=== PATIENT | male | born 1960 | race Caucasian/White ===

== ENCOUNTER 2017-09-30 21:06 | Emergency (ER) | payer MEDICARE ==
[~2017-09-30] VITALS: Ht 185.4 cm; Wt 133.4 kg
[~2017-09-30 21:06] MED LIST: AMITIZA24 MCG PO; AMITRIPTYLINE H25 MG PO; BENEFIBER1 EAC1 PO; BUMETANIDE1 MG PO; BYDUREON2 MG SC; CARVEDILOL3.125 MG PO; GABAPENTIN300 MG PO; GLIMEPIRIDE2 MG PO; GLYBURIDE-METF1 EACH PO; HYDROCHLOROTHIA25 MG PO; LISINOPRIL2.5 MG PO; LISINOPRIL40 MG PO; LORATADINE10 MG PO; MIRALAX17 GM PO; NEXIUM40 MG PO; PRAVASTATIN SOD20 MG PO; PRAVASTATIN SOD40 MG PO; WARFARIN SODIU7.5 MG PO; WARFARIN SODIUM10 MG PO
--- NOTE | 2017-09-30 22:39 | Diagnostic Imaging Report ---
EXAM: FOOT RIGHT COMPLETE, AP, lateral and oblique DATE: 09/30/2017 9:59 PM Time stamp on exam: 2209 hours INDICATION: Smashed foot, lateral side right foot pain COMPARISON: None FINDINGS: BONES: Acute minimally displaced fracture through the proximal fifth digit phalanx with likely distal intra-articular extension. Fracture of the base of the fifth digit distal phalanx. JOINTS: No malalignment. SOFT TISSUES: Normal IMPRESSION: Acute minimally displaced fracture of the fifth digit proximal and distal phalanx. Signed by: Dr. Debra Packer M.D. on 09/30/2017 10:36 PM
[2017-09-30 23:16] VITALS: BP 139/86
== END 2017-09-30 23:29 | disposition home or self-care (01) ==
LOC: ER 21:06
DX: S92.511A Displaced fracture of proximal phalanx of right lesser toe(s), initial encounter for closed fracture (principal); S92.531A Displaced fracture of distal phalanx of right lesser toe(s), initial encounter for closed fracture; S90.121A Contusion of right lesser toe(s) without damage to nail, initial encounter; Y92.008 Other place in unspecified non-institutional (private) residence as the place of occurrence of the external cause
CPT/HCPCS: 99284

== ENCOUNTER 2018-02-13 10:46 | Emergency (ER) | payer MEDICARE ==
[~2018-02-13] VITALS: Ht 185.4 cm; Wt 140.2 kg
--- OUTSIDE RECORDS SUMMARY | 2018-02-13 10:49 | XMS REPORT ---
Author Author [facility] Address Unknown Phone Unavailable Care Team Providers Care Colorist Photography Name Role Phone ZACKARY SCHOFIELD Unavailable Unavailable NICK SALCEDO Unavailable Unavailable Problems This patient has no known problems. Allergies, Adverse Reactions, Alerts This patient has no known allergies or adverse reactions. Medications This patient has no known medications. Results Test Description Test Time Test Comments Text Results Atomic Results Result Comments FOOT RIGHT COMPLETE [place] [address] Patient Name: BEN KRISHNAN MR #: [id number] : 1960 Age/Sex: 57/M Req #: [id number] Adm Physician: Ordered by: ZACKARY SCHOFIELD MD Report #: [id number] Location: ER Room/Bed: Procedure: [id number] [id number] DX/FOOT RIGHT COMPLETE Exam Date: 09/30/17 Exam Time: 2210 REPORT STATUS: Signed EXAM: FOOT RIGHT COMPLETE, AP, lateral and oblique DATE: 09/30/2017 9:59 PM Time stamp on exam: 2209 hours INDICATION: Smashed foot, lateral side right foot pain COMPARISON: None FINDINGS: BONES: Acute minimally displaced fracture through the proximal fifth digit phalanx with likely distal intra-articular extension. Fracture of the base of the fifth digit distal phalanx. JOINTS: No malalignment. SOFT TISSUES: Normal IMPRESSION: Acute minimally displaced fracture of the fifth digit proximal and distal phalanx. Signed by: Dr. Jaki Packer M.D. on 09/30/2017 10:36 PM Dictated By: JAKI PACKER MD 35 Transcribed By: MARILUZ on 09/30/172235 COPY TO: ZACKARY SCHOFIELD MD CT ABDOMEN/PELVIS WO [place] [address] Patient Name: BEN KRISHNAN MR #: [id number] : 1960 Age/Sex: 57/M Req #: [id number] Adm Physician: Ordered by: PITA RENTERIA Report #: [id number] Location: ER Room/Bed: Procedure: [id number] 0032 CT/CT ABDOMEN/PELVIS WO Exam Date: 07/04/17 Exam Time: 1935 REPORT STATUS: Signed EXAM: CT Abdomen and Pelvis WITHOUT contrast INDICATION: COMPARISON: CT dated 2015 TECHNIQUE: Abdomen and pelvis were scanned utilizing a multidetector helical scanner from the lung base to the pubic symphysis without administration of IV contrast. Absence of intravenous contrast decreases sensitivity for detection of focal lesions and vascular pathology. Coronal and sagittal reformations were obtained. Routine protocol was performed. IV CONTRAST: None ORAL CONTRAST: Water COMPLICATIONS : None RADIATION DOSE: Total DLP: 954.3 mGy*cm Estimated effective dose: (DLP x 0.015 x size factor) mSv CTDIvol has been reviewed. It is below the limits set by the Radiation Protocol Committee (RPC) . FINDINGS: LINES and TUBES: Partially imaged distal cardiac pacemaker lead. LOWER THORAX: Unremarkable HEPATOBILIARY: Stable hypodensity in the right lobe of the liver with peripheral calcifications. Otherwise, unenhanced liver is unremarkable. No biliary ductal dilation. GALLBLADDER: Surgically absent. SPLEEN: No splenomegaly. PANCREAS: No focal masses or ductal dilatation. ADRENALS: No adrenal nodules KIDNEYS/URETERS: Absent left kidney. Unenhanced right kidney is unremarkable. Mild nonspecific right perinephric fat stranding. No hydronephrosis. No calculus. GI TRACT: No abnormal distention, wall thickening, or evidence of bowel obstruction. Stool throughout the colon with possible rectal fecal impaction. Appendix is not visualized. No right lower quadrant inflammation. PELVIC ORGANS/BLADDER : Unremarkable. LYMPH NODES: No lymphadenopathy. VESSELS: Mild aortoiliac atherosclerotic disease. PERITONEUM / RETROPERITONEUM: No free air or fluid. BONES: Unremarkable. SOFT TISSUES: Unremarkable. IMPRESSION: 1. Constipation with possible rectal fecal impaction. 2. No acute inflammatory process in the abdomen/pelvis. No bowel obstruction. Signed by: Dr. Jay Ogden MD on 07/04/2017 8:36 PM Dictated By: JAY OGDEN MD 35 COPY TO: PITA RENTERIA CHEST 2 VIEWS [place] [address] Patient Name: BEN KRISHNAN MR #: [id number] : 1960 Age/Sex: 57/M Req #: [id number] Adm Physician: Ordered by: PITA RENTERIA Report #: [id number] Location: ER Room/Bed: Procedure: [id number] 0070 DX/CHEST 2 VIEWS Exam Date: 07/04/17 Exam Time : 1830 REPORT STATUS: Signed PROCEDURE: Frontal and lateral views of the chest. COMPARISON: Portable chest 12/05/2016. INDICATIONS: SEVERE CONSTIPATION FINDINGS: Lines/tubes: Left chest cardiac device with lead projecting over the expected region of the right ventricle. Lungs: No focal consolidation or parenchymal mass. Pleura: There is no pleural effusion or pneumothorax. Heart and mediastinum: The heart and the mediastinum are normal. Bones: No acute bony abnormality. Degenerative changes of the thoracic spine. IMPRESSION: No acute radiographic abnormality. Dictated by: Ben Godinez M.D. on 2016 at 18:54 Electronically approved by: Ben Godinez M.D. on 2016 at 18:54 Dictated By: BEN GODINEZ MD 53 Transcribed By: RADHA on 07/04/171853 COPY TO: PTIA RENTERIA
[2018-02-13] MEDS ORDERED: ASPIRIN 81 MG CHEW TAB PO ONE (11:00)
[2018-02-13] MEDS ORDERED: ALBUTEROL SULF 0.083% NEB SOLN 3 ML NEB NEB STA (11:09)
[2018-02-13] MEDS ORDERED: IPRATROPIUM BROMIDE 0.02% 2.5 ML NEB NEB STA (11:09)
[2018-02-13 11:23] LABS: BASOPHILS % 0.6 % (0.0-1.0); EOSINOPHILS # (AUTO) 0.1 (0.0-0.4); EOSINOPHILS % 0.7 % (0.0-6.0); HEMATOCRIT 41.3 % (38.2-49.6); HEMOGLOBIN 14.9 g/dL (14.0-18.0); LYMPHOCYTES # (AUTO) 1.5 (1.0-3.2); LYMPHOCYTES % 22.1 % (18.0-39.1); MEAN CORPUSCULAR HEMOGLOBIN 31.6 pg (28-32); MEAN CORPUSCULAR HGB CONC 36.1 g/dL (31-35); MEAN CORPUSCULAR VOLUME 87.7 fL (81-99); MONOCYTES # (AUTO) 0.8 (0.2-0.8); NEUTROPHILS # (AUTO) 4.5 (2.1-6.9); NEUTROPHILS % 65.2 % (38.7-80.0); PLATELET COUNT 195 x10e3/uL (140-360); RED BLOOD COUNT 4.71 x10e6/uL (4.3-5.7); RED CELL DISTRIBUTION WIDTH 13.2 % (11.7-14.4)
[2018-02-13 11:31] LABS: INR 2.45
[2018-02-13 11:32] LABS: PARTIAL THROMBOPLASTIN TIME 37.5 seconds (23.8-35.5)
[2018-02-13 11:42] LABS: ALANINE AMINOTRANSFERASE 21 IU/L (0-55); ALBUMIN 3.8 g/dL (3.5-5.0); ALBUMIN/GLOBULIN RATIO 1.4 (0.8-2.0); ALKALINE PHOSPHATASE 78 IU/L (40-150); ANION GAP 14.8 mmol/L (8-16); BLOOD UREA NITROGEN 17 mg/dL (7-26); BUN/CREATININE RATIO 14 (6-25); CALCIUM 9.4 mg/dL (8.4-10.2); CARBON DIOXIDE 28 mmol/L (22-29); CHLORIDE 103 mmol/L (98-107); CREATINE KINASE 99 IU/L (30-200); CREATININE, SERUM 1.22 mg/dL (0.72-1.25); EST GLOMERULAR FILTRATION RATE > 60 ML/MIN (60-); GLUCOSE 128 mg/dL (74-118); LIPASE 48 U/L (8-78); POTASSIUM 3.8 mmol/L (3.5-5.1); SODIUM 142 mmol/L (136-145)
--- NOTE | 2018-02-13 11:58 | Diagnostic Imaging Report ---
EXAMINATION: CHEST SINGLE (PORTABLE) INDICATION: \S\ERMD ORDER \S\[id number] \S\1120 \S\Y COMPARISON: Chest radiograph 07/04/2017 FINDINGS: AP view TUBES and LINES: Left chest wall ICD with lead tip overlying the right ventricle. LUNGS: Lungs are moderately inflated. Lungs are clear. There is no evidence of pneumonia or pulmonary edema. PLEURA: No pleural effusion or pneumothorax. HEART AND MEDIASTINUM: The cardiomediastinal silhouette is unremarkable. BONES AND SOFT TISSUES: No acute osseous lesion. Soft tissues are unremarkable. UPPER ABDOMEN: No free air under the diaphragm. IMPRESSION: No acute thoracic abnormality. Signed by: DR. Donavan Hwang MD on 02/13/2018 11:54 AM
[2018-02-13 12:18] LABS: BILIRUBIN,URINE NEGATIVE (NEGATIVE); CLARITY,URINE CLEAR (CLEAR); COLOR,URINE YELLOW (YELLOW); KETONES,URINE NEGATIVE (NEGATIVE); LEUKOCYTE ESTERASE ,URINE NEGATIVE (NEGATIVE); NITRITE,URINE NEGATIVE (NEGATIVE); PROTEIN,URINE DIPSTICK NEGATIVE (NEGATIVE); URINE UROBILINOGEN 1 mg/dL (0.2 - 1)
[2018-02-13 12:24] LABS: EPITHELIAL CELLS,URINE FEW /LPF; RBC,URINE 0-5 /HPF (0-5); WBC,URINE (MAN) 0-5 /HPF (0-5)
--- NOTE | 2018-02-13 13:08 | Diagnostic Imaging Report ---
EXAM: CT Chest WITH contrast 02/13/2018 11:18 AM INDICATION: \S\r/o pe \S\[id number] \S\1205 \S\Y COMPARISON: Chest CT 05/06/2000 and and 16 TECHNIQUE: Chest was scanned utilizing a multidetector helical scanner from the lung apex through the level of the adrenal glands without administration of IV contrast. Coronal and sagittal reformations were obtained. PE protocol was performed. IV CONTRAST: 100 mL of Omnipaque 300 COMPLICATIONS: None RADIATION DOSE: Total DLP: 624.6 mGy*cm Estimated effective dose: (DLP x 0.014 x size factor) mSv CTDIvol has been reviewed. It is below the limits set by the Radiation Protocol Committee (RPC). FINDINGS: LINES/ TUBES: Cardiac device with lead within the right ventricle. LUNGS AND AIRWAYS: No pulmonary embolus identified to the segmental level. Streak artifacts from dense contrast in the IVC partially limits evaluation. A linear area of low attenuation within a right lower lobe segmental pulmonary artery (series 2 image 49) likely secondary to streak artifact. No focal pulmonary consolidations. Stable right lower lobe scarring. Central airways are patent. Scattered few pulmonary nodules which include (on series 3): - Right upper lobe 3 mm pulmonary nodule (image 34). - Left apical 5 mm pulmonary nodule (image 8). - Left lower lobe 4 mm pulmonary nodule (image 60). Resolution of a left lower lobe 6 mm groundglass nodule (previously on image 37). PLEURA: The pleural spaces are clear. HEART AND MEDIASTINUM: The thyroid gland is normal. No mediastinal, hilar or axillary lymphadenopathy. Left ventricle appears severely dilated, stable. There is no pericardial effusion. Three-vessel coronary artery atherosclerotic calcifications, most prominent along the left anterior descending coronary artery. Main pulmonary artery measures 2.6 cm. UPPER ABDOMEN: No significant interval change in size of the previously noted 2.2 x 2.5 x 2.4 cm peripherally calcified centrally fluid attenuating lesion in hepatic segment 4A. Cholecystectomy. A stable 1.5 cm fat attenuating structure within the jejunum likely represents a lipoma. Reflux of contrast into the IVC and hepatic veins. BONES: The visualized bony thorax is within normal limits. SOFT TISSUES: Unremarkable. IMPRESSION: 1. No pulmonary embolus to the segmental level. 2. Stable severe dilation of the left ventricle with reflux of contrast into the IVC and hepatic veins which may suggest right heart dysfunction. 3. Stable pulmonary nodules measuring up to 5 mm. Signed by: DR. Donavan Hwang MD on 02/13/2018 1:05 PM
[2018-02-13] MEDS ORDERED: IOPAMIDOL 370 MG/ML 200 ML INFUS..BTL INJ ONE (13:27)
[2018-02-13] MEDS ORDERED: SODIUM CHLORIDE 0.9% 50ML 50 ML ONE (13:27)
[2018-02-13] MEDS ORDERED: FUROSEMIDE INJ 10 MG/ML 2 ML VIAL IV ONE (13:45)
== END 2018-02-13 14:51 | disposition home or self-care (01) ==
LOC: ER 10:46
DX: R06.09 Other forms of dyspnea (principal); I44.7 Left bundle-branch block, unspecified; E11.9 Type 2 diabetes mellitus without complications; I89.0 Lymphedema, not elsewhere classified; I50.9 Heart failure, unspecified; Z86.718 Personal history of other venous thrombosis and embolism; Z79.01 Long term (current) use of anticoagulants; Z95.810 Presence of automatic (implantable) cardiac defibrillator; Z79.84 Long term (current) use of oral hypoglycemic drugs
CPT/HCPCS: 93005; 99284; J1940; Q9967

== ENCOUNTER 2018-03-13 18:46 | Emergency (ER) | payer MEDICARE ==
[~2018-03-13] VITALS: Ht 185.4 cm; Wt 140.2 kg
[2018-03-13] MEDS ORDERED: ASPIRIN 81 MG CHEW TAB PO ONE (19:30)
[2018-03-13 19:49] LABS: BASOPHILS % 0.3 % (0.0-1.0); EOSINOPHILS # (AUTO) 0.1 (0.0-0.4); EOSINOPHILS % 0.8 % (0.0-6.0); HEMATOCRIT 43.1 % (38.2-49.6); HEMOGLOBIN 15.8 g/dL (14.0-18.0); LYMPHOCYTES % 27.7 % (18.0-39.1); MEAN CORPUSCULAR HEMOGLOBIN 31.9 pg (28-32); MEAN CORPUSCULAR HGB CONC 36.7 g/dL (31-35); MEAN CORPUSCULAR VOLUME 86.9 fL (81-99); MONOCYTES # (AUTO) 0.9 (0.2-0.8); MONOCYTES % 12.4 % (4.4-11.3); NEUTROPHILS # (AUTO) 4.2 (2.1-6.9); NEUTROPHILS % 58.5 % (38.7-80.0); PLATELET COUNT 194 x10e3/uL (140-360); RED BLOOD COUNT 4.96 x10e6/uL (4.3-5.7); RED CELL DISTRIBUTION WIDTH 13.1 % (11.7-14.4)
[2018-03-13 20:05] LABS: ALANINE AMINOTRANSFERASE 18 IU/L (0-55); ALBUMIN 3.8 g/dL (3.5-5.0); ALBUMIN/GLOBULIN RATIO 1.3 (0.8-2.0); ALKALINE PHOSPHATASE 84 IU/L (40-150); BLOOD UREA NITROGEN 18 mg/dL (7-26); BUN/CREATININE RATIO 12 (6-25); CALCIUM 9.4 mg/dL (8.4-10.2); CARBON DIOXIDE 29 mmol/L (22-29); CHLORIDE 101 mmol/L (98-107); CREATINE KINASE 52 IU/L (30-200); CREATININE, SERUM 1.48 mg/dL (0.72-1.25); EST GLOMERULAR FILTRATION RATE 49 ML/MIN (60-); GLUCOSE 106 mg/dL (74-118); SODIUM 142 mmol/L (136-145)
--- NOTE | 2018-03-13 20:54 | Diagnostic Imaging Report ---
EXAMINATION: CHEST 2 VIEWS INDICATION: \S\SOB \S\[id number] \S\8 \S\Y COMPARISON: Chest CT and x-ray dated 02/13/2018 FINDINGS: PA and lateral views TUBES and LINES: Stable single lead left chest wall cardiac device in place. LUNGS: Limited by body habitus and low lung volumes. No definite focal consolidation. PLEURA: No pleural effusion or pneumothorax. HEART AND MEDIASTINUM: The cardiomediastinal silhouette is unremarkable. BONES AND SOFT TISSUES: No acute osseous lesion. Soft tissues are unremarkable. UPPER ABDOMEN: No free air under the diaphragm. IMPRESSION: Limited as above. No definite acute thoracic abnormality. Signed by: Dr. Jay Huston MD on 03/13/2018 8:50 PM
--- OUTSIDE RECORDS SUMMARY | 2018-06-21 14:36 | XMS REPORT | Continuity of Care Document ---
Author Author [facility] Organization [facility] Address [address] [place] [address] Phone Unavailable Care Team Providers Care Plasterer Tender Name Role Phone KIMMIE GALVAN M.D. PCP Insurance Providers Guarantor Ben Maciel Address [address] [place] [address] Email PT DECLINED Payer [employer] Medicare Advantage Policy Number [id number] Subscriber's Name Ben Maciel Relationship 18 Self / Same As Patient Group Name RETIRED Effective Date 16 Advance Directives Directive Response Recorded Date/Time Does the patient have an advance directive? Yes 07/05/17 1:33am If yes, is advance directive on file with [facility]? No 07/05/17 1:33am If not on file with [facility] will patient provide a copy? Yes 09/30/17 11:35pm Do you have a Directive to Physician? No 02/13/18 2:38pm Do you have a Medical Power of Supervisor [place]? No 02/13/18 2:38pm Do you have an out of hospital Do Not Resuscitate Order? No 02/13/18 2:38pm Do you have any special needs we should be aware of? No 02/13/18 2:38pm Do you have a support person here with you today? Yes 02/13/18 2:38pm Did patient receive Notice of Privacy Practices? Yes 02/13/18 2:38pm Did patient receive patient rights and responsibilities? Yes 02/13/18 2:38pm Problems Medical Problem Onset Date Status Chest pain Unknown Fecal impaction Unknown Medications Current Home Medications Medication Dose Units Route Directions Days Qty Instructions Start Date Bumetanide 1 Mg Tablet 1 Mg Oral Daily 30 Tab Carvedilol 3.125 Mg Tablet 6.25 Mg Oral Twice A Day 60 Tab Esomeprazole Magnesium (Nexium) 40 Mg Capsule.dr 40 Mg Oral Before Breakfast 30 Days 06/25/16 Exenatide Microspheres (Bydureon) 2 Mg Vial 2 Mg Subcutaneously Glimepiride 2 Mg Tablet 4 Mg Oral Twice A Day Lisinopril 2.5 Mg Tablet 5 Mg Oral Daily 30 Tab Loratadine 10 Mg Tablet 10 Mg Oral Daily 30 Tab Polyethylene Glycol 3350 (Miralax) 17 Gm Powd.pack 34 Gm Oral Daily Pravastatin Sodium 40 Mg Tablet 40 Mg Oral Daily Warfarin Sodium 7.5 Mg Tablet 7.5 Mg Oral Wheat Dextrin (Benefiber) 1 Each Powd.pack 1 Udpkt Oral As Needed as needed for Constipation Past Home Medications Medication Directions Ordered Status Amitriptyline Hcl 25 Mg Tablet, 100 Mg Oral Daily At 1700 Discontinued Gabapentin 300 Mg Capsule, 2 Tab Oral Rt Daily Discontinued Glyburide/Metformin Hcl (Glyburide-Metformin 2.5-500 Mg) 1 Each Tablet, 2 Tab Oral Twice A Day Discontinued Hydrochlorothiazide 25 Mg Tablet, 1 Tab Oral Rt Daily Discontinued Lisinopril 40 Mg Tablet, 1 Tab Oral Rt Daily Discontinued Lubiprostone (Amitiza) 24 Mcg Capsule, 24 Mcg Oral Twice Daily Before Meals Discontinued Pravastatin Sodium 20 Mg Tablet, 1 Tab Oral Rt Daily Discontinued Warfarin Sodium 10 Mg Tablet, 1 Tab Oral Discontinued Family History Relationship Condition Age at Onset Recorded Date/Time 09 Brother FH: cancer 15's - 20 06/23/2016 11:14am 32 Mother FH: cancer 60 years & older 06/23/2016 11:14am 32 Mother Family history of diabetes mellitus Unknown 12/05/2016 11:25pm Social History Social History Problem Response Recorded Date/Time Onset Date Status Hx Psychiatric Problems No 07/05/2017 1:33am Not Applicable Not Applicable Hx Eating Disorder No 07/05/2017 1:33am Not Applicable Not Applicable Hx Substance Use Disorder No 07/05/2017 1:33am Not Applicable Not Applicable Hx Depression No 07/05/2017 1:33am Not Applicable Not Applicable Hx Alcohol Use No 07/05/2017 1:33am Not Applicable Not Applicable Hx Substance Use Treatment No 07/05/2017 1:33am Not Applicable Not Applicable Hx Physical Abuse No 07/05/2017 1:33am Not Applicable Not Applicable Smoking Status Start Date Stop Date Never Smoker Hospital Discharge Instructions No hospital discharge instruction information available. Plan of Care Discharge Date 02/13/18 2:51pm Disposition HOME, SELF-CARE Condition at Discharge Stable Instructions/Education Provided Dyspnea Forms Provided Work/School Excuse Prescriptions See Medication Section Referrals KIMMIE GALVAN M.D. Address: [address] [place] [phone] Additional Instructions/Education 1. follow up with your doctor [place] without fail 2. return to ed as needed 3. take medications as prescribed Functional Status No functional status information available. Allergies, Adverse Reactions, Alerts Allergen Type Severity Reaction Status Last Updated Penicillin Adverse Reaction Severe LOWER EXTREMITY SWELLING Active Codeine Adverse Reaction Intermediate FEET SWELL Active 06/23/16 Pregabalin Allergy Unknown Active 12/05/16 Immunizations No immunization information available. Vital Signs Acute Vital Signs Vital Response Date/Time Temperature (Fahrenheit) 98.0 degrees F (97.6 - 99.5) 09/30/2017 11:16pm Pulse Pulse Rate (adult) 89 bpm (60 - 90) 02/13/2018 11:29am Pulse Pulse Rate (adult) 89 bpm (60 - 90) 02/13/2018 11:29am Respiratory Rate 23 bpm (12 - 24) 02/13/2018 11:29am Blood Pressure 139/86 mm Hg 09/30/2017 11:16pm Height 6 ft 1 in 02/13/2018 10:49am Weight 309 lb 02/13/2018 10:49am Body Mass Index 40.8 kg/m^2 02/13/2018 10:49am Results Laboratory Results Test Name Result Units Flags Reference Collection Date/Time Result Date/ Time Comments White Blood Count 6.89 x10e3/uL 4.8-10.8 02/13/2018 11:1502/13/2018 11:24am Red Blood Count 4.71 x10e6/uL 4.3-5.7 02/13/2018 11:1502/13/2018 11: 24am Hemoglobin 14.9 g/dL 14.0-18.0 02/13/2018 11:1502/13/2018 11:24am Hematocrit 41.3 % 38.2-49.6 02/13/2018 11:02/13/2018 11:24am Mean Corpuscular Volume 87.7 fL 81-99 02/13/2018 11:02/13/2018 11: 24am Mean Corpuscular Hemoglobin 31.6 pg 28-32 02/13/2018 11:2017 11:24am Mean Corpuscular Hemoglobin Concent 36.1 g/dL H 31-35 02/13/2018 11:02/13/2018 11:24am Red Cell Distribution Width 13.2 % 11.7-14.4 02/13/2018 11:2017 11:24am Platelet Count 195 x10e3/uL 140-360 02/13/2018 11:02/13/2018 11: 24am Neutrophils (%) (Auto) 65.2 % 38.7-80.0 02/13/2018 11:02/13/2018 11:24am Lymphocytes (%) (Auto) 22.1 % 18.0-39.1 02/13/2018 11:02/13/2018 11:24am Monocytes (%) (Auto) 11.0 % 4.4-11.3 02/13/2018 11:02/13/2018 11: 24am Eosinophils (%) (Auto) 0.7 % 0.0-6.0 02/13/2018 11:02/13/2018 11: 24am Basophils (%) (Auto) 0.6 % 0.0-1.0 02/13/2018 11:02/13/2018 11: 24am IM GRANULOCYTES % 0.4 % 0.0-1.0 02/13/2018 11:02/13/2018 11:24am Neutrophils # (Auto) 4.5 2.1-6.9 02/13/2018 11:15am 02/13/2018 11: 24am Lymphocytes # (Auto) 1.5 1.0-3.2 02/13/2018 11:1502/13/2018 11: 24am Monocytes # (Auto) 0.8 0.2-0.8 02/13/2018 11:1502/13/2018 11:24am Eosinophils # (Auto) 0.1 0.0-0.4 02/13/2018 11:1502/13/2018 11: 24am Basophils # (Auto) 0.0 0.0-0.1 02/13/2018 11:1502/13/2018 11:24am Absolute Immature Granulocyte (auto 0.03 x10e3/uL 0-0.1 02/13/2018 11: 1502/13/2018 11:24am Prothrombin Time 25.0 seconds H 11.9-14.5 02/13/2018 11:1502/13/2018 11:35am Prothromb Time International Ratio 2.45 02/13/2018 11:152017 11:35am Oral Anticoagulant Therapy INR Values: 1. Low Intensity Therapy 1.5 - 2.0 2. Moderate Intensity Therapy 2.0 - 3.0 3. High Intensity Therapy(1) 2.5 - 3.5 4. High Intensity Therapy(2) 3.0 - 4.0 5. Panic Value INR > 5.0 Activated Partial Thromboplast Time 37.5 seconds H 23.8-35.5 02/13/2018 11:1502/13/2018 11:35am Urine Color YELLOW YELLOW 02/13/2018 10:5602/13/2018 12:18pm Urine Clarity CLEAR CLEAR 02/13/2018 10:56am 02/13/2018 12:18pm Urine Specific [place] 1.015 1.010-1.025 02/13/2018 10:562017 12:18pm Urine pH 7 5 - 7 02/13/2018 10:56am 02/13/2018 12:18pm Urine Leukocyte Esterase NEGATIVE NEGATIVE 02/13/2018 10:56am 2017 12:18pm Urine Nitrite NEGATIVE NEGATIVE 02/13/2018 10:5602/13/2018 12: 18pm Urine Protein NEGATIVE NEGATIVE 02/13/2018 10:5602/13/2018 12: 18pm Urine Glucose (UA) NEGATIVE NEGATIVE 02/13/2018 10:5602/13/2018 12 :18pm Urine Ketones NEGATIVE NEGATIVE 02/13/2018 10:5602/13/2018 12: 18pm Urine Urobilinogen 1 mg/dL 0.2 - 1 02/13/2018 10:56am 02/13/2018 12: 18pm Urine Bilirubin NEGATIVE NEGATIVE 02/13/2018 10:5602/13/2018 12: 18pm Urine Blood NEGATIVE NEGATIVE 02/13/2018 10:5602/13/2018 12:18pm Urine WBC 0-5 /HPF 0-5 02/13/2018 10:5602/13/2018 12:24pm Urine RBC 0-5 /HPF 0-5 02/13/2018 10:56am 02/13/2018 12:24pm Urine Bacteria NONE /HPF NONE 02/13/2018 10:5602/13/2018 12:24pm Urine Epithelial Cells FEW /LPF NONE 02/13/2018 10:56am 02/13/2018 12: 24pm Sodium Level 142 mmol/L 136-145 02/13/2018 11:1502/13/2018 11:43am Potassium Level 3.8 mmol/L 3.5-5.1 02/13/2018 11:1502/13/2018 11: 43am Chloride Level 103 mmol/L 98-107 02/13/2018 11:1502/13/2018 11:43am Carbon Dioxide Level 28 mmol/L -02/13/2018 11:1502/13/2018 11: 43am Anion Gap 14.8 mmol/L 8-16 02/13/2018 11:1502/13/2018 11:43am Blood Urea Nitrogen 17 mg/dL 7-02/13/2018 11:1502/13/2018 11: 43am Creatinine 1.22 mg/dL 0.72-1.25 02/13/2018 11:1502/13/2018 11:43am BUN/Creatinine Ratio 14 6-02/13/2018 11:1502/13/2018 11:43am Estimat Glomerular Filtration Rate > 60 ML/MIN 60- 02/13/2018 11:02/13/2018 11:43am Ranges were taken from the National Kidney Disease Education Program and the National Kidney Foundation literature. Reference ranges: 60 or greater: Normal 16-59 (for 3 consecutive months): Chronic kidney disease 15 or less: Kidney failure Glucose Level 128 mg/dL H 74-118 02/13/2018 11:02/13/2018 11:43am Calcium Level 9.4 mg/dL 8.4-10.2 02/13/2018 11:02/13/2018 11:43am Bedside Glucose 111 mg/dL 70-120 02/13/2018 1:54pm 02/13/2018 2:04pm Meter ID: [id number] Total Bilirubin 2.3 mg/dL H 0.2-1.2 02/13/2018 11:02/13/2018 11: 43am Aspartate Amino Transf (AST/SGOT) 20 IU/L 5-34 02/13/2018 11:02/13 11:43am Alanine Aminotransferase (ALT/SGPT) 21 IU/L 0-55 02/13/2018 11: 11:43am Total Protein 6.6 g/dL 6.5-8.1 02/13/2018 11:02/13/2018 11:43am Albumin 3.8 g/dL 3.5-5.0 02/13/2018 11:02/13/2018 11:43am Globulin 2.8 g/dL 2.3-3.5 02/13/2018 11:02/13/2018 11:43am Albumin/Globulin Ratio 1.4 0.8-2.0 02/13/2018 11:02/13/2018 11: 43am Alkaline Phosphatase 78 IU/L 40-150 02/13/2018 11:02/13/2018 11: 43am B-Type Natriuretic Peptide 156.2 pg/mL H 0-100 02/13/2018 11:2017 11:49am Creatine Kinase 99 IU/L 30-200 02/13/2018 11:02/13/2018 11:43am Creatine Kinase MB 1.70 ng/mL 0-5.0 02/13/2018 11:02/13/2018 11: 49am Troponin I 0.004 ng/mL 0-0.300 02/13/2018 11:15am 02/13/2018 11:49am Lipase 48 U/L 8-78 02/13/2018 11:15am 02/13/2018 11:43am Procedures Procedure Status Date Provider(s) X-ray of chest, two views Active 07/04/[address] of abdomen and pelvis without contrast Active 07/04/17 PITA RENTERIA Computed tomography of chest with contrast Active 02/13/18 JIM ALEJO MD Encounters Encounter Location Arrival/Admit Date Discharge/Depart Date Attending Provider Departed Emergency Room [facility] 02/13/18 10:46am 02/13 2:51pm JIM ALEJO MD Departed Emergency Room [facility] Patients [facility] 09/30/17 9:06pm 11:29pm ZACKARY SCHOFIELD MD [facility] 07/04/17 10:50pm 5:46pm PETROS RIVAS MD
== END 2018-03-13 22:47 | disposition home or self-care (01) ==
LOC: ER 18:46
DX: R06.00 Dyspnea, unspecified (principal); R51 Headache; I50.9 Heart failure, unspecified
CPT/HCPCS: 36415; 71046; 80053; 82550; 82553; 83880; 84484; 85025; 93005; 99284

== ENCOUNTER 2018-05-30 09:13 | Emergency (ER) | payer MEDICARE ==
[~2018-05-30] VITALS: Ht 185.4 cm; Wt 138.3 kg
[2018-05-30 10:04] VITALS: BP 113/77
== END 2018-05-30 10:05 | disposition home or self-care (01) ==
LOC: ER 09:13
DX: S81.802A Unspecified open wound, left lower leg, initial encounter (principal); I87.2 Venous insufficiency (chronic) (peripheral)
CPT/HCPCS: 99283

== ENCOUNTER 2018-08-05 17:51 | Emergency (ER) | payer MEDICARE ==
[~2018-08-05] VITALS: Ht 185.4 cm; Wt 138.3 kg
[2018-08-05 19:58] LABS: BASOPHILS % 0.4 % (0.0-1.0); EOSINOPHILS # (AUTO) 0.1 (0.0-0.4); EOSINOPHILS % 0.8 % (0.0-6.0); HEMATOCRIT 46.6 % (38.2-49.6); HEMOGLOBIN 16.3 g/dL (14.0-18.0); LYMPHOCYTES % 26.6 % (18.0-39.1); MEAN CORPUSCULAR HEMOGLOBIN 30.6 pg (28-32); MEAN CORPUSCULAR VOLUME 87.4 fL (81-99); MONOCYTES # (AUTO) 0.9 (0.2-0.8); MONOCYTES % 11.5 % (4.4-11.3); NEUTROPHILS # (AUTO) 4.6 (2.1-6.9); NEUTROPHILS % 60.4 % (38.7-80.0); PLATELET COUNT 181 x10e3/uL (140-360); RED BLOOD COUNT 5.33 x10e6/uL (4.3-5.7); RED CELL DISTRIBUTION WIDTH 13.2 % (11.7-14.4)
[2018-08-05 20:11] LABS: INR 2.49; PROTHROMBIN TIME 28.8 seconds (11.9-14.5)
[2018-08-05 20:12] LABS: PARTIAL THROMBOPLASTIN TIME 36.8 seconds (23.8-35.5)
[2018-08-05 20:20] LABS: ALANINE AMINOTRANSFERASE 13 IU/L (0-55); ALBUMIN 3.5 g/dL (3.5-5.0); ALBUMIN/GLOBULIN RATIO 1.5 (0.8-2.0); ALKALINE PHOSPHATASE 81 IU/L (40-150); ANION GAP 15.7 mmol/L (8-16); BLOOD UREA NITROGEN 16 mg/dL (7-26); BUN/CREATININE RATIO 14 (6-25); CALCIUM 8.5 mg/dL (8.4-10.2); CARBON DIOXIDE 26 mmol/L (22-29); CHLORIDE 102 mmol/L (98-107); CREATININE, SERUM 1.13 mg/dL (0.72-1.25); EST GLOMERULAR FILTRATION RATE > 60 ML/MIN (60-); GLUCOSE 206 mg/dL (74-118); POTASSIUM 3.7 mmol/L (3.5-5.1); SODIUM 140 mmol/L (136-145)
== END 2018-08-05 21:16 | disposition home or self-care (01) ==
LOC: ER 17:51
DX: M79.651 Pain in right thigh (principal); R60.9 Edema, unspecified; I80.8 Phlebitis and thrombophlebitis of other sites; I10 Essential (primary) hypertension; E11.65 Type 2 diabetes mellitus with hyperglycemia; I50.9 Heart failure, unspecified; I25.2 Old myocardial infarction; Z86.718 Personal history of other venous thrombosis and embolism
CPT/HCPCS: 36415; 80053; 85025; 85610; 85730; 93971; 99283

== ENCOUNTER 2019-01-29 08:55 | Inpatient (IN) | payer MEDICARE ==
[~2019-01-29] VITALS: Ht 185.4 cm; Wt 141.3 kg
[2019-01-29] MEDS ORDERED: PANTOPRAZOLE 40 MG 10ML VIAL IV NR (09:09)
[2019-01-29] MEDS ORDERED: SODIUM CHLORIDE 0.9% 1000ML 1,000 ML IV STA (09:09)
[2019-01-29 09:44] LABS: BASOPHILS % 0.3 % (0.0-1.0); EOSINOPHILS % 0.5 % (0.0-6.0); HEMOGLOBIN 15.2 g/dL (14.0-18.0); LYMPHOCYTES # (AUTO) 1.4 (1.0-3.2); LYMPHOCYTES % 17.4 % (18.0-39.1); MEAN CORPUSCULAR HEMOGLOBIN 32.3 pg (28-32); MEAN CORPUSCULAR HGB CONC 37.1 g/dL (31-35); MEAN CORPUSCULAR VOLUME 87.2 fL (81-99); MONOCYTES # (AUTO) 0.7 (0.2-0.8); MONOCYTES % 8.5 % (4.4-11.3); NEUTROPHILS # (AUTO) 5.8 (2.1-6.9); NEUTROPHILS % 72.9 % (38.7-80.0); PLATELET COUNT 192 x10e3/uL (140-360); RED CELL DISTRIBUTION WIDTH 13.2 % (11.7-14.4)
[2019-01-29 09:56] LABS: INR 2.01; PROTHROMBIN TIME 23.4 seconds (11.9-14.5)
[2019-01-29 09:57] LABS: PARTIAL THROMBOPLASTIN TIME 34.9 seconds (23.8-35.5)
[2019-01-29 10:03] LABS: ALBUMIN 3.8 g/dL (3.5-5.0); ALBUMIN/GLOBULIN RATIO 1.3 (0.8-2.0); ANION GAP 13.9 mmol/L (8-16); CALCIUM 9.7 mg/dL (8.4-10.2); CREATININE, SERUM 1.35 mg/dL (0.72-1.25); POTASSIUM 3.9 mmol/L (3.5-5.1)
[2019-01-29 10:15] LABS: CREATINE KINASE MB 0.6 ng/mL (0-5.0)
[2019-01-29] MEDS ORDERED: DEXTROSE 50% SYRINGE 50 ML IV PRN (10:15)
--- NOTE | 2019-01-29 10:32 | Diagnostic Imaging Report ---
EXAM: CHEST SINGLE (PORTABLE) DATE: 01/29/2019 9:11 AM INDICATION: ^Chest pain, look for CHF, enlarge Mediastinum ^[id number] ^0968 COMPARISON: Chest x-ray, 03/13/2018 FINDINGS: Lines and tubes: Stable appearance of implanted cardiac device on the left and transvenous lead position. Distal portion of the lead is obscured by underpenetration. Heart size normal. No focal pulmonary opacity, pleural effusion or pneumothorax. Upper abdomen unremarkable. No acute bony abnormality. IMPRESSION: No evidence for acute disease. Signed by: Dr. Damian Matthew M.D. on 01/29/2019 10:28 AM
[2019-01-29] MEDS ORDERED: INSULIN REGULAR, HUMAN 100 UNIT/1 ML 3ML VIAL SQ SCH (11:30)
[2019-01-29] MEDS: SODIUM CHLORIDE 0.9% 1000ML 1,000 ML IV SCH (12:14)
[2019-01-29] MEDS: ONDANSETRON HCL INJ 2MG/ML 2ML 2 MG/ML VIAL IV PRN ×3 (12:14→20:15)
[2019-01-29] MEDS ORDERED: ACETAMINOPHEN 325 MG TAB PO PRN (12:30)
[2019-01-29] MEDS ORDERED: SPIRONOLACTONE25 MG PO (13:11)
[2019-01-29] MEDS ORDERED: WARFARIN SODIUM3 MG PO (13:11)
--- NOTE | 2019-01-29 13:15 | NUR ---
PATIENT ARRIVED TO THE UNIT PER STRETCHER FROM THE ER. PATIENT IS AWAKE, ALERT, AND IN STABLE CONDITION WITH NO S/S OF RESPIRATORY DISTRESS. NO PAIN VOICED. PATIENT C/O OF NAUSEA. PRESENT IN ROOM. IV FLUIDS INFUSING. TELEMETRY APPLIED. CALL LIGHT IS WITHIN REACH, PATIENT INFORMED TO CALL FOR ASSISTANCE NEEDED. PATIENT REFUSED BED ALARM.
--- NOTE | 2019-01-29 13:16 | NUR ---
PATIENT DENIES HAVING ANY LOOSE BOWEL MOVEMENTS IN THE LAST 24-48 HOURS.
[2019-01-29 13:20] VITALS: BP 103/70
[2019-01-29 13:28] VITALS: BP 103/70
[2019-01-29 13:36] VITALS: BP 103/70
[2019-01-29] MEDS ORDERED: MIDAZOLAM HCL 2 MG/2 ML VIAL ONE (14:20)
[2019-01-29] MEDS ORDERED: FENTANYL CITRATE/PF 100MCG/2 ML INJ ONE (14:20)
--- NOTE | 2019-01-29 14:25 | NUR ---
SPOKE WITH DR. HUNTER REGARDING PATIENT'S HOME MEDICATIONS. DR. HUNTER STATED NO HOME MEDICATION CONTINUATION AT THIS TIME- WE WILL CONTINUE TO ASSESS THE PATIENT. ORDER FOR TROPONIN FOR TOMORROW MORNING.
[2019-01-29 16:17] VITALS: BP 136/72
[2019-01-29 16:26] VITALS: BP 118/67
[2019-01-29] MEDS: INSULIN LISPRO 100 UNIT/1 ML 3ML VIAL SQ SCH ×2 (16:29→20:56)
[2019-01-29] MEDS: PANTOPRAZOLE 40 MG 10ML VIAL IV SCH (16:29)
--- NOTE | 2019-01-29 19:00 | NUR ---
Report and rounds completed. Patient in bed watching TV. No issues or concerns at this time. Call light within reach. Will continue to monitor.
--- NOTE | 2019-01-29 19:14 | NUR ---
PATIENT IS IN STABLE CONDITION WITH NO S/S OF RESPIRATORY DISTRESS. PATIENT DENIES PAIN AT THIS TIME. TELEMETRY APPLIED. IV FLUIDS INFUSING. PATIENT'S CALL LIGHT IS WITHIN REACH , PATIENT INSTRUCTED TO CALL FOR ASSISTANCE NEEDED. BEDSIDE REPORT GIVEN TO ONCOMING NURSE.
[2019-01-29 20:00] VITALS: BP 106/65
[2019-01-29] MEDS: SUCRALFATE 1 GM/10 ML SUSP NG SCH (23:10)
[2019-01-30] VITALS (7 sets, daily range): BP systolic 110–131; BP diastolic 66–75
--- NOTE | 2019-01-30 | NUR ---
Education provided to have nothing to eat or drink for procedure tomorrow. Patient verbalized understanding.
[2019-01-30] MEDS: ACETAMINOPHEN 1000 MG/100 ML IV PRN ×2 (02:06→09:30)
[2019-01-30] MEDS: SODIUM CHLORIDE 0.9% 1000ML 1,000 ML IV SCH (02:06)
[2019-01-30] MEDS: ONDANSETRON HCL INJ 2MG/ML 2ML 2 MG/ML VIAL IV PRN (05:15)
[2019-01-30 05:54] LABS: BASOPHILS % 0.4 % (0.0-1.0); EOSINOPHILS # (AUTO) 0.1 (0.0-0.4); EOSINOPHILS % 1.5 % (0.0-6.0); HEMATOCRIT 37.2 % (38.2-49.6); HEMOGLOBIN 13.3 g/dL (14.0-18.0); LYMPHOCYTES % 28.2 % (18.0-39.1); MEAN CORPUSCULAR HEMOGLOBIN 31.9 pg (28-32); MEAN CORPUSCULAR HGB CONC 35.8 g/dL (31-35); MEAN CORPUSCULAR VOLUME 89.2 fL (81-99); MONOCYTES # (AUTO) 0.9 (0.2-0.8); MONOCYTES % 12.2 % (4.4-11.3); NEUTROPHILS # (AUTO) 4.1 (2.1-6.9); NEUTROPHILS % 57.4 % (38.7-80.0); PLATELET COUNT 171 x10e3/uL (140-360); RED BLOOD COUNT 4.17 x10e6/uL (4.3-5.7); RED CELL DISTRIBUTION WIDTH 13.3 % (11.7-14.4)
[2019-01-30 06:00] LABS: INR 1.92; PROTHROMBIN TIME 22.6 seconds (11.9-14.5)
--- NOTE | 2019-01-30 06:00 | NUR ---
Patient in bed on tablet. No issues or concerns.Call light within reach. Will continue to monitor.
[2019-01-30 06:01] LABS: PARTIAL THROMBOPLASTIN TIME 37.2 seconds (23.8-35.5)
[2019-01-30 06:44] LABS: ALBUMIN 3.2 g/dL (3.5-5.0)
[2019-01-30 07:15] LABS: ANION GAP 11.9 mmol/L (8-16); CALCIUM 9.2 mg/dL (8.4-10.2); CREATININE, SERUM 1.24 mg/dL (0.72-1.25); POTASSIUM 3.9 mmol/L (3.5-5.1)
[2019-01-30] MEDS: SUCRALFATE 1 GM/10 ML SUSP NG SCH ×4 (07:30→20:45)
[2019-01-30] MEDS: INSULIN LISPRO 100 UNIT/1 ML 3ML VIAL SQ SCH ×4 (07:30→20:45)
--- NOTE | 2019-01-30 07:30 | NUR ---
Patient is awake and alert x3, NPO for EGD. POC discussed. Patient instructed to call for assistance as needed and verbalized understanding.
[2019-01-30] MEDS: PANTOPRAZOLE 40 MG 10ML VIAL IV SCH ×2 (08:16→17:55)
[2019-01-30] MEDS ORDERED: PROTAMINE SULFATE 10 MG/ML 5 ML VIAL IV ONE (09:00)
[2019-01-30] MEDS ORDERED: PHYTONADIONE 10 MG/ML AMP IV ONE (10:15)
[2019-01-30] MEDS ORDERED: PHYTONADIONE 10MG/ML 10 MG in SODIUM CHLORIDE 0.9% 50ML 50 ML IV ONE (11:00)
--- NOTE | 2019-01-30 13:00 | NUR ---
Patient off unit to ENDO
--- NOTE | 2019-01-30 13:55 | NUR ---
Visit made by the Spiritual Care Department Pastoral Visitor, Yoli Angulo. Pt out of room and no family at bedside. A card was left at the bedside to indicate a missed visit from a member of the Spiritual Care team and to inform the pt and family of the availability of a Electric Razor Assembler 24 hours a day/7 days a week. A code machine operator will follow up as able. HENRI LOPES Electric Razor Assembler Spiritual Care Department O: [phone] Pager: [phone] ([phone] number calling from)
[2019-01-30] MEDS ORDERED: PEG (High)/E-LYTE SOLN 4,000 ML BTL PO ONE (14:15)
--- NOTE | 2019-01-30 14:50 | NUR ---
Patient returned from ENDO, fully awake and alert. Vital signs stable. call armstrogn within reach.
--- NOTE | 2019-01-30 17:53 | Operative Report ---
DATE OF PROCEDURE: 01/30/2019 SURGEON: Jason Duncan MD PROCEDURE: Esophagogastroduodenoscopy with biopsies. INDICATIONS FOR EGD: Upper abdominal pain, bloating, melena. MEDICATIONS: The patient was done under MAC, please see anesthesiologist's note. PROCEDURE IN DETAIL: With the patient in left lateral decubitus position, a flexible fiberoptic Olympus gastroscope was introduced into the esophagus under direct visualization without any difficulty. There was some patchy erythema noted in distal esophagus. The scope was then advanced with ease into the stomach and mucosa overlying the antrum and the body revealed some patchy intense erythema and moderate edema and biopsies were obtained and sent to stain for H pylori. A minute whitish nodule was noted in the midbody of the stomach along the greater curvature and that was partially excised with the cold biopsy forceps. The pylorus was intubated with ease and the scope was advanced all the way to the second portion of the duodenum. Mucosa overlying the proximal second portion and the duodenal bulb appeared to be within normal limits. The scope was then withdrawn back into the stomach and retroflexed and mucosa overlying the fundus and the cardia appeared to be within normal limits. The scope was then straightened out, it was subsequently withdrawn. The patient tolerated procedure well. IMPRESSION: 1. Distal esophagitis. 2. Gastritis, biopsied, biopsies sent to stain for H pylori. 3. Minute nodule, midbody greater curvature, biopsied. PLAN: Follow up histology. Initiate Protonix 40 mg one p.o. a.c. b.i.d. Findings do not necessarily explain the patient's melena or anemia. The patient will need a colonoscopy. Jason Duncan MD [facility] [place] /[id number] cc: MD Naomi Rincon MD
[2019-01-30] MEDS ORDERED: PROPOFOL IV EMULSION 10 MG/ML 20 ML VIAL ONE (18:07)
[2019-01-30] MEDS ORDERED: LIDOCAINE HCL 2% LOCAL INJ 5 ML SDV VIAL INJ ONE (18:07)
--- NOTE | 2019-01-30 18:45 | NUR ---
Patient resting in bed, encouraged to drink Golyletly. Call armstrong within reach.
--- NOTE | 2019-01-30 19:00 | NUR ---
Report and rounds completed. at bedside. Encourage patient to drink golytely prep. Call light within reach. Will continue to monitor.
--- NOTE | 2019-01-30 20:00 | NUR ---
Encourage patient to drink golytely prep. Call light within reach. Will continue to monitor.
--- NOTE | 2019-01-30 21:10 | NUR ---
Encourage patient to drink golytely prep. Call light within reach. Will continue to monitor.
--- NOTE | 2019-01-30 22:00 | NUR ---
Encourage patient to drink golytely prep. Patiet up to bedside chair, working on prep. Call light within reach. Will continue to monitor.
--- NOTE | 2019-01-30 23:00 | NUR ---
Encourage patient to drink golytely prep. Patient stating " I cant drink any more right now, I feel so full." Education provided on importance of bowel prep for colonoscopy. Verbalized understanding, will try in a little bit. Call light within reach. Will continue to monitor.
--- NOTE | 2019-01-30 23:25 | NUR ---
Encourage patient to drink golytely prep. Patient reports that does not think that can finish prep. Informed patient that would call to speak to MD about prep snf what time needing to be NPO. Call light within reach. Will continue to monitor.
--- NOTE | 2019-01-30 23:28 | NUR ---
Notified Dr Dipesh Duncan patient reporting that does not think can finish golytely. About 1L left, been encouraging every hour to drink prep. Patient reporting that feeling full and stomach hurting. Patient last BM yellow with brown stool. New orders: Stop golytely prep, dulcolax 20 mg po x1 now then dulcolax 20 mg every 30 minutes x2 more doses for total of 3 times po. Have patient drink lots of water and NPO at 0600.
[2019-01-30] MEDS ORDERED: BISACODYL 5 MG TAB EC PO ONE (23:30)
[2019-01-31] VITALS: BP 147/83
[2019-01-31] MEDS ORDERED: BISACODYL 5 MG TAB EC PO ONE ×2 (00:30)
[2019-01-31 04:00] VITALS: BP 120/66
[2019-01-31] MEDS: SODIUM CHLORIDE 0.9% 1000ML 1,000 ML IV SCH (05:00)
--- NOTE | 2019-01-31 05:55 | NUR ---
Called to room by patient. BM noted in toilet: clear with yellow particle. Educated patient that now nothing to eat or drink until cleared by MD after colonoscopy. Verbalized understanding. Patient in bedside chair. Call light within reach. Will continue to monitor.
--- NOTE | 2019-01-31 05:59 | NUR ---
Patient in bed resting, eyes closed, resp even and unlabored. Call light within reach. Will continue to monitor.
[2019-01-31] MEDS: INSULIN LISPRO 100 UNIT/1 ML 3ML VIAL SQ SCH ×2 (07:30→11:30)
[2019-01-31] MEDS: SUCRALFATE 1 GM/10 ML SUSP NG SCH ×2 (07:30→14:46)
[2019-01-31 07:41] VITALS: BP 113/63
[2019-01-31] MEDS: PANTOPRAZOLE 40 MG 10ML VIAL IV SCH (08:28)
[2019-01-31 08:36] VITALS: BP 113/63
[2019-01-31 15:32] VITALS: BP 104/81
--- NOTE | 2019-01-31 15:38 | Operative Report ---
DATE OF PROCEDURE: 01/31/2019 SURGEON: Jason Duncan MD PROCEDURE: Colonoscopy and polypectomy with biopsies. INDICATIONS FOR COLONOSCOPY: History of melena, anemia, colon polyps. EGD findings did not necessarily explain the patient's anemia. MEDICATIONS: The patient was done under MAC, please see anesthesiologist's note. PROCEDURE IN DETAIL: With the patient in left lateral decubitus position, a flexible fiberoptic Olympus colonoscope was inserted into the rectum with ease and advanced all the way to the cecum. One minute polyp was hot biopsied and polypectomy site was hemoclipped in the cecum. The ascending colon appeared to be within normal limits. Four polyps were snared from the transverse colon. Mild patchy inflammatory changes were noted in the left colon and random biopsies were obtained. Similar inflammatory findings were noted in the rectum and biopsies were obtained. The scope was then retroflexed into the distal rectum and small internal hemorrhoids were noted, none of which was actively bleeding. The scope was then straightened out, it was subsequently withdrawn. The patient tolerated procedure well. IMPRESSION: 1. Cecal polyp hot biopsied, site hemoclipped. 2. Transverse colon polyps x4, snared. 3. Mild patchy left-sided colitis. 4. Internal hemorrhoids, none actively bleeding. PLAN: Follow up histology. The patient might benefit from a followup colonoscopy in 3 years. Might need a small bowel series to complete workup. Jason Duncan MD [facility] [place] /[id number] cc: Naomi Murillo MD
[2019-01-31] MEDS ORDERED: KETAMINE HCL INJ 50 MG/ML 10 ML VIAL ONE (17:54)
[2019-01-31] MEDS ORDERED: MIDAZOLAM HCL 2 MG/2 ML VIAL ONE (17:54)
[2019-01-31] MEDS ORDERED: LIDOCAINE HCL 2% LOCAL INJ 5 ML SDV VIAL INJ ONE (18:25)
[2019-01-31] MEDS ORDERED: PROPOFOL IV EMULSION 10 MG/ML 50 ML VIAL ONE (18:25)
== END 2019-01-31 16:10 | disposition home or self-care (01) | DRG 378 ==
LOC: ER 08:55 → ERHOLD 10:59 → IMCU 13:05
PROVIDERS: ADMIT Internal Medicine; ATTEND Internal Medicine
PROC: 0DB78ZX Excision of Stomach, Pylorus, Via Natural or Artificial Opening Endoscopic, Diagnostic (ICD-10-PCS; principal; 2019-01-30 13:41)
PROC: 0DBG8ZX Excision of Left Large Intestine, Via Natural or Artificial Opening Endoscopic, Diagnostic (ICD-10-PCS; 2019-01-31)
PROC: 0DBE8ZX Excision of Large Intestine, Via Natural or Artificial Opening Endoscopic, Diagnostic (ICD-10-PCS; 2019-01-31)
PROC: 0DBP8ZX Excision of Rectum, Via Natural or Artificial Opening Endoscopic, Diagnostic (ICD-10-PCS; 2019-01-31)
PROC: 0DBH8ZX Excision of Cecum, Via Natural or Artificial Opening Endoscopic, Diagnostic (ICD-10-PCS; 2019-01-31 12:26)
PROC: 0DBL8ZX Excision of Transverse Colon, Via Natural or Artificial Opening Endoscopic, Diagnostic (ICD-10-PCS; 2019-01-31 12:26)
DX: K92.2 Gastrointestinal hemorrhage, unspecified (principal); Z68.41 Body mass index [BMI] 40.0-44.9, adult; K63.5 Polyp of colon; E66.01 Morbid (severe) obesity due to excess calories; Z95.810 Presence of automatic (implantable) cardiac defibrillator; E11.9 Type 2 diabetes mellitus without complications; D12.3 Benign neoplasm of transverse colon; K64.8 Other hemorrhoids
CPT/HCPCS: 36415; 43239; 45380; 45384; 45385; 71045; 80048; 80053; 80076; 82150; 82270; 82550; 82553; 82948; 83690; 83735; 84484; 85025; 85610; 85730; 86850; 86900; 88305; 88312; 93005; 99284; J2001; J2250; J2405; J2720; J3430; J7030

== ENCOUNTER 2019-06-02 17:41 | Emergency (ER) | payer MEDICARE ==
[~2019-06-02] VITALS: Ht 185.4 cm; Wt 141.1 kg
[~2019-06-02 17:41] MED LIST changes: +SPIRONOLACTONE25 MG PO; +WARFARIN SODIUM3 MG PO
--- NOTE | 2019-06-02 18:21 | NUR ---
NOTIFIED DIVIDER OPERATOR TO PAGE ULTRASOUND FOR VENOUS DOPPLER.
--- NOTE | 2019-06-02 18:35 | NUR ---
PATIENT TO ROOM 6
--- NOTE | 2019-06-02 19:00 | NUR ---
BEDSIDE REPORT TO YOSVANY Jung
[2019-06-02 21:24] VITALS: BP 110/65
== END 2019-06-02 21:25 | disposition home or self-care (01) ==
LOC: ER 17:41
DX: M79.662 Pain in left lower leg (principal); I87.2 Venous insufficiency (chronic) (peripheral); Z88.5 Allergy status to narcotic agent; Z88.0 Allergy status to penicillin
CPT/HCPCS: 93971; 99283

== ENCOUNTER 2020-01-26 16:05 | Observation (INO) | payer MEDICARE ==
[~2020-01-26] VITALS: Ht 185.4 cm; Wt 141.1 kg
[2020-01-26] MEDS ORDERED: PANTOPRAZOLE 40 MG 10ML VIAL IV STA (16:24)
[2020-01-26] MEDS ORDERED: ONDANSETRON HCL INJ 2MG/ML 2ML 2 MG/ML VIAL IV STA (16:24)
[2020-01-26] MEDS ORDERED: SODIUM CHLORIDE 0.9% 500ML 500 ML IV ONE (16:30)
--- NOTE | 2020-01-26 16:30 | NUR ---
PATIENT TO ROOM 5
[2020-01-26 16:45] LABS: BASOPHILS % 0.5 % (0.0-1.0); EOSINOPHILS % 0.5 % (0.0-6.0); HEMATOCRIT 43.6 % (38.2-49.6); HEMOGLOBIN 14.7 g/dL (14.0-18.0); LYMPHOCYTES # (AUTO) 1.9 (1.0-3.2); LYMPHOCYTES % 25.7 % (18.0-39.1); MEAN CORPUSCULAR HEMOGLOBIN 31.3 pg (28-32); MEAN CORPUSCULAR HGB CONC 33.7 g/dL (31-35); MEAN CORPUSCULAR VOLUME 92.8 fL (81-99); MONOCYTES # (AUTO) 0.8 (0.2-0.8); NEUTROPHILS # (AUTO) 4.7 (2.1-6.9); PLATELET COUNT 205 x10e3/uL (140-360); RED CELL DISTRIBUTION WIDTH 13.3 % (11.7-14.4)
[2020-01-26 16:53] LABS: BILIRUBIN,URINE NEGATIVE (NEGATIVE); CLARITY,URINE HAZY (CLEAR); COLOR,URINE YELLOW (YELLOW); KETONES,URINE NEGATIVE (NEGATIVE); LEUKOCYTE ESTERASE ,URINE NEGATIVE (NEGATIVE); NITRITE,URINE NEGATIVE (NEGATIVE); PROTEIN,URINE DIPSTICK NEGATIVE (NEGATIVE); URINE UROBILINOGEN 1 mg/dL (0.2 - 1)
[2020-01-26 16:54] LABS: BACTERIA,URINE FEW /HPF; EPITHELIAL CELLS,URINE FEW /LPF; RBC,URINE 0-5 /HPF (0-5); WBC,URINE (MAN) 0-5 /HPF (0-5)
[2020-01-26 16:57] LABS: INR 2.27; PROTHROMBIN TIME 26.7 seconds (11.9-14.5)
[2020-01-26 16:58] LABS: PARTIAL THROMBOPLASTIN TIME 37.3 seconds (23.8-35.5)
[2020-01-26 17:05] LABS: CHOL/HDL RATIO 3.4 (3.9-4.7)
[2020-01-26 17:09] LABS: ALBUMIN 3.9 g/dL (3.5-5.0); ALBUMIN/GLOBULIN RATIO 1.3 (0.8-2.0); ANION GAP 17.3 mmol/L (8-16); CALCIUM 9.8 mg/dL (8.4-10.2); CREATININE, SERUM 1.76 mg/dL (0.72-1.25); MAGNESIUM 1.7 MG/DL (1.3-2.1); POTASSIUM 4.3 mmol/L (3.5-5.1)
[2020-01-26 17:16] LABS: CREATINE KINASE MB 1.7 ng/mL (0-5.0)
[2020-01-26] MEDS ORDERED: GABAPENTIN600 MG PO (17:30)
[2020-01-26] MEDS ORDERED: CLOPIDOGREL75 MG PO (17:33)
[2020-01-26] MEDS ORDERED: NOVOLIN N100 UNIT/1 SQ (17:33)
[2020-01-26] MEDS ORDERED: FOLBEE TABLET1 EACH PO (17:33)
[2020-01-26] MEDS ORDERED: ACETAMINOPHEN 325 MG TAB PO ONE (17:45)
--- NOTE | 2020-01-26 17:57 | Diagnostic Imaging Report ---
EXAMINATION: CHEST SINGLE (PORTABLE) INDICATION: ^n/v, cp ^[id number] ^[id number] COMPARISON: 01/29/2019 FINDINGS: AP view TUBES and LINES: Stable single lead left chest wall cardiac device. LUNGS: Low lung volumes and body habitus. No definite focal consolidation. Mild central vascular congestion, accentuated by low lung volumes. PLEURA: No significant pleural effusion or pneumothorax. HEART AND MEDIASTINUM: The cardiomediastinal silhouette is mildly prominent, accentuated by low lung volumes.. BONES AND SOFT TISSUES: No acute osseous lesion. Soft tissues are unremarkable. UPPER ABDOMEN: No free air under the diaphragm. IMPRESSION: Limited as above. No definite focal consolidation. Mild central vascular congestion, accentuated by low lung volumes. Signed by: Dr. Jay Huston MD on 01/26/2020 5:53 PM
[2020-01-26] MEDS ORDERED: LIDOCAINE VISC 2% SOLN 15 ML UDC PO ONE (18:15)
[2020-01-26] MEDS ORDERED: DEXTROSE 50% SYRINGE 50 ML IV PRN (18:15)
[2020-01-26] MEDS ORDERED: BELLADONNA ALK/PHENOBARBITAL 5 ML UDC PO ONE (18:15)
[2020-01-26] MEDS ORDERED: MAGNESIUM/ALUMINUM/SIMETHICONE 30 ML UDC PO ONE (18:15)
[2020-01-26] MEDS ORDERED: NITROGLYCERIN 0.4 MG SUBL SL PRN (18:15)
[2020-01-26 20:00] VITALS: BP 117/61
[2020-01-26] MEDS: INSULIN LISPRO 100 UNIT/1 ML 3ML VIAL SQ SCH (20:48)
[2020-01-26] MEDS: FAMOTIDINE 20 MG/2 ML VIAL IV SCH (21:13)
[2020-01-26 22:03] VITALS: BP 117/61
[2020-01-26] MEDS ORDERED: WARFARIN SODIU7.5 MG PO (22:57)
[2020-01-27] VITALS (8 sets, daily range): BP systolic 102–147; BP diastolic 57–86
[2020-01-27] MEDS: ONDANSETRON HCL INJ 2MG/ML 2ML 2 MG/ML VIAL IV PRN ×2 (00:39→07:48)
[2020-01-27 00:57] LABS: CREATINE KINASE MB 1.3 ng/mL (0-5.0)
[2020-01-27 06:39] LABS: BASOPHILS % 0.4 % (0.0-1.0); EOSINOPHILS # (AUTO) 0.1 (0.0-0.4); EOSINOPHILS % 0.8 % (0.0-6.0); HEMATOCRIT 40.1 % (38.2-49.6); HEMOGLOBIN 13.6 g/dL (14.0-18.0); LYMPHOCYTES % 28.6 % (18.0-39.1); MEAN CORPUSCULAR HEMOGLOBIN 31.8 pg (28-32); MEAN CORPUSCULAR HGB CONC 33.9 g/dL (31-35); MEAN CORPUSCULAR VOLUME 93.7 fL (81-99); MONOCYTES # (AUTO) 0.8 (0.2-0.8); MONOCYTES % 11.2 % (4.4-11.3); NEUTROPHILS # (AUTO) 4.2 (2.1-6.9); NEUTROPHILS % 58.9 % (38.7-80.0); PLATELET COUNT 176 x10e3/uL (140-360); RED BLOOD COUNT 4.28 x10e6/uL (4.3-5.7); RED CELL DISTRIBUTION WIDTH 13.4 % (11.7-14.4)
[2020-01-27 06:57] LABS: ALBUMIN 3.5 g/dL (3.5-5.0); ALBUMIN/GLOBULIN RATIO 1.3 (0.8-2.0); ANION GAP 12.3 mmol/L (8-16); CREATININE, SERUM 1.64 mg/dL (0.72-1.25); POTASSIUM 4.3 mmol/L (3.5-5.1)
[2020-01-27] MEDS: INSULIN LISPRO 100 UNIT/1 ML 3ML VIAL SQ SCH ×4 (07:30→21:00)
[2020-01-27 07:32] LABS: CREATINE KINASE MB 1.4 ng/mL (0-5.0)
[2020-01-27] MEDS: FAMOTIDINE 20 MG/2 ML VIAL IV SCH (07:47)
--- NOTE | 2020-01-27 10:35 | Diagnostic Imaging Report ---
Exam: Abdominal film Clinical History: Nausea Comparison: None. DISCUSSION: Nonobstructive bowel gas pattern. Right upper quadrant clips. No abnormal calcifications. IMPRESSION: Nonobstructive bowel gas pattern. Signed by: Dr. Morgan Myers M.D. on 01/27/2020 10:31 AM
[2020-01-27] MEDS ORDERED: PROMETHAZINE 12.5MG/ NACL 0.9% 12.5 MG/50 ML BAG IV PRN (11:30)
[2020-01-27] MEDS ORDERED: SODIUM CHLORIDE 0.9% 100 ML ONE (12:16)
[2020-01-27] MEDS: PANTOPRAZOLE SOD 40 MG TABEC PO SCH ×2 (12:25→16:37)
[2020-01-27 12:50] LABS: CREATINE KINASE MB 1.4 ng/mL (0-5.0)
--- NOTE | 2020-01-27 13:08 | Diagnostic Imaging Report ---
EXAMINATION: CT of the abdomen and pelvis without contrast. TECHNIQUE: Helical CT images of the abdomen and pelvis were performed from the lung bases to the lesser trochanters. No intravenous contrast was given per renal stone protocol. Coronal and sagittal reformatted images were obtained. Dose modulation, iterative reconstruction, and/or weight based adjustment of the mA/kV was utilized to reduce the radiation dose to as low as reasonably achievable. COMPARISON: None. CLINICAL HISTORY:Nausea DISCUSSION: ABSENCE OF INTRAVENOUS CONTRAST DECREASES SENSITIVITY FOR DETECTION OF FOCAL LESIONS AND VASCULAR PATHOLOGY. ABDOMEN/PELVIS: LOWER THORAX: Unremarkable. HEPATOBILIARY:Peripherally calcified cyst in the dome of the liver. Cholecystectomy. SPLEEN: No splenomegaly. PANCREAS: No focal masses or ductal dilatation. ADRENALS: No adrenal nodules. KIDNEYS/URETERS: Right kidney is unremarkable. No obstruction or stone. Left kidney is absent. PELVIC ORGANS/BLADDER: The bladder is normal. PERITONEUM/RETROPERITONEUM: No free air or fluid. LYMPH NODES: No intra-abdominal,retroperitoneal, pelvic or inguinal lymphadenopathy. VESSELS: Unremarkable. GI TRACT: No distention or wall thickening. BONES AND SOFT TISSUES: No bony destructive lesions. No soft tissue abnormalities. IMPRESSION: No acute CT finding. Signed by: Dr. Morgan Myers M.D. on 01/27/2020 1:04 PM
[2020-01-27] MEDS: MORPHINE SULFATE 2 MG/ML SYR 1ML IV PRN ×3 (13:59→23:54)
[2020-01-27] MEDS ORDERED: GABAPENTIN 300 MG CAP PO SCH (21:00)
[2020-01-27] MEDS ORDERED: PRAVASTATIN 20 MG TAB PO SCH (21:00)
[2020-01-27] MEDS ORDERED: WARFARIN SOD 2.5 MG TAB PO SCH (21:00)
[2020-01-27] MEDS ORDERED: LISINOPRIL 2.5 MG TAB PO SCH (21:00)
[2020-01-27] MEDS: METOCLOPRAMIDE HCL 10 MG TAB PO SCH (22:01)
[2020-01-28] VITALS: BP 99/67
[2020-01-28 04:00] VITALS: BP 108/64
[2020-01-28] MEDS: MORPHINE SULFATE 2 MG/ML SYR 1ML IV PRN (04:19)
[2020-01-28 07:25] VITALS: BP 125/65
[2020-01-28] MEDS: INSULIN LISPRO 100 UNIT/1 ML 3ML VIAL SQ SCH ×2 (07:30→11:30)
--- NOTE | 2020-01-28 07:30 | NUR ---
RECD PT UP IN CHAIR ,VIRIDIANA BETTS ,
[2020-01-28 07:56] VITALS: BP 125/65
[2020-01-28] MEDS: PANTOPRAZOLE SOD 40 MG TABEC PO SCH (08:44)
[2020-01-28] MEDS: METOCLOPRAMIDE HCL 10 MG TAB PO SCH ×2 (08:44→11:45)
[2020-01-28] MEDS ORDERED: CLOPIDOGREL BISULFATE 75 MG TAB PO SCH (09:00)
[2020-01-28] MEDS ORDERED: BUMETANIDE 1 MG TAB PO SCH (09:00)
[2020-01-28] MEDS ORDERED: SPIRONOLACTONE 25 MG TAB PO SCH (09:00)
[2020-01-28] MEDS ORDERED: GLIMEPIRIDE 2 MG TAB PO SCH (09:00)
--- NOTE | 2020-01-28 09:00 | NUR ---
PT IN BED C/O LT FOOT PAIN MEDICATED,LEFT THIRD TOE SMALL BLACK SPOT BETWEEN LAST TOE
[2020-01-28 12:00] VITALS: BP 97/49
--- NOTE | 2020-01-28 12:27 | NUR ---
WOUND CARE CONSULT FOR 59 YO MALE HX OFCP,CKD, N/V DIONICIO 23 ON CONSERVATIVE PUP STATUS AND INTERVENTIONS AND VISCO MATTRESS LABS: WBC-7.14 HGB_13.6 SKIN ASSESSMENT COMPLETE PATIENT PRESENTS WITH BILATERAL DARK WINE STAINED PUPURA ISCHEMIC LISTERS RIGHT LOWER LEG 2CM X4CM X SCAB LEFT LOWER LEG 1CM X3CM X 0.1CM RECOMMENDATIONS: NURSING TO CONTINUE TO MAINTAIN CONSERVATIVE PUP STATUS AND INTERVENTIONS AND VISCO MATTRESS NURSING TO CONTINUE TO ASSIST PATIENT OUT OF BED FOR MEALS AND MUCH TOLERATED NURSING TO CONTINUE TO ASSIST PATIENT NEEDED WITH MEALS AND NUTRITIONAL SUPPLEMENTS TO ENSURE PROPER REQUIREMENTS FOR HEALING NURSING TO CONTINUE TO OFFLOAD FEET AND HEELS NEEDED WITH PILLOW SUSPENSION WHEN IN BED NURSING TO CLEAN BILATERAL LOWER LEG BLISTERS WITH NORMAL SALINE DAILY AND APPLY VENELEX OINTMENT AND LEAVE OPEN TO AIR
[2020-01-28] MEDS ORDERED: REGLAN5 MG PO (14:26)
[2020-01-28] MEDS ORDERED: WARFARIN SOD 2.5 MG TAB PO SCH (21:00)
--- NOTE | 2020-01-29 00:06 | Discharge Summary ---
PRIMARY CARE DOCTOR: Dr. Merle Robles. FINAL DIAGNOSIS: Likely gastroparesis. SECONDARY DIAGNOSES: 1. Nonischemic systolic congestive heart failure, EF 15% to 20%, stable. 2. Previous AICD. 3. Hypertension. 4. Diabetes. 5. History of venous thrombotic embolism x2, on Coumadin. 6. Morbid obesity. CONSULTANTS: None. PROCEDURES/STUDIES PERFORMED: CT of the abdomen is negative. HISTORY: Per [facility] HOSPITAL COURSE: His KUB was negative. His abdominal CT was negative. His INR is therapeutic. His EKG showed old left bundle-branch block. Subsequently, I tried 5 mg p.o. Reglan before meals and at bedtime and he did well. I will go ahead and send him home today on this regimen. I have updated his primary care doctor about this hospitalization. The patient will follow up with her in 1 week. The patient was seen and examined today. CONDITION ON DISCHARGE: Improved. DISCHARGE MEDICATIONS: Please see medication reconciliation form. MD TREVOR [place] /[id number]
[2020-01-29] MEDS ORDERED: BALSAM PERU/CASTOR OIL 60 GM OINT...G. TP SCH (09:00)
== END 2020-01-28 15:30 | disposition home or self-care (01) ==
LOC: ER 16:05 → ERHOLD 18:12 → MED/SURG3 18:54
PROVIDERS: ADMIT Internal Medicine; ATTEND Internal Medicine
DX: E11.43 Type 2 diabetes mellitus with diabetic autonomic (poly)neuropathy (principal); K31.84 Gastroparesis; E86.0 Dehydration; R07.89 Other chest pain; N18.9 Chronic kidney disease, unspecified; I13.0 Hypertensive heart and chronic kidney disease with heart failure and stage 1 through stage 4 chronic kidney disease, or unspecified chronic kidney disease; E11.22 Type 2 diabetes mellitus with diabetic chronic kidney disease; E78.5 Hyperlipidemia, unspecified; K21.9 Gastro-esophageal reflux disease without esophagitis; F32.9 Major depressive disorder, single episode, unspecified; G47.30 Sleep apnea, unspecified; Z95.810 Presence of automatic (implantable) cardiac defibrillator; Z82.49 Family history of ischemic heart disease and other diseases of the circulatory system; Z88.5 Allergy status to narcotic agent; Z88.0 Allergy status to penicillin; Z88.8 Allergy status to other drugs, medicaments and biological substances; Z09 Encounter for follow-up examination after completed treatment for conditions other than malignant neoplasm; Z86.718 Personal history of other venous thrombosis and embolism; E66.01 Morbid (severe) obesity due to excess calories; I50.20 Unspecified systolic (congestive) heart failure; Z68.41 Body mass index [BMI] 40.0-44.9, adult; Z90.49 Acquired absence of other specified parts of digestive tract; Z79.4 Long term (current) use of insulin
CPT/HCPCS: 36415 ×3; 71045; 74018; 74176; 80053 ×2; 80061; 81001; 82550 ×2; 82553 ×2; 82948 ×3; 83690; 83735; 83880; 84443; 84484 ×2; 85025 ×2; 85610; 85730; 87086; 87635; 93005; 99251; 99284; C9113; G0378 ×3; J2270 ×2; J2405 ×2; J2550; J7040; J7050; J8597 ×2; S0164

== ENCOUNTER 2020-07-04 10:55 | Observation (INO) | payer MEDICARE ==
[~2020-07-04] VITALS: Ht 185.4 cm; Wt 141.1 kg
[~2020-07-04 10:55] MED LIST changes: +CLOPIDOGREL75 MG PO; +FOLBEE TABLET1 EACH PO; +GABAPENTIN600 MG PO; +NOVOLIN N100 UNIT/1 SQ; +REGLAN5 MG PO
[2020-07-04] MEDS ORDERED: ASPIRIN 81 MG CHEW TAB PO ONE (11:15)
--- NOTE | 2020-07-04 11:51 | Diagnostic Imaging Report ---
EXAM: CHEST SINGLE (PORTABLE) DATE: 07/04/2020 11:25 AM INDICATION: Chest pain COMPARISON: 01/26/2020 FINDINGS: Left-sided single-lead ICD identified in stable position. The trachea is midline. The lungs are symmetrically expanded without evidence for large focal consolidation, pneumothorax, or significant pleural effusion. The cardiomediastinal is stable in appearance. The pulmonary vasculature is within normal limits. No acute osseous abnormality is identified. The surrounding soft tissues are unremarkable. IMPRESSION: No acute cardiopulmonary process identified. Signed by: Dr. Gaurang Stallings MD on 07/04/2020 11:48 AM
--- NOTE | 2020-07-04 11:53 | Emergency Department Note ---
History of Present Illnes History of Present Illness Chief Complaint: Chest Pain History of Present Illness This is a 60 year old male Chief Complaint Comment pt presented to the er with c/p that started prior to arrival. Has had a mini heart attack before. On thinners. Historian: Patient Arrival Mode: Car Additional Treatment NUMERICAL ANALYSIS GROUP MANAGER: n/a Site Leasing Agent Required: No Onset (how long ago): minute(s) (15) Location: Chest Quality: sharp Radiation: Reports non-radiation Severity: moderate Onset quality: sudden Duration (how long): hour(s) (1) Timing of current episode: constant Progression: unchanged Chronicity: new Context: Denies recent illness, Denies recent surgery Relieving factors: none Exacerbating factors: none Associated symptoms: Reports denies other symptoms Treatments prior to arrival: none Past Medical/Family History Physician Review I have reviewed the patient's past medical and family history. Any updates have been documented here. Past Medical History Recent Fever: No Clinical Suspicion of Infectio: No New/Unexplained Change in Ment: No Past Medical History: Hypertension, Diabetes, CHF, NM, Depression, GERD, Hyperlipedemia, DVT/PE, Chronic Kidney Disease Other Medical History: SLEEP APNEA ONE FUNCTIONING KIDNEY ARTHRITIS Past Surgical History: Cholecysctectomy, Appendectomy, Pacer/AICD Other Surgery: INTERNAL DEFIBRILLATOR TONSILECTOMY Social History Physically hurt or threatened: No Other Last Tetanus: UTD Review of Systems Review of Systems Constitutional: Reports no symptoms EENTM: Reports no symptoms Cardiovascular: Reports chest pain Respiratory: Reports no symptoms Gastrointestinal: Reports no symptoms Genitourinary: Reports no symptoms Musculoskeletal: Reports no symptoms Integumentary: Reports no symptoms Neurological: Reports no symptoms Psychological: Reports no symptoms Endocrine: Reports no symptoms Hematological/Lymphatic: Reports no symptoms Physical Exam Related Data Allergies: Coded Allergies: pregabalin (Verified Allergy, Unknown, 01/26/20) Penicillins (Verified Adverse Reaction, Severe, LOWER EXTREMITY SWELLING, 01/26/20) codeine (Verified Adverse Reaction, Intermediate, FEET SWELL, 01/26/20) Triage Vital Signs Vital Signs Date Time Temp Pulse Resp B/P (MAP) Pulse Ox O2 Delivery O2 Flow Rate FiO2 07/04/20 11:05 98.6 71 18 126/86 100 Room Air 07/04/20 11:46 2.0 Vital signs reviewed: Yes Physical Exam CONSTITUTIONAL Constitutional: Present well-nourished, Present obese HENT HENT: Present normocephalic, Present atraumatic, Present oropharynx clear/moist, Present nose normal HENT L/R: Present left ext ear normal, Present right ext ear normal EYES Eyes: Reports PERRL, Reports conjunctivae normal NECK Neck: Present ROM normal PULMONARY Pulmonary: Present effort normal, Present breath sounds normal CARDIOVASCULAR Cardiovascular: Present regular rhythm, Present heart sounds normal, Present c apillary refill normal, Present normal rate GASTROINTESTINAL Abdominal: Present soft, Present nontender, Present bowel sounds normal GENITOURINARY Genitourinary: Present exam deferred SKIN Skin: Present warm, Present dry MUSCULOSKELETAL Musculoskeletal: Present ROM normal NEUROLOGICAL Neurological: Present alert, Present oriented x 3, Present no gross motor or sensory deficits PSYCHOLOGICAL Psychological: Present mood/affect normal, Present judgement normal Results Laboratory Lab results reviewed: Yes Imaging Imaging results reviewed: Yes Diagnostics Tests Diagnostic test(s) reviewed: Yes Procedures 12 Lead ECG Interpretation ECG Interpretation : Site Leasing Agent: Interpreted by ED physician Date: Jul 04, 2020 Rhythm: sinus rhythm Rate: normal QRS axis: normal Conduction: left bundle branch block ST segments normal: Yes T waves normal: Yes Clinical Impression: abnormal ECG (Poor EKG quality. baseline undetermined) Assessment & Plan Medical Decision Making MDM 60 y.o m presents for CP x 15 minutes. Hx of heart attack in past w/ LBBB, pacer/AICD, on thinners. ASA given. cardiopulm w/u performed. Diff includes ACS vs PNA vs CHF vs msk guero among others. Exam benign, VSS, WNL. Will admit to Dr. Murillo for CP r/o Reassessment Reassessment time: 11:52 Reassessment Well appearing, NAD Assessment & Plan Final Impression: (1) Chest pain Depart Disposition: ADMITTED Last Vital Signs Date Time Temp Pulse Resp B/P (MAP) Pulse Ox O2 Delivery O2 Flow Rate FiO2 07/04/20 11:46 64 14 117/65 99 Nasal Cannula 2.0 07/04/20 11:05 98.6 Home Meds Reported Medications Metoclopramide Hcl (REGLAN) 5 Mg Tablet, 5 MG PO ACHS, TAB 01/28/20 Warfarin Sodium (WARFARIN SODIUM) 7.5 Mg Tablet, 3.75 MG PO HS MON, WED, THURS,FRI AND SAT ONLY HALF OF 7.5MG 01/26/20 Cyanocobalamin/Fa/Pyridoxine (FOLBEE TABLET) 1 Each Tablet, 1 TAB PO DAILY 01/26/20 Clopidogrel Bisulfate (CLOPIDOGREL) 75 Mg Tablet, 75 MG PO DAILY, #30 TAB 01/26/20 Nph, Human Insulin Isophane (NOVOLIN N) 100 Unit/1 Ml Vial, 35 SQ HS 01/26/20 Gabapentin (GABAPENTIN) 600 Mg Tablet, 600 TAB PO HS 01/26/20 Spironolactone (SPIRONOLACTONE) 25 Mg Tablet, 25 MG PO DAILY, #60 TAB 01/29/19 Polyethylene Glycol 3350 (MIRALAX) 17 Gm Powd.pack, 34 GM PO PRN 06/23/16 Wheat Dextrin (BENEFIBER) 1 Each Powd.pack, 1 UDPKT PO PRN PRN for CONSTIPATION 06/23/16 Lisinopril (LISINOPRIL) 2.5 Mg Tablet, 5 MG PO HS, #30 TAB 06/23/16 Pravastatin Sodium (PRAVASTATIN SODIUM) 40 Mg Tablet, 40 MG PO HS 06/23/16 Bumetanide (BUMETANIDE) 1 Mg Tablet, 2 MG PO DAILY, #30 TAB 11/11/14 Glimepiride (GLIMEPIRIDE) 2 Mg Tablet, 2 MG PO DAILY, TAB 11/11/14 Warfarin Sodium (WARFARIN SODIUM) 7.5 Mg Tablet, 7.5 MG PO HS TUESDAY AND TUESDAY ONLY 12/16/12 Medications in the ED Aspirin 324 mg ONCE ONCE PO ; Start 07/04/20 at 11:15; Stop 07/04/20 at 11:16; Status DC EMILY PETE MD Jul 04, 2020 11:53
[2020-07-04 11:57] LABS: BASOPHILS % 0.5 % (0.0-1.0); EOSINOPHILS % 0.3 % (0.0-6.0); HEMATOCRIT 41.5 % (38.2-49.6); HEMOGLOBIN 14.5 g/dL (14.0-18.0); LYMPHOCYTES # (AUTO) 1.3 (1.0-3.2); MEAN CORPUSCULAR HEMOGLOBIN 31.7 pg (28-32); MEAN CORPUSCULAR HGB CONC 34.9 g/dL (31-35); MEAN CORPUSCULAR VOLUME 90.8 fL (81-99); MONOCYTES # (AUTO) 0.6 (0.2-0.8); MONOCYTES % 9.6 % (4.4-11.3); NEUTROPHILS # (AUTO) 4.1 (2.1-6.9); NEUTROPHILS % 68.3 % (38.7-80.0); PLATELET COUNT 174 x10e3/uL (140-360); RED BLOOD COUNT 4.57 x10e6/uL (4.3-5.7); RED CELL DISTRIBUTION WIDTH 13.2 % (11.7-14.4)
--- OUTSIDE RECORDS SUMMARY | 2020-07-04 12:14 | XMS REPORT | Continuity of Care Document ---
Author Author [facility] t Organization [facility] Address [address] [place] [address] Phone Unavailable Care Team Providers Care Political Cartoonist Name Role Phone NONSTAFF PCP Unavailable Antonia Vallejo Attphys Unavailable Antwon HUNTER Attphys Unavailable Saniya HANDY Attphys Unavailable Michelle TURNER Attphys Unavailable Saniya ALEJO Attphys Unavailable Connie SCHOFIELD Attphys Unavailable SALCEDO, Rodriguez ROMERO Attphys Unavailable Antwon HUNTER Admphys Unavailable Payers Payer Name Policy Type Policy Number Effective Date Expiration Date Zamzam correa Kelsey Care Medicare Advantage [id number] 2016 00:0 0:00 [facility] Problems Condition Name Condition Details Condition Category Status Onset Date Resolution Date Last Treatment Date Treating Clinician Comments Source Chest pain Chest pain Problem Active [facility] Fecal impaction Fecal impaction Problem Active [facility] Gastrointestinal hemorrhage GI bleeding Problem Active [facility] Allergies, Adverse Reactions, Alerts Allergy Name Allergy Type Status Severity Reaction(s) Onset Date Inacti ve Date Treating Clinician Comments Source Penicillin Propensity to adverse reactions Active Severe LOWER EXTREMITY SWELLING 2019-01-29 00:00:00 [facility] Codeine Propensity to adverse reactions Active Moderate FEET SWELL 2019-01-29 00:00:00 [facility] Pregabalin Allergy to Substance Active 2019-01-29 00:00:00 [facility] Medications Ordered Medication Name Filled Medication Name Start Date Stop Da te Current Medication? Ordering Clinician Indication Dosage Frequency Signature (SIG) Comments Components Source Esomeprazole Magnesium (Nexium) 40 Mg Capsule.dr 40 M g Oral Esomeprazole Magnesium (Nexium) 40 Mg Capsule., 40 Mg Oral 2016-06-25 00:00:00 01-29 00:00:00 No Baron Finley Md 40 Before Breakfast [facility] Bumetanide 1 Mg Tablet Bumetanide 1 Mg Tablet Yes 1 Twice A Day [facility] Carvedilol 3.125 Mg Tablet Carvedilol 3.125 Mg Tablet Yes 6.25 Twice A Day [facility] Glimepiride 2 Mg Tablet Glimepiride 2 Mg Tablet Yes 4 Twice A Day [facility] Lisinopril 2.5 Mg Tablet Lisinopril 2.5 Mg Tablet Yes 5 Daily [facility] Polyethylene Glycol 3350 (Miralax) 17 Gm Powd.pack Louis yethylene Glycol 3350 (Miralax) 17 Gm Powd.pack Yes 34 As Needed [facility] Pravastatin Sodium 40 Mg Tablet Pravastatin Sodium 40 Mg Tablet Yes 40 Daily [facility] Spironolactone 25 Mg Tablet Spironolactone 25 Mg Tablet Yes 25 Daily [facility] Warfarin Sodium 3 Mg Tablet Warfarin Sodium 3 Mg Tablet Yes 7.5 Bedtime [facility] Warfarin Sodium 7.5 Mg Tablet Warfarin Sodium 7.5 Mg Tablet Yes 7.5 Bedtime [facility] Wheat Dextrin (Benefiber) 1 Each Powd.pack Wheat Dextr in (Benefiber) 1 Each Powd.pack Yes 1 As Needed as needed for Cons tipation [facility] Exenatide Microspheres (Bydureon) 2 Mg Vial, 2 Mg Subc utaneously Exenatide Microspheres (Bydureon) 2 Mg Vial, 2 Mg Subcutaneously 2019-01-17 3 00:00:00 No 2 [facility] Loratadine 10 Mg Tablet, 10 Mg Oral Loratadine 10 Mg Tablet, 10 Mg Oral 2019-01-29 00:00:00 No 10 Daily [facility] Amitriptyline Hcl 25 Mg Tablet, 100 Mg Oral Amitriptyl ine Hcl 25 Mg Tablet, 100 Mg Oral 2016-12-05 00:00:00 No 100 Daily At 1700 [facility] Lubiprostone (Amitiza) 24 Mcg Capsule, 24 Mcg Oral Lub iprostone (Amitiza) 24 Mcg Capsule, 24 Mcg Oral 2016-12-05 00:00:00 No 24 Twice Daily Before Meals [facility] Hydrochlorothiazide 25 Mg Tablet, 1 Tab Oral Hydrochlo rothiazide 25 Mg Tablet, 1 Tab Oral 2016-06-23 00:00:00 No 1 Rt Daily [facility] Lisinopril 40 Mg Tablet, 1 Tab Oral Lisinopril 40 Mg Tablet, 1 T ab Oral 2016-06-23 00:00:00 No 1 Rt Daily [facility] Pravastatin Sodium 20 Mg Tablet, 1 Tab Oral Pravastati n Sodium 20 Mg Tablet, 1 Tab Oral 2016-06-23 00:00:00 No 1 Rt Daily [facility] Gabapentin 300 Mg Capsule, 2 Tab Oral Gabapentin 300 Mg Capsule, 2 Tab Oral 2014-11-11 00:00:00 No 2 Rt Daily [facility] Glyburide/Metformin Hcl (Glyburide-Metfo rmin 2.5-500 Mg) 1 Each Tablet, 2 Tab Oral Glyburide/Metformin Hcl (Glyburide-Metfo rmin 2.5-500 Mg) 1 Each Tablet, 2 Tab Oral 2014-11-11 00:00:00 No 2 Twice A Day [facility] Warfarin Sodium 10 Mg Tablet, 1 Tab Oral Warfarin Sodi um 10 Mg Tablet, 1 Tab Oral 2014-11-11 00:00:00 No 1 [facility] Procedures Procedure Date / Time Performed Performing Clinician [facility] e EXCISION OF CECUM, ENDO, DIAGN 2019-01-31 00:00:00 AMY LOWERY [facility] EXCISION OF TRANSVERSE COLON, ENDO, DIAGN 2019-01-31 00:00:00 NICOLASA FARMER [facility] EXCISION OF LEFT LARGE INTESTINE, ENDO, DIAGN 2019-01-31 00: 00:00 NICOLASA LOWERY [facility] EXCISION OF LARGE INTESTINE, ENDO, DIAGN 2019-01-31 00:00:00 NICOLASA VARGAS [facility] EXCISION OF RECTUM, ENDO, DIAGN 2019-01-31 00:00:00 DAYNE LOWERY [facility] EXCISION OF STOMACH, PYLORUS, ENDO, DIAGN 2019-01-30 00:00:00 WICK NICOLASA EATON [facility] Encounters Start Date/Time End Date/Time Encounter Type Admission Type [facility] Care Department Encounter ID Source 2019-06-02 17:41:00 2019-06-02 21:25:00 Departed Emergency Room [facility] [id number] [facility] 2019-01-29 10:59:00 2019-01-31 16:10:00 Discharged Inpatient 1 MATIAS HANDY [facility] [id number] [facility] 2018-08-05 17:51:00 2018-08-05 21:16:00 Departed Emergency Room [facility] [id number] [facility] 2018-05-30 09:13:00 2018-05-30 10:05:00 Departed Emergency Room [facility] [id number] [facility] 2018-03-13 18:46:00 2018-03-13 22:47:00 Departed Emergency Room 1 CELENA TURNER [facility] [id number] [facility] 2018-02-13 10:46:00 2018-02-13 14:51:00 Departed Emergency Room 1 DAMIAN ALEJO [facility] [id number] [facility] 2017-09-30 21:06:00 2017-09-30 23:29:00 Departed Emergency Room ER ZACKARY SCHOFIELD [facility] [id number] [facility] 2017-07-04 22:50:00 2017-07-05 17:46:00 Discharged Inpatient (obs) ER NICK SALCEDO [facility] [id number] [facility] Results Test Description Test Time Test Comments Results Result Comments Source CHEST SINGLE (PORTABLE) 2020-07-04 11:47:00 [facility] 1960 Sex: M [facility] [address] [place] [address] Patient Name: BEN KRISHNAN MR #: [id number] : 1960 Age/Sex: 60/M Req #: [id number] Adm Physician: Ordered by: Emily Vallejo MD Report #: [id number] Location: ER Room/Bed: Procedure: [id number] DX/CHEST SINGLE (PORTABLE) Exam Date: 07/04/20 Exam Time: 1125 REPORT STATUS: Signed EXAM: CHEST SINGLE (PORTABLE) DATE: 07/04/2020 11:25 AM INDICATION: Chest pain COMPARISON: 01/26/2020 FINDINGS: Left-sided single-lead ICD identified in stable position. The trachea is midline. The lungs are symmetrically expanded without evidence for large focal consolidation, pneumothorax, or significant pleural effusion. The cardiomediastinal is stable in appearance. The pulmonary vasculature is within normal limits. No acute osseous abnormality is identified. The surrounding soft tissues are unremarkable. IMPRESSION: No acute cardiopulmonary process identified. Signed by: Dr. Gaurang feliz MD on 07/04/2020 11:48 AM Dictated By: GAURANG INFANTE MD 47 Transcribed By: MARILUZ on 07/04/201147 COPY TO: EMILY VALLEJO MD CT ABDOMEN/PELVIS WO 2020-01-27 13:00:00 [facility] [address] [place] [address] Patient Name: BEN KRISHNAN MR #: [id number] : 1960 Age/Sex: 59/M Req #: [id number] Adm Physician: SVNE HUNTER MD Ordered by: SVEN HUNTER MD Report #: [id number] Location: MED/SURG3 Room/Bed: [facility] Procedure: [id number] CT/CT ABDOMEN/PELVIS WO Exam Date: 01/27/20 Exam Time: 1220 REPORT STATUS: Signed EXAMINATION: CT of the abdomen and pelvis without contrast. TECHNIQUE: Helical CT images of the abdomen and pelvis were performed from the lung bases to the lesser trochanters. No intravenous contrast was given per renal stone protocol. Coronal and sagittal reformatted images were obtained. Dose modulation, iterative reconstruction, and/or weight based adjustment of the mA/kV was utilized to reduce the radiation dose to as low as reasonably achievable. COMPARISON: None. CLINICAL HISTORY:Nausea DISCUSSION: ABSENCE OF INTRAVENOUS CONTRAST DECREASES SENSITIVITY FOR DETECTION OF FOCAL LESIONS AND VASCULAR PATHOLOGY. ABDOMEN/PELVIS: LOWER THORAX: Unremarkable. HEPATOBILIARY:Peripherally calcified cyst in the dome of the liver. Cholecystectomy. SPLEEN: No splenomegaly. PANCREAS: No focal masses or ductal dilatation. ADRENALS: No adrenal nodules. KIDNEYS/URETERS: Right kidney is unremarkable. No obstruction or stone. Left kidney is absent. PELVIC ORGANS/BLADDER: The bladder is normal. PERITONEUM/RETROPERITONEUM: No free air or fluid. LYMPH NODES: No intra- abdominal,retroperitoneal, pelvic or inguinal lymphadenopathy. VESSELS: Unremarkable. GI TRACT: No distention or wall thickening. BONES AND SOFT TISSUES: No bony destructive lesions. No soft tissue abnormalities. IMPRESSION: No acute CT finding. Signed by: Dipesh Mcgowan on 01/27/2020 1:04 PM Dictated By: FAITH WOODS MD 130 Transcribed By: MARILUZ on 01/27/20 1304 COPY TO: SVEN HUNTER MD ABDOMEN-1VIEW (KUB) 2020-01-27 10:30:00 [place] [address] Patient Name: BEN KRISHNAN MR #: [id number] : 1960 Age/Sex: 59/M Req #: [id number] Adm Physician: SVEN HUNTER MD Ordered by: SVEN HUNTER MD Report #: [id number] Location: MED/SURG3 Room/Bed: [facility] Procedure: [id number] DX/ABDOMEN-1VIEW (KUB) Exam Date: 01/27/20 Exam Time: 0950 REPORT STATUS: Signed Exam: Abdominal film Clinical History: Nausea Comparison: None. DISCUSSION: Nonobstructive bowel gas pattern. Right upper quadrant clips. No abnormal calcifications. IMPRESSION: Nonobstructive bowel gas pattern. Signed by: Dr. Faith Woods M.D. on 01/27/2020 10:31 AM Dictated By: FAITH WOODS MD 1031 Transcribed By: MARILUZ on 01/27/20 1031 COPY TO: SVEN HUNTER MD CHEST SINGLE (PORTABLE) 2020-01-26 17:52:00 [place] [address] Patient Name: BEN KRISHNAN MR #: [id number] : 1960 Age/Sex: 59/M Req #: [id number] Adm Physician: Ordered by: GEORGINA MACK MD Report #: [id number] Location: ER Room/Bed: Procedure: [id number] DX/CHEST SINGLE (PORTABLE) Exam Date: 01/26/20 Exam Time: 1700 REPORT STATUS: Signed EXAMINATION: CHEST SINGLE (PORTABLE) INDICATION: n/v, cp [id number] COMPARISON: 01/29/2019 FINDINGS: AP view TUBES and LINES: Stable single lead left chest wall cardiac device. LUNGS: Low lung volumes and body habitus. No definite focal consolidation. Mild central vascular congestion, accentuated by low lung volumes. PLEURA: No significant pleural effusion or pneumothorax. HEART AND MEDIASTINUM: The cardiomediastinal silhouette is mildly prominent, accentuated by low lung volumes.. BONES AND SOFT TISSUES: No acute osseous lesion. Soft tissues are unremarkable. UPPER ABDOMEN: No free air under the diaphragm. IMPRESSION: Limited as above. No definite focal consolidation. Mild central vascular congestion, accentuated by low lung volumes. Signed by: Dr. Jay Ogden MD on 01/26/2020 5:53 PM Dictated By: JAY OGDEN MD 3249 Transcribed By: MARILUZ on 01/26/20 1751 COPY TO: GEORGINA MACK MD Bedside Glucose 2019-02-02 08:31:00 Test Item Bedside Glucose (test code = 21415-8) 158 70-120 H Meter ID: [id number] [facility]inteBedside Glucose 2019-01-31 15:09:00* Test Item Value Reference Range Interpretation Comments Bedside Glucose (test code = 84396-7) 206 70-120 H Meter ID: [id number] Regional Hospitaltool Occult Blood 2019-01-30 10:56:00* Test Item Value Reference Range Interpretation Comments Stool Occult Blood (test code = 2335-8) NEGATIVE NEGATIVE [facility] Bmbch9698-03-21 10:56:00* Test Item Value Reference Range Interpretation Comments Stool Occult Blood (test code = 2335-8) NEGATIVE NEGATIVE [facility] Hospitalodium Uzggy7149-22-44 07:17:00* Test Item Value Reference Range Interpretation Comments Sodium Level (test code = 2951-2) 136 136-145 [facility]intePotassium Dftyo2410-14-03 07:17:00* Test Item Value Reference Range Interpretation Comments Potassium Level (test code = 2823-3) 3.9 3.5-5.1 [facility]inteChloride Jfllc2237-19-42 07:17:00* Test Item Value Reference Range Interpretation Comments Chloride Level (test code = 2075-0) 102 98-107 [facility]inteCarbon Dioxide Pzuis0001-18-91 07:17:00* Test Item Value Reference Range Interpretation Comments Carbon Dioxide Level (test code = 2028-9) 26 22-29 [facility] PointeAnion Plg8924-64-03 07:17:00* Test Item Value Reference Range Interpretation Comments Anion Gap (test code = 76911-9) 11.9 8-16 [facility]inteBlood Urea Dpsaloly9619-05-31 07:17:00* Test Item Value Reference Range Interpretation Comments Blood Urea Nitrogen (test code = 3094-0) 15 7-26 [facility]inteCreatinine2019-05-14 07:17:00* Test Item Value Reference Range Interpretation Comments Creatinine (test code = 2160-0) 1.24 0.72-1.25 [facility]inteBUN/Creatinine Toloe4002-25-14 07:17:00* Test Item Value Reference Range Interpretation Comments BUN/Creatinine Ratio (test code = 3097-3) 12 6-25 [facility] Lake PointeEstimat Glomerular Filtration Rate 2019-01-30 07:17:00* Test Item Value Reference Range Interpretation Comments Estimat Glomerular Filtration Rate (test code = 735608565) 60 >60 Ranges were taken from the National Kidney Disease Education Program and the [facility] literature.Reference ranges:60 or greater: Ijswcr79-38 ( for 3 consecutive months): Chronic kidney disease 15 or less: Kidney failureBaylor Scott & White Medical Center – Lake PointeGlucose Fwtix8192-85-46 07:17:00* Test Item Value Reference Range Interpretation Comments Glucose Level (test code = PBH4163) 105 74-118 [facility]inteCalcium Woejr2054-77-70 07:17:00* Test Item Value Reference Range Interpretation Comments Calcium Level (test code = 99817-0) 9.2 8.4-10.2 [facility]odium Whxbm0070-67-50 07:17:00* Test Item Value Reference Range Interpretation Comments Sodium Level (test code = 2951-2) 136 136-145 [facility]intePotassium Hygeo6787-73-80 07:17:00* Test Item Value Reference Range Interpretation Comments Potassium Level (test code = 2823-3) 3.9 3.5-5.1 [facility] PointeChloride Wrccf6959-33-68 07:17:00* Test Item Value Reference Range Interpretation Comments Chloride Level (test code = 2075-0) 102 98-107 [facility] PointeCarbon Dioxide Xvyry3670-75-36 07:17:00* Test Item Value Reference Range Interpretation Comments Carbon Dioxide Level (test code = 2028-9) 26 22-29 [facility] PointeAnion Buw5431-90-20 07:17:00* Test Item Value Reference Range Interpretation Comments Anion Gap (test code = 54006-8) 11.9 8-16 [facility] PointeBlood Urea Bacaerwp6095-95-25 07:17:00* Test Item Value Reference Range Interpretation Comments Blood Urea Nitrogen (test code = 3094-0) 15 7-26 [facility] PointeCreatinine2019-05-14 07:17:00* Test Item Value Reference Range Interpretation Comments Creatinine (test code = 2160-0) 1.24 0.72-1.25 [facility]inteBUN/Creatinine Uepns2594-27-88 07:17:00* Test Item Value Reference Range Interpretation Comments BUN/Creatinine Ratio (test code = 3097-3) 12 6- [facility] PointeEstimat Glomerular Filtration Rate 2019-01-30 07:17:00* Test Item Value Reference Range Interpretation Comments Estimat Glomerular Filtration Rate (test code = 284645082) 60 >60 Ranges were taken from the National Kidney Disease Education Program and the [facility] literature.Reference ranges:60 or greater: Tknzff24-56 ( for 3 consecutive months): Chronic kidney disease 15 or less: Kidney failureBaylor Scott & White Medical Center – Lake PointeGlucose Izygs3950-77-53 07:17:00* Test Item Value Reference Range Interpretation Comments Glucose Level (test code = APV0992) 105 74-118 [facility]inteCalcium Ixkyj1732-88-54 07:17:00* Test Item Value Reference Range Interpretation Comments Calcium Level (test code = 64284-5) 9.2 8.4-10.2 [facility] PointeTotal Acjeeyzbf7952-33-00 06:57:00* Test Item Value Reference Range Interpretation Comments Total Bilirubin (test code = 1975-2) 2.1 0.2-1.2 H [facility] PointeDirect Cdfeexfnd1714-86-85 06:57:00* Test Item Value Reference Range Interpretation Comments Direct Bilirubin (test code = 90914-0) 1.0 0.0-0.5 H [facility] PointeAspartate Amino Transf (AST/SGOT) 2019-01-30 06:57:00* Test Item Value Reference Range Interpretation Comments Aspartate Amino Transf (AST/SGOT) (test code = Aspartate Amino Transf (AST/SGOT)) 14 534 [facility] PointeAlanine Aminotransferase (ALT/SGPT) 2019-01-30 06:57:00* Test Item Value Reference Range Interpretation Comments Alanine Aminotransferase (ALT/SGPT) (test code = 1742-6) 14 0-55 [facility] PointeTotal Ajdmkbi9392-71-39 06:57:00* Test Item Value Reference Range Interpretation Comments Total Protein (test code = 2885-2) 5.5 6.5-8.1 L [facility] PointeAlbumin2019-05-14 06:57:00* Test Item Value Reference Range Interpretation Comments Albumin (test code = 1751-7) 3.2 3.5-5.0 L [facility] PointeAlkaline Kmnmawrjgjz1467-24-54 06:57:00* Test Item Value Reference Range Interpretation Comments Alkaline Phosphatase (test code = 6768-6) 60 40-150 [facility] PointeTotal Slqjimdok1625-82-88 06:57:00* Test Item Value Reference Range Interpretation Comments Total Bilirubin (test code = 1975-2) 2.1 0.2-1.2 H [facility] PointeDirect Aaikzdwzz2566-51-25 06:57:00* Test Item Value Reference Range Interpretation Comments Direct Bilirubin (test code = 73974-7) 1.0 0.0-0.5 H [facility] PointeAspartate Amino Transf (AST/SGOT) 2019-01-30 06:57:00* Test Item Value Reference Range Interpretation Comments Aspartate Amino Transf (AST/SGOT) (test code = Aspartate Amino Transf (AST/SGOT)) 14 534 [facility] PointeAlanine Aminotransferase (ALT/SGPT) 2019-01-30 06:57:00* Test Item Value Reference Range Interpretation Comments Alanine Aminotransferase (ALT/SGPT) (test code = 1742-6) 14 0-55 [facility]inteTodavis [facility] Xlodfrb1561-12-38 06:57:00* Test Item Value Reference Range Interpretation Comments Total Protein (test code = 2885-2) 5.5 6.5-8.1 L [facility] PointeAlbumin2019-05-14 06:57:00* Test Item Value Reference Range Interpretation Comments Albumin (test code = 1751-7) 3.2 3.5-5.0 L [facility] PointeAlkaline Ubheminaipq8630-74-03 06:57:00* Test Item Value Reference Range Interpretation Comments Alkaline Phosphatase (test code = 6768-6) 60 40-150 [place] 72520019-05-14 06:28:00* Test Item Value Reference Range Interpretation Comments Troponin I (test code = LMD7864) < 0.001 0-0.300 [place] 72520019-05-14 06:28:00* Test Item Value Reference Range Interpretation Comments Troponin I (test code = BBN5730) < 0.001 0-0.300 [facility]gn[facility] Ootzj2789-80-68 06:06:00* Test Item Value Reference Range Interpretation Comments Magnesium Level (test code = 02718-8) 1.8 1.3-2.1 [facility] Qmono7354-43-57 06:06:00* Test Item Value Reference Range Interpretation Comments Magnesium Level (test code = 54674-5) 1.8 1.3-2.1 [facility]inteWhite Blood Zxdlj0963-13-49 06:01:00* Test Item Value Reference Range Interpretation Comments White Blood Count (test code = 6690-2) 7.13 4.8-10.8 [facility] PointeRed Blood Sctsb2346-23-11 06:01:00* Test Item Value Reference Range Interpretation Comments Red Blood Count (test code = 789-8) 4.17 4.3-5.7 L [facility] PointeHemoglobin2019-05-14 06:01:00* Test Item Value Reference Range Interpretation Comments Hemoglobin (test code = 67439-3) 13.3 14.0-18.0 L [facility] PointeHematocrit2019-05-14 06:01:00* Test Item Value Reference Range Interpretation Comments Hematocrit (test code = 4544-3) 37.2 38.2-49.6 L [facility] PointeMean Corpuscular Ynhjnv5015-75-07 06:01:00* Test Item Value Reference Range Interpretation Comments Mean Corpuscular Volume (test code = 787-2) 89.2 81-99 [facility] PointeMean Corpuscular Gbthofoksz2913-23-72 06:01:00* Test Item Value Reference Range Interpretation Comments Mean Corpuscular Hemoglobin (test code = 785-6) 31.9 28-32 [facility] PointeMean Corpuscular Hemoglobin Concent 2019-01-30 06:01:00* Test Item Value Reference Range Interpretation Comments Mean Corpuscular Hemoglobin Concent (test code = 786-4) 35.8 31-35 H [facility] PointeRed Cell Distribution Xfcju7470-22-47 06:01:00* Test Item Value Reference Range Interpretation Comments Red Cell Distribution Width (test code = 57195-2) 13.3 11.7 -14.4 [facility] PointePlatelet Pwxks6648-67-86 06:01:00* Test Item Value Reference Range Interpretation Comments Platelet Count (test code = 777-3) 171 140-360 [facility] PointeNeutrophils (%) (Auto)2019-01-30 06:01:00 * Test Item Value Reference Range Interpretation Comments Neutrophils (%) (Auto) (test code = 03096-1) 57.4 38.7-80.0 [facility] PointeLymphocytes (%) (Auto)2019-01-30 06:01:00 * Test Item Value Reference Range Interpretation Comments Lymphocytes (%) (Auto) (test code = 736-9) 28.2 18.0-39.1 [facility] PointeMonocytes (%) (Auto)2019-01-30 06:01:00* Test Item Value Reference Range Interpretation Comments Monocytes (%) (Auto) (test code = 5905-5) 12.2 4.4-11.3 H [facility] PointeEosinophils (%) (Auto)2019-01-30 06:01:00 * Test Item Value Reference Range Interpretation Comments Eosinophils (%) (Auto) (test code = 713-8) 1.5 0.0-6.0 [facility]ophils (%) (Auto)2019-01-30 06:01:00* Test Item Value Reference Range Interpretation Comments Basophils (%) (Auto) (test code = 706-2) 0.4 0.0-1.0 [facility]inteIM GRANULOCYTES %2019-01-30 06:01:00* Test Item Value Reference Range Interpretation Comments IM GRANULOCYTES % (test code = IM GRANULOCYTES %) 0.3 0.0- 1.0 [facility]inteNeutrophils # (Auto)2019-01-30 06:01:00* Test Item Value Reference Range Interpretation Comments Neutrophils # (Auto) (test code = 751-8) 4.1 2.1-6.9 [facility]inteLymphocytes # (Auto)2019-01-30 06:01:00* Test Item Value Reference Range Interpretation Comments Lymphocytes # (Auto) (test code = 03022-7) 2.0 1.0-3.2 [facility]inteMonocytes # (Auto)2019-01-30 06:01:00* Test Item Value Reference Range Interpretation Comments Monocytes # (Auto) (test code = 742-7) 0.9 0.2-0.8 H [facility]inteEosinophils # (Auto)2019-01-30 06:01:00* Test Item Value Reference Range Interpretation Comments Eosinophils # (Auto) (test code = 711-2) 0.1 0.0-0.4 [facility]Basophils # (Auto)2019-01-30 06:01:00* Test Item Value Reference Range Interpretation Comments Basophils # (Auto) (test code = 704-7) 0.0 0.0-0.1 [facility]inteAbsolute Immature Granulocyte (auto 2019-01-30 06:01:00* Test Item Value Reference Range Interpretation Comments Absolute Immature Granulocyte (auto (melita t code = Absolute Immature Granulocyte (auto) 0.02 0-0.1 [facility] PointeProthrombin Wrrx9992-07-21 06:01:00* Test Item Value Reference Range Interpretation Comments Prothrombin Time (test code = 5902-2) 22.6 11.9-14.5 H [facility] PointeProthromb Time International Ratio 2019-01-30 06:01:00* Test Item Value Reference Range Interpretation Comments Prothromb Time International Ratio (test code = 6301-6) 1.92 Oral Anticoagulant Therapy INR Values:1. Low Intensity Therapy 1.5 - 2.02 . Moderate Intensity Therapy 2.0 - 3.03. High Intensity Therapy(1) 2.5 - 3. 54. High Intensity Therapy(2) 3.0 - 4.05. Panic Value INR > 5.0 [facility] PointeActivated Partial Thromboplast Time 2019-01-30 06:01:00* Test Item Value Reference Range Interpretation Comments Activated Partial Thromboplast Time (test code = 01796-6) 37.2 23.8-35.5 H [facility]inteWhite Blood Ehelz5054-67-42 06:01:00* Test Item Value Reference Range Interpretation Comments White Blood Count (test code = 6690-2) 7.13 4.8-10.8 [facility] PointeRed Blood Wvrxx8308-04-55 06:01:00* Test Item Value Reference Range Interpretation Comments Red Blood Count (test code = 789-8) 4.17 4.3-5.7 L [facility]inteHemoglobin2019-05-14 06:01:00* Test Item Value Reference Range Interpretation Comments Hemoglobin (test code = 55884-5) 13.3 14.0-18.0 L [facility] PointeHematocrit2019-05-14 06:01:00* Test Item Value Reference Range Interpretation Comments Hematocrit (test code = 4544-3) 37.2 38.2-49.6 L [facility] PointeMean Corpuscular Yiqcwt3971-47-73 06:01:00* Test Item Value Reference Range Interpretation Comments Mean Corpuscular Volume (test code = 787-2) 89.2 81-99 [facility]inteMean Corpuscular Rctykmuqmx3050-37-79 06:01:00* Test Item Value Reference Range Interpretation Comments Mean Corpuscular Hemoglobin (test code = 785-6) 31.9 28-32 [facility] PointeMean Corpuscular Hemoglobin Concent 2019-01-30 06:01:00* Test Item Value Reference Range Interpretation Comments Mean Corpuscular Hemoglobin Concent (test code = 786-4) 35.8 31-35 H [facility]inteRed Cell Distribution Evdap9441-06-20 06:01:00* Test Item Value Reference Range Interpretation Comments Red Cell Distribution Width (test code = 57616-9) 13.3 11.7 -14.4 [facility] PointePlatelet Bsqfi0186-94-35 06:01:00* Test Item Value Reference Range Interpretation Comments Platelet Count (test code = 777-3) 171 140-360 [facility] PointeNeutrophils (%) (Auto)2019-01-30 06:01:00 * Test Item Value Reference Range Interpretation Comments Neutrophils (%) (Auto) (test code = 88259-7) 57.4 38.7-80.0 [facility] PointeLymphocytes (%) (Auto)2019-01-30 06:01:00 * Test Item Value Reference Range Interpretation Comments Lymphocytes (%) (Auto) (test code = 736-9) 28.2 18.0-39.1 [facility]inteMonocytes (%) (Auto)2019-01-30 06:01:00* Test Item Value Reference Range Interpretation Comments Monocytes (%) (Auto) (test code = 5905-5) 12.2 4.4-11.3 H [facility]inteEosinophils (%) (Auto)2019-01-30 06:01:00 * Test Item Value Reference Range Interpretation Comments Eosinophils (%) (Auto) (test code = 713-8) 1.5 0.0-6.0 [facility]inteBasophils (%) (Auto)2019-01-30 06:01:00* Test Item Value Reference Range Interpretation Comments Basophils (%) (Auto) (test code = 706-2) 0.4 0.0-1.0 [facility]inteIM GRANULOCYTES %2019-01-30 06:01:00* Test Item Value Reference Range Interpretation Comments IM GRANULOCYTES % (test code = IM GRANULOCYTES %) 0.3 0.0- 1.0 [facility]inteNeutrophils # (Auto)2019-01-30 06:01:00* Test Item Value Reference Range Interpretation Comments Neutrophils # (Auto) (test code = 751-8) 4.1 2.1-6.9 [facility] PointeLymphocytes # (Auto)2019-01-30 06:01:00* Test Item Value Reference Range Interpretation Comments Lymphocytes # (Auto) (test code = 79676-5) 2.0 1.0-3.2 [facility]inteMonocytes # (Auto)2019-01-30 06:01:00* Test Item Value Reference Range Interpretation Comments Monocytes # (Auto) (test code = 742-7) 0.9 0.2-0.8 H [facility]inteEosinophils # (Auto)2019-01-30 06:01:00* Test Item Value Reference Range Interpretation Comments Eosinophils # (Auto) (test code = 711-2) 0.1 0.0-0.4 [facility]inteBasophils # (Auto)2019-01-30 06:01:00* Test Item Value Reference Range Interpretation Comments Basophils # (Auto) (test code = 704-7) 0.0 0.0-0.1 [facility]inteAbsolute Immature Granulocyte (auto 2019-01-30 06:01:00* Test Item Value Reference Range Interpretation Comments Absolute Immature Granulocyte (auto (melita t code = Absolute Immature Granulocyte (auto) 0.02 0-0.1 [facility] PointeProthrombin Yjms3768-31-22 06:01:00* Test Item Value Reference Range Interpretation Comments Prothrombin Time (test code = 5902-2) 22.6 11.9-14.5 H [facility] PointeProthromb Time International Ratio 2019-01-30 06:01:00* Test Item Value Reference Range Interpretation Comments Prothromb Time International Ratio (test code = 6301-6) 1.92 Oral Anticoagulant Therapy INR Values:1. Low Intensity Therapy 1.5 - 2.02 . Moderate Intensity Therapy 2.0 - 3.03. High Intensity Therapy(1) 2.5 - 3. 54. High Intensity Therapy(2) 3.0 - 4.05. Panic Value INR > 5.0 [facility] PointeActivated Partial Thromboplast Time 2019-01-30 06:01:00* Test Item Value Reference Range Interpretation Comments Activated Partial Thromboplast Time (test code = 85653-9) 37.2 23.8-35.5 H [facility] PointeCreatine Kinase [id number] 10:18:00* Test Item Value Reference Range Interpretation Comments Creatine Kinase MB (test code = 53341-1) 0.60 0-5.0 [facility] PointeCreatine Kinase [id number] 10:18:00* Test Item Value Reference Range Interpretation Comments Creatine Kinase MB (test code = 91085-7) 0.60 0-5.0 [facility] PointeCHEST SINGLE (PORTABLE)2019-01-29 10:10:00 [facility] [address] [place] [address] Patient Name: BEN KRISHNAN MR #: [id number] : 1960 Age/Sex: 58/M Req #: [id number] Adm Physician: Ordered by: MATIAS HANDY MD Report #: [id number] Location: Room/Bed: Procedure: [id number] DX/CH EST SINGLE (PORTABLE) Exam Date: 01/29/19 Exam Time: 929 REPORT STATUS: Signed EXAM: CHEST SINGLE (PORTABLE) DATE: 01/29/2019 9:11 AM INDICATION: Chest pain, look for CHF, enlarge Mediastinum [id number] CO MPARISON: Chest x-ray, 03/13/2018 FINDINGS: Lines and tubes: Stable christopher earance of implanted cardiac device on the left and transvenous lead position. Distal portion of the lead is obscured by underpenetration. Heart size n ormal. No focal pulmonary opacity, pleural effusion or pneumothorax. U pper abdomen unremarkable. No acute bony abnormality. IMPRESSION: No evid ence for acute disease. Signed by: Dr. Damian Matthew M.D. on 01/29/2019 10: 28 AM Dictated By: DAMIAN MATTHEW MD 1028 Transcribed By: MARILUZ on 01/29/19 1028 COPY TO: MATIAS HANDY MD Creatine Xfmkzh0724-83-43 10:05:00* Test Item Value Reference Range Interpretation Comments Creatine Kinase (test code = 2157-6) 64 30-200 [facility]inteCreatine Vxrlnn0074-58-34 10:05:00* Test Item Value Reference Range Interpretation Comments Creatine Kinase (test code = 2157-6) 64 30-200 [facility] PointeGlobulin2019-05-13 10:04:00* Test Item Value Reference Range Interpretation Comments Globulin (test code = 49051-5) 3.0 2.3-3.5 [facility] PointeAlbumin/Globulin Crhpp4740-69-20 10:04:00 * Test Item Value Reference Range Interpretation Comments Albumin/Globulin Ratio (test code = 1759-0) 1.3 0.8-2.0 [facility] PointeAmylase Okapr4198-93-07 10:04:00* Test Item Value Reference Range Interpretation Comments Amylase Level (test code = 1798-8) 48 25-125 [facility] PointeLipase2019-05-13 10:04:00* Test Item Value Reference Range Interpretation Comments Lipase (test code = 3040-3) 41 8-78 [facility] PointeGlobulin2019-05-13 10:04:00* Test Item Value Reference Range Interpretation Comments Globulin (test code = 21256-0) 3.0 2.3-3.5 [facility] PointeAlbumin/Globulin Qblaz9519-47-19 10:04:00 * Test Item Value Reference Range Interpretation Comments Albumin/Globulin Ratio (test code = 1759-0) 1.3 0.8-2.0 [facility] PointeAmylase Tihbt7468-71-98 10:04:00* Test Item Value Reference Range Interpretation Comments Amylase Level (test code = 1798-8) 48 25-125 [facility] PointeLipase2019-05-13 10:04:00* Test Item Value Reference Range Interpretation Comments Lipase (test code = 3040-3) 41 8-78 [facility] Titra1074-97-52 20:22:00* Test Item Value Reference Range Interpretation Comments Sodium Level (test code = 2951-2) 140 136-145 [facility] PointePotassium Hjdwg5960-13-02 20:22:00* Test Item Value Reference Range Interpretation Comments Potassium Level (test code = 2823-3) 3.7 3.5-5.1 [facility] PointeChloride Fypdm6170-83-29 20:22:00* Test Item Value Reference Range Interpretation Comments Chloride Level (test code = 2075-0) 102 98-107 [facility] PointeCarbon Dioxide Xgcmk8436-47-61 20:22:00* Test Item Value Reference Range Interpretation Comments Carbon Dioxide Level (test code = 2028-9) 26 22-29 [facility] PointeAnion [id number] 20:22:00* Test Item Value Reference Range Interpretation Comments Anion Gap (test code = 22822-6) 15.7 8-16 [facility] PointeBlood Urea Fkklyqbx7203-59-26 20:22:00* Test Item Value Reference Range Interpretation Comments Blood Urea Nitrogen (test code = 3094-0) 16 7-26 [facility] PointeCreatinine2018-11-17 20:22:00* Test Item Value Reference Range Interpretation Comments Creatinine (test code = 2160-0) 1.13 0.72-1.25 [facility] PointeBUN/Creatinine Vzffm4324-11-89 20:22:00* Test Item Value Reference Range Interpretation Comments BUN/Creatinine Ratio (test code = 3097-3) 14 6-25 [facility] PointeEstimat Glomerular Filtration Rate 2018-08-05 20:22:00* Test Item Value Reference Range Interpretation Comments Estimat Glomerular Filtration Rate (test code = 172407093) > 60 >60 Ranges were taken from the National Kidney Disease Education Program and the [facility] Kidney Foundation literature.Reference ranges:60 or greater: Kadile01-19 ( for 3 consecutive months): Chronic kidney disease 15 or less: Kidney failureBaylor Scott & [facility] Center – Lake PointeGlucose Qwssj6124-64-34 20:22:00* Test Item Value Reference Range Interpretation Comments Glucose Level (test code = ATK8039) 206 74-118 H [facility] PointeCalcium Josdw1963-53-64 20:22:00* Test Item Value Reference Range Interpretation Comments Calcium Level (test code = 92400-6) 8.5 8.4-10.2 [facility] PointeTotal Ckwdzunut8078-14-86 20:22:00* Test Item Value Reference Range Interpretation Comments Total Bilirubin (test code = 1975-2) 2.1 0.2-1.2 H [facility] PointeAspartate Amino Transf (AST/SGOT) 2018-08-05 20:22:00* Test Item Value Reference Range Interpretation Comments Aspartate Amino Transf (AST/SGOT) (test code = Aspartate Amino Transf (AST/SGOT)) 11 5-34 [facility] PointeAlanine Aminotransferase (ALT/SGPT) 2018-08-05 20:22:00* Test Item Value Reference Range Interpretation Comments Alanine Aminotransferase (ALT/SGPT) (test code = 1742-6) 13 0-55 [facility] PointeTotal Rditqda5148-04-88 20:22:00* Test Item Value Reference Range Interpretation Comments Total Protein (test code = 2885-2) 5.8 6.5-8.1 L [facility] PointeAlbumin2018-11-17 20:22:00* Test Item Value Reference Range Interpretation Comments Albumin (test code = 1751-7) 3.5 3.5-5.0 [facility] PointeGlobulin2018-11-17 20:22:00* Test Item Value Reference Range Interpretation Comments Globulin (test code = 62659-4) 2.3 2.3-3.5 [facility] PointeAlbumin/Globulin Vuuuc5184-56-46 20:22:00 * Test Item Value Reference Range Interpretation Comments Albumin/Globulin Ratio (test code = 1759-0) 1.5 0.8-2.0 [facility] PointeAlkaline Osmyavhzfsr9970-87-09 20:22:00* Test Item Value Reference Range Interpretation Comments Alkaline Phosphatase (test code = 6768-6) 81 40-150 [facility] PointeProthrombin Xmii7940-64-34 20:14:00* Test Item Value Reference Range Interpretation Comments Prothrombin Time (test code = 5902-2) 28.8 11.9-14.5 H [facility] PointeProthromb Time International Ratio 2018-08-05 20:14:00* Test Item Value Reference Range Interpretation Comments Prothromb Time International Ratio (test code = 6301-6) 2.49 Oral Anticoagulant Therapy INR Values:1. Low Intensity Therapy 1.5 - 2.02 . Moderate Intensity Therapy 2.0 - 3.03. High Intensity Therapy(1) 2.5 - 3. 54. High Intensity Therapy(2) 3.0 - 4.05. Panic Value INR > 5.0 [facility] PointeActivated Partial Thromboplast Time 2018-08-05 20:14:00* Test Item Value Reference Range Interpretation Comments Activated Partial Thromboplast Time (test code = 92999-3) 36.8 23.8-35.5 H [facility] PointeWhite Blood Aitwz0722-58-94 20:00:00* Test Item Value Reference Range Interpretation Comments White Blood Count (test code = 6690-2) 7.55 4.8-10.8 [facility] PointeRed Blood Erpax3939-03-62 20:00:00* Test Item Value Reference Range Interpretation Comments Red Blood Count (test code = 789-8) 5.33 4.3-5.7 [facility] PointeHemoglobin2018-11-17 20:00:00* Test Item Value Reference Range Interpretation Comments Hemoglobin (test code = 59251-9) 16.3 14.0-18.0 [facility] PointeHematocrit2018-11-17 20:00:00* Test Item Value Reference Range Interpretation Comments Hematocrit (test code = 4544-3) 46.6 38.2-49.6 [facility] PointeMean Corpuscular Fcngyb8012-64-82 20:00:00* Test Item Value Reference Range Interpretation Comments Mean Corpuscular Volume (test code = 787-2) 87.4 81-99 [facility] PointeMean Corpuscular Nvblkxhccz4018-23-69 20:00:00* Test Item Value Reference Range Interpretation Comments Mean Corpuscular Hemoglobin (test code = 785-6) 30.6 28-32 [facility]an Corpuscular Hemoglobin Concent 2018-08-05 20:00:00* Test Item Value Reference Range Interpretation Comments Mean Corpuscular Hemoglobin Concent (test code = 786-4) 35.0 31-35 [facility] PointeRed Cell Distribution Fwkru3161-20-42 20:00:00* Test Item Value Reference Range Interpretation Comments Red Cell Distribution Width (test code = 11772-7) 13.2 11.7 -14.4 [facility] PointePlatelet Kecfk7148-18-38 20:00:00* Test Item Value Reference Range Interpretation Comments Platelet Count (test code = 777-3) 181 140-360 [facility] PointeNeutrophils (%) (Auto)2018-08-05 20:00:00 * Test Item Value Reference Range Interpretation Comments Neutrophils (%) (Auto) (test code = 28387-1) 60.4 38.7-80.0 [facility] PointeLymphocytes (%) (Auto)2018-08-05 20:00:00 * Test Item Value Reference Range Interpretation Comments Lymphocytes (%) (Auto) (test code = 736-9) 26.6 18.0-39.1 [facility] PointeMonocytes (%) (Auto)2018-08-05 20:00:00* Test Item Value Reference Range Interpretation Comments Monocytes (%) (Auto) (test code = 5905-5) 11.5 4.4-11.3 H [facility]inteEosinophils (%) (Auto)2018-08-05 20:00:00 * Test Item Value Reference Range Interpretation Comments Eosinophils (%) (Auto) (test code = 713-8) 0.8 0.0-6.0 [facility]inteBasophils (%) (Auto)2018-08-05 20:00:00* Test Item Value Reference Range Interpretation Comments Basophils (%) (Auto) (test code = 706-2) 0.4 0.0-1.0 [facility] PointeIM GRANULOCYTES %2018-08-05 20:00:00* Test Item Value Reference Range Interpretation Comments IM GRANULOCYTES % (test code = IM GRANULOCYTES %) 0.3 0.0- 1.0 [facility]inteNeutrophils # (Auto)2018-08-05 20:00:00* Test Item Value Reference Range Interpretation Comments Neutrophils # (Auto) (test code = 751-8) 4.6 2.1-6.9 [facility] PointeLymphocytes # (Auto)2018-08-05 20:00:00* Test Item Value Reference Range Interpretation Comments Lymphocytes # (Auto) (test code = 46547-6) 2.0 1.0-3.2 [facility] PointeMonocytes # (Auto)2018-08-05 20:00:00* Test Item Value Reference Range Interpretation Comments Monocytes # (Auto) (test code = 742-7) 0.9 0.2-0.8 H [facility]inteEosinophils # (Auto)2018-08-05 20:00:00* Test Item Value Reference Range Interpretation Comments Eosinophils # (Auto) (test code = 711-2) 0.1 0.0-0.4 [facility]inteBasophils # (Auto)2018-08-05 20:00:00* Test Item Value Reference Range Interpretation Comments Basophils # (Auto) (test code = 704-7) 0.0 0.0-0.1 [facility] PointeAbsolute Immature Granulocyte (auto 2018-08-05 20:00:00* Test Item Value Reference Range Interpretation Comments Absolute Immature Granulocyte (auto (melita t code = Absolute Immature Granulocyte (auto) 0.02 0-0.1 [facility] PointeCHEST 2 [id number] 20:49:00 [facility] [address] [place] [address] Patient Name: BEN KRISHNAN MR #: [id number] : 0 1960 Age/Sex: 57/M Req #: [id number] Adm Physician: Ordered by: MIMI CHI MD Report #: [id number] Location: [facility] om/Bed: Procedure: [id number] DX/CHEST 2 VIEWS Exam D ate: 03/13/18 Exam Time: 1957 REPORT STATUS: Si gned EXAMINATION: CHEST 2 VIEWS INDICATION: COMPARISON: Chest CT and x-ray dated 02/13/2018 FINDINGS: PA and late ral views TUBES and LINES: Stable single lead left chest wall cardiac barb ce in place. LUNGS: Limited by body habitus and low lung volumes. No defini te focal consolidation. PLEURA: No pleural effusion or pneumo thorax. HEART AND MEDIASTINUM: The cardiomediastinal silhouette is unremar kable. BONES AND SOFT TISSUES: No acute osseous lesion. Soft tissues are unremarkable. UPPER ABDOMEN: No free air under the diaphragm. IMPRESSION: Limited as above. No definite acute thoracic abnormality. Signed by: Dr. Jay Ogden MD on 03/13/2018 8:50 PM Dictated By: Aydin OGDEN MD 49 Tr anscribed By: MARILUZ on 03/13/182049 COPY TO: MIMI CHI MD B-Type Natriuretic Nlqerfd5156-91-26 20:14:00* Test Item Value Reference Range Interpretation Comments B-Type Natriuretic Peptide (test code = 67490-6) 207.1 0-100 H [facility] PointeB-Type Natriuretic Teehwuy2756-21-77 20:14:00* Test Item Value Reference Range Interpretation Comments B-Type Natriuretic Peptide (test code = 87628-3) 207.1 0-100 H [facility] PointeB-Type Natriuretic Upoxmdp4197-85-51 20:14:00* Test Item Value Reference Range Interpretation Comments B-Type Natriuretic Peptide (test code = 16827-1) 207.1 0-100 H [facility] PointeCreatine Kinase [id number] 20:13:00* Test Item Value Reference Range Interpretation Comments Creatine Kinase MB (test code = 57827-0) 0.70 0-5.0 [place] [id number] 20:13:00* Test Item Value Reference Range Interpretation Comments Troponin I (test code = HEZ2531) -0.001 0-0.300 [facility] PointeCreatine Kinase [id number] 20:13:00* Test Item Value Reference Range Interpretation Comments Creatine Kinase MB (test code = 82566-2) 0.70 0-5.0 [place] [id number] 20:13:00* Test Item Value Reference Range Interpretation Comments Troponin I (test code = PKQ0540) -0.001 0-0.300 [facility] PointeCreatine Kinase [id number] 20:13:00* Test Item Value Reference Range Interpretation Comments Creatine Kinase MB (test code = 79676-5) 0.70 0-5.0 [facility] PointeTroponin [id number] 20:13:00* Test Item Value Reference Range Interpretation Comments Troponin I (test code = ADE0795) < 0.001 0-0.300 [facility]odium Kydtx8178-46-71 20:07:00* Test Item Value Reference Range Interpretation Comments Sodium Level (test code = 2951-2) 142 136-145 [facility] PointePotassium Umbkm5928-69-90 20:07:00* Test Item Value Reference Range Interpretation Comments Potassium Level (test code = 2823-3) 4.0 3.5-5.1 [facility] PointeChloride Oqrqe3390-97-30 20:07:00* Test Item Value Reference Range Interpretation Comments Chloride Level (test code = 2075-0) 101 98-107 [facility] PointeCarbon Dioxide Gibly4915-65-86 20:07:00* Test Item Value Reference Range Interpretation Comments Carbon Dioxide Level (test code = 2028-9) 29 22-29 [facility] PointeAnion Jkf5671-08-39 20:07:00* Test Item Value Reference Range Interpretation Comments Anion Gap (test code = 13440-5) 16.0 8-16 [facility] [facility] Urea Macumotv3926-92-25 20:07:00* Test Item Value Reference Range Interpretation Comments Blood Urea Nitrogen (test code = 3094-0) 18 7-26 [facility]inteCreatinine2018-06-25 20:07:00* Test Item Value Reference Range Interpretation Comments Creatinine (test code = 2160-0) 1.48 0.72-1.25 H [facility]inteBUN/Creatinine Acluo5645-26-11 20:07:00* Test Item Value Reference Range Interpretation Comments BUN/Creatinine Ratio (test code = 3097-3) 12 - [facility] PointeEstimat Glomerular Filtration Rate 2018-03-13 20:07:00* Test Item Value Reference Range Interpretation Comments Estimat Glomerular Filtration Rate (test code = 88821-7) 49 >60 L Ranges were taken from the National Kidney Disease Education Program and the [facility] Foundation literature.Reference ranges:60 or greater: Tufvzd06-70 ( for 3 consecutive months): Chronic kidney disease 15 or less: Kidney failureB[facility] & [facility] PointeGlucose Hsykr0779-01-17 20:07:00* Test Item Value Reference Range Interpretation Comments Glucose Level (test code = PKB1888) 106 74-118 [facility]inteCalcium Lrswc2088-12-01 20:07:00* Test Item Value Reference Range Interpretation Comments Calcium Level (test code = 50959-9) 9.4 8.4-10.2 [facility] PointeTotal Nfjyxensx7792-25-27 20:07:00* Test Item Value Reference Range Interpretation Comments Total Bilirubin (test code = 1975-2) 2.3 0.2-1.2 H [facility] PointeAspartate Amino Transf (AST/SGOT) 2018-03-13 20:07:00* Test Item Value Reference Range Interpretation Comments Aspartate Amino Transf (AST/SGOT) (test code = Aspartate Amino Transf (AST/SGOT)) 15 5-34 [facility] PointeAlanine Aminotransferase (ALT/SGPT) 2018-03-13 20:07:00* Test Item Value Reference Range Interpretation Comments Alanine Aminotransferase (ALT/SGPT) (test code = 1742-6) 18 0-55 [facility] PointeTotal Mtcrmlk7204-13-81 20:07:00* Test Item Value Reference Range Interpretation Comments Total Protein (test code = 2885-2) 6.8 6.5-8.1 [facility] PointeAlbumin2018-06-25 20:07:00* Test Item Value Reference Range Interpretation Comments Albumin (test code = 1751-7) 3.8 3.5-5.0 [facility]inteGlobulin2018-06-25 20:07:00* Test Item Value Reference Range Interpretation Comments Globulin (test code = 18040-7) 3.0 2.3-3.5 [facility] PointeAlbumin/Globulin Ywuhc9274-48-73 20:07:00 * Test Item Value Reference Range Interpretation Comments Albumin/Globulin Ratio (test code = 1759-0) 1.3 0.8-2.0 [facility] PointeAlkaline Yehuwiralur6993-19-93 20:07:00* Test Item Value Reference Range Interpretation Comments Alkaline Phosphatase (test code = 6768-6) 84 40-150 [facility]inteCreatine Jsohen5899-64-10 20:07:00* Test Item Value Reference Range Interpretation Comments Creatine Kinase (test code = 2157-6) 52 30-200 [facility] Rbqde7152-63-69 20:07:00* Test Item Value Reference Range Interpretation Comments Sodium Level (test code = 2951-2) 142 136-145 [facility]intePotassium Wpdim3018-85-69 20:07:00* Test Item Value Reference Range Interpretation Comments Potassium Level (test code = 2823-3) 4.0 3.5-5.1 [facility]inteChloride Zqudv6685-27-84 20:07:00* Test Item Value Reference Range Interpretation Comments Chloride Level (test code = 2075-0) 101 98-107 [facility] PointeCarbon Dioxide Cmoze0763-43-18 20:07:00* Test Item Value Reference Range Interpretation Comments Carbon Dioxide Level (test code = 2028-9) 29 22-29 [facility] PointeAnion Qph7980-79-20 20:07:00* Test Item Value Reference Range Interpretation Comments Anion Gap (test code = 10221-4) 16.0 8-16 [facility]inteBlood Urea Chhnglre4742-09-99 20:07:00* Test Item Value Reference Range Interpretation Comments Blood Urea Nitrogen (test code = 3094-0) 18 7-26 [facility]inteCreatinine2018-06-25 20:07:00* Test Item Value Reference Range Interpretation Comments Creatinine (test code = 2160-0) 1.48 0.72-1.25 H [facility]inteBUN/Creatinine Niwcg2252-94-66 20:07:00* Test Item Value Reference Range Interpretation Comments BUN/Creatinine Ratio (test code = 3097-3) 12 6-25 [facility]inteEstimat Glomerular Filtration Rate 2018-03-13 20:07:00* Test Item Value Reference Range Interpretation Comments Estimat Glomerular Filtration Rate (test code = 83451-3) 49 >60 L Ranges were taken from the National Kidney Disease Education Program and the [facility] Kidney Foundation literature.Reference ranges:60 or greater: Ouyeii43-84 ( for 3 consecutive months): Chronic kidney disease 15 or less: Kidney failureBaylor Scott & [facility] PointeGlucose Zguuh7295-91-37 20:07:00* Test Item Value Reference Range Interpretation Comments Glucose Level (test code = SKU2772) 106 74-118 [facility]inteCalcium Eudio3370-98-01 20:07:00* Test Item Value Reference Range Interpretation Comments Calcium Level (test code = 33645-2) 9.4 8.4-10.2 [facility]inteTotal Onrixpxzj8185-35-06 20:07:00* Test Item Value Reference Range Interpretation Comments Total Bilirubin (test code = 1975-2) 2.3 0.2-1.2 H [facility] PointeAspartate Amino Transf (AST/SGOT) 2018-03-13 20:07:00* Test Item Value Reference Range Interpretation Comments Aspartate Amino Transf (AST/SGOT) (test code = Aspartate Amino Transf (AST/SGOT)) 15 5-34 [facility] PointeAlanine Aminotransferase (ALT/SGPT) 2018-03-13 20:07:00* Test Item Value Reference Range Interpretation Comments Alanine Aminotransferase (ALT/SGPT) (test code = 1742-6) 18 0-55 [facility]inteTotal Eaeiaxi1245-35-61 20:07:00* Test Item Value Reference Range Interpretation Comments Total Protein (test code = 2885-2) 6.8 6.5-8.1 [facility] PointeAlbumin2018-06-25 20:07:00* Test Item Value Reference Range Interpretation Comments Albumin (test code = 1751-7) 3.8 3.5-5.0 [facility]inteGlobulin2018-06-25 20:07:00* Test Item Value Reference Range Interpretation Comments Globulin (test code = 65918-0) 3.0 2.3-3.5 [facility]inteAlbumin/Globulin Hqlsr6768-72-70 20:07:00 * Test Item Value Reference Range Interpretation Comments Albumin/Globulin Ratio (test code = 1759-0) 1.3 0.8-2.0 [facility]inteAlkaline Hgibflcmrdw0257-49-17 20:07:00* Test Item Value Reference Range Interpretation Comments Alkaline Phosphatase (test code = 6768-6) 84 40-150 [facility]inteCreatine Suzyok2471-70-49 20:07:00* Test Item Value Reference Range Interpretation Comments Creatine Kinase (test code = 2157-6) 52 30-200 [facility]inteCreatine Xnmmaf2600-54-99 20:07:00* Test Item Value Reference Range Interpretation Comments Creatine Kinase (test code = 2157-6) 52 30-200 [facility]inteWhite Blood Jvawm0859-44-17 19:49:00* Test Item Value Reference Range Interpretation Comments White Blood Count (test code = 6690-2) 7.16 4.8-10.8 [facility]inteRed Blood Mcgor2516-21-34 19:49:00* Test Item Value Reference Range Interpretation Comments Red Blood Count (test code = 789-8) 4.96 4.3-5.7 [facility]inteHemoglobin2018-06-25 19:49:00* Test Item Value Reference Range Interpretation Comments Hemoglobin (test code = 55617-2) 15.8 14.0-18.0 [facility] PointeHematocrit2018-06-25 19:49:00* Test Item Value Reference Range Interpretation Comments Hematocrit (test code = 4544-3) 43.1 38.2-49.6 [facility] PointeMean Corpuscular Wktezi4928-31-43 19:49:00* Test Item Value Reference Range Interpretation Comments Mean Corpuscular Volume (test code = 787-2) 86.9 81-99 [facility]inteMean Corpuscular Qhywcdsazc9739-88-78 19:49:00* Test Item Value Reference Range Interpretation Comments Mean Corpuscular Hemoglobin (test code = 785-6) 31.9 28-32 [facility]inteMean Corpuscular Hemoglobin Concent 2018-03-13 19:49:00* Test Item Value Reference Range Interpretation Comments Mean Corpuscular Hemoglobin Concent (test code = 786-4) 36.7 31-35 H [facility]inteRed Cell Distribution Ykdsj6304-95-19 19:49:00* Test Item Value Reference Range Interpretation Comments Red Cell Distribution Width (test code = 01678-5) 13.1 11.7 -14.4 [facility] PointePlatelet Idahs1861-43-79 19:49:00* Test Item Value Reference Range Interpretation Comments Platelet Count (test code = 777-3) 194 140-360 [facility] PointeNeutrophils (%) (Auto)2018-03-13 19:49:00 * Test Item Value Reference Range Interpretation Comments Neutrophils (%) (Auto) (test code = 65429-7) 58.5 38.7-80.0 [facility] PointeLymphocytes (%) (Auto)2018-03-13 19:49:00 * Test Item Value Reference Range Interpretation Comments Lymphocytes (%) (Auto) (test code = 736-9) 27.7 18.0-39.1 [facility]inteMonocytes (%) (Auto)2018-03-13 19:49:00* Test Item Value Reference Range Interpretation Comments Monocytes (%) (Auto) (test code = 5905-5) 12.4 4.4-11.3 H [facility]inteEosinophils (%) (Auto)2018-03-13 19:49:00 * Test Item Value Reference Range Interpretation Comments Eosinophils (%) (Auto) (test code = 713-8) 0.8 0.0-6.0 [facility]inteBasophils (%) (Auto)2018-03-13 19:49:00* Test Item Value Reference Range Interpretation Comments Basophils (%) (Auto) (test code = 706-2) 0.3 0.0-1.0 [facility]inteIM GRANULOCYTES %2018-03-13 19:49:00* Test Item Value Reference Range Interpretation Comments IM GRANULOCYTES % (test code = IM GRANULOCYTES %) 0.3 0.0- 1.0 [facility]inteNeutrophils # (Auto)2018-03-13 19:49:00* Test Item Value Reference Range Interpretation Comments Neutrophils # (Auto) (test code = 751-8) 4.2 2.1-6.9 [facility] PointeLymphocytes # (Auto)2018-03-13 19:49:00* Test Item Value Reference Range Interpretation Comments Lymphocytes # (Auto) (test code = 99592-1) 2.0 1.0-3.2 [facility]inteMonocytes # (Auto)2018-03-13 19:49:00* Test Item Value Reference Range Interpretation Comments Monocytes # (Auto) (test code = 742-7) 0.9 0.2-0.8 H [facility]inteEosinophils # (Auto)2018-03-13 19:49:00* Test Item Value Reference Range Interpretation Comments Eosinophils # (Auto) (test code = 711-2) 0.1 0.0-0.4 [facility]inteBasophils # (Auto)2018-03-13 19:49:00* Test Item Value Reference Range Interpretation Comments Basophils # (Auto) (test code = 704-7) 0.0 0.0-0.1 [facility]inteAbsolute Immature Granulocyte (auto 2018-03-13 19:49:00* Test Item Value Reference Range Interpretation Comments Absolute Immature Granulocyte (auto (melita t code = Absolute Immature Granulocyte (auto) 0.02 0-0.1 [facility]inteWhite Blood Halqn5289-70-23 19:49:00* Test Item Value Reference Range Interpretation Comments White Blood Count (test code = 6690-2) 7.16 4.8-10.8 [facility]inteRed Blood Bcjth1662-63-84 19:49:00* Test Item Value Reference Range Interpretation Comments Red Blood Count (test code = 789-8) 4.96 4.3-5.7 [facility]inteHemoglobin2018-06-25 19:49:00* Test Item Value Reference Range Interpretation Comments Hemoglobin (test code = 98217-2) 15.8 14.0-18.0 [facility] PointeHematocrit2018-06-25 19:49:00* Test Item Value Reference Range Interpretation Comments Hematocrit (test code = 4544-3) 43.1 38.2-49.6 [facility]inteMean Corpuscular Ihpphx3186-07-36 19:49:00* Test Item Value Reference Range Interpretation Comments Mean Corpuscular Volume (test code = 787-2) 86.9 81-99 [facility]inteMean Corpuscular Oxokfhsvgy9297-32-05 19:49:00* Test Item Value Reference Range Interpretation Comments Mean Corpuscular Hemoglobin (test code = 785-6) 31.9 28-32 [facility]inteMean Corpuscular Hemoglobin Concent 2018-03-13 19:49:00* Test Item Value Reference Range Interpretation Comments Mean Corpuscular Hemoglobin Concent (test code = 786-4) 36.7 31-35 H [facility]inteRed Cell Distribution Mszrh7602-75-48 19:49:00* Test Item Value Reference Range Interpretation Comments Red Cell Distribution Width (test code = 37055-6) 13.1 11.7 -14.4 [facility] PointePlatelet Cfnzx2454-45-80 19:49:00* Test Item Value Reference Range Interpretation Comments Platelet Count (test code = 777-3) 194 140-360 [facility] PointeNeutrophils (%) (Auto)2018-03-13 19:49:00 * Test Item Value Reference Range Interpretation Comments Neutrophils (%) (Auto) (test code = 93057-4) 58.5 38.7-80.0 [facility]inteLymphocytes (%) (Auto)2018-03-13 19:49:00 * Test Item Value Reference Range Interpretation Comments Lymphocytes (%) (Auto) (test code = 736-9) 27.7 18.0-39.1 [facility]inteMonocytes (%) (Auto)2018-03-13 19:49:00* Test Item Value Reference Range Interpretation Comments Monocytes (%) (Auto) (test code = 5905-5) 12.4 4.4-11.3 H [facility]inteEosinophils (%) (Auto)2018-03-13 19:49:00 * Test Item Value Reference Range Interpretation Comments Eosinophils (%) (Auto) (test code = 713-8) 0.8 0.0-6.0 [facility]inteBasophils (%) (Auto)2018-03-13 19:49:00* Test Item Value Reference Range Interpretation Comments Basophils (%) (Auto) (test code = 706-2) 0.3 0.0-1.0 [facility]inteIM GRANULOCYTES %2018-03-13 19:49:00* Test Item Value Reference Range Interpretation Comments IM GRANULOCYTES % (test code = IM GRANULOCYTES %) 0.3 0.0- 1.0 [facility]inteNeutrophils # (Auto)2018-03-13 19:49:00* Test Item Value Reference Range Interpretation Comments Neutrophils # (Auto) (test code = 751-8) 4.2 2.1-6.9 [facility]inteLymphocytes # (Auto)2018-03-13 19:49:00* Test Item Value Reference Range Interpretation Comments Lymphocytes # (Auto) (test code = 86003-1) 2.0 1.0-3.2 [facility]inteMonocytes # (Auto)2018-03-13 19:49:00* Test Item Value Reference Range Interpretation Comments Monocytes # (Auto) (test code = 742-7) 0.9 0.2-0.8 H [facility]inteEosinophils # (Auto)2018-03-13 19:49:00* Test Item Value Reference Range Interpretation Comments Eosinophils # (Auto) (test code = 711-2) 0.1 0.0-0.4 [facility]inteBasophils # (Auto)2018-03-13 19:49:00* Test Item Value Reference Range Interpretation Comments Basophils # (Auto) (test code = 704-7) 0.0 0.0-0.1 [facility]inteAbsolute Immature Granulocyte (auto 2018-03-13 19:49:00* Test Item Value Reference Range Interpretation Comments Absolute Immature Granulocyte (auto (melita t code = Absolute Immature Granulocyte (auto) 0.02 0-0.1 [facility] Rllzqsd6448-78-07 14:04:00* Test Item Value Reference Range Interpretation Comments Bedside Glucose (test code = 58231-1) 111 70-120 Meter ID: [id number] Glucose 2018-02-13 14:04:00* Test Item Value Reference Range Interpretation Comments Bedside Glucose (test code = 07420-2) 111 70-120 Meter ID: [id number] [facility] Glucose 2018-02-13 14:04:00* Test Item Value Reference Range Interpretation Comments Bedside Glucose (test code = 29780-9) 111 70-120 Meter ID: [id number] [facility] Glucose 2018-02-13 14:04:00* Test Item Value Reference Range Interpretation Comments Bedside Glucose (test code = 72918-7) 111 70-120 Meter ID: [id number] [facility] & [facility] PointeUrine UXH8300-14-75 12:24:00* Test Item Value Reference Range Interpretation Comments Urine WBC (test code = 5821-4) 0-5 0-5 [facility]inteUrine JWW4327-17-71 12:24:00* Test Item Value Reference Range Interpretation Comments Urine RBC (test code = 89542-8) 0-5 0-5 [facility]inteUrine Twgfldpx1572-71-70 12:24:00* Test Item Value Reference Range Interpretation Comments Urine Bacteria (test code = 34871-6) NONE NONE [facility] PointeUrine Epithelial Zjroa6065-11-28 12:24:00 * Test Item Value Reference Range Interpretation Comments Urine Epithelial Cells (test code = 09222-6) FEW NONE [facility] PointeUrine JFB5189-71-40 12:24:00* Test Item Value Reference Range Interpretation Comments Urine WBC (test code = 5821-4) 0-5 0-5 [facility]inteUrine TIB9648-44-83 12:24:00* Test Item Value Reference Range Interpretation Comments Urine RBC (test code = 79586-5) 0-5 0-5 [facility]inteUrine Itpxwvhs9237-03-76 12:24:00* Test Item Value Reference Range Interpretation Comments Urine Bacteria (test code = 82785-9) NONE NONE [facility]inteUrine Epithelial Hkpbc5181-85-68 12:24:00 * Test Item Value Reference Range Interpretation Comments Urine Epithelial Cells (test code = 00558-6) FEW NONE [facility] PointeUrine XCV6867-18-69 12:24:00* Test Item Value Reference Range Interpretation Comments Urine WBC (test code = 5821-4) 0-5 0-5 [facility]inteUrine ZNK0185-56-57 12:24:00* Test Item Value Reference Range Interpretation Comments Urine RBC (test code = 21231-4) 0-5 0-5 [facility]inteUrine Kzycmehj4742-64-94 12:24:00* Test Item Value Reference Range Interpretation Comments Urine Bacteria (test code = 64452-9) NONE NONE [facility] PointeUrine Epithelial Jdqxt9491-12-32 12:24:00 * Test Item Value Reference Range Interpretation Comments Urine Epithelial Cells (test code = 18105-7) FEW NONE [facility]inteUrine YCN0168-64-08 12:24:00* Test Item Value Reference Range Interpretation Comments Urine WBC (test code = 5821-4) 0-5 0-5 [facility]inteUrine [id number] 12:24:00* Test Item Value Reference Range Interpretation Comments Urine RBC (test code = 33631-8) 0-5 0-5 [facility]inteUrine Rvbenmxu1347-57-72 12:24:00* Test Item Value Reference Range Interpretation Comments Urine Bacteria (test code = 44042-4) NONE NONE [facility]inteUrine Epithelial Effjm8940-56-56 12:24:00 * Test Item Value Reference Range Interpretation Comments Urine Epithelial Cells (test code = 93706-6) FEW NONE [facility]inteUrine Ssqxr2954-13-13 12:18:00* Test Item Value Reference Range Interpretation Comments Urine Color (test code = 5778-6) YELLOW YELLOW [facility]inteUrine Qycycof6994-37-38 12:18:00* Test Item Value Reference Range Interpretation Comments Urine Clarity (test code = 31616-0) CLEAR CLEAR [facility] Specific Xhhtbgr9241-52-78 12:18:00 * Test Item Value Reference Range Interpretation Comments Urine Specific Mccormick (test code = 5811-5) 1.015 1.010-1.02 5 [facility]inteUrine cY3500-64-89 12:18:00* Test Item Value Reference Range Interpretation Comments Urine pH (test code = 67228-1) 7 5-7 [facility]inteUrine Leukocyte Ngtpsecr3702-04-23 12:18:00* Test Item Value Reference Range Interpretation Comments Urine Leukocyte Esterase (test code = 5799-2) NEGATIVE NEGATIVE [facility]inteUrine Cbjorpp8037-15-17 12:18:00* Test Item Value Reference Range Interpretation Comments Urine Nitrite (test code = 46883-0) NEGATIVE NEGATIVE [facility]inteUrine Smbhkkp8939-98-80 12:18:00* Test Item Value Reference Range Interpretation Comments Urine Protein (test code = 5804-0) NEGATIVE NEGATIVE [facility]inteUrine Glucose (UA)2018-02-13 12:18:00* Test Item Value Reference Range Interpretation Comments Urine Glucose (UA) (test code = 2349-9) NEGATIVE NEGATIVE [facility]inteUrine Wppvyhp4773-30-53 12:18:00* Test Item Value Reference Range Interpretation Comments Urine Ketones (test code = 70515-4) NEGATIVE NEGATIVE [facility]inteU[facility] Ynefmczlnynm5223-22-96 12:18:00* Test Item Value Reference Range Interpretation Comments Urine Urobilinogen (test code = 20354-8) 1 0.2-1 [facility]inteUrine Basltiilm8537-50-04 12:18:00* Test Item Value Reference Range Interpretation Comments Urine Bilirubin (test code = 1978-6) NEGATIVE NEGATIVE [facility] Mxwls4404-17-66 12:18:00* Test Item Value Reference Range Interpretation Comments Urine Blood (test code = 30809-7) NEGATIVE NEGATIVE [facility] Ettuj0245-29-84 12:18:00* Test Item Value Reference Range Interpretation Comments Urine Color (test code = 5778-6) YELLOW YELLOW [facility]inteUrine Qtsmhkj4652-15-42 12:18:00* Test Item Value Reference Range Interpretation Comments Urine Clarity (test code = 63922-4) CLEAR CLEAR [facility]inteU[facility] Specific Vulyxxj2837-67-47 12:18:00 * Test Item Value Reference Range Interpretation Comments Urine Specific Mccormick (test code = 5811-5) 1.015 1.010-1.02 5 [facility]inteU[facility] [id number] 12:18:00* Test Item Value Reference Range Interpretation Comments Urine pH (test code = 27166-3) 7 5-7 [facility] Leukocyte Mynwwqlo3368-38-11 12:18:00* Test Item Value Reference Range Interpretation Comments Urine Leukocyte Esterase (test code = 5799-2) NEGATIVE NEGATIVE [facility] Bgsyrwx5664-97-27 12:18:00* Test Item Value Reference Range Interpretation Comments Urine Nitrite (test code = 64768-3) NEGATIVE NEGATIVE [facility]inteU[facility] Xlsmktz0056-97-79 12:18:00* Test Item Value Reference Range Interpretation Comments Urine Protein (test code = 5804-0) NEGATIVE NEGATIVE [facility]inteUrine Glucose (UA)2018-02-13 12:18:00* Test Item Value Reference Range Interpretation Comments Urine Glucose (UA) (test code = 2349-9) NEGATIVE NEGATIVE [facility] Jczdgzc1752-04-49 12:18:00* Test Item Value Reference Range Interpretation Comments Urine Ketones (test code = 49058-9) NEGATIVE NEGATIVE [facility]inteUrine Xagrbrsuqrnl6153-23-07 12:18:00* Test Item Value Reference Range Interpretation Comments Urine Urobilinogen (test code = 98653-6) 1 0.2-1 [facility] Ebiydykiq8204-75-96 12:18:00* Test Item Value Reference Range Interpretation Comments Urine Bilirubin (test code = 1978-6) NEGATIVE NEGATIVE [facility] Qfnqj2724-97-87 12:18:00* Test Item Value Reference Range Interpretation Comments Urine Blood (test code = 15885-5) NEGATIVE NEGATIVE [facility] Fwzqw8085-93-47 12:18:00* Test Item Value Reference Range Interpretation Comments Urine Color (test code = 5778-6) YELLOW YELLOW [facility] Eesuayo0371-47-83 12:18:00* Test Item Value Reference Range Interpretation Comments Urine Clarity (test code = 45217-5) CLEAR CLEAR [facility]inte[facility] Specific Bmkbjhg0156-40-23 12:18:00 * Test Item Value Reference Range Interpretation Comments Urine Specific Mccormick (test code = 5811-5) 1.015 1.010-1.02 5 [facility] yO5211-54-92 12:18:00* Test Item Value Reference Range Interpretation Comments Urine pH (test code = 51427-8) 7 5-7 [facility] Leukocyte Lvwuwgrt3070-18-27 12:18:00* Test Item Value Reference Range Interpretation Comments Urine Leukocyte Esterase (test code = 5799-2) NEGATIVE NEGATIVE [facility] Aqfzwjn4375-13-20 12:18:00* Test Item Value Reference Range Interpretation Comments Urine Nitrite (test code = 57843-2) NEGATIVE NEGATIVE [facility] Ufwahmx9275-87-17 12:18:00* Test Item Value Reference Range Interpretation Comments Urine Protein (test code = 5804-0) NEGATIVE NEGATIVE [facility] Glucose (UA)2018-02-13 12:18:00* Test Item Value Reference Range Interpretation Comments Urine Glucose (UA) (test code = 2349-9) NEGATIVE NEGATIVE [facility] Ahhxfab5103-55-34 12:18:00* Test Item Value Reference Range Interpretation Comments Urine Ketones (test code = 30645-7) NEGATIVE NEGATIVE [facility] Sftxropkrktb0278-52-50 12:18:00* Test Item Value Reference Range Interpretation Comments Urine Urobilinogen (test code = 26230-8) 1 0.2-1 [facility] Fhmkgbbpx9077-00-06 12:18:00* Test Item Value Reference Range Interpretation Comments Urine Bilirubin (test code = 1978-6) NEGATIVE NEGATIVE [facility] Usiaf9033-07-28 12:18:00* Test Item Value Reference Range Interpretation Comments Urine Blood (test code = 83221-4) NEGATIVE NEGATIVE [facility] Fnoji2455-57-00 12:18:00* Test Item Value Reference Range Interpretation Comments Urine Color (test code = 5778-6) YELLOW YELLOW [facility] Dczzqqu3559-00-63 12:18:00* Test Item Value Reference Range Interpretation Comments Urine Clarity (test code = 45692-6) CLEAR CLEAR [facility] Specific Pylqkjf2711-47-30 12:18:00 * Test Item Value Reference Range Interpretation Comments Urine Specific Mccormick (test code = 5811-5) 1.015 1.010-1.02 5 [facility] uT3072-75-96 12:18:00* Test Item Value Reference Range Interpretation Comments Urine pH (test code = 57122-0) 7 5-7 [facility] Leukocyte Wethstvw2615-38-79 12:18:00* Test Item Value Reference Range Interpretation Comments Urine Leukocyte Esterase (test code = 5799-2) NEGATIVE NEGATIVE [facility] Tnlqfkf2539-48-93 12:18:00* Test Item Value Reference Range Interpretation Comments Urine Nitrite (test code = 97991-6) NEGATIVE NEGATIVE [facility] Fyrytbn1658-23-70 12:18:00* Test Item Value Reference Range Interpretation Comments Urine Protein (test code = 5804-0) NEGATIVE NEGATIVE [facility] Glucose (UA)2018-02-13 12:18:00* Test Item Value Reference Range Interpretation Comments Urine Glucose (UA) (test code = 2349-9) NEGATIVE NEGATIVE [facility] Zwyzbcv1895-05-76 12:18:00* Test Item Value Reference Range Interpretation Comments Urine Ketones (test code = 65887-8) NEGATIVE NEGATIVE [facility] Mockmmfcjoti0051-73-45 12:18:00* Test Item Value Reference Range Interpretation Comments Urine Urobilinogen (test code = 80801-3) 1 0.2-1 [facility] Zxrxqhmoh9940-90-16 12:18:00* Test Item Value Reference Range Interpretation Comments Urine Bilirubin (test code = 1978-6) NEGATIVE NEGATIVE [facility] Pkfwb1661-82-43 12:18:00* Test Item Value Reference Range Interpretation Comments Urine Blood (test code = 06909-4) NEGATIVE NEGATIVE [facility]inteB-Type Natriuretic Oqfsspw9490-37-84 11:49:00* Test Item Value Reference Range Interpretation Comments B-Type Natriuretic Peptide (test code = 23220-6) 156.2 0-100 H [facility]inteCreatine Kinase KB6174-05-99 11:49:00* Test Item Value Reference Range Interpretation Comments Creatine Kinase MB (test code = 07145-1) 1.70 0-5.0 [facility] PointeTroponin Y0078-13-41 11:49:00* Test Item Value Reference Range Interpretation Comments Troponin I (test code = EWN5870) 0.004 0-0.300 [facility] Pznrv5231-07-27 11:43:00* Test Item Value Reference Range Interpretation Comments Sodium Level (test code = 2951-2) 142 136-145 [facility]intePotassium Ujyfg2516-16-15 11:43:00* Test Item Value Reference Range Interpretation Comments Potassium Level (test code = 2823-3) 3.8 3.5-5.1 [facility]inteChloride Ckbyb1652-07-82 11:43:00* Test Item Value Reference Range Interpretation Comments Chloride Level (test code = 2075-0) 103 98-107 [facility] PointeCarbon Dioxide Fwpql9101-38-10 11:43:00* Test Item Value Reference Range Interpretation Comments Carbon Dioxide Level (test code = 2028-9) 28 22-29 [facility] PointeAnion Tki9417-01-79 11:43:00* Test Item Value Reference Range Interpretation Comments Anion Gap (test code = 13274-7) 14.8 8-16 [facility] PointeBlood Urea Ugpnhbnm6674-77-81 11:43:00* Test Item Value Reference Range Interpretation Comments Blood Urea Nitrogen (test code = 3094-0) 17 7-26 [facility]inteCreatinine2018-05-28 11:43:00* Test Item Value Reference Range Interpretation Comments Creatinine (test code = 2160-0) 1.22 0.72-1.25 [facility] PointeBUN/Creatinine Ovxxe4461-38-68 11:43:00* Test Item Value Reference Range Interpretation Comments BUN/Creatinine Ratio (test code = 3097-3) 14 6- [facility] PointeEstimat Glomerular Filtration Rate 2018-02-13 11:43:00* Test Item Value Reference Range Interpretation Comments Estimat Glomerular Filtration Rate (test code = 11240-8) 60- >60 Ranges were taken from the National Kidney Disease Education Program and the [facility] Foundation literature.Reference ranges:60 or greater: Kqpkba00-18 ( for 3 consecutive months): Chronic kidney disease 15 or less: Kidney failureBaylor Scott & [facility] Lake PointeGlucose Oczmd1959-66-72 11:43:00* Test Item Value Reference Range Interpretation Comments Glucose Level (test code = RTG4972) 128 74-118 H [facility] PointeCalcium Kpito2643-18-60 11:43:00* Test Item Value Reference Range Interpretation Comments Calcium Level (test code = 20950-7) 9.4 8.4-10.2 [facility] PointeTotal Desdcazxx1364-48-15 11:43:00* Test Item Value Reference Range Interpretation Comments Total Bilirubin (test code = 1975-2) 2.3 0.2-1.2 H [facility] PointeAspartate Amino Transf (AST/SGOT) 2018-02-13 11:43:00* Test Item Value Reference Range Interpretation Comments Aspartate Amino Transf (AST/SGOT) (test code = Aspartate Amino Transf (AST/SGOT)) 20 5-34 [facility] PointeAlanine Aminotransferase (ALT/SGPT) 2018-02-13 11:43:00* Test Item Value Reference Range Interpretation Comments Alanine Aminotransferase (ALT/SGPT) (test code = 1742-6) 21 0-55 [facility] PointeTotal Rdaybgw6585-24-49 11:43:00* Test Item Value Reference Range Interpretation Comments Total Protein (test code = 2885-2) 6.6 6.5-8.1 [facility] PointeAlbumin2018-05-28 11:43:00* Test Item Value Reference Range Interpretation Comments Albumin (test code = 1751-7) 3.8 3.5-5.0 [facility] PointeGlobulin2018-05-28 11:43:00* Test Item Value Reference Range Interpretation Comments Globulin (test code = 15664-6) 2.8 2.3-3.5 [facility] PointeAlbumin/Globulin Lyhkw0651-41-10 11:43:00 * Test Item Value Reference Range Interpretation Comments Albumin/Globulin Ratio (test code = 1759-0) 1.4 0.8-2.0 [facility] PointeAlkaline Iycamqxqoyv8582-98-04 11:43:00* Test Item Value Reference Range Interpretation Comments Alkaline Phosphatase (test code = 6768-6) 78 40-150 [facility] PointeCreatine Knsagf7833-08-72 11:43:00* Test Item Value Reference Range Interpretation Comments Creatine Kinase (test code = 2157-6) 99 30-200 [facility] PointeLipase2018-05-28 11:43:00* Test Item Value Reference Range Interpretation Comments Lipase (test code = 3040-3) 48 [facility] PointeLipase2018-05-28 11:43:00* Test Item Value Reference Range Interpretation Comments Lipase (test code = 3040-3) 48 [facility] PointeLipase2018-05-28 11:43:00* Test Item Value Reference Range Interpretation Comments Lipase (test code = 3040-3) 48 [facility] PointeLipase2018-05-28 11:43:00* Test Item Value Reference Range Interpretation Comments Lipase (test code = 3040-3) 48 [facility] PointeProthrombin Mxry1033-27-87 11:35:00* Test Item Value Reference Range Interpretation Comments Prothrombin Time (test code = 5902-2) 25.0 11.9-14.5 H [facility] PointeProthromb Time International Ratio 2018-02-13 11:35:00* Test Item Value Reference Range Interpretation Comments Prothromb Time International Ratio (test code = 6301-6) 2.45 Oral Anticoagulant Therapy INR Values:1. Low Intensity Therapy 1.5 - 2.02 . Moderate Intensity Therapy 2.0 - 3.03. High Intensity Therapy(1) 2.5 - 3. 54. High Intensity Therapy(2) 3.0 - 4.05. Panic Value INR > 5.0 [facility] PointeActivated Partial Thromboplast Time 2018-02-13 11:35:00* Test Item Value Reference Range Interpretation Comments Activated Partial Thromboplast Time (test code = 59643-8) 37.5 23.8-35.5 H [facility] PointeProthrombin Qnms4031-30-65 11:35:00* Test Item Value Reference Range Interpretation Comments Prothrombin Time (test code = 5902-2) 25.0 11.9-14.5 H [facility] PointeProthromb Time International Ratio 2018-02-13 11:35:00* Test Item Value Reference Range Interpretation Comments Prothromb Time International Ratio (test code = 6301-6) 2.45 Oral Anticoagulant Therapy INR Values:1. Low Intensity Therapy 1.5 - 2.02 . Moderate Intensity Therapy 2.0 - 3.03. High Intensity Therapy(1) 2.5 - 3. 54. High Intensity Therapy(2) 3.0 - 4.05. Panic Value INR > 5.0 [facility] PointeActivated Partial Thromboplast Time 2018-02-13 11:35:00* Test Item Value Reference Range Interpretation Comments Activated Partial Thromboplast Time (test code = 12705-0) 37.5 23.8-35.5 H [facility] PointeProthrombin Ldbx3222-26-61 11:35:00* Test Item Value Reference Range Interpretation Comments Prothrombin Time (test code = 5902-2) 25.0 11.9-14.5 H [facility] PointeProthromb Time International Ratio 2018-02-13 11:35:00* Test Item Value Reference Range Interpretation Comments Prothromb Time International Ratio (test code = 6301-6) 2.45 Oral Anticoagulant Therapy INR Values:1. Low Intensity Therapy 1.5 - 2.02 . Moderate Intensity Therapy 2.0 - 3.03. High Intensity Therapy(1) 2.5 - 3. 54. High Intensity Therapy(2) 3.0 - 4.05. Panic Value INR > 5.0 [facility] PointeActivated Partial Thromboplast Time 2018-02-13 11:35:00* Test Item Value Reference Range Interpretation Comments Activated Partial Thromboplast Time (test code = 76693-8) 37.5 23.8-35.5 H [facility] PointeWhite Blood Srigl5593-57-08 11:24:00* Test Item Value Reference Range Interpretation Comments White Blood Count (test code = 6690-2) 6.89 4.8-10.8 [facility] PointeRed Blood Aqphl5425-86-42 11:24:00* Test Item Value Reference Range Interpretation Comments Red Blood Count (test code = 789-8) 4.71 4.3-5.7 [facility] PointeHemoglobin2018-05-28 11:24:00* Test Item Value Reference Range Interpretation Comments Hemoglobin (test code = 57880-7) 14.9 14.0-18.0 [facility] PointeHematocrit2018-05-28 11:24:00* Test Item Value Reference Range Interpretation Comments Hematocrit (test code = 4544-3) 41.3 38.2-49.6 [facility] PointeMean Corpuscular Mgpwuc4886-84-98 11:24:00* Test Item Value Reference Range Interpretation Comments Mean Corpuscular Volume (test code = 787-2) 87.7 81-99 [facility] PointeMean Corpuscular Dzfuqvqyxb9324-15-84 11:24:00* Test Item Value Reference Range Interpretation Comments Mean Corpuscular Hemoglobin (test code = 785-6) 31.6 28-32 [facility] PointeMean Corpuscular Hemoglobin Concent 2018-02-13 11:24:00* Test Item Value Reference Range Interpretation Comments Mean Corpuscular Hemoglobin Concent (test code = 786-4) 36.1 31-35 H [facility] PointeRed Cell Distribution Xwvfr9216-45-68 11:24:00* Test Item Value Reference Range Interpretation Comments Red Cell Distribution Width (test code = 16635-6) 13.2 11.7 -14.4 [facility] PointePlatelet Ypdgg6008-03-49 11:24:00* Test Item Value Reference Range Interpretation Comments Platelet Count (test code = 777-3) 195 140-360 [facility] PointeNeutrophils (%) (Auto)2018-02-13 11:24:00 * Test Item Value Reference Range Interpretation Comments Neutrophils (%) (Auto) (test code = 93096-0) 65.2 38.7-80.0 [facility] PointeLymphocytes (%) (Auto)2018-02-13 11:24:00 * Test Item Value Reference Range Interpretation Comments Lymphocytes (%) (Auto) (test code = 736-9) 22.1 18.0-39.1 [facility] PointeMonocytes (%) (Auto)2018-02-13 11:24:00* Test Item Value Reference Range Interpretation Comments Monocytes (%) (Auto) (test code = 5905-5) 11.0 4.4-11.3 [facility]inteEosinophils (%) (Auto)2018-02-13 11:24:00 * Test Item Value Reference Range Interpretation Comments Eosinophils (%) (Auto) (test code = 713-8) 0.7 0.0-6.0 [facility] PointeBasophils (%) (Auto)2018-02-13 11:24:00* Test Item Value Reference Range Interpretation Comments Basophils (%) (Auto) (test code = 706-2) 0.6 0.0-1.0 [facility] PointeIM GRANULOCYTES %2018-02-13 11:24:00* Test Item Value Reference Range Interpretation Comments IM GRANULOCYTES % (test code = IM GRANULOCYTES %) 0.4 0.0- 1.0 [facility] PointeNeutrophils # (Auto)2018-02-13 11:24:00* Test Item Value Reference Range Interpretation Comments Neutrophils # (Auto) (test code = 751-8) 4.5 2.1-6.9 [facility] PointeLymphocytes # (Auto)2018-02-13 11:24:00* Test Item Value Reference Range Interpretation Comments Lymphocytes # (Auto) (test code = 98790-0) 1.5 1.0-3.2 [facility] PointeMonocytes # (Auto)2018-02-13 11:24:00* Test Item Value Reference Range Interpretation Comments Monocytes # (Auto) (test code = 742-7) 0.8 0.2-0.8 [facility]inteEosinophils # (Auto)2018-02-13 11:24:00* Test Item Value Reference Range Interpretation Comments Eosinophils # (Auto) (test code = 711-2) 0.1 0.0-0.4 [facility]inteBasophils # (Auto)2018-02-13 11:24:00* Test Item Value Reference Range Interpretation Comments Basophils # (Auto) (test code = 704-7) 0.0 0.0-0.1 [facility] PointeAbsolute Immature Granulocyte (auto 2018-02-13 11:24:00* Test Item Value Reference Range Interpretation Comments Absolute Immature Granulocyte (auto (melita t code = Absolute Immature Granulocyte (auto) 0.03 0-0.1 [facility] PointeCT CHEST W [facility] [address] [address] Patient Name: BEN KRISHNAN MR #: [id number] : 1960 Age/Sex: 57/M Req #: [id number] Adm Physician: Ordered by: DAMIAN ALEJO MD Report #: [id number] Location: ER Room/Bed: Procedure: [id number] CT/CT CHEST W Exam Date: Exam Time: 1205 REPORT STATUS: Signed EXAM: CT Chest WITH contrast 02/13/2018 11:18 AM INDICATION: COMPARISON: Chest CT 05/06/2000 and and 16 TECHNIQUE: Chest was scanned utilizing a multidetector helical scanner from the lung apex through the level of the adrenal glands without administration of IV contrast. Coronal and sagi ttal reformations were obtained. PE protocol was performed. IV CONTRAST: 100 mL of Omnipaque 300 COMPLICATIONS: None RADIATION DOSE: To monica DLP: 624.6 mGy*cm Estimated effective dose: (DLP x 0.014 x size facto r) mSv CTDIvol has been reviewed. It is below the limits set by the Radia tion Protocol Committee (RPC). FINDINGS: LINES/ TUBES: Cardiac de vice with lead within the right ventricle. LUNGS AND AIRWAYS: No pulmon rosibel embolus identified to the segmental level. Streak artifacts from dense con trast in the IVC partially limits evaluation. A linear area of low attenuation within a right lower lobe segmental pulmonary artery (series 2 image 49) like ly secondary to streak artifact. No focal pulmonary consolidations. Stable rig ht lower lobe scarring. Central airways are patent. Scattered few pulmonar y nodules which include (on series 3): - Right upper lobe 3 mm pulmonary nodul e (image 34). - Left apical 5 mm pulmonary nodule (image 8). - Left lower l obe 4 mm pulmonary nodule (image 60). Resolution of a left lower lobe 6 mm groundglass nodule (previously on image 37). PLEURA: The pleural space s are clear. HEART AND MEDIASTINUM: The thyroid gland is normal. No medias tinal, hilar or axillary lymphadenopathy. Left ventricle appears severely dil ated, stable. There is no pericardial effusion. Three-vessel coronary artery atherosclerotic calcifications, most prominent along the left anterior descend ing coronary artery. Main pulmonary artery measures 2.6 cm. UPPER ABDOMEN : No significant interval change in size of the previously noted 2.2 x 2.5 x 2 .4 cm peripherally calcified centrally fluid attenuating lesion in hepatic seg ment 4A. Cholecystectomy. A stable 1.5 cm fat attenuating structure within th e jejunum likely represents a lipoma. Reflux of contrast into the IVC and hepa tic veins. BONES: The visualized bony thorax is within normal limits. SOFT TISSUES: Unremarkable. IMPRESSION: 1. No pulmonary embolus to the segmental level. 2. Stable severe dilation of the left ventricle with reflux of contrast into the IVC and hepatic veins which may suggest right heart dysfu nction. 3. Stable pulmonary nodules measuring up to 5 mm. Signed by: DR Nicole Duncan MD on 02/13/2018 1:05 PM Dictated By: DONAVAN DUNCAN MD E lectronically Signed By: DONAVAN DUNCAN MD on 02/13/18 130 Transcribed By: GODWIN RAN on 02/13/18 1306 COPY TO: DAMIAN ALEJO MD CHEST SINGLE (PORTABLE) [place] [address] Patient Name: BEN KRISHNAN MR #: [id number] : 1960 Age/Sex: 57/M Req #: [id number] Adm Physician: Ordered by: BENSON [employer]ING GOVERNMENT CLERK Report #: [id number] Location: ER Room/Bed: Procedure: [id number] DX/CHEST SINGLE (PORTABLE) E xam Date: 02/13/18 Exam Time: 1120 REPORT STATU S: Signed EXAMINATION: CHEST SINGLE (PORTABLE) INDICATION: COMPARISON: Chest radiograph 07/04/2017 FINDINGS: AP view TUBES and LINES: Left chest wall ICD with lead tip overlying the r ight ventricle. LUNGS: Lungs are moderately inflated. Lungs are clear. There is no evidence of pneumonia or pulmonary edema. PLEURA: No pleur al effusion or pneumothorax. HEART AND MEDIASTINUM: The cardiomediastinal silhouette is unremarkable. BONES AND SOFT TISSUES: No acute osseous l esion. Soft tissues are unremarkable. UPPER ABDOMEN: No free air under t he diaphragm. IMPRESSION: No acute thoracic abnormality. Sig steve by: DR. Donavan Duncan MD on 02/13/2018 11:54 AM Dictated By: DONAVAN DUNCAN MD 1154 Transcrib ed By: MARILUZ on 02/13/18 1154 COPY TO: [facility] RIGHT [place] [address] Patient Name: BEN KRISHNAN MR #: [id number] : 1960 Age/Sex: 57/M Req #: [id number] Adm Physician: Ordered by: ZACKARY SCHOFIELD MD Report #: [id number] Location: ER Room/Bed: Procedure: [id number] DX/FOOT RIGHT COMPLETE Exa m Date: 09/30/17 Exam Time: 2209 REPORT STATUS: Signed EXAM: FOOT RIGHT COMPLETE, AP, lateral and oblique DATE: 09/30/2017 9:59 PM Time stamp on exam: 2209 hours INDICATION: Smashed foot, lateral side right foot pain COMPARISON: None FINDINGS: BONES: Acute minimally d isplaced fracture through the proximal fifth digit phalanx with likely distal intra-articular extension. Fracture of the base of the fifth digit distal phal anx. JOINTS: No malalignment. SOFT TISSUES: Normal IMPRESSION : Acute minimally displaced fracture of the fifth digit proximal and distal phalanx. Signed by: Dr. Jaki Packer M.D. on 09/30/2017 10:36 PM Dictated By: JAKI PACKER MD 35 Transcribed By: MARILUZ on 09/30/172235 COPY TO: ZACKARY ROJO MD CT ABDOMEN/PELVIS WO [place] [address] Patient Name: BEN KRISHNAN MR #: [id number] : 1960 Age/Sex: 57/M Req #: [id number] Adm Physician: Ordered by: PITA RENTERIA Report #: [id number] Location: ER Room/Bed: Procedure: [id number] CT/CT ABDOMEN/PELVIS RANDY العلي Date: 07/04/17 Exam Time: 1935 REPORT STATU S: Signed EXAM: CT Abdomen and Pelvis WITHOUT contrast INDICATION: COMPARISON: CT dated 07/11/2016 TECHNIQUE: Abdomen and pelvis were scanned utilizing a multidetector helical scanner from the lung base to the pu bic symphysis without administration of IV contrast. Absence of intravenous co ntrast decreases sensitivity for detection of focal lesions and vascular patho logy. Coronal and sagittal reformations were obtained. Routine protocol was pe rformed. IV CONTRAST: None ORAL CONTRAST: Water COMPLICATIONS: None RADIATION DOSE: Total DLP: 954.3 mGy*cm E stimated effective dose: (DLP x 0.015 x size factor) mSv CTDIvol has been reviewed. It is below the limits set by the Radiation Protocol Committee (RPC ). FINDINGS: LINES and TUBES: Partially imaged distal cardiac pacemake r lead. LOWER THORAX: Unremarkable HEPATOBILIARY: Stable hypoden sity in the right lobe of the liver with peripheral calcifications. Otherwise, unenhanced liver is unremarkable. No biliary ductal dilation. GALLBLADD ER: Surgically absent. SPLEEN: No splenomegaly. PANCREAS: No focal ma sses or ductal dilatation. ADRENALS: No adrenal nodules KIDNEYS/ URETERS: Absent left kidney. Unenhanced right kidney is unremarkable. Mild no nspecific right perinephric fat stranding. No hydronephrosis. No calculus. GI TRACT: No abnormal distention, wall thickening, or evidence of bowel obstruction. Stool throughout the colon with possible rectal fecal impa ction. Appendix is not visualized. No right lower quadrant inflammation. PE LVIC ORGANS/BLADDER: Unremarkable. LYMPH NODES: No lymphadenopathy. VE SSELS: Mild aortoiliac atherosclerotic disease. PERITONEUM / RETROPERITONEU M: No free air or fluid. BONES: Unremarkable. SOFT TISSUES: Unremarkab le. IMPRESSION: 1. Constipation with possible rectal fecal impaction. 2. No acute inflammatory process in the abdomen/pelvis. No bowel o bstruction. Signed by: Dr. Jay Ogden MD on 07/04/2017 8:36 PM D ictated By: JAY OGDEN MD 35 COPY TO: PITA RENTERIA CHEST 2 VIEWS [place] [address] Patient Name: BEN KRISHNAN MR #: [id number] : 1960 Age/Sex: 57/M Req #: [id number] Adm Physician: Ordered by: PITA RENTERIA Report #: [id number] Location: ER Room/Bed: Procedure: [id number] DX/CHEST 2 VIEWS Exam Marcellus e: 07/04/17 Exam Time: 1830 REPORT STATUS: Sign ed PROCEDURE: Frontal and lateral views of the chest. COMPARISON: Por table chest 12/05/2016. INDICATIONS: SEVERE CONSTIPATION FINDIN GS: Lines/tubes: Left chest cardiac device with lead projecting over the ex pected region of the right ventricle. Lungs: No focal consolidation or par enchymal mass. Pleura: There is no pleural effusion or pneumothorax. Heart and mediastinum: The heart and the mediastinum are normal. Bones: No acute bony abnormality. Degenerative changes of the thoracic spine. IMPRESSION: No acute radiographic abnormality. Dictated by: Ben Godinez M.D. on 07/04/2017 at 18:54 Electronically approved by: Ben emmanuel M.D. on 07/04/2017 at 18:54 Dictated By: BEN GODINEZ MD 53 Transcribed By: ALBERT CASTANO on 07/04/171853 COPY TO: PITA RENTERIA
[2020-07-04 12:15] LABS: INR 3.3; PROTHROMBIN TIME 35.1 seconds (11.9-14.5)
[2020-07-04] MEDS ORDERED: NITROGLYCERIN 0.4 MG SUBL SL PRN (12:15)
[2020-07-04 12:22] LABS: ALBUMIN 3.4 g/dL (3.5-5.0); ALBUMIN/GLOBULIN RATIO 1.4 (0.8-2.0); ANION GAP 12.4 mmol/L (8-16); CALCIUM 8.1 mg/dL (8.4-10.2); CREATININE, SERUM 1.52 mg/dL (0.72-1.25); POTASSIUM 3.4 mmol/L (3.5-5.1)
--- OUTSIDE RECORDS SUMMARY | 2020-07-04 13:09 | XMS REPORT | Continuity of Care Document ---
Author Author [facility] t Organization [facility] Address [address] [place] [address] Phone Unavailable Care Team Providers Care Individual Pension Consultant Name Role Phone NONSTAFF PCP Unavailable Antonia Vallejo Attphys Unavailable Antwon HUNTER Attphys Unavailable Saniya HANDY Attphys Unavailable Michelle TURNER Attphys Unavailable Saniya ALEJO Attphys Unavailable Connie SCHOFIELD Attphys Unavailable SALCEDO, Rodriguez ROMERO Attphys Unavailable Antwon HUNTER Admphys Unavailable Payers Payer Name Policy Type Policy Number Effective Date Expiration Date Zamzam correa Kelsey Care Medicare Advantage [id number] 2016 00:0 0:00 [facility] Problems Condition Name Condition Details Condition Category Status Onset Date Resolution Date Last Treatment Date Treating Clinician Comments Source Chest pain Chest pain Problem Active [facility] Fecal impaction Fecal impaction Problem Active [facility] Gastrointestinal hemorrhage GI bleeding Problem Active [facility] Allergies, Adverse Reactions, Alerts Allergy Name Allergy Type Status Severity Reaction(s) Onset Date Inacti ve Date Treating Clinician Comments Source Penicillin Propensity to adverse reactions Active Severe LOWER EXTREMITY SWELLING 2019-01-29 00:00:00 [facility] Codeine Propensity to adverse reactions Active Moderate FEET SWELL 2019-01-29 00:00:00 [facility] Pregabalin Allergy to Substance Active 2019-01-29 00:00:00 [facility] Medications Ordered Medication Name Filled Medication Name Start Date Stop Da te Current Medication? Ordering Clinician Indication Dosage Frequency Signature (SIG) Comments Components Source Esomeprazole Magnesium (Nexium) 40 Mg Capsule.dr 40 M g Oral Esomeprazole Magnesium (Nexium) 40 Mg Capsule., 40 Mg Oral 2016-06-25 00:00:00 01-29 00:00:00 No Baron Finley Md 40 Before Breakfast [facility] Bumetanide 1 Mg Tablet Bumetanide 1 Mg Tablet Yes 1 Twice A Day [facility] Carvedilol 3.125 Mg Tablet Carvedilol 3.125 Mg Tablet Yes 6.25 Twice A Day [facility] Glimepiride 2 Mg Tablet Glimepiride 2 Mg Tablet Yes 4 Twice A Day [facility] Lisinopril 2.5 Mg Tablet Lisinopril 2.5 Mg Tablet Yes 5 Daily [facility] Polyethylene Glycol 3350 (Miralax) 17 Gm Powd.pack Louis yethylene Glycol 3350 (Miralax) 17 Gm Powd.pack Yes 34 As Needed [facility] Pravastatin Sodium 40 Mg Tablet Pravastatin Sodium 40 Mg Tablet Yes 40 Daily [facility] Spironolactone 25 Mg Tablet Spironolactone 25 Mg Tablet Yes 25 Daily [facility] Warfarin Sodium 3 Mg Tablet Warfarin Sodium 3 Mg Tablet Yes 7.5 Bedtime [facility] Warfarin Sodium 7.5 Mg Tablet Warfarin Sodium 7.5 Mg Tablet Yes 7.5 Bedtime [facility] Wheat Dextrin (Benefiber) 1 Each Powd.pack Wheat Dextr in (Benefiber) 1 Each Powd.pack Yes 1 As Needed as needed for Cons tipation [facility] Exenatide Microspheres (Bydureon) 2 Mg Vial, 2 Mg Subc utaneously Exenatide Microspheres (Bydureon) 2 Mg Vial, 2 Mg Subcutaneously 2019-01-17 3 00:00:00 No 2 [facility] Loratadine 10 Mg Tablet, 10 Mg Oral Loratadine 10 Mg Tablet, 10 Mg Oral 2019-01-29 00:00:00 No 10 Daily [facility] Amitriptyline Hcl 25 Mg Tablet, 100 Mg Oral Amitriptyl ine Hcl 25 Mg Tablet, 100 Mg Oral 2016-12-05 00:00:00 No 100 Daily At 1700 [facility] Lubiprostone (Amitiza) 24 Mcg Capsule, 24 Mcg Oral Lub iprostone (Amitiza) 24 Mcg Capsule, 24 Mcg Oral 2016-12-05 00:00:00 No 24 Twice Daily Before Meals [facility] Hydrochlorothiazide 25 Mg Tablet, 1 Tab Oral Hydrochlo rothiazide 25 Mg Tablet, 1 Tab Oral 2016-06-23 00:00:00 No 1 Rt Daily [facility] Lisinopril 40 Mg Tablet, 1 Tab Oral Lisinopril 40 Mg Tablet, 1 T ab Oral 2016-06-23 00:00:00 No 1 Rt Daily [facility] Pravastatin Sodium 20 Mg Tablet, 1 Tab Oral Pravastati n Sodium 20 Mg Tablet, 1 Tab Oral 2016-06-23 00:00:00 No 1 Rt Daily [facility] Gabapentin 300 Mg Capsule, 2 Tab Oral Gabapentin 300 Mg Capsule, 2 Tab Oral 2014-11-11 00:00:00 No 2 Rt Daily [facility] Glyburide/Metformin Hcl (Glyburide-Metfo rmin 2.5-500 Mg) 1 Each Tablet, 2 Tab Oral Glyburide/Metformin Hcl (Glyburide-Metfo rmin 2.5-500 Mg) 1 Each Tablet, 2 Tab Oral 2014-11-11 00:00:00 No 2 Twice A Day [facility] Warfarin Sodium 10 Mg Tablet, 1 Tab Oral Warfarin Sodi um 10 Mg Tablet, 1 Tab Oral 2014-11-11 00:00:00 No 1 [facility] Procedures Procedure Date / Time Performed Performing Clinician [facility] EXCISION OF CECUM, ENDO, DIAGN 2019-01-31 00:00:00 AMY LOWERY [facility] EXCISION OF TRANSVERSE COLON, ENDO, DIAGN 2019-01-31 00:00:00 NICOLASA FARMER [facility] EXCISION OF LEFT LARGE INTESTINE, ENDO, DIAGN 2019-01-31 00: 00:00 NICOLASA LOWERY [facility] EXCISION OF LARGE INTESTINE, ENDO, DIAGN 2019-01-31 00:00:00 NICOLASA VARGAS [facility] EXCISION OF RECTUM, ENDO, DIAGN 2019-01-31 00:00:00 DAYNE LOWERY [facility] EXCISION OF STOMACH, PYLORUS, ENDO, DIAGN 2019-01-30 00:00:00 WICK NICOLASA EATON [facility] Encounters Start Date/Time End Date/Time Encounter Type Admission Type [facility] Department Encounter ID Source 2019-06-02 17:41:00 2019-06-02 21:25:00 Departed Emergency Room [facility] [id number] [facility] 2019-01-29 10:59:00 2019-01-31 16:10:00 Discharged Inpatient 1 MATIAS HANDY [facility] [id number] [facility] 2018-08-05 17:51:00 2018-08-05 21:16:00 Departed Emergency Room [facility] [id number] [facility] 2018-05-30 09:13:00 2018-05-30 10:05:00 Departed Emergency Room [facility] [id number] [facility] 2018-03-13 18:46:00 2018-03-13 22:47:00 Departed Emergency Room 1 CELENA TURNER [facility] [id number] [facility] 2018-02-13 10:46:00 2018-02-13 14:51:00 Departed Emergency Room 1 DAMIAN ALEJO [facility] [id number] [facility] 2017-09-30 21:06:00 2017-09-30 23:29:00 Departed Emergency Room ER ZACKARY SCHOFIELD [facility] [id number] [facility] 2017-07-04 22:50:00 2017-07-05 17:46:00 Discharged Inpatient (obs) ER NICK SALCEDO [facility] [id number] [facility] Results Test Description Test Time Test Comments Results Result Comments Source CHEST SINGLE (PORTABLE) 2020-07-04 11:47:00 [facility] 1960 Sex: M [facility] [address] [place] [address] Patient Name: BEN KRISHNAN MR #: [id number] : 1960 Age/Sex: 60/M Req #: [id number] Adm Physician: Ordered by: Emily Vallejo MD Report #: [id number] Location: ER Room/Bed: Procedure: [id number] DX/CHEST SINGLE (PORTABLE) Exam Date: 07/04/20 Exam [...] cardiopulmonary process identified. Signed by: Dr. Gaurang felzi MD on 07/04/2020 11:48 AM Dictated By: GAURANG INFANTE MD 47 Transcribed By: MARILUZ on 07/04/201147 COPY TO: EMILY VALLEJO MD CT ABDOMEN/PELVIS WO 2020-01-27 13:00:00 [facility] [address] [place] [address] Patient Name: BEN KRISHNAN MR #: [id number] : 1960 Age/Sex: 59/M Req #: [id number] Adm Physician: SVEN HUNTER MD Ordered by: SVEN HUNTER MD Report #: [id number] Location: MED/SURG3 Room/Bed: [facility] Procedure: [id number] CT/CT ABDOMEN/PELVIS WO Exam Date: 01/27/20 Exam [...] SVEN HUNTER MD ABDOMEN-1VIEW (KUB) 2020-01-27 10:30:00 [place] [address] Patient Name: BNE KRISHNAN MR #: [id number] : 1960 Age/Sex: 59/M Req #: [id number] Adm Physician: SVEN HUNTER MD Ordered by: SVEN HUNTER MD Report #: [id number] Location: MED/SURG3 Room/Bed: [facility] Procedure: [id number] DX/ABDOMEN-1VIEW (KUB) Exam Date: 01/27/20 Exam Time: [...] HUNTER MD CHEST SINGLE (PORTABLE) 2020-01-26 17:52:00 [place] [address] Patient Name: BEN KRISHNAN MR #: [id number] : 1960 Age/Sex: 59/M Req #: [id number] Adm Physician: Ordered by: GEORGINA MACK MD Report #: [id number] Location: ER Room/Bed: Procedure: [id number] DX/CHEST SINGLE (PORTABLE) Exam Date: 01/26/20 Exam Time: 1700 REPORT STATUS: Signed EXAMINATION: CHEST SINGLE (PORTABLE) INDICATION: n/v, cp [id number] COMPARISON: 01/29/2019 FINDINGS: AP view TUBES [...] 5:53 PM Dictated By: JAY OGDEN MD [id number] Transcribed By: MARILUZ on 01/26/20 1751 COPY TO: GEORGINA MACK MD Bedside Glucose 2019-02-02 08:31:00 Test Item Bedside Glucose (test code = 52388-9) 158 70-120 H Meter ID: [id number] [facility] FallsBedside Glucose 2019-01-31 15:09:00* Test Item Value Reference Range Interpretation Comments Bedside Glucose (test code = 19789-1) 206 70-120 H Meter ID: [id number] [facility] Occult Blood 2019-01-30 10:56:00* Test Item Value Reference Range Interpretation Comments Stool Occult Blood (test code = 2335-8) NEGATIVE NEGATIVE [facility] Occult Ttcgx1595-59-60 10:56:00* Test Item Value Reference Range Interpretation Comments Stool Occult Blood (test code = 2335-8) NEGATIVE NEGATIVE [facility] Hospitalodium Khqyr2867-09-13 07:17:00* Test Item Value Reference Range Interpretation Comments Sodium Level (test code = 2951-2) 136 136-145 [facility] FallsPotassium Spdpu9561-54-20 07:17:00* Test Item Value Reference Range Interpretation Comments Potassium Level (test code = 2823-3) 3.9 3.5-5.1 [facility] FallsChloride Txtqx3658-12-91 07:17:00* Test Item Value Reference Range Interpretation Comments Chloride Level (test code = 2075-0) 102 98-107 [facility] FallsCarbon Dioxide Dvejd5757-16-73 07:17:00* Test Item Value Reference Range Interpretation Comments Carbon Dioxide Level (test code = 2028-9) 26 22-29 [facility] FallsAnion Ltw2150-37-04 07:17:00* Test Item Value Reference Range Interpretation Comments Anion Gap (test code = 73745-4) 11.9 8-16 [facility] FallsBlood Urea Csdthnso4949-04-64 07:17:00* Test Item Value Reference Range Interpretation Comments Blood Urea Nitrogen (test code = 3094-0) 15 7-26 [facility] FallsCreatinine2019-05-14 07:17:00* Test Item Value Reference Range Interpretation Comments Creatinine (test code = 2160-0) 1.24 0.72-1.25 [facility] FallsBUN/Creatinine Hfeve9757-61-82 07:17:00* Test Item Value Reference Range Interpretation Comments BUN/Creatinine Ratio (test code = 3097-3) 12 6-25 [facility] FallsEstimat Glomerular Filtration Rate 2019-01-30 07:17:00* Test Item Value Reference Range Interpretation Comments Estimat Glomerular Filtration Rate (test code = 244186562) 60 >60 Ranges were taken from the National Kidney Disease Education Program and the [facility] Kidney Foundation literature.Reference ranges:60 or greater: Lmsmke42-59 ( for 3 consecutive months): Chronic kidney disease 15 or less: Kidney failureBaylor Scott & White Medical Center – Marble FallsGlucose Wetnp0538-04-20 07:17:00* Test Item Value Reference Range Interpretation Comments Glucose Level (test code = LMP1432) 105 74-118 [facility] FallsCalcium Cxcyu1145-10-18 07:17:00* Test Item Value Reference Range Interpretation Comments Calcium Level (test code = 90372-5) 9.2 8.4-10.[address] [facility] Hospitalodium Punpu0350-64-79 07:17:00* Test Item Value Reference Range Interpretation Comments Sodium Level (test code = 2951-2) 136 136-145 [facility] FallsPotassium Fgnew9268-98-62 07:17:00* Test Item Value Reference Range Interpretation Comments Potassium Level (test code = 2823-3) 3.9 3.5-5.1 [facility] FallsChloride Umjde0659-97-26 07:17:00* Test Item Value Reference Range Interpretation Comments Chloride Level (test code = 2075-0) 102 98-107 [facility] FallsCarbon Dioxide Axrek4002-89-79 07:17:00* Test Item Value Reference Range Interpretation Comments Carbon Dioxide Level (test code = 2028-9) 26 22-29 [facility] FallsAnion Lid0167-22-82 07:17:00* Test Item Value Reference Range Interpretation Comments Anion Gap (test code = 42533-2) 11.9 8-16 [facility] FallsBlood Urea Wvclvfai9009-48-69 07:17:00* Test Item Value Reference Range Interpretation Comments Blood Urea Nitrogen (test code = 3094-0) 15 7-26 [facility] FallsCreatinine2019-05-14 07:17:00* Test Item Value Reference Range Interpretation Comments Creatinine (test code = 2160-0) 1.24 0.72-1.25 [facility] FallsBUN/Creatinine Mqzja0745-70-07 07:17:00* Test Item Value Reference Range Interpretation Comments BUN/Creatinine Ratio (test code = 3097-3) 12 6- [facility] FallsEstimat Glomerular Filtration Rate 2019-01-30 07:17:00* Test Item Value Reference Range Interpretation Comments Estimat Glomerular Filtration Rate (test code = 985640149) 60 >60 Ranges were taken from the National Kidney Disease Education Program and the [facility] Kidney Foundation literature.Reference ranges:60 or greater: Lqwxzy11-66 ( for 3 consecutive months): Chronic kidney disease 15 or less: Kidney failureBaylor Scott & White Medical Center – Marble FallsGlucose Bxcsd6613-71-03 07:17:00* Test Item Value Reference Range Interpretation Comments Glucose Level (test code = UPJ2599) 105 74-118 [facility] FallsCalcium Dsesu7426-33-44 07:17:00* Test Item Value Reference Range Interpretation Comments Calcium Level (test code = 66839-9) 9.2 8.4-10.2 [facility] FallsTotal Fnibjswsl4467-51-71 06:57:00* Test Item Value Reference Range Interpretation Comments Total Bilirubin (test code = 1975-2) 2.1 0.2-1.2 H [facility] FallsDirect Rziukdxyb1869-55-50 06:57:00* Test Item Value Reference Range Interpretation Comments Direct Bilirubin (test code = 03930-5) 1.0 0.0-0.5 H [facility] FallsAspartate Amino Transf (AST/SGOT) 2019-01-30 06:57:00* Test Item Value Reference Range Interpretation Comments Aspartate Amino Transf (AST/SGOT) (test code = Aspartate Amino Transf (AST/SGOT)) 14 534 [facility] FallsAlanine Aminotransferase (ALT/SGPT) 2019-01-30 06:57:00* Test Item Value Reference Range Interpretation Comments Alanine Aminotransferase (ALT/SGPT) (test code = 1742-6) 14 0-55 [facility] FallsTotal Ebyzpqp4420-26-50 06:57:00* Test Item Value Reference Range Interpretation Comments Total Protein (test code = 2885-2) 5.5 6.5-8.1 L [facility] FallsAlbumin2019-05-14 06:57:00* Test Item Value Reference Range Interpretation Comments Albumin (test code = 1751-7) 3.2 3.5-5.0 L [facility] FallsAlkaline Xvlvjkaectd6609-32-00 06:57:00* Test Item Value Reference Range Interpretation Comments Alkaline Phosphatase (test code = 6768-6) 60 40-150 [facility] FallsTotal Aiiqutuyx4792-63-63 06:57:00* Test Item Value Reference Range Interpretation Comments Total Bilirubin (test code = 1975-2) 2.1 0.2-1.2 H [facility] FallsDirect Htgxhewjd8341-63-49 06:57:00* Test Item Value Reference Range Interpretation Comments Direct Bilirubin (test code = 46804-1) 1.0 0.0-0.5 H [facility] FallsAspartate Amino Transf (AST/SGOT) 2019-01-30 06:57:00* Test Item Value Reference Range Interpretation Comments Aspartate Amino Transf (AST/SGOT) (test code = Aspartate Amino Transf (AST/SGOT)) 14 534 [facility] FallsAlanine Aminotransferase (ALT/SGPT) 2019-01-30 06:57:00* Test Item Value Reference Range Interpretation Comments Alanine Aminotransferase (ALT/SGPT) (test code = 1742-6) 14 0-55 [facility] FallsT[facility] Wqzglss2048-99-19 06:57:00* Test Item Value Reference Range Interpretation Comments Total Protein (test code = 2885-2) 5.5 6.5-8.1 L [facility] FallsAlbumin2019-05-14 06:57:00* Test Item Value Reference Range Interpretation Comments Albumin (test code = 1751-7) 3.2 3.5-5.0 L [facility] FallsAlkaline Dnqcnqmyqzv5234-82-97 06:57:00* Test Item Value Reference Range Interpretation Comments Alkaline Phosphatase (test code = 6768-6) 60 40-150 [place] 12074019-05-14 06:28:00* Test Item Value Reference Range Interpretation Comments Troponin I (test code = TZA0641) < 0.001 0-0.300 [place] 12074019-05-14 06:28:00* Test Item Value Reference Range Interpretation Comments Troponin I (test code = BRL2391) < 0.001 0-0.300 [facility] Acger7321-19-63 06:06:00* Test Item Value Reference Range Interpretation Comments Magnesium Level (test code = 64158-9) 1.8 1.3-2.1 [facility] Vlmum8099-51-80 06:06:00* Test Item Value Reference Range Interpretation Comments Magnesium Level (test code = 23647-8) 1.8 1.3-2.1 [facility] FallsWhite Blood Jrlcz9398-22-35 06:01:00* Test Item Value Reference Range Interpretation Comments White Blood Count (test code = 6690-2) 7.13 4.8-10.8 [facility] FallsRed Blood Pmczx5765-07-01 06:01:00* Test Item Value Reference Range Interpretation Comments Red Blood Count (test code = 789-8) 4.17 4.3-5.7 L [facility] FallsHemoglobin2019-05-14 06:01:00* Test Item Value Reference Range Interpretation Comments Hemoglobin (test code = 70322-1) 13.3 14.0-18.0 L [facility] FallsHematocrit2019-05-14 06:01:00* Test Item Value Reference Range Interpretation Comments Hematocrit (test code = 4544-3) 37.2 38.2-49.6 L [facility] FallsMean Corpuscular Iuunnk5411-41-91 06:01:00* Test Item Value Reference Range Interpretation Comments Mean Corpuscular Volume (test code = 787-2) 89.2 81-99 [facility] FallsMean Corpuscular Xwztwccjhe5962-98-68 06:01:00* Test Item Value Reference Range Interpretation Comments Mean Corpuscular Hemoglobin (test code = 785-6) 31.9 28-32 [facility] FallsMean Corpuscular Hemoglobin Concent 2019-01-30 06:01:00* Test Item Value Reference Range Interpretation Comments Mean Corpuscular Hemoglobin Concent (test code = 786-4) 35.8 31-35 H [facility] FallsRed Cell Distribution Juqmk0323-21-78 06:01:00* Test Item Value Reference Range Interpretation Comments Red Cell Distribution Width (test code = 70055-2) 13.3 11.7 -14.4 [facility] FallsPlatelet Ubzrp1095-03-66 06:01:00* Test Item Value Reference Range Interpretation Comments Platelet Count (test code = 777-3) 171 140-360 [facility] FallsNeutrophils (%) (Auto)2019-01-30 06:01:00 * Test Item Value Reference Range Interpretation Comments Neutrophils (%) (Auto) (test code = 93078-5) 57.4 38.7-80.0 [facility] FallsLymphocytes (%) (Auto)2019-01-30 06:01:00 * Test Item Value Reference Range Interpretation Comments Lymphocytes (%) (Auto) (test code = 736-9) 28.2 18.0-39.1 [facility] FallsMonocytes (%) (Auto)2019-01-30 06:01:00* Test Item Value Reference Range Interpretation Comments Monocytes (%) (Auto) (test code = 5905-5) 12.2 4.4-11.3 H [facility] FallsEosinophils (%) (Auto)2019-01-30 06:01:00 * Test Item Value Reference Range Interpretation Comments Eosinophils (%) (Auto) (test code = 713-8) 1.5 0.0-6.0 [facility] FallsBasophils (%) (Auto)2019-01-30 06:01:00* Test Item Value Reference Range Interpretation Comments Basophils (%) (Auto) (test code = 706-2) 0.4 0.0-1.0 [facility] FallsIM GRANULOCYTES %2019-01-30 06:01:00* Test Item Value Reference Range Interpretation Comments IM GRANULOCYTES % (test code = IM GRANULOCYTES %) 0.3 0.0- 1.0 [facility] FallsNeutrophils # (Auto)2019-01-30 06:01:00* Test Item Value Reference Range Interpretation Comments Neutrophils # (Auto) (test code = 751-8) 4.1 2.1-6.9 [facility] FallsLymphocytes # (Auto)2019-01-30 06:01:00* Test Item Value Reference Range Interpretation Comments Lymphocytes # (Auto) (test code = 70667-2) 2.0 1.0-3.2 [facility] FallsMonocytes # (Auto)2019-01-30 06:01:00* Test Item Value Reference Range Interpretation Comments Monocytes # (Auto) (test code = 742-7) 0.9 0.2-0.8 H [facility] FallsEosinophils # (Auto)2019-01-30 06:01:00* Test Item Value Reference Range Interpretation Comments Eosinophils # (Auto) (test code = 711-2) 0.1 0.0-0.4 [facility] FallsBasophils # (Auto)2019-01-30 06:01:00* Test Item Value Reference Range Interpretation Comments Basophils # (Auto) (test code = 704-7) 0.0 0.0-0.1 [facility] FallsAbsolute Immature Granulocyte (auto 2019-01-30 06:01:00* Test Item Value Reference Range Interpretation Comments Absolute Immature Granulocyte (auto (melita t code = Absolute Immature Granulocyte (auto) 0.02 0-0.1 [facility] FallsProthrombin Jypr0589-79-41 06:01:00* Test Item Value Reference Range Interpretation Comments Prothrombin Time (test code = 5902-2) 22.6 11.9-14.5 H [facility] FallsProthromb Time International Ratio 2019-01-30 06:01:00* Test Item [...] [facility] FallsActivated Partial Thromboplast Time 2019-01-30 06:01:00* Test Item Value Reference Range Interpretation Comments Activated Partial Thromboplast Time (test code = 43250-3) 37.2 23.8-35.5 H [facility] FallsWhite Blood Drmen2560-80-20 06:01:00* Test Item Value Reference Range Interpretation Comments White Blood Count (test code = 6690-2) 7.13 4.8-10.8 [facility] FallsRed Blood Dcufj5158-75-92 06:01:00* Test Item Value Reference Range Interpretation Comments Red Blood Count (test code = 789-8) 4.17 4.3-5.7 L [facility] FallsHemoglobin2019-05-14 06:01:00* Test Item Value Reference Range Interpretation Comments Hemoglobin (test code = 56544-3) 13.3 14.0-18.0 L [facility] FallsHematocrit2019-05-14 06:01:00* Test Item Value Reference Range Interpretation Comments Hematocrit (test code = 4544-3) 37.2 38.2-49.6 L [facility] FallsMean Corpuscular Ejnups8087-62-96 06:01:00* Test Item Value Reference Range Interpretation Comments Mean Corpuscular Volume (test code = 787-2) 89.2 81-99 [facility] FallsMean Corpuscular Vgpjefcndj1391-14-26 06:01:00* Test Item Value Reference Range Interpretation Comments Mean Corpuscular Hemoglobin (test code = 785-6) 31.9 28-32 [facility] FallsMean Corpuscular Hemoglobin Concent 2019-01-30 06:01:00* Test Item Value Reference Range Interpretation Comments Mean Corpuscular Hemoglobin Concent (test code = 786-4) 35.8 31-35 H [facility] FallsRed Cell Distribution Bfsfp6626-86-62 06:01:00* Test Item Value Reference Range Interpretation Comments Red Cell Distribution Width (test code = 59010-4) 13.3 11.7 -14.4 [facility] FallsPlatelet Uqhla8800-87-81 06:01:00* Test Item Value Reference Range Interpretation Comments Platelet Count (test code = 777-3) 171 140-360 [facility] FallsNeutrophils (%) (Auto)2019-01-30 06:01:00 * Test Item Value Reference Range Interpretation Comments Neutrophils (%) (Auto) (test code = 01357-8) 57.4 38.7-80.0 [facility] FallsLymphocytes (%) (Auto)2019-01-30 06:01:00 * Test Item Value Reference Range Interpretation Comments Lymphocytes (%) (Auto) (test code = 736-9) 28.2 18.0-39.1 [facility] FallsMonocytes (%) (Auto)2019-01-30 06:01:00* Test Item Value Reference Range Interpretation Comments Monocytes (%) (Auto) (test code = 5905-5) 12.2 4.4-11.3 H [facility] FallsEosinophils (%) (Auto)2019-01-30 06:01:00 * Test Item Value Reference Range Interpretation Comments Eosinophils (%) (Auto) (test code = 713-8) 1.5 0.0-6.0 [facility] FallsBasophils (%) (Auto)2019-01-30 06:01:00* Test Item Value Reference Range Interpretation Comments Basophils (%) (Auto) (test code = 706-2) 0.4 0.0-1.0 [facility] FallsIM GRANULOCYTES %2019-01-30 06:01:00* Test Item Value Reference Range Interpretation Comments IM GRANULOCYTES % (test code = IM GRANULOCYTES %) 0.3 0.0- 1.0 [facility] FallsNeutrophils # (Auto)2019-01-30 06:01:00* Test Item Value Reference Range Interpretation Comments Neutrophils # (Auto) (test code = 751-8) 4.1 2.1-6.9 [facility] FallsLymphocytes # (Auto)2019-01-30 06:01:00* Test Item Value Reference Range Interpretation Comments Lymphocytes # (Auto) (test code = 02863-0) 2.0 1.0-3.2 [facility] FallsMonocytes # (Auto)2019-01-30 06:01:00* Test Item Value Reference Range Interpretation Comments Monocytes # (Auto) (test code = 742-7) 0.9 0.2-0.8 H [facility] FallsEosinophils # (Auto)2019-01-30 06:01:00* Test Item Value Reference Range Interpretation Comments Eosinophils # (Auto) (test code = 711-2) 0.1 0.0-0.4 [facility] FallsBasophils # (Auto)2019-01-30 06:01:00* Test Item Value Reference Range Interpretation Comments Basophils # (Auto) (test code = 704-7) 0.0 0.0-0.1 [facility] FallsAbsolute Immature Granulocyte (auto 2019-01-30 06:01:00* Test Item Value Reference Range Interpretation Comments Absolute Immature Granulocyte (auto (melita t code = Absolute Immature Granulocyte (auto) 0.02 0-0.1 [facility] FallsProthrombin Rgob7458-03-11 06:01:00* Test Item Value Reference Range Interpretation Comments Prothrombin Time (test code = 5902-2) 22.6 11.9-14.5 H [facility] FallsProthromb Time International Ratio 2019-01-30 06:01:00* Test Item [...] [facility] FallsActivated Partial Thromboplast Time 2019-01-30 06:01:00* Test Item Value Reference Range Interpretation Comments Activated Partial Thromboplast Time (test code = 97435-4) 37.2 23.8-35.5 H [facility] FallsCreatine Kinase QN3806-08-15 10:18:00* Test Item Value Reference Range Interpretation Comments Creatine Kinase MB (test code = 86058-9) 0.60 0-5.0 [facility] FallsCreatine Kinase SZ3987-84-89 10:18:00* Test Item Value Reference Range Interpretation Comments Creatine Kinase MB (test code = 58979-9) 0.60 0-5.0 [facility] FallsCHEST SINGLE (PORTABLE)2019-01-29 10:10:00 [facility] [address] [place] [address] Patient Name: BEN KRISHNAN MR #: [id number] : 1960 Age/Sex: 58/M Req #: [id number] Adm Physician: Ordered by: MATIAS HANDY MD Report #: [id number] Location: Room/Bed: Procedure: [id number] DX/CH EST SINGLE (PORTABLE) Exam Date: 01/29/19 [...] 1028 COPY TO: MATIAS HANDY MD Creatine Hsvqgg4453-09-58 10:05:00* Test Item Value Reference Range Interpretation Comments Creatine Kinase (test code = 2157-6) 64 30-200 [facility] FallsCreatine Nlkzdv5961-02-13 10:05:00* Test Item Value Reference Range Interpretation Comments Creatine Kinase (test code = 2157-6) 64 30-200 [facility] FallsGlobulin2019-05-13 10:04:00* Test Item Value Reference Range Interpretation Comments Globulin (test code = 30108-0) 3.0 2.3-3.5 [facility] FallsAlbumin/Globulin Pyclq0830-91-62 10:04:00 * Test Item Value Reference Range Interpretation Comments Albumin/Globulin Ratio (test code = 1759-0) 1.3 0.8-2.0 [facility] FallsAmylase Avtry0838-83-65 10:04:00* Test Item Value Reference Range Interpretation Comments Amylase Level (test code = 1798-8) 48 25-125 [facility] FallsLipase2019-05-13 10:04:00* Test Item Value Reference Range Interpretation Comments Lipase (test code = 3040-3) 41 8-78 [facility] FallsGlobulin2019-05-13 10:04:00* Test Item Value Reference Range Interpretation Comments Globulin (test code = 29813-1) 3.0 2.3-3.5 [facility] FallsAlbumin/Globulin Tifmm9605-21-31 10:04:00 * Test Item Value Reference Range Interpretation Comments Albumin/Globulin Ratio (test code = 1759-0) 1.3 0.8-2.0 [facility] FallsAmylase Diezk4861-29-23 10:04:00* Test Item Value Reference Range Interpretation Comments Amylase Level (test code = 1798-8) 48 25-125 [facility] FallsLipase2019-05-13 10:04:00* Test Item Value Reference Range Interpretation Comments Lipase (test code = 3040-3) 41 8-[address] [facility] Hospitalodium Queyx3227-40-83 20:22:00* Test Item Value Reference Range Interpretation Comments Sodium Level (test code = 2951-2) 140 136-145 [facility] FallsPotassium Loyrl2796-63-18 20:22:00* Test Item Value Reference Range Interpretation Comments Potassium Level (test code = 2823-3) 3.7 3.5-5.1 [facility] FallsChloride Ualaf3860-21-78 20:22:00* Test Item Value Reference Range Interpretation Comments Chloride Level (test code = 2075-0) 102 98-107 [facility] FallsCarbon Dioxide Wzmjo8890-03-56 20:22:00* Test Item Value Reference Range Interpretation Comments Carbon Dioxide Level (test code = 2028-9) 26 22-29 [facility] FallsAnion Xvt9510-05-19 20:22:00* Test Item Value Reference Range Interpretation Comments Anion Gap (test code = 39448-5) 15.7 8-16 [facility] FallsBlood Urea Elolralc7762-45-85 20:22:00* Test Item Value Reference Range Interpretation Comments Blood Urea Nitrogen (test code = 3094-0) 16 7-26 [facility] FallsCreatinine2018-11-17 20:22:00* Test Item Value Reference Range Interpretation Comments Creatinine (test code = 2160-0) 1.13 0.72-1.25 [facility] FallsBUN/Creatinine Ujvir6933-18-74 20:22:00* Test Item Value Reference Range Interpretation Comments BUN/Creatinine Ratio (test code = 3097-3) 14 6-25 [facility] FallsEstimat Glomerular Filtration Rate 2018-08-05 20:22:00* Test Item Value Reference Range Interpretation Comments Estimat Glomerular Filtration Rate (test code = 572566103) > 60 >60 Ranges were taken from the National Kidney Disease Education Program and the [facility] Kid[facility] Foundation literature.Reference ranges:60 or greater: Bvcqyj14-65 ( for 3 consecutive months): Chronic kidney disease 15 or less: Kidney failureBaylor Scott & [facility] – [facility] FallsGlucose Oitcq1431-48-16 20:22:00* Test Item Value Reference Range Interpretation Comments Glucose Level (test code = WPC8592) 206 74-118 H [facility] FallsCalcium Rmwvi8706-61-54 20:22:00* Test Item Value Reference Range Interpretation Comments Calcium Level (test code = 79515-2) 8.5 8.4-10.2 [facility] FallsTotal Iliywejgh5881-43-73 20:22:00* Test Item Value Reference Range Interpretation Comments Total Bilirubin (test code = 1975-2) 2.1 0.2-1.2 H [facility] FallsAspartate Amino Transf (AST/SGOT) 2018-08-05 20:22:00* Test Item Value Reference Range Interpretation Comments Aspartate Amino Transf (AST/SGOT) (test code = Aspartate Amino Transf (AST/SGOT)) 11 5-34 [facility] FallsAlanine Aminotransferase (ALT/SGPT) 2018-08-05 20:22:00* Test Item Value Reference Range Interpretation Comments Alanine Aminotransferase (ALT/SGPT) (test code = 1742-6) 13 0-55 [facility] FallsTotal Pzxhpqn1214-62-60 20:22:00* Test Item Value Reference Range Interpretation Comments Total Protein (test code = 2885-2) 5.8 6.5-8.1 L [facility] FallsAlbumin2018-11-17 20:22:00* Test Item Value Reference Range Interpretation Comments Albumin (test code = 1751-7) 3.5 3.5-5.0 [facility] FallsGlobulin2018-11-17 20:22:00* Test Item Value Reference Range Interpretation Comments Globulin (test code = 81547-4) 2.3 2.3-3.5 [facility] FallsAlbumin/Globulin Upsav7462-95-55 20:22:00 * Test Item Value Reference Range Interpretation Comments Albumin/Globulin Ratio (test code = 1759-0) 1.5 0.8-2.0 [facility] FallsAlkaline Itrepaamwev5205-79-54 20:22:00* Test Item Value Reference Range Interpretation Comments Alkaline Phosphatase (test code = 6768-6) 81 40-150 [facility] FallsProthrombin Vigb1342-76-30 20:14:00* Test Item Value Reference Range Interpretation Comments Prothrombin Time (test code = 5902-2) 28.8 11.9-14.5 H [facility] FallsProthromb Time International Ratio 2018-08-05 20:14:00* Test Item [...] [facility] FallsActivated Partial Thromboplast Time 2018-08-05 20:14:00* Test Item Value Reference Range Interpretation Comments Activated Partial Thromboplast Time (test code = 15453-1) 36.8 23.8-35.5 H [facility] FallsWhite Blood Hgvzh0881-71-31 20:00:00* Test Item Value Reference Range Interpretation Comments White Blood Count (test code = 6690-2) 7.55 4.8-10.8 [facility] FallsRed Blood Uxipo5778-58-80 20:00:00* Test Item Value Reference Range Interpretation Comments Red Blood Count (test code = 789-8) 5.33 4.3-5.7 [facility] FallsHemoglobin2018-11-17 20:00:00* Test Item Value Reference Range Interpretation Comments Hemoglobin (test code = 55295-3) 16.3 14.0-18.0 [facility] FallsHematocrit2018-11-17 20:00:00* Test Item Value Reference Range Interpretation Comments Hematocrit (test code = 4544-3) 46.6 38.2-49.6 [facility] FallsMean Corpuscular Bwoqrw5084-64-68 20:00:00* Test Item Value Reference Range Interpretation Comments Mean Corpuscular Volume (test code = 787-2) 87.4 81-99 [facility] FallsMean Corpuscular Gardvvzjlg8963-27-34 20:00:00* Test Item Value Reference Range Interpretation Comments Mean Corpuscular Hemoglobin (test code = 785-6) 30.6 28-32 [facility] Corpuscular Hemoglobin Concent 2018-08-05 20:00:00* Test Item Value Reference Range Interpretation Comments Mean Corpuscular Hemoglobin Concent (test code = 786-4) 35.0 31-35 [facility] FallsRed Cell Distribution Tylhc4243-44-50 20:00:00* Test Item Value Reference Range Interpretation Comments Red Cell Distribution Width (test code = 82093-4) 13.2 11.7 -14.4 [facility] FallsPlatelet Mkizf7002-82-59 20:00:00* Test Item Value Reference Range Interpretation Comments Platelet Count (test code = 777-3) 181 140-360 [facility] FallsNeutrophils (%) (Auto)2018-08-05 20:00:00 * Test Item Value Reference Range Interpretation Comments Neutrophils (%) (Auto) (test code = 95642-2) 60.4 38.7-80.0 [facility] FallsLymphocytes (%) (Auto)2018-08-05 20:00:00 * Test Item Value Reference Range Interpretation Comments Lymphocytes (%) (Auto) (test code = 736-9) 26.6 18.0-39.1 [facility] FallsMonocytes (%) (Auto)2018-08-05 20:00:00* Test Item Value Reference Range Interpretation Comments Monocytes (%) (Auto) (test code = 5905-5) 11.5 4.4-11.3 H [facility] FallsEosinophils (%) (Auto)2018-08-05 20:00:00 * Test Item Value Reference Range Interpretation Comments Eosinophils (%) (Auto) (test code = 713-8) 0.8 0.0-6.0 [facility] FallsBasophils (%) (Auto)2018-08-05 20:00:00* Test Item Value Reference Range Interpretation Comments Basophils (%) (Auto) (test code = 706-2) 0.4 0.0-1.0 [facility] FallsIM GRANULOCYTES %2018-08-05 20:00:00* Test Item Value Reference Range Interpretation Comments IM GRANULOCYTES % (test code = IM GRANULOCYTES %) 0.3 0.0- 1.0 [facility] FallsNeutrophils # (Auto)2018-08-05 20:00:00* Test Item Value Reference Range Interpretation Comments Neutrophils # (Auto) (test code = 751-8) 4.6 2.1-6.9 [facility] FallsLymphocytes # (Auto)2018-08-05 20:00:00* Test Item Value Reference Range Interpretation Comments Lymphocytes # (Auto) (test code = 37620-3) 2.0 1.0-3.2 [facility] FallsMonocytes # (Auto)2018-08-05 20:00:00* Test Item Value Reference Range Interpretation Comments Monocytes # (Auto) (test code = 742-7) 0.9 0.2-0.8 H [facility] FallsEosinophils # (Auto)2018-08-05 20:00:00* Test Item Value Reference Range Interpretation Comments Eosinophils # (Auto) (test code = 711-2) 0.1 0.0-0.4 [facility] FallsBasophils # (Auto)2018-08-05 20:00:00* Test Item Value Reference Range Interpretation Comments Basophils # (Auto) (test code = 704-7) 0.0 0.0-0.1 [facility] FallsAbsolute Immature Granulocyte (auto 2018-08-05 20:00:00* Test Item Value Reference Range Interpretation Comments Absolute Immature Granulocyte (auto (melita t code = Absolute Immature Granulocyte (auto) 0.02 0-0.1 [facility] FallsCHEST 2 XXNTA9913-49-15 20:49:00 [facility] [address] [place] [address] Patient Name: BEN KRISHNAN MR #: [id number] : 0 1960 Age/Sex: 57/M Req #: [id number] Adm Physician: Ordered by: MIMI CHI MD Report #: [id number] Location: [facility] om/Bed: Procedure: [id number] DX/CHEST 2 VIEWS Exam D ate: 03/13/18 Exam Time: 1957 REPORT STATUS: Si gned EXAMINATION: CHEST 2 VIEWS INDICATION: COMPARISON: Chest CT and x-ray dated 02/13/2018 FINDINGS: PA and late ral views TUBES and LINES: Stable single lead left chest wall cardiac abrb ce in place. LUNGS: Limited by body [...] COPY TO: MIMI CHI MD B-Type Natriuretic Gttogjz8253-82-00 20:14:00* Test Item Value Reference Range Interpretation Comments B-Type Natriuretic Peptide (test code = 98474-6) 207.1 0-100 H [facility] FallsB-Type Natriuretic Yugtazn7746-89-80 20:14:00* Test Item Value Reference Range Interpretation Comments B-Type Natriuretic Peptide (test code = 74438-1) 207.1 0-100 [facility] FallsB-Type Natriuretic Vnhcvbn1863-60-56 20:14:00* Test Item Value Reference Range Interpretation Comments B-Type Natriuretic Peptide (test code = 00194-0) 207.1 0-100 H [facility] FallsCreatine Kinase HF6127-56-22 20:13:00* Test Item Value Reference Range Interpretation Comments Creatine Kinase MB (test code = 45329-3) 0.70 0-5.0 [place] 12074018-06-25 20:13:00* Test Item Value Reference Range Interpretation Comments Troponin I (test code = LMC2029) -0.001 0-0.300 [facility] FallsCreatine Kinase OA8455-10-09 20:13:00* Test Item Value Reference Range Interpretation Comments Creatine Kinase MB (test code = 34489-7) 0.70 0-5.0 [place] 12074018-06-25 20:13:00* Test Item Value Reference Range Interpretation Comments Troponin I (test code = IEF0987) -0.001 0-0.300 [facility] FallsCreatine Kinase [id number] 20:13:00* Test Item Value Reference Range Interpretation Comments Creatine Kinase MB (test code = 48520-8) 0.70 0-5.0 [facility] FallsTroponin Z6972-85-81 20:13:00* Test Item Value Reference Range Interpretation Comments Troponin I (test code = YTT0090) < 0.001 0-0.[address] [facility] Hospitalodium Olqes5173-15-04 20:07:00* Test Item Value Reference Range Interpretation Comments Sodium Level (test code = 2951-2) 142 136-145 [facility] FallsPotassium Vjxak7549-45-45 20:07:00* Test Item Value Reference Range Interpretation Comments Potassium Level (test code = 2823-3) 4.0 3.5-5.1 [facility] FallsChloride Qaxnu4660-35-42 20:07:00* Test Item Value Reference Range Interpretation Comments Chloride Level (test code = 2075-0) 101 98-107 [facility] FallsCarbon Dioxide Nstlf5357-30-22 20:07:00* Test Item Value Reference Range Interpretation Comments Carbon Dioxide Level (test code = 2028-9) 29 22-29 [facility] FallsAnion Ads3635-26-10 20:07:00* Test Item Value Reference Range Interpretation Comments Anion Gap (test code = 83247-3) 16.0 8-16 [facility] FallsBlood Urea Iegiybzw3171-96-85 20:07:00* Test Item Value Reference Range Interpretation Comments Blood Urea Nitrogen (test code = 3094-0) 18 7-26 [facility] FallsCreatinine2018-06-25 20:07:00* Test Item Value Reference Range Interpretation Comments Creatinine (test code = 2160-0) 1.48 0.72-1.25 H [facility] FallsBUN/Creatinine Mqwtf0219-16-54 20:07:00* Test Item Value Reference Range Interpretation Comments BUN/Creatinine Ratio (test code = 3097-3) 12 - [facility] FallsEstimat Glomerular Filtration Rate 2018-03-13 20:07:00* Test Item Value Reference Range Interpretation Comments Estimat Glomerular Filtration Rate (test code = 28303-0) 49 >60 L Ranges were taken from the National Kidney Disease Education Program and the [facility] Kid[facility] Foundation literature.Reference ranges:60 or greater: Trbqvr37-53 ( for 3 consecutive months): Chronic kidney disease 15 or less: Kidney failureBaylor Scott & [facility] – Marble FallsGlucose Aczjx4403-32-91 20:07:00* Test Item Value Reference Range Interpretation Comments Glucose Level (test code = CJY1494) 106 74-118 [facility] FallsCalcium Cemyj3882-19-09 20:07:00* Test Item Value Reference Range Interpretation Comments Calcium Level (test code = 68563-6) 9.4 8.4-10.2 [facility] FallsTotal Reinrhnek9592-62-14 20:07:00* Test Item Value Reference Range Interpretation Comments Total Bilirubin (test code = 1975-2) 2.3 0.2-1.2 H [facility] FallsAspartate Amino Transf (AST/SGOT) 2018-03-13 20:07:00* Test Item Value Reference Range Interpretation Comments Aspartate Amino Transf (AST/SGOT) (test code = Aspartate Amino Transf (AST/SGOT)) 15 5-34 [facility] FallsAlanine Aminotransferase (ALT/SGPT) 2018-03-13 20:07:00* Test Item Value Reference Range Interpretation Comments Alanine Aminotransferase (ALT/SGPT) (test code = 1742-6) 18 0-55 [facility] FallsTotal Txtnmyo0373-54-78 20:07:00* Test Item Value Reference Range Interpretation Comments Total Protein (test code = 2885-2) 6.8 6.5-8.1 [facility] FallsAlbumin2018-06-25 20:07:00* Test Item Value Reference Range Interpretation Comments Albumin (test code = 1751-7) 3.8 3.5-5.0 [facility] FallsGlobulin2018-06-25 20:07:00* Test Item Value Reference Range Interpretation Comments Globulin (test code = 11543-6) 3.0 2.3-3.5 [facility] FallsAlbumin/Globulin Ycdqt9466-15-39 20:07:00 * Test Item Value Reference Range Interpretation Comments Albumin/Globulin Ratio (test code = 1759-0) 1.3 0.8-2.0 [facility] FallsAlkaline Kzjkptyvjca5182-46-46 20:07:00* Test Item Value Reference Range Interpretation Comments Alkaline Phosphatase (test code = 6768-6) 84 40-150 [facility] FallsCreatine Fpemsv4135-92-74 20:07:00* Test Item Value Reference Range Interpretation Comments Creatine Kinase (test code = 2157-6) 52 30-[address] [facility] Hospitalodium Adslx2610-95-75 20:07:00* Test Item Value Reference Range Interpretation Comments Sodium Level (test code = 2951-2) 142 136-145 [facility] FallsPotassium Gjxma9120-19-06 20:07:00* Test Item Value Reference Range Interpretation Comments Potassium Level (test code = 2823-3) 4.0 3.5-5.1 [facility] FallsChloride Ykxvs3535-78-23 20:07:00* Test Item Value Reference Range Interpretation Comments Chloride Level (test code = 2075-0) 101 98-107 [facility] FallsCarbon Dioxide Fcwvq5653-48-66 20:07:00* Test Item Value Reference Range Interpretation Comments Carbon Dioxide Level (test code = 2028-9) 29 22-29 [facility] FallsAnion Gqg8741-76-11 20:07:00* Test Item Value Reference Range Interpretation Comments Anion Gap (test code = 77411-7) 16.0 8-16 [facility] FallsBlood Urea Upwrmuva0746-98-24 20:07:00* Test Item Value Reference Range Interpretation Comments Blood Urea Nitrogen (test code = 3094-0) 18 7-26 [facility] FallsCreatinine2018-06-25 20:07:00* Test Item Value Reference Range Interpretation Comments Creatinine (test code = 2160-0) 1.48 0.72-1.25 H [facility] FallsBUN/Creatinine Txoih6899-20-35 20:07:00* Test Item Value Reference Range Interpretation Comments BUN/Creatinine Ratio (test code = 3097-3) 12 6-25 [facility] FallsEstimat Glomerular Filtration Rate 2018-03-13 20:07:00* Test Item Value Reference Range Interpretation Comments Estimat Glomerular Filtration Rate (test code = 48130-8) 49 >60 L Ranges were taken from the National Kidney Disease Education Program and the [facility] Kidney Foundation literature.Reference ranges:60 or greater: [id number] ( for 3 consecutive months): Chronic kidney disease 15 or less: Kidney failureB[facility] FallsGlucose Jffxq0780-46-95 20:07:00* Test Item Value Reference Range Interpretation Comments Glucose Level (test code = BUB3303) 106 74-118 [facility] FallsCalcium Hyxuc2681-86-95 20:07:00* Test Item Value Reference Range Interpretation Comments Calcium Level (test code = 20521-9) 9.4 8.4-10.2 [facility] FallsTotal Vvbixrhae6999-85-08 20:07:00* Test Item Value Reference Range Interpretation Comments Total Bilirubin (test code = 1975-2) 2.3 0.2-1.2 H [facility] FallsAspartate Amino Transf (AST/SGOT) 2018-03-13 20:07:00* Test Item Value Reference Range Interpretation Comments Aspartate Amino Transf (AST/SGOT) (test code = Aspartate Amino Transf (AST/SGOT)) 15 5-34 [facility] FallsAlanine Aminotransferase (ALT/SGPT) 2018-03-13 20:07:00* Test Item Value Reference Range Interpretation Comments Alanine Aminotransferase (ALT/SGPT) (test code = 1742-6) 18 0-55 [facility] FallsTotal Mpiengu3229-32-45 20:07:00* Test Item Value Reference Range Interpretation Comments Total Protein (test code = 2885-2) 6.8 6.5-8.1 [facility] FallsAlbumin2018-06-25 20:07:00* Test Item Value Reference Range Interpretation Comments Albumin (test code = 1751-7) 3.8 3.5-5.0 [facility] FallsGlobulin2018-06-25 20:07:00* Test Item Value Reference Range Interpretation Comments Globulin (test code = 73729-5) 3.0 2.3-3.5 [facility] FallsAlbumin/Globulin Poyzt3647-49-55 20:07:00 * Test Item Value Reference Range Interpretation Comments Albumin/Globulin Ratio (test code = 1759-0) 1.3 0.8-2.0 [facility] FallsAlkaline Udrcgmbahtn0032-83-06 20:07:00* Test Item Value Reference Range Interpretation Comments Alkaline Phosphatase (test code = 6768-6) 84 40-150 [facility] FallsCreatine Mgyrml7153-37-32 20:07:00* Test Item Value Reference Range Interpretation Comments Creatine Kinase (test code = 2157-6) 52 30-200 [facility] FallsCreatine Ugjzdq5985-74-95 20:07:00* Test Item Value Reference Range Interpretation Comments Creatine Kinase (test code = 2157-6) 52 30-200 [facility] FallsWhite Blood Blwvm5069-04-69 19:49:00* Test Item Value Reference Range Interpretation Comments White Blood Count (test code = 6690-2) 7.16 4.8-10.8 [facility] FallsRed Blood Ekzhl9530-41-60 19:49:00* Test Item Value Reference Range Interpretation Comments Red Blood Count (test code = 789-8) 4.96 4.3-5.7 [facility] FallsHemoglobin2018-06-25 19:49:00* Test Item Value Reference Range Interpretation Comments Hemoglobin (test code = 99877-7) 15.8 14.0-18.0 [facility] FallsHematocrit2018-06-25 19:49:00* Test Item Value Reference Range Interpretation Comments Hematocrit (test code = 4544-3) 43.1 38.2-49.6 [facility] FallsMean Corpuscular Qbehci1869-99-22 19:49:00* Test Item Value Reference Range Interpretation Comments Mean Corpuscular Volume (test code = 787-2) 86.9 81-99 [facility] FallsMean Corpuscular Bscncvcwac3242-82-15 19:49:00* Test Item Value Reference Range Interpretation Comments Mean Corpuscular Hemoglobin (test code = 785-6) 31.9 28-32 [facility] FallsMean Corpuscular Hemoglobin Concent 2018-03-13 19:49:00* Test Item Value Reference Range Interpretation Comments Mean Corpuscular Hemoglobin Concent (test code = 786-4) 36.7 31-35 H [facility] FallsRed Cell Distribution Ilkka6082-71-16 19:49:00* Test Item Value Reference Range Interpretation Comments Red Cell Distribution Width (test code = 06284-3) 13.1 11.7 -14.4 [facility] FallsPlatelet Fuquh4435-72-58 19:49:00* Test Item Value Reference Range Interpretation Comments Platelet Count (test code = 777-3) 194 140-360 [facility] FallsNeutrophils (%) (Auto)2018-03-13 19:49:00 * Test Item Value Reference Range Interpretation Comments Neutrophils (%) (Auto) (test code = 76267-3) 58.5 38.7-80.0 [facility] FallsLymphocytes (%) (Auto)2018-03-13 19:49:00 * Test Item Value Reference Range Interpretation Comments Lymphocytes (%) (Auto) (test code = 736-9) 27.7 18.0-39.1 [facility] FallsMonocytes (%) (Auto)2018-03-13 19:49:00* Test Item Value Reference Range Interpretation Comments Monocytes (%) (Auto) (test code = 5905-5) 12.4 4.4-11.3 H [facility] FallsEosinophils (%) (Auto)2018-03-13 19:49:00 * Test Item Value Reference Range Interpretation Comments Eosinophils (%) (Auto) (test code = 713-8) 0.8 0.0-6.0 [facility] FallsBasophils (%) (Auto)2018-03-13 19:49:00* Test Item Value Reference Range Interpretation Comments Basophils (%) (Auto) (test code = 706-2) 0.3 0.0-1.0 [facility] FallsIM GRANULOCYTES %2018-03-13 19:49:00* Test Item Value Reference Range Interpretation Comments IM GRANULOCYTES % (test code = IM GRANULOCYTES %) 0.3 0.0- 1.0 [facility] FallsNeutrophils # (Auto)2018-03-13 19:49:00* Test Item Value Reference Range Interpretation Comments Neutrophils # (Auto) (test code = 751-8) 4.2 2.1-6.9 [facility] FallsLymphocytes # (Auto)2018-03-13 19:49:00* Test Item Value Reference Range Interpretation Comments Lymphocytes # (Auto) (test code = 79730-8) 2.0 1.0-3.2 [facility] FallsMonocytes # (Auto)2018-03-13 19:49:00* Test Item Value Reference Range Interpretation Comments Monocytes # (Auto) (test code = 742-7) 0.9 0.2-0.8 H [facility] FallsEosinophils # (Auto)2018-03-13 19:49:00* Test Item Value Reference Range Interpretation Comments Eosinophils # (Auto) (test code = 711-2) 0.1 0.0-0.4 [facility] FallsBasophils # (Auto)2018-03-13 19:49:00* Test Item Value Reference Range Interpretation Comments Basophils # (Auto) (test code = 704-7) 0.0 0.0-0.1 [facility] FallsAbsolute Immature Granulocyte (auto 2018-03-13 19:49:00* Test Item Value Reference Range Interpretation Comments Absolute Immature Granulocyte (auto (melita t code = Absolute Immature Granulocyte (auto) 0.02 0-0.1 [facility] FallsWhite Blood Tpsis6216-28-61 19:49:00* Test Item Value Reference Range Interpretation Comments White Blood Count (test code = 6690-2) 7.16 4.8-10.8 [facility] FallsRed Blood Rfmts7324-83-07 19:49:00* Test Item Value Reference Range Interpretation Comments Red Blood Count (test code = 789-8) 4.96 4.3-5.7 [facility] FallsHemoglobin2018-06-25 19:49:00* Test Item Value Reference Range Interpretation Comments Hemoglobin (test code = 73257-6) 15.8 14.0-18.0 [facility] FallsHematocrit2018-06-25 19:49:00* Test Item Value Reference Range Interpretation Comments Hematocrit (test code = 4544-3) 43.1 38.2-49.6 [facility] FallsMean Corpuscular Cxamtj3866-55-04 19:49:00* Test Item Value Reference Range Interpretation Comments Mean Corpuscular Volume (test code = 787-2) 86.9 81-99 [facility] FallsMean Corpuscular Zjwfqtyumn9433-93-35 19:49:00* Test Item Value Reference Range Interpretation Comments Mean Corpuscular Hemoglobin (test code = 785-6) 31.9 28-32 [facility] FallsMean Corpuscular Hemoglobin Concent 2018-03-13 19:49:00* Test Item Value Reference Range Interpretation Comments Mean Corpuscular Hemoglobin Concent (test code = 786-4) 36.7 31-35 H [facility] FallsRed Cell Distribution Yorhb3527-34-49 19:49:00* Test Item Value Reference Range Interpretation Comments Red Cell Distribution Width (test code = 63596-1) 13.1 11.7 -14.4 [facility] FallsPlatelet Mobyo9193-98-13 19:49:00* Test Item Value Reference Range Interpretation Comments Platelet Count (test code = 777-3) 194 140-360 [facility] FallsNeutrophils (%) (Auto)2018-03-13 19:49:00 * Test Item Value Reference Range Interpretation Comments Neutrophils (%) (Auto) (test code = 55569-3) 58.5 38.7-80.0 [facility] FallsLymphocytes (%) (Auto)2018-03-13 19:49:00 * Test Item Value Reference Range Interpretation Comments Lymphocytes (%) (Auto) (test code = 736-9) 27.7 18.0-39.1 [facility] FallsMonocytes (%) (Auto)2018-03-13 19:49:00* Test Item Value Reference Range Interpretation Comments Monocytes (%) (Auto) (test code = 5905-5) 12.4 4.4-11.3 H [facility] FallsEosinophils (%) (Auto)2018-03-13 19:49:00 * Test Item Value Reference Range Interpretation Comments Eosinophils (%) (Auto) (test code = 713-8) 0.8 0.0-6.0 [facility] FallsBasophils (%) (Auto)2018-03-13 19:49:00* Test Item Value Reference Range Interpretation Comments Basophils (%) (Auto) (test code = 706-2) 0.3 0.0-1.0 [facility] FallsIM GRANULOCYTES %2018-03-13 19:49:00* Test Item Value Reference Range Interpretation Comments IM GRANULOCYTES % (test code = IM GRANULOCYTES %) 0.3 0.0- 1.0 [facility] FallsNeutrophils # (Auto)2018-03-13 19:49:00* Test Item Value Reference Range Interpretation Comments Neutrophils # (Auto) (test code = 751-8) 4.2 2.1-6.9 [facility] FallsLymphocytes # (Auto)2018-03-13 19:49:00* Test Item Value Reference Range Interpretation Comments Lymphocytes # (Auto) (test code = 67564-0) 2.0 1.0-3.2 [facility] FallsMonocytes # (Auto)2018-03-13 19:49:00* Test Item Value Reference Range Interpretation Comments Monocytes # (Auto) (test code = 742-7) 0.9 0.2-0.8 H [facility] FallsEosinophils # (Auto)2018-03-13 19:49:00* Test Item Value Reference Range Interpretation Comments Eosinophils # (Auto) (test code = 711-2) 0.1 0.0-0.4 [facility] FallsBasophils # (Auto)2018-03-13 19:49:00* Test Item Value Reference Range Interpretation Comments Basophils # (Auto) (test code = 704-7) 0.0 0.0-0.1 [facility] FallsAbsolute Immature Granulocyte (auto 2018-03-13 19:49:00* Test Item Value Reference Range Interpretation Comments Absolute Immature Granulocyte (auto (melita t code = Absolute Immature Granulocyte (auto) 0.02 0-0.1 [facility] Aabqhmw4812-70-75 14:04:00* Test Item Value Reference Range Interpretation Comments Bedside Glucose (test code = 09229-4) 111 70-120 Meter ID: [id number] [facility] Glucose 2018-02-13 14:04:00* Test Item Value Reference Range Interpretation Comments Bedside Glucose (test code = 89790-1) 111 70-120 Meter ID: [id number] [facility]'s [facility] Center Glucose 2018-02-13 14:04:00* Test Item Value Reference Range Interpretation Comments Bedside Glucose (test code = 67585-7) 111 70-120 Meter ID: [id number] [facility] Glucose 2018-02-13 14:04:00* Test Item Value Reference Range Interpretation Comments Bedside Glucose (test code = 83020-4) 111 70-120 Meter ID: [id number] Scott & [facility] FallsUrine LUA4968-96-18 12:24:00* Test Item Value Reference Range Interpretation Comments Urine WBC (test code = 5821-4) 0-5 0-5 [facility] FallsUrine JCL3908-40-24 12:24:00* Test Item Value Reference Range Interpretation Comments Urine RBC (test code = 58775-5) 0-5 0-5 [facility] FallsUrine Mqxwtowa1867-63-40 12:24:00* Test Item Value Reference Range Interpretation Comments Urine Bacteria (test code = 34606-5) NONE NONE [facility] FallsUrine Epithelial Hzzpq4954-33-52 12:24:00 * Test Item Value Reference Range Interpretation Comments Urine Epithelial Cells (test code = 09892-0) FEW NONE [facility] FallsUrine LAX7854-28-28 12:24:00* Test Item Value Reference Range Interpretation Comments Urine WBC (test code = 5821-4) 0-5 0-5 [facility] FallsUrine OWH3065-94-78 12:24:00* Test Item Value Reference Range Interpretation Comments Urine RBC (test code = 37040-4) 0-5 0-5 [facility] FallsUrine Tsnmyvlo7424-47-98 12:24:00* Test Item Value Reference Range Interpretation Comments Urine Bacteria (test code = 10186-1) NONE NONE [facility] FallsUrine Epithelial Dshpt0260-36-76 12:24:00 * Test Item Value Reference Range Interpretation Comments Urine Epithelial Cells (test code = 21883-0) FEW NONE [facility] FallsUrine NCP2166-39-76 12:24:00* Test Item Value Reference Range Interpretation Comments Urine WBC (test code = 5821-4) 0-5 0-5 [facility] FallsUrine TKF9723-75-48 12:24:00* Test Item Value Reference Range Interpretation Comments Urine RBC (test code = 96237-7) 0-5 0-5 [facility] FallsUrine Knwcmmdv6204-98-20 12:24:00* Test Item Value Reference Range Interpretation Comments Urine Bacteria (test code = 78229-4) NONE NONE [facility] FallsUrine Epithelial Jcdfp8568-68-97 12:24:00 * Test Item Value Reference Range Interpretation Comments Urine Epithelial Cells (test code = 12212-2) FEW NONE [facility] FallsUrine EAW2644-51-05 12:24:00* Test Item Value Reference Range Interpretation Comments Urine WBC (test code = 5821-4) 0-5 0-5 [facility] FallsUrine QIJ5002-80-10 12:24:00* Test Item Value Reference Range Interpretation Comments Urine RBC (test code = 07915-9) 0-5 0-5 [facility] FallsUrine Jpjzoqwh1313-51-16 12:24:00* Test Item Value Reference Range Interpretation Comments Urine Bacteria (test code = 82579-3) NONE NONE [facility] FallsUrine Epithelial Baigm6050-39-75 12:24:00 * Test Item Value Reference Range Interpretation Comments Urine Epithelial Cells (test code = 86415-4) FEW NONE [facility] FallsUrine Evjan3470-80-99 12:18:00* Test Item Value Reference Range Interpretation Comments Urine Color (test code = 5778-6) YELLOW YELLOW [facility] FallsUrine Wxqxprx4141-16-24 12:18:00* Test Item Value Reference Range Interpretation Comments Urine Clarity (test code = 47260-3) CLEAR CLEAR [facility] Specific Vxssdds6977-02-56 12:18:00 * Test Item Value Reference Range Interpretation Comments Urine Specific [place] (test code = 5811-5) 1.015 1.010-1.02 5 [facility] FallsUrine dB6023-14-22 12:18:00* Test Item Value Reference Range Interpretation Comments Urine pH (test code = 18528-6) 7 5-7 [facility] FallsUrine Leukocyte Bpyidizu7818-40-76 12:18:00* Test Item Value Reference Range Interpretation Comments Urine Leukocyte Esterase (test code = 5799-2) NEGATIVE NEGATIVE [facility] FallsUrine Zcgzqyd1044-15-28 12:18:00* Test Item Value Reference Range Interpretation Comments Urine Nitrite (test code = 14048-9) NEGATIVE NEGATIVE [facility] FallsUrine Bxxeglp1815-94-67 12:18:00* Test Item Value Reference Range Interpretation Comments Urine Protein (test code = 5804-0) NEGATIVE NEGATIVE [facility] FallsUrine Glucose (UA)2018-02-13 12:18:00* Test Item Value Reference Range Interpretation Comments Urine Glucose (UA) (test code = 2349-9) NEGATIVE NEGATIVE [facility] FallsUrine Jzcaeso3634-93-84 12:18:00* Test Item Value Reference Range Interpretation Comments Urine Ketones (test code = 50493-7) NEGATIVE NEGATIVE [facility] FallsUrine Vrdakuvgleju6212-91-63 12:18:00* Test Item Value Reference Range Interpretation Comments Urine Urobilinogen (test code = 14316-2) 1 0.2-1 [facility] FallsUrine Onklgwpjv1118-66-49 12:18:00* Test Item Value Reference Range Interpretation Comments Urine Bilirubin (test code = 1978-6) NEGATIVE NEGATIVE [facility] Gxhiy4483-17-42 12:18:00* Test Item Value Reference Range Interpretation Comments Urine Blood (test code = 02658-2) NEGATIVE NEGATIVE [facility] FallsUrine Dvxxl0869-44-10 12:18:00* Test Item Value Reference Range Interpretation Comments Urine Color (test code = 5778-6) YELLOW YELLOW [facility] FallsUrine Zwamofb7997-68-72 12:18:00* Test Item Value Reference Range Interpretation Comments Urine Clarity (test code = 83491-5) CLEAR CLEAR [facility] FallsUrine Specific Zffkfvl1377-88-04 12:18:00 * Test Item Value Reference Range Interpretation Comments Urine Specific [place] (test code = 5811-5) 1.015 1.010-1.02 5 [facility] FallsUrine zH6072-34-22 12:18:00* Test Item Value Reference Range Interpretation Comments Urine pH (test code = 47937-4) 7 5-7 [facility] FallsUrine Leukocyte Jiizzlcv1439-12-77 12:18:00* Test Item Value Reference Range Interpretation Comments Urine Leukocyte Esterase (test code = 5799-2) NEGATIVE NEGATIVE [facility] FallsUrine Zmwrcne8059-38-58 12:18:00* Test Item Value Reference Range Interpretation Comments Urine Nitrite (test code = 23048-5) NEGATIVE NEGATIVE [facility] FallsUrine Srqdmfv8096-40-54 12:18:00* Test Item Value Reference Range Interpretation Comments Urine Protein (test code = 5804-0) NEGATIVE NEGATIVE [facility] FallsUrine Glucose (UA)2018-02-13 12:18:00* Test Item Value Reference Range Interpretation Comments Urine Glucose (UA) (test code = 2349-9) NEGATIVE NEGATIVE [facility] FallsUrine Chrzcyi8672-78-27 12:18:00* Test Item Value Reference Range Interpretation Comments Urine Ketones (test code = 17691-6) NEGATIVE NEGATIVE [facility] FallsUrine Jyavpxdiocpb5596-74-35 12:18:00* Test Item Value Reference Range Interpretation Comments Urine Urobilinogen (test code = 39092-9) 1 0.2-1 [facility] FallsUrine Xmkvnrtvi6551-38-97 12:18:00* Test Item Value Reference Range Interpretation Comments Urine Bilirubin (test code = 1978-6) NEGATIVE NEGATIVE [facility] Zhbur2410-36-06 12:18:00* Test Item Value Reference Range Interpretation Comments Urine Blood (test code = 85755-3) NEGATIVE NEGATIVE [facility] FallsUrine Sacoo7510-65-88 12:18:00* Test Item Value Reference Range Interpretation Comments Urine Color (test code = 5778-6) YELLOW YELLOW [facility] FallsUrine Tjlowvd0237-82-21 12:18:00* Test Item Value Reference Range Interpretation Comments Urine Clarity (test code = 22271-7) CLEAR CLEAR [facility] FallsUrine Specific Fmfyjmy6607-10-70 12:18:00 * Test Item Value Reference Range Interpretation Comments Urine Specific [place] (test code = 5811-5) 1.015 1.010-1.02 5 [facility] FallsUrine eL6749-23-27 12:18:00* Test Item Value Reference Range Interpretation Comments Urine pH (test code = 34236-9) 7 5-7 [facility] FallsUrine Leukocyte Xstglsju6844-31-59 12:18:00* Test Item Value Reference Range Interpretation Comments Urine Leukocyte Esterase (test code = 5799-2) NEGATIVE NEGATIVE [facility] FallsUrine Gdqvptq6720-52-36 12:18:00* Test Item Value Reference Range Interpretation Comments Urine Nitrite (test code = 37044-5) NEGATIVE NEGATIVE [facility] FallsUrine Awrisqh9699-51-39 12:18:00* Test Item Value Reference Range Interpretation Comments Urine Protein (test code = 5804-0) NEGATIVE NEGATIVE [facility] FallsUrine Glucose (UA)2018-02-13 12:18:00* Test Item Value Reference Range Interpretation Comments Urine Glucose (UA) (test code = 2349-9) NEGATIVE NEGATIVE [facility] FallsUrine Quctyvc3046-20-58 12:18:00* Test Item Value Reference Range Interpretation Comments Urine Ketones (test code = 40291-1) NEGATIVE NEGATIVE [facility] FallsUrine Itmvdcuvedyp5007-72-41 12:18:00* Test Item Value Reference Range Interpretation Comments Urine Urobilinogen (test code = 20662-5) 1 0.2-1 [facility] FallsU[facility] Wrufbbxne6434-53-56 12:18:00* Test Item Value Reference Range Interpretation Comments Urine Bilirubin (test code = 1978-6) NEGATIVE NEGATIVE [facility] Vcnhf4828-53-81 12:18:00* Test Item Value Reference Range Interpretation Comments Urine Blood (test code = 83739-3) NEGATIVE NEGATIVE [facility] FallsU[facility] Ykleh2721-88-55 12:18:00* Test Item Value Reference Range Interpretation Comments Urine Color (test code = 5778-6) YELLOW YELLOW [facility] FallsUrine Ompdufn6699-21-87 12:18:00* Test Item Value Reference Range Interpretation Comments Urine Clarity (test code = 64869-2) CLEAR CLEAR [facility] FallsUrine Specific Tchdocy3159-58-95 12:18:00 * Test Item Value Reference Range Interpretation Comments Urine Specific [place] (test code = 5811-5) 1.015 1.010-1.02 5 [facility] FallsU[facility] jY6661-27-76 12:18:00* Test Item Value Reference Range Interpretation Comments Urine pH (test code = 77789-4) 7 5-7 [facility] FallsUrine Leukocyte Zbidfeti8884-35-77 12:18:00* Test Item Value Reference Range Interpretation Comments Urine Leukocyte Esterase (test code = 5799-2) NEGATIVE NEGATIVE [facility] Imwccmt1461-68-82 12:18:00* Test Item Value Reference Range Interpretation Comments Urine Nitrite (test code = 41753-5) NEGATIVE NEGATIVE [facility] FallsU[facility] Ppkztmq2966-37-12 12:18:00* Test Item Value Reference Range Interpretation Comments Urine Protein (test code = 5804-0) NEGATIVE NEGATIVE [facility] FallsUrine Glucose (UA)2018-02-13 12:18:00* Test Item Value Reference Range Interpretation Comments Urine Glucose (UA) (test code = 2349-9) NEGATIVE NEGATIVE [facility] FallsUrine Ejuajqo9957-85-23 12:18:00* Test Item Value Reference Range Interpretation Comments Urine Ketones (test code = 72885-7) NEGATIVE NEGATIVE [facility] Fcqtodksakbi4889-86-52 12:18:00* Test Item Value Reference Range Interpretation Comments Urine Urobilinogen (test code = 82957-8) 1 0.2-1 [facility] FallsUrine Bfdhtbika1247-05-72 12:18:00* Test Item Value Reference Range Interpretation Comments Urine Bilirubin (test code = 1978-6) NEGATIVE NEGATIVE [facility] FallsUrine Ifuan4662-25-53 12:18:00* Test Item Value Reference Range Interpretation Comments Urine Blood (test code = 27192-7) NEGATIVE NEGATIVE [facility] FallsB-Type Natriuretic Wvvwgmw6864-75-60 11:49:00* Test Item Value Reference Range Interpretation Comments B-Type Natriuretic Peptide (test code = 26806-3) 156.2 0-100 H [facility] FallsCreatine Kinase HL7567-55-42 11:49:00* Test Item Value Reference Range Interpretation Comments Creatine Kinase MB (test code = 85834-9) 1.70 0-5.0 [facility] FallsTroponin B7327-41-39 11:49:00* Test Item Value Reference Range Interpretation Comments Troponin I (test code = NWQ4343) 0.004 0-0.[address] [facility] [address]odium Lodcy7665-67-21 11:43:00* Test Item Value Reference Range Interpretation Comments Sodium Level (test code = 2951-2) 142 136-145 [facility] FallsPotassium Wqcrq6808-90-96 11:43:00* Test Item Value Reference Range Interpretation Comments Potassium Level (test code = 2823-3) 3.8 3.5-5.1 [facility] FallsChloride Uslgq8774-92-35 11:43:00* Test Item Value Reference Range Interpretation Comments Chloride Level (test code = 2075-0) 103 98-107 [facility] FallsCarbon Dioxide Etdow7896-83-39 11:43:00* Test Item Value Reference Range Interpretation Comments Carbon Dioxide Level (test code = 2028-9) 28 22-29 [facility] FallsAnion Oej3587-11-38 11:43:00* Test Item Value Reference Range Interpretation Comments Anion Gap (test code = 20812-4) 14.8 8-16 [facility] FallsBlood Urea Qxfwgbzv6566-62-15 11:43:00* Test Item Value Reference Range Interpretation Comments Blood Urea Nitrogen (test code = 3094-0) 17 7-26 [facility] FallsCreatinine2018-05-28 11:43:00* Test Item Value Reference Range Interpretation Comments Creatinine (test code = 2160-0) 1.22 0.72-1.25 [facility] FallsBUN/Creatinine Flklo4602-20-60 11:43:00* Test Item Value Reference Range Interpretation Comments BUN/Creatinine Ratio (test code = 3097-3) 14 6- [facility] FallsEstimat Glomerular Filtration Rate 2018-02-13 11:43:00* Test Item Value Reference Range Interpretation Comments Estimat Glomerular Filtration Rate (test code = 48213-8) 60- >60 Ranges were taken from the National Kidney Disease Education Program and the [facility] Foundation literature.Reference ranges:60 or greater: Diuzpk85-72 ( for 3 consecutive months): Chronic kidney disease 15 or less: Kidney failureBaylor Scott & [facility] FallsGlucose Fpssk6289-23-22 11:43:00* Test Item Value Reference Range Interpretation Comments Glucose Level (test code = APC3575) 128 74-118 H [facility] FallsCalcium Lgbqu3976-64-64 11:43:00* Test Item Value Reference Range Interpretation Comments Calcium Level (test code = 67878-2) 9.4 8.4-10.2 [facility] FallsTotal Ixiikdbwf1040-32-98 11:43:00* Test Item Value Reference Range Interpretation Comments Total Bilirubin (test code = 1975-2) 2.3 0.2-1.2 H [facility] FallsAspartate Amino Transf (AST/SGOT) 2018-02-13 11:43:00* Test Item Value Reference Range Interpretation Comments Aspartate Amino Transf (AST/SGOT) (test code = Aspartate Amino Transf (AST/SGOT)) 20 5-34 [facility] FallsAlanine Aminotransferase (ALT/SGPT) 2018-02-13 11:43:00* Test Item Value Reference Range Interpretation Comments Alanine Aminotransferase (ALT/SGPT) (test code = 1742-6) 21 0-55 [facility] FallsTotal Lhgagec5505-10-48 11:43:00* Test Item Value Reference Range Interpretation Comments Total Protein (test code = 2885-2) 6.6 6.5-8.1 [facility] FallsAlbumin2018-05-28 11:43:00* Test Item Value Reference Range Interpretation Comments Albumin (test code = 1751-7) 3.8 3.5-5.0 [facility] FallsGlobulin2018-05-28 11:43:00* Test Item Value Reference Range Interpretation Comments Globulin (test code = 43025-4) 2.8 2.3-3.5 [facility] FallsAlbumin/Globulin Qzvvo8877-31-81 11:43:00 * Test Item Value Reference Range Interpretation Comments Albumin/Globulin Ratio (test code = 1759-0) 1.4 0.8-2.0 [facility] FallsAlkaline Bctafptvyhp6864-36-18 11:43:00* Test Item Value Reference Range Interpretation Comments Alkaline Phosphatase (test code = 6768-6) 78 40-150 [facility] FallsCreatine Xlsdtd2592-62-49 11:43:00* Test Item Value Reference Range Interpretation Comments Creatine Kinase (test code = 2157-6) 99 30-200 [facility] FallsLipase2018-05-28 11:43:00* Test Item Value Reference Range Interpretation Comments Lipase (test code = 3040-3) 48 [facility] FallsLipase2018-05-28 11:43:00* Test Item Value Reference Range Interpretation Comments Lipase (test code = 3040-3) 48 [facility] FallsLipase2018-05-28 11:43:00* Test Item Value Reference Range Interpretation Comments Lipase (test code = 3040-3) 48 [facility] FallsLipase2018-05-28 11:43:00* Test Item Value Reference Range Interpretation Comments Lipase (test code = 3040-3) 48 [facility] FallsProthrombin Mcip6076-53-97 11:35:00* Test Item Value Reference Range Interpretation Comments Prothrombin Time (test code = 5902-2) 25.0 11.9-14.5 H [facility] FallsProthromb Time International Ratio 2018-02-13 11:35:00* Test Item [...] [facility] FallsActivated Partial Thromboplast Time 2018-02-13 11:35:00* Test Item Value Reference Range Interpretation Comments Activated Partial Thromboplast Time (test code = 66524-2) 37.5 23.8-35.5 H [facility] FallsProthrombin Ltpd0723-50-56 11:35:00* Test Item Value Reference Range Interpretation Comments Prothrombin Time (test code = 5902-2) 25.0 11.9-14.5 H [facility] FallsProthromb Time International Ratio 2018-02-13 11:35:00* Test Item [...] [facility] FallsActivated Partial Thromboplast Time 2018-02-13 11:35:00* Test Item Value Reference Range Interpretation Comments Activated Partial Thromboplast Time (test code = 66330-0) 37.5 23.8-35.5 H [facility] FallsProthrombin Yuij4813-96-98 11:35:00* Test Item Value Reference Range Interpretation Comments Prothrombin Time (test code = 5902-2) 25.0 11.9-14.5 H [facility] FallsProthromb Time International Ratio 2018-02-13 11:35:00* Test Item [...] [facility] FallsActivated Partial Thromboplast Time 2018-02-13 11:35:00* Test Item Value Reference Range Interpretation Comments Activated Partial Thromboplast Time (test code = 58415-8) 37.5 23.8-35.5 H [facility] FallsWhite Blood Ebbsm2542-88-11 11:24:00* Test Item Value Reference Range Interpretation Comments White Blood Count (test code = 6690-2) 6.89 4.8-10.8 [facility] FallsRed Blood Laijg6524-52-60 11:24:00* Test Item Value Reference Range Interpretation Comments Red Blood Count (test code = 789-8) 4.71 4.3-5.7 [facility] FallsHemoglobin2018-05-28 11:24:00* Test Item Value Reference Range Interpretation Comments Hemoglobin (test code = 94444-3) 14.9 14.0-18.0 [facility] FallsHematocrit2018-05-28 11:24:00* Test Item Value Reference Range Interpretation Comments Hematocrit (test code = 4544-3) 41.3 38.2-49.6 [facility] FallsMean Corpuscular Mcuylu2106-78-40 11:24:00* Test Item Value Reference Range Interpretation Comments Mean Corpuscular Volume (test code = 787-2) 87.7 81-99 [facility] FallsMean Corpuscular Iqxjksoixc4667-29-34 11:24:00* Test Item Value Reference Range Interpretation Comments Mean Corpuscular Hemoglobin (test code = 785-6) 31.6 28-32 [facility] FallsMean Corpuscular Hemoglobin Concent 2018-02-13 11:24:00* Test Item Value Reference Range Interpretation Comments Mean Corpuscular Hemoglobin Concent (test code = 786-4) 36.1 31-35 H [facility] FallsRed Cell Distribution Egtwe6494-59-67 11:24:00* Test Item Value Reference Range Interpretation Comments Red Cell Distribution Width (test code = 31402-2) 13.2 11.7 -14.4 [facility] FallsPlatelet Ixrmv2917-80-10 11:24:00* Test Item Value Reference Range Interpretation Comments Platelet Count (test code = 777-3) 195 140-360 [facility] FallsNeutrophils (%) (Auto)2018-02-13 11:24:00 * Test Item Value Reference Range Interpretation Comments Neutrophils (%) (Auto) (test code = 52539-7) 65.2 38.7-80.0 [facility] FallsLymphocytes (%) (Auto)2018-02-13 11:24:00 * Test Item Value Reference Range Interpretation Comments Lymphocytes (%) (Auto) (test code = 736-9) 22.1 18.0-39.1 [facility] FallsMonocytes (%) (Auto)2018-02-13 11:24:00* Test Item Value Reference Range Interpretation Comments Monocytes (%) (Auto) (test code = 5905-5) 11.0 4.4-11.3 [facility] FallsEosinophils (%) (Auto)2018-02-13 11:24:00 * Test Item Value Reference Range Interpretation Comments Eosinophils (%) (Auto) (test code = 713-8) 0.7 0.0-6.0 [facility] FallsBasophils (%) (Auto)2018-02-13 11:24:00* Test Item Value Reference Range Interpretation Comments Basophils (%) (Auto) (test code = 706-2) 0.6 0.0-1.0 [facility] FallsIM GRANULOCYTES %2018-02-13 11:24:00* Test Item Value Reference Range Interpretation Comments IM GRANULOCYTES % (test code = IM GRANULOCYTES %) 0.4 0.0- 1.0 [facility] FallsNeutrophils # (Auto)2018-02-13 11:24:00* Test Item Value Reference Range Interpretation Comments Neutrophils # (Auto) (test code = 751-8) 4.5 2.1-6.9 [facility] FallsLymphocytes # (Auto)2018-02-13 11:24:00* Test Item Value Reference Range Interpretation Comments Lymphocytes # (Auto) (test code = 44926-1) 1.5 1.0-3.2 [facility] FallsMonocytes # (Auto)2018-02-13 11:24:00* Test Item Value Reference Range Interpretation Comments Monocytes # (Auto) (test code = 742-7) 0.8 0.2-0.8 [facility] FallsEosinophils # (Auto)2018-02-13 11:24:00* Test Item Value Reference Range Interpretation Comments Eosinophils # (Auto) (test code = 711-2) 0.1 0.0-0.4 [facility] FallsBasophils # (Auto)2018-02-13 11:24:00* Test Item Value Reference Range Interpretation Comments Basophils # (Auto) (test code = 704-7) 0.0 0.0-0.1 [facility] FallsAbsolute Immature Granulocyte (auto 2018-02-13 11:24:00* Test Item Value Reference Range Interpretation Comments Absolute Immature Granulocyte (auto (melita t code = Absolute Immature Granulocyte (auto) 0.03 0-0.1 [facility] Mar[facility] FallsCT CHEST W [facility] [address] [address] Patient Name: BEN KRISHNAN MR #: [id number] : 1960 Age/Sex: 57/M Req #: [id number] Adm Physician: Ordered by: DAMIAN ALEJO MD Report #: [id number] Location: ER Room/Bed: Procedure: [id number] CT/CT CHEST W Exam Date: Exam Time: [...] Signed By: DONAVAN DUNCAN MD on 02/13/18 1308 Transcribed By: GODWIN RAN on 02/13/18 1302 COPY TO: DAMIAN ALEJO MD CHEST SINGLE (PORTABLE) [place] [address] Patient Name: BEN KRISHNAN MR #: [id number] : 1960 Age/Sex: 57/M Req #: [id number] Adm Physician: Ordered by: BENSON BOWLING [employer] ASSISTANT Report #: [id number] Location: ER Room/Bed: Procedure: [id number] DX/CHEST SINGLE (PORTABLE) E xam Date: 02/13/18 [...] on 02/13/18 1154 COPY TO: BENSON BOWLING [facility] RIGHT [address] [place] [address] Patient Name: BEN KRISHNAN MR #: [id number] : 1960 Age/Sex: 57/M Req #: [id number] Adm Physician: Ordered by: ZACKARY SCHOFIELD MD Report #: [id number] Location: ER Room/Bed: Procedure: [id number] DX/FOOT RIGHT COMPLETE Exa m Date: 09/30/17 [...] TO: ZACKARY ROJO MD CT ABDOMEN/PELVIS WO [address] [address] Patient Name: BEN KRISHNAN MR #: [id number] : 1960 Age/Sex: 57/M Req #: [id number] Adm Physician: Ordered by: PITA RENTERIA Report #: [id number] Location: ER Room/Bed: Procedure: [id number] CT/CT ABDOMEN/PELVIS RANDY العلي Date: 07/04/17 Exam [...] COPY TO: PITA RENTERIA CHEST 2 VIEWS [place] [address] Patient Name: BEN KRISHNAN MR #: [id number] : 1960 Age/Sex: 57/M Req #: [id number] Adm Physician: Ordered by: PITA RENTERIA Report #: [id number] Location: ER Room/Bed: Procedure: [id number] DX/CHEST 2 VIEWS Exam Marcellus e: 07/04/17 [...]
[2020-07-04] MEDS ORDERED: ACETAMINOPHEN 325 MG TAB PO ONE (15:00)
[2020-07-04 16:13] VITALS: BP 102/67
--- NOTE | 2020-07-04 16:33 | NUR ---
Recvd patient from ER, AAOX3, Not in any distress, call light in reach, Dr Antwon Denson here to see patient
[2020-07-04 16:41] VITALS: BP 117/68
--- NOTE | 2020-07-04 16:50 | Consultation ---
DATE OF CONSULTATION: 07/04/2020 CHIEF COMPLAINT: Chest pain. HISTORY OF PRESENT ILLNESS: This is a 60-year-old male with history of nonischemic cardiomyopathy status post ICD, hypertension, hyperlipidemia, morbid obesity, history of bilateral DVT on chronic OAC therapy, chronic lymphedema, and diabetes. The patient is being followed by Dr. Thomas at [facility]. Reports the patient presents to [facility] ER with complaints of chest pain. Cardiac enzymes negative thus far. Cardiology is consulted to evaluate the patient. The patient is seen in the ER with at bedside, reports that he has been followed by Dr. Thomas for many years, on chronic OAC therapy for his lower extremity DVTs. Reports this morning while trying to take out the trash, felt chest pressure, tightness, nonradiating with some shortness of breath. He was given nitroglycerin with resolution of chest pain. Currently, the patient is comfortable. Denies any chest pains or shortness of breath at this time. PAST MEDICAL HISTORY: Nonischemic cardiomyopathy by left heart catheterization in 2014 with normal coronaries as per the patient, hypertension, hyperlipidemia, chronic kidney disease stage 3, morbid obesity, lymphedema, and history of DVT, on chronic OAC. PAST SURGICAL HISTORY: Appendectomy, tonsillectomy, and cholecystectomy. SOCIAL HISTORY: He is . He is retired from [employer]. Denies alcohol or tobacco use. HOME MEDICATIONS: Include warfarin 7.5 mg Tuesday, Tuesday, half dose remainder of the week, Bumex 1 mg twice a day, Coreg 6.25 b.i.d., lisinopril 5 mg daily, pravastatin 40 mg daily, Aldactone 25 mg daily, and Plavix 75 mg daily. ALLERGIES: PENICILLIN, CODEINE, AND PREGABALIN. REVIEW OF SYSTEMS: GENERAL: Denies any weight changes, fatigue, weakness, fevers, chills, or night sweats. SKIN: Positive for rash in lower extremities. HEENT: Denies any nausea, vomiting, vision changes, blurred vision, epistaxis, sore throat, or swollen neck. CARDIAC: Chest pain as per HPI. Positive dyspnea on exertion. Denies any orthopnea. Positive for lower extremity edema, which is chronic. RESPIRATORY: Positive for shortness of breath this a.m., however, is feeling comfortably at this time. Denies any wheezing or coughing. GI: Reports good appetite. No nausea, vomiting, diarrhea, constipation, melena, tarry or bloody stools. URINARY: Denies any hematuria or dysuria. Positive for frequency and urgency. VASCULAR: Positive for lower extremity edema. MUSCULOSKELETAL: Positive for generalized joint pains and back pain. NEUROLOGIC: Positive for numbness and tingling in lower extremities. Denies any fainting or blackouts. HEMATOLOGY: Positive for bruising. Denies any anemia. ENDOCRINE: Denies any heat or cold intolerance, polyuria, polydipsia, or polyphagia. PHYSICAL EXAMINATION: VITAL SIGNS: Height 73 inches, weight 311 pounds. Temperature 98.6, pulse 60, respiratory rate 18, blood pressure 105/62, and pulse ox 100% on room air. GENERAL: Elderly gentleman, obese, in no acute distress at this time, reliable informant. SKIN: Positive chronic lower extremity venous changes and swelling. HEENT: Normocephalic. Pupils are equal and reactive. Extraocular movements are intact. Trachea midline. No JVD. No carotid bruit. HEART: Regular rate and rhythm. Left chest wall ICD. PMI about 5th intercostal space. LUNGS: Bilateral breath sounds clear to auscultation. Diminished at the bases. Good airway entry and exit. ABDOMEN: Soft, nontender, and nondistended. No organomegaly. MUSCULOSKELETAL: Good muscle strength throughout. Positive lower extremity edema with chronic venous changes in lower extremity. VASCULAR: +2 radial pulses bilaterally, +1 DP/PT pulses bilaterally. NEUROLOGIC: Cranial nerves 2 through 12 seem intact. LABORATORY DATA: White count 5, hemoglobin 14, hematocrit 41, and platelets 174. Chemistry; sodium 141, potassium 3.4, BUN 13, and creatinine 1.5. Troponin 0.003. BNP 140. INR 3.3. Chest x-ray showing no acute abnormalities. EKG, sinus rhythm with left bundle branch block. ASSESSMENT: 1. Chest pain. 2. Nonischemic cardiomyopathy, seems compensated at this time. 3. History of deep venous thrombosis, on chronic OAC therapy. 4. Hyperlipidemia. 5. Hypertension. 6. Obesity, morbid. 7. Chronic kidney disease, 3. PLAN: The patient presents to [facility] ER with complaints of chest pain. Cardiac enzymes negative thus far. We will go ahead and cycle cardiac enzymes. Continue heart failure therapy. We will do an echo to evaluate heart function and structure. We will repeat labs in a.m. Thank you very much for this consult. We will continue to follow the patient and adjust cardiac therapy as clinic course dictates. Seen and examined Agree with note Dictated by Kit Mercedes NP Adrian Denson MD DC/CRISTINO /[id number] RAGHU
[2020-07-04] MEDS: CARVEDILOL 3.125 MG TAB PO SCH (17:00)
[2020-07-04 17:35] LABS: INR 3.17
[2020-07-04] MEDS: BUMETANIDE 1 MG TAB PO SCH (18:47)
--- NOTE | 2020-07-04 19:08 | NUR ---
RECEIVED BEDSIDE SHIFT REPORT FROM PREVIOUS NURSE. CALL LIGHT WITHIN REACH. PATIENT IN BED. PATIENT IS A&OX3 AND AMBULATES
[2020-07-04 20:00] VITALS: BP_SYST 109; BP_SYST 137; BP_DIAS 74; BP_DIAS 81
[2020-07-04] MEDS ORDERED: POTASSIUM CHLORIDE 20 MEQ TAB CR PO STA (20:22)
[2020-07-04] MEDS ORDERED: PRAVASTATIN 20 MG TAB PO SCH ×2 (21:00)
--- NOTE | 2020-07-04 21:31 | History and Physical ---
PRIMARY CARE DOCTOR: Dr. Merle Robles. CHIEF COMPLAINT: Chest pain. HISTORY OF PRESENT ILLNESS: This is a 60-year-old morbidly obese male, who this morning around 9:30 was gathering some trash. Subsequently, the patient began to experience substernal chest tightness, it got better after nitroglycerin, however, still did not completely go away; this was accompanied by some shortness of breath. This morning when he woke up, the patient was doing fine. At home, he takes Plavix and also Coumadin for DVT. PAST MEDICAL AND SURGICAL HISTORY: 1. Nonischemic cardiomyopathy with normal heart catheterization in 2014, according to the patient. 2. Hypertension. 3. Hyperlipidemia. 4. Stage 3 chronic kidney disease. 5. Severe systolic heart failure with AICD. 6. Diabetes. 7. Previous appendectomy. 8. Previous cholecystectomy. MEDICATIONS: Please see medication reconciliation. ALLERGIES: PENICILLIN, CODEINE, AND LYRICA. SOCIAL HISTORY: Does not smoke. FAMILY HISTORY: Hypertension and diabetes. REVIEW OF SYSTEMS: A 10-point review of system obtained and nothing else is significant other than what is stated in HPI. PHYSICAL EXAMINATION: VITAL SIGNS: Temperature 98.4, pulse 55, respiratory rate 16, and blood pressure 102/67. GENERAL: No acute distress. SKIN: No rash. HEENT: Anicteric. Oropharynx is clear. LUNGS: Clear. HEART: Regular rate and rhythm. Normal S1, S2. GI: Abdomen is soft, obese, nondistended. NEUROLOGIC: Alert and oriented x3. Cranial nerves II through XII grossly intact. PSYCHIATRIC: No hallucination. MUSCULOSKELETAL: Painless range of motion. LABORATORY DATA: White count 6, hemoglobin 14.5, and platelet count 174. Creatinine 1.5. Potassium 3.4. Troponin is negative. Chest x-ray did not show any acute disease. ASSESSMENT AND PLAN: 1. Exertional chest tightness. We will consult Cardiology. We will repeat troponin. We will also get an echocardiogram. We will continue Plavix, beta-karissa, and statin. We will check a lipid in the morning. 2. Hypokalemia. We will replete and check magnesium in the morning. 3. Nonischemic cardiomyopathy. The patient appears to be compensated at this time. 4. Morbid obesity. 5. Diabetes. Sugar appears to be stable at this time. 6. 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 I will monitor. 7. Gastrointestinal and deep venous thrombosis prophylaxis. Currently, his INR is 3.3. I will hold Coumadin and check INR again tomorrow, and likely resume his Coumadin. I have updated his at the bedside and updated his primary care doctor as well. Yiching MD TREVOR Pace/CRISTINO /[id number]
[2020-07-04 22:03] LABS: CREATINE KINASE MB 0.8 ng/mL (0-5.0)
[2020-07-05] VITALS: BP 93/46
[2020-07-05 04:00] VITALS: BP 105/64
[2020-07-05 05:40] LABS: BASOPHILS % 0.2 % (0.0-1.0); EOSINOPHILS % 0.7 % (0.0-6.0); HEMATOCRIT 40.7 % (38.2-49.6); HEMOGLOBIN 14.2 g/dL (14.0-18.0); LYMPHOCYTES # (AUTO) 1.4 (1.0-3.2); LYMPHOCYTES % 25.3 % (18.0-39.1); MEAN CORPUSCULAR HEMOGLOBIN 32.3 pg (28-32); MEAN CORPUSCULAR HGB CONC 34.9 g/dL (31-35); MEAN CORPUSCULAR VOLUME 92.5 fL (81-99); MONOCYTES # (AUTO) 0.6 (0.2-0.8); MONOCYTES % 11.1 % (4.4-11.3); NEUTROPHILS # (AUTO) 3.5 (2.1-6.9); NEUTROPHILS % 62.5 % (38.7-80.0); PLATELET COUNT 158 x10e3/uL (140-360); RED CELL DISTRIBUTION WIDTH 13.4 % (11.7-14.4)
[2020-07-05 05:49] LABS: INR 3.4; PROTHROMBIN TIME 35.9 seconds (11.9-14.5)
[2020-07-05 06:04] LABS: ALBUMIN 3.3 g/dL (3.5-5.0); ALBUMIN/GLOBULIN RATIO 1.3 (0.8-2.0); ANION GAP 15.7 mmol/L (8-16); CALCIUM 8.1 mg/dL (8.4-10.2); CREATININE, SERUM 1.46 mg/dL (0.72-1.25); POTASSIUM 3.7 mmol/L (3.5-5.1)
[2020-07-05 06:26] LABS: CHOL/HDL RATIO 4.4 (3.9-4.7); MAGNESIUM 1.5 MG/DL (1.3-2.1)
--- NOTE | 2020-07-05 07:20 | NUR ---
GAVE BEDSIDE SHIFT REPORT TO ONCOMING NURSE. CALL LIGHT WITHIN REACH. PATIENT IN BED ASLEEP. HOURLY ROUNDING PERFORMED.
--- NOTE | 2020-07-05 07:20 | NUR ---
received pt from previous shift, pt resting in bed, no c/o chest pain at time
[2020-07-05 08:33] VITALS: BP 114/63
[2020-07-05 08:35] VITALS: BP 114/63
--- NOTE | 2020-07-05 08:55 | NUR ---
pt refused coreg. pt states his dr carlos this medication and is taking amiodarone 200mg. dr escobar called to nitify. ordered amiodarone amd dc coreg
[2020-07-05] MEDS: CARVEDILOL 3.125 MG TAB PO SCH (08:58)
[2020-07-05] MEDS: BUMETANIDE 1 MG TAB PO SCH (08:58)
[2020-07-05] MEDS ORDERED: SPIRONOLACTONE 25 MG TAB PO SCH (09:00)
[2020-07-05] MEDS ORDERED: CLOPIDOGREL BISULFATE 75 MG TAB PO SCH (09:00)
[2020-07-05] MEDS ORDERED: LISINOPRIL 2.5 MG TAB PO SCH (09:00)
[2020-07-05] MEDS ORDERED: DEXTROSE 50% SYRINGE 50 ML IV PRN (10:00)
[2020-07-05] MEDS ORDERED: INSULIN LISPRO 100 UNIT/1 ML 3ML VIAL SQ SCH (11:30)
--- NOTE | 2020-07-05 11:40 | NUR ---
maryam NURSE SPECIALIST to see pt. ok to dc [facility] cardiology. dr vázquez calld to ask if dc ok with him. dr vázquez states he will come round on pt and decide on dc at that time
[2020-07-05 12:00] VITALS: BP 110/65
--- NOTE | 2020-07-05 15:44 | NUR ---
pt dc by wheelchair to car. dc instructions and belonging with pt
--- NOTE | 2020-07-05 19:30 | Discharge Summary ---
PRIMARY CARE PHYSICIAN: Dr. Merle Robles. FINAL DIAGNOSIS: Exertional chest pain due to severe non ischemic cardiomyopathy. SECONDARY DIAGNOSES: 1. 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 2. AICD status. 3. Hypertension. 4. Hyperlipidemia. CONSULTANTS: Dr. Denson, Cardiology. PROCEDURE/STUDIES PERFORMED: Echocardiogram. HISTORY: Per dictated H and P. HOSPITAL COURSE: The patient was monitored overnight. His troponins were negative x4. The patient was evaluated by Cardiology, who feels that his chest pain is due to his severe cardiomyopathy, nonischemic. The recommendation is AICD. The patient would like to talk to his [place] caddy packer, Dr. Thomas. I have also updated his primary care doctor as well. The patient was seen and examined today. CONDITION ON DISCHARGE: Improved. DISCHARGE MEDICATIONS: Please see medication reconciliation form. Yiching MD TREVOR Pace/CRISTINO /[id number] cc: [facility]
[2020-07-05] MEDS ORDERED: AMIODARONE HCL 200 MG TAB PO SCH (21:00)
== END 2020-07-05 15:46 | disposition home or self-care (01) ==
LOC: ER 11:20 → ERHOLD 12:55 → MED/SURG 16:13
PROVIDERS: ADMIT Internal Medicine; ATTEND Internal Medicine
DX: I42.8 Other cardiomyopathies (principal); N18.30 Chronic kidney disease, stage 3 unspecified; E78.5 Hyperlipidemia, unspecified; Z95.810 Presence of automatic (implantable) cardiac defibrillator; I89.0 Lymphedema, not elsewhere classified; E66.01 Morbid (severe) obesity due to excess calories; Z68.41 Body mass index [BMI] 40.0-44.9, adult; I13.0 Hypertensive heart and chronic kidney disease with heart failure and stage 1 through stage 4 chronic kidney disease, or unspecified chronic kidney disease; I50.22 Chronic systolic (congestive) heart failure; E11.22 Type 2 diabetes mellitus with diabetic chronic kidney disease; I44.7 Left bundle-branch block, unspecified; Z11.59 Encounter for screening for other viral diseases
CPT/HCPCS: 36415 ×2; 71045; 80053 ×2; 80061; 82550 ×2; 82553 ×2; 82948 ×2; 83690; 83735; 83880; 84484 ×2; 85025 ×2; 85610 ×2; 93005; 93306; 99284; G0378 ×2; U0002

== ENCOUNTER 2020-07-19 19:23 | Emergency (ER) | payer MEDICARE ==
[~2020-07-19] VITALS: Ht 185.4 cm; Wt 141.1 kg
[2020-07-19 20:00] LABS: BASOPHILS # (AUTO) 0.1 (0.0-0.1); BASOPHILS % 0.6 % (0.0-1.0); EOSINOPHILS # (AUTO) 0.2 (0.0-0.4); EOSINOPHILS % 2.8 % (0.0-6.0); HEMATOCRIT 42.8 % (38.2-49.6); HEMOGLOBIN 14.5 g/dL (14.0-18.0); LYMPHOCYTES % 25.6 % (18.0-39.1); MEAN CORPUSCULAR HGB CONC 33.9 g/dL (31-35); MEAN CORPUSCULAR VOLUME 91.5 fL (81-99); MONOCYTES # (AUTO) 0.9 (0.2-0.8); MONOCYTES % 11.8 % (4.4-11.3); NEUTROPHILS # (AUTO) 4.6 (2.1-6.9); NEUTROPHILS % 58.8 % (38.7-80.0); PLATELET COUNT 189 x10e3/uL (140-360); RED BLOOD COUNT 4.68 x10e6/uL (4.3-5.7); RED CELL DISTRIBUTION WIDTH 13.6 % (11.7-14.4)
--- NOTE | 2020-07-19 20:06 | Emergency Department Note ---
History of Present Illnes History of Present Illness Chief Complaint: Extremity Trauma/Pain History of Present Illness This is a 60 year old male presents to er with c/o 2 skin tears to right green that will not stop bleeding, pt on coumadin and plavix states had pt/inr and it was 5 and he was instructed to not take coumadin again until tuesday. . Historian: Patient, Family Member Arrival Mode: Car Barnworker Groom Required: No Onset (how long ago): hour(s) (3) Location: right green Quality: skin tears right leg Radiation: Reports non-radiation Onset quality: sudden Duration (how long): hour(s) (4) Timing of current episode: constant Progression: unchanged Chronicity: new Context: Reports trauma/injury (pt unsure how he did it, just noticed them when he had blood on his socks) Relieving factors: none Exacerbating factors: none Associated symptoms: Reports denies other symptoms Past Medical/Family History Physician Review I have reviewed the patient's past medical and family history. Any updates have been documented here. Past Medical History Recent Fever: No Clinical Suspicion of Infectio: No New/Unexplained Change in Ment: No Past Medical History: Hypertension, Diabetes, CHF, DE, Depression, GERD, Hyper lipedemia, DVT/PE, Chronic Kidney Disease Other Medical History: SLEEP APNEA ONE FUNCTIONING KIDNEY ARTHRITIS Past Surgical History: Cholecysctectomy, Appendectomy, Pacer/AICD Other Surgery: INTERNAL DEFIBRILLATOR TONSILECTOMY Social History Smoking Cessation: Never Smoker Alcohol Use: None Any Illegal Drug Use: No Family History Family history of heart diseas: Yes Other Last Tetanus: UTD Review of Systems Review of Systems Constitutional: Reports no symptoms EENTM: Reports no symptoms Cardiovascular: Reports no symptoms Respiratory: Reports no symptoms Gastrointestinal: Reports no symptoms Genitourinary: Reports no symptoms Musculoskeletal: Reports no symptoms Integumentary: Reports as per HPI Neurological: Reports no symptoms Psychological: Reports no symptoms Endocrine: Reports no symptoms Hematological/Lymphatic: Reports no symptoms Physical Exam Related Data Allergies: Coded Allergies: pregabalin (Verified Allergy, Unknown, 01/26/20) Penicillins (Verified Adverse Reaction, Severe, LOWER EXTREMITY SWELLING, 01/26/20) codeine (Verified Adverse Reaction, Intermediate, FEET SWELL, 01/26/20) Triage Vital Signs Vital Signs Date Time Temp Pulse Resp B/P (MAP) Pulse Ox O2 Delivery O2 Flow Rate FiO2 07/19/20 19:39 98.1 63 18 128/71 100 Room Air Vital signs reviewed: Yes Physical Exam CONSTITUTIONAL Constitutional: Present well-developed, Present well-nourished HENT HENT: Present normocephalic, Present atraumatic, Present oropharynx clear/moist, Present nose normal HENT L/R: Present left ext ear normal, Present right ext ear normal EYES Eyes: Reports PERRL, Reports conjunctivae normal NECK Neck: Present ROM normal PULMONARY Pulmonary: Present effort normal, Present breath sounds normal CARDIOVASCULAR Cardiovascular: Present regular rhythm, Present heart sounds normal, Present capillary refill normal, Present normal rate GASTROINTESTINAL Abdominal: Present soft, Present nontender, Present bowel sounds normal GENITOURINARY Genitourinary: Present exam deferred SKIN pt with 2 small skin tears to anterior right lower extremity(green), each tear about 2 cm in size each, minimal bleeding present MUSCULOSKELETAL Musculoskeletal: Present ROM normal NEUROLOGICAL Neurological: Present alert, Present oriented x 3, Present no gross motor or sensory deficits PSYCHOLOGICAL Psychological: Present mood/affect normal, Present judgement normal Assessment & Plan Medical Decision Making MDM pt with 2 skin tears to right leg skin tears dressed and wrapped, pt/ptt, cbc ordered to eval for coumadin toxicity Assessment & Plan Final Impression: (1) Skin tear of right lower leg without complication Depart Disposition: HOME, SELF-CARE Last Vital Signs Date Time Temp Pulse Resp B/P (MAP) Pulse Ox O2 Delivery O2 Flow Rate FiO2 07/19/20 19:39 98.1 63 18 128/71 100 Room Air Home Meds Reported Medications Metoclopramide Hcl (REGLAN) 5 Mg Tablet, 5 MG PO ACHS, TAB 01/28/20 Warfarin Sodium (WARFARIN SODIUM) 7.5 Mg Tablet, 3.75 MG PO HS MON, WED, THURS,FRI AND SAT ONLY HALF OF 7.5MG 01/26/20 Cyanocobalamin/Fa/Pyridoxine (FOLBEE TABLET) 1 Each Tablet, 1 TAB PO DAILY 01/26/20 Clopidogrel Bisulfate (CLOPIDOGREL) 75 Mg Tablet, 75 MG PO DAILY, #30 TAB 01/26/20 Nph, Human Insulin Isophane (NOVOLIN N) 100 Unit/1 Ml Vial, 35 SQ HS 01/26/20 Gabapentin (GABAPENTIN) 600 Mg Tablet, 600 TAB PO HS 01/26/20 Spironolactone (SPIRONOLACTONE) 25 Mg Tablet, 25 MG PO DAILY, #60 TAB 01/29/19 Polyethylene Glycol 3350 (MIRALAX) 17 Gm Powd.pack, 34 GM PO PRN 06/23/16 Wheat Dextrin (BENEFIBER) 1 Each Powd.pack, 1 UDPKT PO PRN PRN for CONSTIPATION 06/23/16 Lisinopril (LISINOPRIL) 2.5 Mg Tablet, 5 MG PO HS, #30 TAB 06/23/16 Pravastatin Sodium (PRAVASTATIN SODIUM) 40 Mg Tablet, 40 MG PO HS 06/23/16 Bumetanide (BUMETANIDE) 1 Mg Tablet, 2 MG PO DAILY, #30 TAB 11/11/14 Glimepiride (GLIMEPIRIDE) 2 Mg Tablet, 2 MG PO DAILY, TAB 11/11/14 Warfarin Sodium (WARFARIN SODIUM) 7.5 Mg Tablet, 7.5 MG PO HS TUESDAY AND TUESDAY ONLY 12/16/12 MIMI CHI MD Jul 19, 2020 20:06
[2020-07-19 20:09] LABS: INR 3.42; PROTHROMBIN TIME 36.1 seconds (11.9-14.5)
[2020-07-19 20:10] LABS: PARTIAL THROMBOPLASTIN TIME 40.6 seconds (23.8-35.5)
[2020-07-19 20:17] LABS: ANION GAP 13.7 mmol/L (8-16); CALCIUM 8.4 mg/dL (8.4-10.2); CREATININE, SERUM 1.58 mg/dL (0.72-1.25); POTASSIUM 3.7 mmol/L (3.5-5.1)
--- OUTSIDE RECORDS SUMMARY | 2020-07-24 18:23 | XMS REPORT | Continuity of Care Document ---
Author Author [facility] t Organization [facility] t Address [address] [place] [address] Phone Unavailable Care Team Providers Care Shade Maker Name Role Phone Brandi GALVAN PCP Antonia Vallejo Attphys Unavailable Antwon HUNTER Attphys Unavailable Saniya HANDY Attphys Unavailable Michelle TURNER Attphys Unavailable Saniya ALEJO Attphys Unavailable Connie SCHOFIELD Attphys Unavailable Rodriguez SALCEDO Attphys Unavailable Antwon HUNTER Admphys Unavailable Payers Payer Name Policy Type Policy Number Effective Date Expiration Date Zamzam correa Kelsey Care Medicare Advantage [id number] 2016 00:0 0:00 [facility] Problems Condition Name Condition Details Condition Category Status Onset Date Resolution Date Last Treatment Date Treating Clinician Comments Source Chest pain Chest pain Problem Active [facility] Fecal impaction Fecal impaction Problem Active [facility] Gastrointestinal hemorrhage GI bleeding Problem Active [facility] Vomiting Problem Active [facility] Chronic kidney disease Problem Active [facility] Allergies, Adverse Reactions, Alerts Allergy Name Allergy Type Status Severity Reaction(s) Onset Date Inacti ve Date Treating Clinician Comments Source Penicillin Propensity to adverse reactions Active Severe LOWER EXTREMITY SWELLING 2020-01-26 00:00:00 [facility] Codeine Propensity to adverse reactions Active Moderate FEET SWELL 2020-01-26 00:00:00 [facility] Pregabalin Allergy to substance Active 2020-01-26 00:00:00 [facility] Family History Family Member Diagnosis Comments Start Date Stop Date Source 32 MOTHER Family history of malignant neoplasm [facility] 32 MOTHER Family history of diabetes mellitus [facility] 09 BROTHER Family history of malignant neoplasm [facility] Social History Social Habit Start Date Stop Date Quantity Comments Source Sex Assigned At 1960 00:00:00 1960 00:00:00 Male [facility] Medications Ordered Medication Name Filled Medication Name Start Date Stop Da te Current Medication? Ordering Clinician Indication Dosage Frequency Signature (SIG) Comments Components Source Esomeprazole Magnesium (Nexium) 40 Mg CAPSULE. Esbhavna prazole Magnesium (Nexium) 40 Mg CAPSULE. 2016-06-25 10:47:00 2019-01-29 00:00:00 No 40 Before Breakfast [facility] Bumetanide Bumetanide Yes 2 Daily [facility] Clopidogrel Bisulfate (Clopidogrel) 75 Mg TABLET Clopi dogrel Bisulfate (Clopidogrel) 75 Mg TABLET Yes 75 Daily [facility] Cyanocobalamin/Fa/Pyridoxine (Folbee Tablet) 1 Each TA BLET Cyanocobalamin/Fa/Pyridoxine (Folbee Tablet) 1 Each TABLET Yes 1 Daily [facility] Gabapentin Gabapentin Yes 600 Bedtime [facility] Glimepiride Glimepiride Yes 2 Daily [facility] Lisinopril Lisinopril Yes 5 Bedtime [facility] Metoclopramide Hcl (Reglan) 5 Mg TABLET Metoclopramide Hcl ( Reglan) 5 Mg TABLET Yes 5 Before Meals And At Bedtime [facility] Nph, Human Insulin Isophane (Novolin N) 100 Unit/1 Ml VIAL Nph, Human Insulin Isophane (Novolin N) 100 Unit/1 Ml VIAL Yes 35 Bedtime [facility] Polyethylene Glycol 3350 (Miralax) 17 Gm POWD.PACK Louis yethylene Glycol 3350 (Miralax) 17 Gm POWD.PACK Yes 34 As Needed [facility] Pravastatin Sodium Pravastatin Sodium Yes 40 Be dtime [facility] Spironolactone Spironolactone Yes 25 Daily [facility] Warfarin Sodium Warfarin Sodium Yes 7.5 Bedtime [facility] Warfarin Sodium Warfarin Sodium Yes 3.75 Bedtime [facility] Wheat Dextrin (Benefiber) 1 Each POWD.PACK Wheat Dextr in (Benefiber) 1 Each POWD.PACK Yes 1 As Needed as needed for Cons tipation [facility] Carvedilol Carvedilol 2020-01-26 00:00:00 No 6.25 Twi ce A Day [facility] Warfarin Sodium Warfarin Sodium 2020-01-26 00:00:00 No 7.5 Bedtime [facility] Exenatide Microspheres (Bydureon) 2 Mg VIAL Exenatide Microspheres (Bydureon) 2 Mg VIAL 2019-01-29 00:00:00 No 2 [facility] Loratadine Loratadine 2019-01-29 00:00:00 No 10 Amelia ly [facility] Amitriptyline Hcl Amitriptyline Hcl 2016-12-05 00:00:00 No 100 Daily At 1700 [facility] Lubiprostone (Amitiza) 24 Mcg CAPSULE Lubiprostone (Amitiza) 24 Mcg CAPSULE 2016-12-05 00:00:00 No 24 Twice Daily Before M eals [facility] Hydrochlorothiazide Hydrochlorothiazide 2016-06-23 00:00:00 No 1 Rt Daily [facility] Lisinopril Lisinopril 2016-06-23 00:00:00 No 1 Rt Daily [facility] Pravastatin Sodium Pravastatin Sodium 2016-06-23 00:00:[address] [facility] Gabapentin Gabapentin 2014-11-11 00:00:00 No 2 Rt Daily [facility] Glyburide/Metformin Hcl (Glyburide-Metformin 2.5-500 M g) 1 Each TABLET Glyburide/Metformin Hcl (Glyburide-Metformin 2.5-500 Mg) 1 Each TABLET 2014-11-11 00:00:00 No 2 Twice A Day [facility] Warfarin Sodium Warfarin Sodium 2014-11-11 00:00:00 No 1 [facility] Vital Signs Vital Name Observation Time Observation Value Comments Source Body Temperature 2020-07-05 12:00:00 98.4 [degF] [facility] BMI (Body Mass Index) 2020-07-04 16:51:00 41.0 kg/m2 [facility] Weight 2020-07-04 11:05:00 311 [lb_av] [facility] Procedures Procedure Date / Time Performed Performing Clinician [facility] e CT of abdomen and pelvis without contrast 2020-01-27 00:00:00 [facility] Plan of Care Planned Activity Planned Date Details Comments Source Instructions Chest Pain - Chest Wall [facility] Encounters Start Date/Time End Date/Time Encounter Type Admission Type [facility] Care Department Encounter ID Source 2020-07-04 12:55:00 2020-07-05 15:46:00 Discharged Inpatient (obs) Genevieve Emily [facility] [id number] [facility] 2020-01-26 18:12:00 2020-01-28 15:30:00 Discharged Inpatient (obs) 1 SVEN HUNTER [facility] [id number] [facility] 2019-06-02 17:41:00 2019-06-02 21:25:00 Departed Emergency Room [facility] [id number] [facility] 2019-01-29 10:59:00 2019-01-31 16:10:00 Discharged Inpatient 1 MATIAS HANDY [facility] [id number] [facility] 2018-08-05 17:51:00 2018-08-05 21:16:00 Departed Emergency Room [facility] [id number] [facility] 2018-05-30 09:13:00 2018-05-30 10:05:00 Departed Emergency Room [facility] [id number] [facility] 2018-03-13 18:46:00 2018-03-13 22:47:00 Departed Emergency Room 1 CELENA TURNER [facility] [id number] [facility] 2018-02-13 10:46:00 2018-02-13 14:51:00 Departed Emergency Room 1 DAMIAN ALEJO [facility] [id number] [facility] 2017-09-30 21:06:00 2017-09-30 23:29:00 Departed Emergency Room ER ZACKARY SCHOFIELD [facility] [id number] [facility] 2017-07-04 22:50:00 2017-07-05 17:46:00 Discharged Inpatient (obs) ER NICK SALCEDO [facility] [id number] [facility] Results Test Description Test Time Test Comments Results Result Comments Source Capillary blood glucose measurement by glucometer (mas s/volume) 2020-07-05 12:09:00 Test Item Bedside Glucose (test code = 29182-8) 182 70-120 Meter ID: [id number] CenterBlood leukocytes automated count (number/volume)2020-07-05 05:30:00* Test Item Value Reference Range Interpretation Comments White Blood Count (test code = 6690-2) 5.57 4.8-10.8 [facility] CenterBlood erythrocytes automated count (number/volume)2020-07-05 05:30:00* Test Item Value Reference Range Interpretation Comments Red Blood Count (test code = 789-8) 4.40 4.3-5.7 [facility] CenterBlood hemoglobin measurement (moles/volume)2020-07-05 05:30:00* Test Item Value Reference Range Interpretation Comments Hemoglobin (test code = 89192-3) 14.2 14.0-18.0 [facility] CenterAutomated blood hematocrit (volume fraction)2020-07-05 05:30:00* Test Item Value Reference Range Interpretation Comments Hematocrit (test code = 4544-3) 40.7 38.2-49.6 [facility] CenterAutomated erythrocyte mean corpuscular uqehze0288-19-78 05:30:00* Test Item Value Reference Range Interpretation Comments Mean Corpuscular Volume (test code = 787-2) 92.5 81-99 [facility] CenterAutomated erythrocyte mean corpuscular hemoglobin (mass per erythrocyte)2020-07-05 05:30:00* Test Item Value Reference Range Interpretation Comments Mean Corpuscular Hemoglobin (test code = 785-6) 32.3 28-32 [facility]Aut[facility] erythrocyte mean corpuscular hemoglobin concentration measurement (mass/volume)2020-07-05 05:30:00* Test Item Value Reference Range Interpretation Comments Mean Corpuscular Hemoglobin Concent (test code = 786-4) 34.9 31-35 [facility] CenterRDW UyiEr-Qbq8946-04-17 05:30:00* Test Item Value Reference Range Interpretation Comments Red Cell Distribution Width (test code = 18176-2) 13.4 11.7 -14[address]4 [facility] platelet count (count/volume)2020-07-05 05:30:00* Test Item Value Reference Range Interpretation Comments Platelet Count (test code = 777-3) 158 140-360 [facility] CenterAutunc health southeasterned blood segmented neutrophil count as percentage of total gdzwioqmiu2770-39-42 05:30:00* Test Item Value Reference Range Interpretation Comments Neutrophils (%) (Auto) (test code = 03636-8) 62.5 38.7-80.0 [facility] CenterAutomated blood lymphocyte count as percentage ot total iaajypavqv2330-50-94 05:30:00* Test Item Value Reference Range Interpretation Comments Lymphocytes (%) (Auto) (test code = 736-9) 25.3 18.0-39.1 [facility] CenterAutunc [facility]heasterned blood monocyte count as percentage of total yohsngndnz6987-85-11 05:30:00* Test Item Value Reference Range Interpretation Comments Monocytes (%) (Auto) (test code = 5905-5) 11.1 4.4-11.3 [facility] CenterAutomated blood eosinophil count as percentage of total tzkcnpqqsi8688-37-67 05:30:00* Test Item Value Reference Range Interpretation Comments Eosinophils (%) (Auto) (test code = 713-8) 0.7 0.0-6.0 [facility] CenterAutomated blood basophil count as percentage of total xqibwxiwfa8041-39-53 05:30:00* Test Item Value Reference Range Interpretation Comments Basophils (%) (Auto) (test code = 706-2) 0.2 0.0-1.0 [facility] CenterFluoroscopic procedure less than one hour nsdudqvm7013-86-07 05:30:00* Test Item Value Reference Range Interpretation Comments IM GRANULOCYTES % (test code = IM GRANULOCYTES %) 0.2 0.0- 1.0 [facility] CenterAutomated blood neutrophil count 2020-07-05 05:30:00* Test Item Value Reference Range Interpretation Comments Neutrophils # (Auto) (test code = 751-8) 3.5 2.1-6.9 [facility] CenterBlood lymphocytes count (number/volume) 2020-07-05 05:30:00* Test Item Value Reference Range Interpretation Comments Lymphocytes # (Auto) (test code = 36620-7) 1.4 1.0-3.2 [facility] CenterBlood monocytes automated count (number/volume)2020-07-05 05:30:00* Test Item Value Reference Range Interpretation Comments Monocytes # (Auto) (test code = 742-7) 0.6 0.2-0.8 [facility] CenterAutomated blood eosinophil count 2020-07-05 05:30:00* Test Item Value Reference Range Interpretation Comments Eosinophils # (Auto) (test code = 711-2) 0.0 0.0-0.4 [facility] CenterAutomated blood basophil count (count/volume)2020-07-05 05:30:00* Test Item Value Reference Range Interpretation Comments Basophils # (Auto) (test code = 704-7) 0.0 0.0-0.1 [facility] CenterFluoroscopic procedure less than one hour uotfihul6474-47-56 05:30:00* Test Item Value Reference Range Interpretation Comments Absolute Immature Granulocyte (auto (melita t code = Absolute Immature Granulocyte (auto) 0.01 0-0.1 [facility] CenterProthrombin time (PT) in platelet poor plasma by coagulation yozha5067-13-85 05:30:00* Test Item Value Reference Range Interpretation Comments Prothrombin Time (test code = 5902-2) 35.9 11.9-14.5 [facility] CenterINR in Platelet poor plasma by Coagulation tvrsb3366-23-22 05:30:00* Test Item Value Reference Range Interpretation Comments Prothromb Time International Ratio (test code = 6301-6) 3.40 Oral Anticoagulant Therapy INR Values:1. Low Intensity Therapy 1.5 - 2.02 . Moderate Intensity Therapy 2.0 - 3.03. High Intensity Therapy(1) 2.5 - 3. 54. High Intensity Therapy(2) 3.0 - 4.05. Panic Value INR > 5.0 [facility] sodium measurement (moles/volume)2020-07-05 05:30:00* Test Item Value Reference Range Interpretation Comments Sodium Level (test code = 2951-2) 142 136-145 [facility] plasma potassium measurement (moles/volume)2020-07-05 05:30:00* Test Item Value Reference Range Interpretation Comments Potassium Level (test code = 2823-3) 3.7 3.5-5.1 [facility] chloride measurement (moles/volume)2020-07-05 05:30:00* Test Item Value Reference Range Interpretation Comments Chloride Level (test code = 2075-0) 101 98-107 [facility] or plasma carbon dioxide, total measurement (moles/volume)2020-07-05 05:30:00* Test Item Value Reference Range Interpretation Comments Carbon Dioxide Level (test code = 2028-9) 29 22-29 [facility] or plasma anion uta6469-25-29 05:30:00* Test Item Value Reference Range Interpretation Comments Anion Gap (test code = 21373-9) 15.7 8-16 [facility] plasma urea nitrogen measurement (mass/volume)2020-07-05 05:30:00* Test Item Value Reference Range Interpretation Comments Blood Urea Nitrogen (test code = 3094-0) 13 7-26 [facility] plasma creatinine measurement (mass/volume)2020-07-05 05:30:00* Test Item Value Reference Range Interpretation Comments Creatinine (test code = 2160-0) 1.46 0.72-1.25 [facility] or plasma urea nitrogen/creatinine mass acvhr3447-10-03 05:30:00* Test Item Value Reference Range Interpretation Comments BUN/Creatinine Ratio (test code = 3097-3) 9 6-25 [facility] CenterEstimated glomerular filtration rate (GFR) akifxiehxqrvu6348-37-86 05:30:00* Test Item Value Reference Range Interpretation Comments Estimat Glomerular Filtration Rate (test code = 135455034) 50 >60 Ranges were taken from the National Kidney Disease Education Program and the [facility] Kid[facility] Foundation literature.Reference ranges:60 or greater: Jnmnqq14-83 ( for 3 consecutive months): Chronic kidney disease 15 or less: Kidney failureMethodist Charlton Medical CenterGlucose jzhblunzbmm7550-35-56 05:30:00* Test Item Value Reference Range Interpretation Comments Glucose Level (test code = MNX9493) 168 74-118 [facility] plasma calcium measurement (mass/volume)2020-07-05 05:30:00* Test Item Value Reference Range Interpretation Comments Calcium Level (test code = 01783-5) 8.1 8.4-10.2 [facility] plasma magnesium measurement (mass/volume)2020-07-05 05:30:00* Test Item Value Reference Range Interpretation Comments Magnesium Level (test code = 35205-9) 1.5 1.3-2.1 [facility] total bilirubin measurement (mass/volume)2020-07-05 05:30:00* Test Item Value Reference Range Interpretation Comments Total Bilirubin (test code = 1975-2) 1.3 0.2-1.2 [facility] CenterFluoroscopic procedure less than one hour drfpkfwy3492-78-82 05:30:00* Test Item Value Reference Range Interpretation Comments Aspartate Amino Transf (AST/SGOT) (test code = Aspartate Amino Transf (AST/SGOT)) 10 5-34 [facility] or plasma alanine aminotransferase measurement (enzymatic activity/volume)2020-07-05 05:30:00* Test Item Value Reference Range Interpretation Comments Alanine Aminotransferase (ALT/SGPT) (test code = 1742-6) 10 0-55 [facility] or plasma protein measurement (mass/volume)2020-07-05 05:30:00* Test Item Value Reference Range Interpretation Comments Total Protein (test code = 2885-2) 5.8 6.5-8.1 [facility] plasma albumin measurement (mass/volume)2020-07-05 05:30:00* Test Item Value Reference Range Interpretation Comments Albumin (test code = 1751-7) 3.3 3.5-5.0 [facility] CenterPlasma globulin measurement (mass/volume) 2020-07-05 05:30:00* Test Item Value Reference Range Interpretation Comments Globulin (test code = 94513-9) 2.5 2.3-3.5 [facility] or plasma albumin/globulin mass wwdpl7571-12-38 05:30:00* Test Item Value Reference Range Interpretation Comments Albumin/Globulin Ratio (test code = 1759-0) 1.3 0.8-2.0 [facility] or plasma alkaline phosphatase measurement (enzymatic activity/volume)2020-07-05 05:30:00* Test Item Value Reference Range Interpretation Comments Alkaline Phosphatase (test code = 6768-6) 52 40-150 [facility] or plasma triglyceride measurement (mass/volume)2020-07-05 05:30:00* Test Item Value Reference Range Interpretation Comments Triglycerides Level (test code = 2571-8) 218 0-149 [facility] plasma cholesterol measurement (mass/volume)2020-07-05 05:30:00* Test Item Value Reference Range Interpretation Comments Cholesterol Level (test code = 2093-3) 137 0-199 Less than 200 mg/dL Low Nlbj546 - 239 mg/dL Borderline Nnne451 m g/dl and greater High Risk [facility] or plasma cholesterol in LDL measurement (mass/volume) 2020-07-05 05:30:00* Test Item Value Reference Range Interpretation Comments LDL Cholesterol (test code = 2089-1) 62 60-130 [facility] or plasma cholesterol in HDL measurement (mass/volume)2020-07-05 05:30:00* Test Item Value Reference Range Interpretation Comments HDL Cholesterol (test code = 2085-9) 31 40-60 [facility] or plasma total cholesterol/cholesterol in HDL mass thvsz9304-43-94 05:30:00* Test Item Value Reference Range Interpretation Comments Cholesterol/HDL Ratio (test code = 9830-1) 4.4 3.9-4.7 [facility] or plasma creatine kinase measurement (enzymatic activity/volume)2020-07-05 05:30:00* Test Item Value Reference Range Interpretation Comments Creatine Kinase (test code = 2157-6) 53 30-200 [facility] or plasma creatine kinase MB measurement (mass/volume)2020-07-05 05:30:00* Test Item Value Reference Range Interpretation Comments Creatine Kinase MB (test code = 66018-7) 1.00 0-5.0 [facility] CenterTroponin I measurement by highly sensitive enzyme ojyqtthirch2273-48-10 05:30:00* Test Item Value Reference Range Interpretation Comments Troponin I (test code = 47914-2) 0.002 0-0.300 [facility] CenterCHEST SINGLE (PORTABLE)2020-07-04 11:47:00[facility] DOB: 1960 Sex: M [place] [address] Patient Name: BEN KRISHNAN MR #: [id number] : 1960 Age/Sex: 60/M Req #: [id number] Adm Physician: Ordered by: Emily Vallejo MD Report #: [id number] Location: ER Room/Bed: Procedure: [id number] DX/CHEST SINGLE (PORTABLE) Exam D ate: 07/04/20 Exam Time: 1125 REPORT STATUS: Signed EXAM: CHEST SINGLE (PORTABLE) DATE: 07/04/2020 11:25 AM INDICATION: Chest pain COMPARISON: 01/25 FINDINGS: Left-sided single-lead ICD identified in stable position. The trachea is midline. The lungs are symmetrically expanded without evide nce for large focal consolidation, pneumothorax, or significant pleural effusi on. The cardiomediastinal is stable in appearance. The pulmonary vasculatur e is within normal limits. No acute osseous abnormality is identified. The s urrounding soft tissues are unremarkable. IMPRESSION: No acute card iopulmonary process identified. Signed by: Dr. Gaurang Stallings MD on 07/04/20 11:48 AM Dictated By: GAURANG STALLINGS MD 1148 Transcribed By: MARILUZ on 07/04/20 1148 COPY TO: EMILY VALLEJO MD BNP Cef-mTah6213-69-16 11:40:00* Test Item Value Reference Range Interpretation Comments B-Type Natriuretic Peptide (test code = 57907-9) 143.8 0-100 [facility] plasma lipase measurement (enzymatic activity/volume)2020-07-04 11:40:00* Test Item Value Reference Range Interpretation Comments Lipase (test code = 3040-3) 24 8-78 [facility] CenterCT [facility]/PELVIS [id number] 13:00:00 [facility] [address] [address] Patient Name: BEN KRISHNAN MR #: [id number] : 1960 Age/Sex: 59/M Req #: [id number] Adm Physician: SVEN HUNTER MD Ordered by: SVEN HUNTER MD Repo rt #: [id number] Location: [facility]/SURG3 Room/Be d: 292-1 Procedure: [id number] CT/CT ABDOMEN/P EVERT WO Exam Date: 01/27/20 Exam Time: 1220 REPORT STATUS: Signed EXAMINATION: CT o f the abdomen and pelvis without contrast. TECHNIQUE: Helical CT images of the abdomen and pelvis were performed from the lung bases to the lesser troch anters. No intravenous contrast was given per renal stone protocol. Coronal and sagittal reformatted images were obtained. Dose modulation, iterative romel nstruction, and/or weight based adjustment of the mA/kV was utilized to reduce the radiation dose to as low as reasonably achievable. COMPARISON: Non e. CLINICAL HISTORY:Nausea DISCUSSION: ABSENCE OF INTRAVENOUS CON TRAST DECREASES SENSITIVITY FOR DETECTION OF FOCAL LESIONS AND VASCULAR PATHOL OGY. ABDOMEN/PELVIS: LOWER THORAX: Unremarkable. HEPATOBILIARY:P eripherally calcified cyst in the dome of the liver. Cholecystectomy. SPL EEN: No splenomegaly. PANCREAS: No focal masses or ductal dilatation. ADRENALS: No adrenal nodules. KIDNEYS/URETERS: Right kidney is unremarkable . No obstruction or stone. Left kidney is absent. PELVIC ORGANS/BLADDER: The bladder is normal. PERITONEUM/RETROPERITONEUM: No free air or fluid. LYMPH NODES: No intra-abdominal,retroperitoneal, pelvic or inguinal lymph adenopathy. VESSELS: Unremarkable. GI TRACT: No distention or wall thi ckening. BONES AND SOFT TISSUES: No bony destructive lesions. No soft tiss ue abnormalities. IMPRESSION: No acute CT finding. Signed by : Dr. Faith Woods M.D. on 01/27/2020 1:04 PM Dictated By: FAITH MOULTON MD 1300 Transcr ibed By: MARILUZ on 01/27/20 1302 COPY TO: SVEN HUNTER MD ABDOMEN-1VIEW (KU)2020-01-27 10:30:00 [place] [address] Patient Name: BEN KRISHNAN MR #: [id number] : 1960 Age/Sex: 59/M Req #: [id number] Adm Physician: SVEN HUNTER MD Ordered by: SVEN HUNTER MD Report #: [id number] Location: MED/SURG3 Room/Bed: [facility] Procedure: [id number] DX/ABDOMEN-1VIE W (KUB) Exam Date: 01/27/20 Exam Time: 0950 REPORT STATUS: Signed Exam: Abdominal film Clinical History: Nausea Comparison: None. DISCUSSION: Nonobstructive bowel gas pattern. Right upper quadrant clips. No abnormal c alcifications. IMPRESSION: Nonobstructive bowel gas pattern. Signed by: Dr. Faith Woods M.D. on 01/27/2020 10:31 AM D ictated By: FAITH WOODS MD 1031 COPY TO: Monica HUNTER MD Serum or plasma thyrotropin measurement by detection limit < = 0.005 miu/l (units/volume)2020-01-27 06:08:00* Test Item Value Reference Range Interpretation Comments Thyroid Stimulating Hormone (TSH) (test code = 85924-6) 4.851 0.350-4.940 [facility] SINGLE (PORTABLE)2020-01-26 17:52:00 [place] [address] Patient Name: BEN KRISHNAN MR #: [id number] : 1960 Age/Sex: 59/M Req #: [id number] Adm Physician: Ordered by: GEORGINA MACK MD Report #: [id number] Location: ER Room/Bed: Procedure: [id number] DX/CHEST SINGLE (PORTABLE) Exam Date: 01/26/20 Exam Time: 1700 REPORT STATUS: Signed EXAMINATION: CHEST SINGLE (PORTABLE) INDICATION: n/v, cp [id number] COMPARISON: 01/29/2019 FINDINGS: AP view TUBES and RICKY ES: Stable single lead left chest wall cardiac device. LUNGS: Low lung vo lumes and body habitus. No definite focal consolidation. Mild central vascula r congestion, accentuated by low lung volumes. PLEURA: No significant pleu ral effusion or pneumothorax. HEART AND MEDIASTINUM: The cardiomediastinal silhouette is mildly prominent, accentuated by low lung volumes.. JESSICA BAKARI AND SOFT TISSUES: No acute osseous lesion. Soft tissues are unremarkable . UPPER ABDOMEN: No free air under the diaphragm. IMPRESSION: L imited as above. No definite focal consolidation. Mild central vascular ed estion, accentuated by low lung volumes. Signed by: Corby Keith on 01/26/2020 5:53 PM Dictated By: JAY OGDEN MD Electronically Rosa d By: JAY OGDEN MD on 01/26/201752 Transcribed By: MARILUZ on 01/26/20 175 3 COPY TO: GEORGINA MACK MD Fluoroscopic procedure less than one hour phsgvlke8410-31-39 17:25:00* Test Item Value Reference Range Interpretation Comments Coronavirus (PCR) (test code = Coronavirus (PCR)) NOT DETECTED NOTD ETECTED SARS-COV-2 (COVID19), HIGHRISK, RT-PCRNegative results do not preclude SARS-CoV- 2 infection and should not be used as the sole basis for patient management deci sions. Negative results must be combined with clinical observations, patient his tory, and epidemiological information. Optimum specimen types and timing for pea k viral levels during infections caused by SARS-CoV-2 have not been determined. Collection of multiple specimens ot types of specimens may be necessary to detec t virus. Improper specimen collection and handling, sequence variability under p rimers/probes, or organism present below the limit of detection may lead to fals e negative results. Positive and negative predictive values of testing are highl y dependent on prevalance. False negative test results are more likely when prev alence is high.The expected result is negative (not detected).The SARS-CoV-2 melita t is intended for the qualitative detection of nucleic acid from SARS-CoV-2 in n asopharyngeal and oropharyngeal swab samples from patients who meet COVID-19 cli nical and or epidemiological criteria. For lower respiratory tract specimens, th e assay is submitted for authoriztion by FDA under an Emergency Use Authorizatio n (EUA). Testing methodology is real time RT-PCR. If received as separate collec tion devices, nasopharygeal and oropharyngeal specimens are combined for analysi s. Additional specimens may be split to a separate accession for analysi and rep orting as this test includes a single unit of service.Test results must be corre lated with clinical presentation and evaluated in the context of other laborator y and epidemiologic data. Test performance can be affected because the epidemiol ogy and clinical spectrum of infection caused by SARS-CoV-2 is not fully known. For example, the optimum types of specimens to collect and when during the cours e of infection these specimens are most likely to contain detectable viral RNA m ay not be known.This test has not been Food and Drug Administration (FDA) cleare d or approved and has been authorized by FDA under an Emergency Use Authorizatio n (EUA). The test is only authorized for the duration of the declaration that ci rcumstances exist justifying the authorization of emergency use of in vitro diag nostic tests for detection and/or diagnosis of SARS-CoV-2 under section 564(b) o f the Act, 21 U.S.C. section 360bbb-3(b)(1), unless the authorization is termina marco or revoked sooner. [facility] are certified under the C linical Laboratory Improvement Amendments of 1988 (CLIA), 42 U.S.C. section 263a , to perform high complexity tests.Testing performed by [facility] [id number] [place] [address] [phone] Director: Franklin Pruitt M.D.CLIA # [id number] [facility] Activated partial thromboplastin time (aPTT) in platelet poor plasma by coagulat ion mfnwh4633-12-56 16:11:00* Test Item Value Reference Range Interpretation Comments Activated Partial Thromboplast Time (test code = 42161-8) 37.3 23.8-35.5 [facility] CenterUrine color lfmajkttdupfn0658-76-27 16:11:00* Test Item Value Reference Range Interpretation Comments Urine Color (test code = 5778-6) YELLOW YELLOW [facility] CenterUrine hvadtae9155-32-67 16:11:00* Test Item Value Reference Range Interpretation Comments Urine Clarity (test code = 43604-9) HAZY CLEAR [facility] gravity of Urine by Test strip 2020-01-26 16:11:00* Test Item Value Reference Range Interpretation Comments Urine Specific [place] (test code = 5811-5) 1.025 1.010-1.02 5 [facility] CenterUrine pH measurement by automated test xpuwi0271-43-23 16:11:00* Test Item Value Reference Range Interpretation Comments Urine pH (test code = 01151-2) 5.5 5-7 [facility] CenterUrine leukocyte esterase detection by sxybxaon2798-12-60 16:11:00* Test Item Value Reference Range Interpretation Comments Urine Leukocyte Esterase (test code = 5799-2) NEGATIVE NEGATIVE [facility] CenterUrine nitrite qcowkyuji0156-38-66 16:11:00* Test Item Value Reference Range Interpretation Comments Urine Nitrite (test code = 93690-7) NEGATIVE NEGATIVE [facility] CenterUrine protein measurement by test strip (mass/volume)2020-01-26 16:11:00* Test Item Value Reference Range Interpretation Comments Urine Protein (test code = 5804-0) NEGATIVE NEGATIVE [facility] CenterUrine glucose buktnafus6115-17-38 16:11:00* Test Item Value Reference Range Interpretation Comments Urine Glucose (UA) (test code = 2349-9) NEGATIVE NEGATIVE [facility] CenterUrine ketones detection by automated test pvtyo4518-93-38 16:11:00* Test Item Value Reference Range Interpretation Comments Urine Ketones (test code = 38172-5) NEGATIVE NEGATIVE [facility] CenterUrine urobilinogen measurement by test strip (mass/volume)2020-01-26 16:11:00* Test Item Value Reference Range Interpretation Comments Urine Urobilinogen (test code = 92468-2) 1 0.2-1 [facility] CenterUrine total bilirubin measurement (mass/volume)2020-01-26 16:11:00* Test Item Value Reference Range Interpretation Comments Urine Bilirubin (test code = 1978-6) NEGATIVE NEGATIVE [facility] CenterUrine erythrocytes ymvbelvha8373-73-75 16:11:00* Test Item Value Reference Range Interpretation Comments Urine Blood (test code = 83873-2) NEGATIVE NEGATIVE [facility] CenterAutomated urine sediment leukocyte count by microscopy (number/high power field)2020-01-26 16:11:00* Test Item Value Reference Range Interpretation Comments Urine WBC (test code = 5821-4) 0-5 0-5 [facility] CenterErythrocytes detection in urine sediment by light gfownuqpkz5581-56-07 16:11:00* Test Item Value Reference Range Interpretation Comments Urine RBC (test code = 79294-0) 0-5 0-5 [facility] CenterBacteria detection in urine sediment by light iekmucshua4175-47-59 16:11:00* Test Item Value Reference Range Interpretation Comments Urine Bacteria (test code = 58560-5) FEW NONE [facility] CenterEpithelial cells detection in urine sediment by light vnmtuzsnik6635-98-97 16:11:00* Test Item Value Reference Range Interpretation Comments Urine Epithelial Cells (test code = 32272-0) FEW NONE [facility] Vdlhrqi0493-11-13 08:31:00* Test Item Value Reference Range Interpretation Comments Bedside Glucose (test code = 16400-4) 158 70-120 H Meter ID: [id number] Sol Medical Center Glucose 2019-01-31 15:09:00* Test Item Value Reference Range Interpretation Comments Bedside Glucose (test code = 57195-4) 206 70-120 H Meter ID: [id number] Health Kaufmantool Occult Blood 2019-01-30 10:56:00* Test Item Value Reference Range Interpretation Comments Stool Occult Blood (test code = 2335-8) NEGATIVE NEGATIVE [facility]mantool Occult Jqkyy5969-28-89 10:56:00* Test Item Value Reference Range Interpretation Comments Stool Occult Blood (test code = 2335-8) NEGATIVE NEGATIVE [facility]aufmanodium Maomo2592-84-74 07:17:00* Test Item Value Reference Range Interpretation Comments Sodium Level (test code = 2951-2) 136 136-145 [facility] CenterPotassium Rotqs3573-32-98 07:17:00* Test Item Value Reference Range Interpretation Comments Potassium Level (test code = 2823-3) 3.9 3.5-5.1 [facility] CenterChloride Kckkb0987-20-23 07:17:00* Test Item Value Reference Range Interpretation Comments Chloride Level (test code = 2075-0) 102 98-107 [facility] CenterCarbon Dioxide Ybryo6598-37-29 07:17:00* Test Item Value Reference Range Interpretation Comments Carbon Dioxide Level (test code = 2028-9) 26 22-29 [facility] CenterAnion Jcz6320-98-83 07:17:00* Test Item Value Reference Range Interpretation Comments Anion Gap (test code = 61004-2) 11.9 8-16 [facility] CenterBlood Urea Gvyltkmb0129-17-45 07:17:00* Test Item Value Reference Range Interpretation Comments Blood Urea Nitrogen (test code = 3094-0) 15 7-26 [facility] CenterCreatinine2019-05-14 07:17:00* Test Item Value Reference Range Interpretation Comments Creatinine (test code = 2160-0) 1.24 0.72-1.25 [facility] CenterBUN/Creatinine Htdfx2575-74-02 07:17:00* Test Item Value Reference Range Interpretation Comments BUN/Creatinine Ratio (test code = 3097-3) 12 6- [facility] CenterEstimat Glomerular Filtration Rate 2019-01-30 07:17:00* Test Item Value Reference Range Interpretation Comments Estimat Glomerular Filtration Rate (test code = 499781814) 60 >60 Ranges were taken from the National Kidney Disease Education Program and the [facility] Foundation literature.Reference ranges:60 or greater: Mfluyn94-77 ( for 3 consecutive months): Chronic kidney disease 15 or less: Kidney failureMethodist Charlton Medical CenterGlucose Fznvz0773-09-69 07:17:00* Test Item Value Reference Range Interpretation Comments Glucose Level (test code = RMQ9700) 105 74-118 [facility] CenterCalcium Ygslv8655-20-75 07:17:00* Test Item Value Reference Range Interpretation Comments Calcium Level (test code = 16210-6) 9.2 8.4-10.2 [facility]manodium Ynmqq6623-31-97 07:17:00* Test Item Value Reference Range Interpretation Comments Sodium Level (test code = 2951-2) 136 136-145 [facility] CenterPotassium Vsjmv1480-02-37 07:17:00* Test Item Value Reference Range Interpretation Comments Potassium Level (test code = 2823-3) 3.9 3.5-5.1 [facility] CenterChloride Aprow9431-83-73 07:17:00* Test Item Value Reference Range Interpretation Comments Chloride Level (test code = 2075-0) 102 98-107 [facility] CenterCarbon Dioxide Upzmk0304-87-97 07:17:00* Test Item Value Reference Range Interpretation Comments Carbon Dioxide Level (test code = 2028-9) 26 22-29 [facility] CenterAnion Lbn1125-96-35 07:17:00* Test Item Value Reference Range Interpretation Comments Anion Gap (test code = 72695-2) 11.9 8-16 [facility] CenterBlood Urea Gzrveyml9337-39-16 07:17:00* Test Item Value Reference Range Interpretation Comments Blood Urea Nitrogen (test code = 3094-0) 15 7-26 [facility] CenterCreatinine2019-05-14 07:17:00* Test Item Value Reference Range Interpretation Comments Creatinine (test code = 2160-0) 1.24 0.72-1.25 [facility] CenterBUN/Creatinine Whrsq3547-21-52 07:17:00* Test Item Value Reference Range Interpretation Comments BUN/Creatinine Ratio (test code = 3097-3) 12 6-25 [facility] CenterEstimat Glomerular Filtration Rate 2019-01-30 07:17:00* Test Item Value Reference Range Interpretation Comments Estimat Glomerular Filtration Rate (test code = 580516724) 60 >60 Ranges were taken from the National Kidney Disease Education Program and the [facility] Foundation literature.Reference ranges:60 or greater: Fkjxdp97-25 ( for 3 consecutive months): Chronic kidney disease 15 or less: Kidney failureMethodist Charlton Medical CenterGlucose Nncfc5822-30-64 07:17:00* Test Item Value Reference Range Interpretation Comments Glucose Level (test code = NMR7167) 105 74-118 [facility] CenterCalcium Lpudh1091-23-56 07:17:00* Test Item Value Reference Range Interpretation Comments Calcium Level (test code = 95189-6) 9.2 8.4-10.2 [facility] CenterTotal Qknnwdjto5653-65-93 06:57:00* Test Item Value Reference Range Interpretation Comments Total Bilirubin (test code = 1975-2) 2.1 0.2-1.2 H [facility] CenterDirect Iazjyebze6997-31-25 06:57:00* Test Item Value Reference Range Interpretation Comments Direct Bilirubin (test code = 36927-3) 1.0 0.0-0.5 H [facility] CenterAspartate Amino Transf (AST/SGOT) 2019-01-30 06:57:00* Test Item Value Reference Range Interpretation Comments Aspartate Amino Transf (AST/SGOT) (test code = Aspartate Amino Transf (AST/SGOT)) 14 5-34 [facility] CenterAlanine Aminotransferase (ALT/SGPT) 2019-01-30 06:57:00* Test Item Value Reference Range Interpretation Comments Alanine Aminotransferase (ALT/SGPT) (test code = 1742-6) 14 0-55 [facility] CenterTotal Kjuvepb2515-78-75 06:57:00* Test Item Value Reference Range Interpretation Comments Total Protein (test code = 2885-2) 5.5 6.5-8.1 L [facility] CenterAlbumin2019-05-14 06:57:00* Test Item Value Reference Range Interpretation Comments Albumin (test code = 1751-7) 3.2 3.5-5.0 L [facility] CenterAlkaline Tkhbtoxnmrj3578-55-59 06:57:00* Test Item Value Reference Range Interpretation Comments Alkaline Phosphatase (test code = 6768-6) 60 40-150 [facility] CenterTotal Crbjijenz6819-63-78 06:57:00* Test Item Value Reference Range Interpretation Comments Total Bilirubin (test code = 1975-2) 2.1 0.2-1.2 H [facility] CenterDirect Oopojrawd6668-67-71 06:57:00* Test Item Value Reference Range Interpretation Comments Direct Bilirubin (test code = 56528-8) 1.0 0.0-0.5 H [facility] CenterAspartate Amino Transf (AST/SGOT) 2019-01-30 06:57:00* Test Item Value Reference Range Interpretation Comments Aspartate Amino Transf (AST/SGOT) (test code = Aspartate Amino Transf (AST/SGOT)) 14 5-34 [facility] CenterAlanine Aminotransferase (ALT/SGPT) 2019-01-30 06:57:00* Test Item Value Reference Range Interpretation Comments Alanine Aminotransferase (ALT/SGPT) (test code = 1742-6) 14 0-55 [facility] CenterTotal Vgkcegm0264-56-15 06:57:00* Test Item Value Reference Range Interpretation Comments Total Protein (test code = 2885-2) 5.5 6.5-8.1 L [facility] CenterAlbumin2019-05-14 06:57:00* Test Item Value Reference Range Interpretation Comments Albumin (test code = 1751-7) 3.2 3.5-5.0 L [facility] CenterAlkaline Omouqphuakn0876-38-80 06:57:00* Test Item Value Reference Range Interpretation Comments Alkaline Phosphatase (test code = 6768-6) 60 40-150 [facility] CenterTroponin G0166-57-48 06:28:00* Test Item Value Reference Range Interpretation Comments Troponin I (test code = JXK3776) < 0.001 0-0.300 [facility] CenterTroponin A9506-24-86 06:28:00* Test Item Value Reference Range Interpretation Comments Troponin I (test code = TDJ4355) < 0.001 0-0.300 [facility] CenterMagnesium Wrzzl4059-14-89 06:06:00* Test Item Value Reference Range Interpretation Comments Magnesium Level (test code = 45140-3) 1.8 1.3-2.1 [facility] CenterMagnesium Bfkcg1511-70-00 06:06:00* Test Item Value Reference Range Interpretation Comments Magnesium Level (test code = 20586-0) 1.8 1.3-2.1 [facility] CenterWhite Blood Omppb1179-35-12 06:01:00* Test Item Value Reference Range Interpretation Comments White Blood Count (test code = 6690-2) 7.13 4.8-10.8 [facility] CenterRed Blood Cgalj4593-38-19 06:01:00* Test Item Value Reference Range Interpretation Comments Red Blood Count (test code = 789-8) 4.17 4.3-5.7 L [facility] CenterHemoglobin2019-05-14 06:01:00* Test Item Value Reference Range Interpretation Comments Hemoglobin (test code = 94296-3) 13.3 14.0-18.0 L [facility] CenterHematocrit2019-05-14 06:01:00* Test Item Value Reference Range Interpretation Comments Hematocrit (test code = 4544-3) 37.2 38.2-49.6 L [facility] CenterMean Corpuscular Bdzzun1553-41-66 06:01:00* Test Item Value Reference Range Interpretation Comments Mean Corpuscular Volume (test code = 787-2) 89.2 81-99 [facility] CenterMean Corpuscular Gbywyhyraq0565-98-67 06:01:00* Test Item Value Reference Range Interpretation Comments Mean Corpuscular Hemoglobin (test code = 785-6) 31.9 28-32 [facility] CenterMean Corpuscular Hemoglobin Concent 2019-01-30 06:01:00* Test Item Value Reference Range Interpretation Comments Mean Corpuscular Hemoglobin Concent (test code = 786-4) 35.8 31-35 H [facility] CenterRed Cell Distribution Jykgo7324-35-98 06:01:00* Test Item Value Reference Range Interpretation Comments Red Cell Distribution Width (test code = 42396-4) 13.3 11.7 -14.4 [facility] CenterPlatelet Zgzqd3343-46-37 06:01:00* Test Item Value Reference Range Interpretation Comments Platelet Count (test code = 777-3) 171 140-360 [facility] CenterNeutrophils (%) (Auto)2019-01-30 06:01:00 * Test Item Value Reference Range Interpretation Comments Neutrophils (%) (Auto) (test code = 16299-7) 57.4 38.7-80.0 [facility] CenterLymphocytes (%) (Auto)2019-01-30 06:01:00 * Test Item Value Reference Range Interpretation Comments Lymphocytes (%) (Auto) (test code = 736-9) 28.2 18.0-39.1 [facility] CenterMonocytes (%) (Auto)2019-01-30 06:01:00* Test Item Value Reference Range Interpretation Comments Monocytes (%) (Auto) (test code = 5905-5) 12.2 4.4-11.3 H [facility] CenterEosinophils (%) (Auto)2019-01-30 06:01:00 * Test Item Value Reference Range Interpretation Comments Eosinophils (%) (Auto) (test code = 713-8) 1.5 0.0-6.0 [facility] CenterBasophils (%) (Auto)2019-01-30 06:01:00* Test Item Value Reference Range Interpretation Comments Basophils (%) (Auto) (test code = 706-2) 0.4 0.0-1.0 [facility] CenterIM GRANULOCYTES %2019-01-30 06:01:00* Test Item Value Reference Range Interpretation Comments IM GRANULOCYTES % (test code = IM GRANULOCYTES %) 0.3 0.0- 1.0 [facility] CenterNeutrophils # (Auto)2019-01-30 06:01:00* Test Item Value Reference Range Interpretation Comments Neutrophils # (Auto) (test code = 751-8) 4.1 2.1-6.9 [facility] CenterLymphocytes # (Auto)2019-01-30 06:01:00* Test Item Value Reference Range Interpretation Comments Lymphocytes # (Auto) (test code = 15719-8) 2.0 1.0-3.2 [facility] CenterMonocytes # (Auto)2019-01-30 06:01:00* Test Item Value Reference Range Interpretation Comments Monocytes # (Auto) (test code = 742-7) 0.9 0.2-0.8 H [facility] CenterEosinophils # (Auto)2019-01-30 06:01:00* Test Item Value Reference Range Interpretation Comments Eosinophils # (Auto) (test code = 711-2) 0.1 0.0-0.4 [facility] CenterBasophils # (Auto)2019-01-30 06:01:00* Test Item Value Reference Range Interpretation Comments Basophils # (Auto) (test code = 704-7) 0.0 0.0-0.1 [facility] CenterAbsolute Immature Granulocyte (auto 2019-01-30 06:01:00* Test Item Value Reference Range Interpretation Comments Absolute Immature Granulocyte (auto (melita t code = Absolute Immature Granulocyte (auto) 0.02 0-0.1 [facility] CenterProthrombin Ysqe6247-28-95 06:01:00* Test Item Value Reference Range Interpretation Comments Prothrombin Time (test code = 5902-2) 22.6 11.9-14.5 H [facility] CenterProthromb Time International Ratio 2019-01-30 06:01:00* Test Item Value Reference Range Interpretation Comments Prothromb Time International Ratio (test code = 6301-6) 1.92 Oral Anticoagulant Therapy INR Values:1. Low Intensity Therapy 1.5 - 2.02 . Moderate Intensity Therapy 2.0 - 3.03. High Intensity Therapy(1) 2.5 - 3. 54. High Intensity Therapy(2) 3.0 - 4.05. Panic Value INR > 5.0 [facility] CenterActivated Partial Thromboplast Time 2019-01-30 06:01:00* Test Item Value Reference Range Interpretation Comments Activated Partial Thromboplast Time (test code = 07675-8) 37.2 23.8-35.5 H [facility] CenterWhite Blood Fwxpi5959-98-05 06:01:00* Test Item Value Reference Range Interpretation Comments White Blood Count (test code = 6690-2) 7.13 4.8-10.8 [facility] CenterRed Blood Ldzgj0537-24-54 06:01:00* Test Item Value Reference Range Interpretation Comments Red Blood Count (test code = 789-8) 4.17 4.3-5.7 L [facility] CenterHemoglobin2019-05-14 06:01:00* Test Item Value Reference Range Interpretation Comments Hemoglobin (test code = 78517-0) 13.3 14.0-18.0 L [facility] CenterHematocrit2019-05-14 06:01:00* Test Item Value Reference Range Interpretation Comments Hematocrit (test code = 4544-3) 37.2 38.2-49.6 L [facility] CenterMean Corpuscular Njlodb1519-27-28 06:01:00* Test Item Value Reference Range Interpretation Comments Mean Corpuscular Volume (test code = 787-2) 89.2 81-99 [facility] CenterMean Corpuscular Rlumggtjvo8682-91-04 06:01:00* Test Item Value Reference Range Interpretation Comments Mean Corpuscular Hemoglobin (test code = 785-6) 31.9 28-32 [facility] CenterMean Corpuscular Hemoglobin Concent 2019-01-30 06:01:00* Test Item Value Reference Range Interpretation Comments Mean Corpuscular Hemoglobin Concent (test code = 786-4) 35.8 31-35 H [facility] CenterRed Cell Distribution Ypukk2224-25-82 06:01:00* Test Item Value Reference Range Interpretation Comments Red Cell Distribution Width (test code = 83364-5) 13.3 11.7 -14.4 [facility] CenterPlatelet Tiadq0667-92-51 06:01:00* Test Item Value Reference Range Interpretation Comments Platelet Count (test code = 777-3) 171 140-360 [facility] CenterNeutrophils (%) (Auto)2019-01-30 06:01:00 * Test Item Value Reference Range Interpretation Comments Neutrophils (%) (Auto) (test code = 92314-7) 57.4 38.7-80.0 [facility] CenterLymphocytes (%) (Auto)2019-01-30 06:01:00 * Test Item Value Reference Range Interpretation Comments Lymphocytes (%) (Auto) (test code = 736-9) 28.2 18.0-39.1 [facility] CenterMonocytes (%) (Auto)2019-01-30 06:01:00* Test Item Value Reference Range Interpretation Comments Monocytes (%) (Auto) (test code = 5905-5) 12.2 4.4-11.3 H [facility] CenterEosinophils (%) (Auto)2019-01-30 06:01:00 * Test Item Value Reference Range Interpretation Comments Eosinophils (%) (Auto) (test code = 713-8) 1.5 0.0-6.0 [facility] CenterBasophils (%) (Auto)2019-01-30 06:01:00* Test Item Value Reference Range Interpretation Comments Basophils (%) (Auto) (test code = 706-2) 0.4 0.0-1.0 [facility] CenterIM GRANULOCYTES %2019-01-30 06:01:00* Test Item Value Reference Range Interpretation Comments IM GRANULOCYTES % (test code = IM GRANULOCYTES %) 0.3 0.0- 1.0 [facility] CenterNeutrophils # (Auto)2019-01-30 06:01:00* Test Item Value Reference Range Interpretation Comments Neutrophils # (Auto) (test code = 751-8) 4.1 2.1-6.9 [facility] CenterLymphocytes # (Auto)2019-01-30 06:01:00* Test Item Value Reference Range Interpretation Comments Lymphocytes # (Auto) (test code = 58027-2) 2.0 1.0-3.2 [facility] CenterMonocytes # (Auto)2019-01-30 06:01:00* Test Item Value Reference Range Interpretation Comments Monocytes # (Auto) (test code = 742-7) 0.9 0.2-0.8 H [facility] CenterEosinophils # (Auto)2019-01-30 06:01:00* Test Item Value Reference Range Interpretation Comments Eosinophils # (Auto) (test code = 711-2) 0.1 0.0-0.4 [facility] CenterBasophils # (Auto)2019-01-30 06:01:00* Test Item Value Reference Range Interpretation Comments Basophils # (Auto) (test code = 704-7) 0.0 0.0-0.1 [facility] CenterAbsolute Immature Granulocyte (auto 2019-01-30 06:01:00* Test Item Value Reference Range Interpretation Comments Absolute Immature Granulocyte (auto (melita t code = Absolute Immature Granulocyte (auto) 0.02 0-0.1 [facility] CenterProthrombin Nwix4606-22-12 06:01:00* Test Item Value Reference Range Interpretation Comments Prothrombin Time (test code = 5902-2) 22.6 11.9-14.5 H [facility] CenterProthromb Time International Ratio 2019-01-30 06:01:00* Test Item Value Reference Range Interpretation Comments Prothromb Time International Ratio (test code = 6301-6) 1.92 Oral Anticoagulant Therapy INR Values:1. Low Intensity Therapy 1.5 - 2.02 . Moderate Intensity Therapy 2.0 - 3.03. High Intensity Therapy(1) 2.5 - 3. 54. High Intensity Therapy(2) 3.0 - 4.05. Panic Value INR > 5.0 [facility] CenterActivated Partial Thromboplast Time 2019-01-30 06:01:00* Test Item Value Reference Range Interpretation Comments Activated Partial Thromboplast Time (test code = 51862-8) 37.2 23.8-35.5 H [facility] CenterCreatine Kinase [id number] 10:18:00* Test Item Value Reference Range Interpretation Comments Creatine Kinase MB (test code = 83563-7) 0.60 0-5.0 [facility] CenterCreatine Kinase UM9553-08-39 10:18:00* Test Item Value Reference Range Interpretation Comments Creatine Kinase MB (test code = 09877-5) 0.60 0-5.0 [facility] SINGLE (PORTABLE)2019-01-29 10:10:00 [facility] [address] [address] Patient Name: BEN KRISHNAN MR #: [id number] : 1960 Age/Sex: 58/M Req #: [id number] Adm Physician: Ordered by: MATIAS HANDY MD Report #: [id number] Location: ER Room/Bed: Procedure: [id number] DX/CH EST SINGLE (PORTABLE) Exam Date: 01/29/19 Exam Time: 929 REPORT STATUS: Signed EXAM : CHEST SINGLE (PORTABLE) DATE: 01/29/2019 9:11 AM [...] 1028 COPY TO: MATIAS HANDY MD Creatine Burqnl1520-88-31 10:05:00* Test Item Value Reference Range Interpretation Comments Creatine Kinase (test code = 2157-6) 64 30-200 [facility] CenterCreatine Ouggue8244-58-55 10:05:00* Test Item Value Reference Range Interpretation Comments Creatine Kinase (test code = 2157-6) 64 30-200 [facility] CenterGlobulin2019-05-13 10:04:00* Test Item Value Reference Range Interpretation Comments Globulin (test code = 35637-1) 3.0 2.3-3.5 [facility] CenterAlbumin/Globulin Ukspf6183-59-14 10:04:00 * Test Item Value Reference Range Interpretation Comments Albumin/Globulin Ratio (test code = 1759-0) 1.3 0.8-2.0 [facility] CenterAmylase Thwxo2314-77-24 10:04:00* Test Item Value Reference Range Interpretation Comments Amylase Level (test code = 1798-8) 48 25-125 [facility] CenterLipase2019-05-13 10:04:00* Test Item Value Reference Range Interpretation Comments Lipase (test code = 3040-3) 41 8-78 [facility] CenterGlobulin2019-05-13 10:04:00* Test Item Value Reference Range Interpretation Comments Globulin (test code = 94023-2) 3.0 2.3-3.5 [facility] CenterAlbumin/Globulin Sfilu5975-03-76 10:04:00 * Test Item Value Reference Range Interpretation Comments Albumin/Globulin Ratio (test code = 1759-0) 1.3 0.8-2.0 [facility] CenterAmylase Zqtpw4231-20-24 10:04:00* Test Item Value Reference Range Interpretation Comments Amylase Level (test code = 1798-8) 48 25-125 [facility] CenterLipase2019-05-13 10:04:00* Test Item Value Reference Range Interpretation Comments Lipase (test code = 3040-3) 41 8-78 [facility] Tglzd0372-65-80 20:22:00* Test Item Value Reference Range Interpretation Comments Sodium Level (test code = 2951-2) 140 136-145 [facility] CenterPotassium Dyomu3010-25-02 20:22:00* Test Item Value Reference Range Interpretation Comments Potassium Level (test code = 2823-3) 3.7 3.5-5.1 [facility] CenterChloride Yixcb9719-93-15 20:22:00* Test Item Value Reference Range Interpretation Comments Chloride Level (test code = 2075-0) 102 98-107 [facility] CenterCarbon Dioxide Vagtk9364-12-57 20:22:00* Test Item Value Reference Range Interpretation Comments Carbon Dioxide Level (test code = 2028-9) 26 22-29 [facility] CenterAnion Jsi4754-26-75 20:22:00* Test Item Value Reference Range Interpretation Comments Anion Gap (test code = 74137-4) 15.7 8-16 [facility] CenterBlood Urea Buvirqwc1011-87-95 20:22:00* Test Item Value Reference Range Interpretation Comments Blood Urea Nitrogen (test code = 3094-0) 16 7-26 [facility] CenterCreatinine2018-11-17 20:22:00* Test Item Value Reference Range Interpretation Comments Creatinine (test code = 2160-0) 1.13 0.72-1.25 [facility] CenterBUN/Creatinine Dstns8171-58-87 20:22:00* Test Item Value Reference Range Interpretation Comments BUN/Creatinine Ratio (test code = 3097-3) 14 6-25 [facility] CenterEstimat Glomerular Filtration Rate 2018-08-05 20:22:00* Test Item Value Reference Range Interpretation Comments Estimat Glomerular Filtration Rate (test code = 097045634) > 60 >60 Ranges were taken from the National Kidney Disease Education Program and the [facility] Kid[facility] Foundation literature.Reference ranges:60 or greater: Zllvxh00-94 ( for 3 consecutive months): Chronic kidney disease 15 or less: Kidney failureMethodist Charlton Medical CenterGlucose Jlnnb5926-41-49 20:22:00* Test Item Value Reference Range Interpretation Comments Glucose Level (test code = NWZ3338) 206 74-118 H [facility] CenterCalcium Vqgvx0536-57-02 20:22:00* Test Item Value Reference Range Interpretation Comments Calcium Level (test code = 39470-1) 8.5 8.4-10.2 [facility] CenterTotal Rlrqixlni5742-65-38 20:22:00* Test Item Value Reference Range Interpretation Comments Total Bilirubin (test code = 1975-2) 2.1 0.2-1.2 H [facility] CenterAspartate Amino Transf (AST/SGOT) 2018-08-05 20:22:00* Test Item Value Reference Range Interpretation Comments Aspartate Amino Transf (AST/SGOT) (test code = Aspartate Amino Transf (AST/SGOT)) 11 5-34 [facility] CenterAlanine Aminotransferase (ALT/SGPT) 2018-08-05 20:22:00* Test Item Value Reference Range Interpretation Comments Alanine Aminotransferase (ALT/SGPT) (test code = 1742-6) 13 0-55 [facility] CenterTotal Uqtaobd6996-10-52 20:22:00* Test Item Value Reference Range Interpretation Comments Total Protein (test code = 2885-2) 5.8 6.5-8.1 L [facility] CenterAlbumin2018-11-17 20:22:00* Test Item Value Reference Range Interpretation Comments Albumin (test code = 1751-7) 3.5 3.5-5.0 [facility] CenterGlobulin2018-11-17 20:22:00* Test Item Value Reference Range Interpretation Comments Globulin (test code = 64342-8) 2.3 2.3-3.5 [facility] CenterAlbumin/Globulin Mwdxl0941-74-42 20:22:00 * Test Item Value Reference Range Interpretation Comments Albumin/Globulin Ratio (test code = 1759-0) 1.5 0.8-2.0 [facility] CenterAlkaline Ctozitjdjgc1301-43-54 20:22:00* Test Item Value Reference Range Interpretation Comments Alkaline Phosphatase (test code = 6768-6) 81 40-150 [facility] CenterProthrombin Rgnk8288-70-74 20:14:00* Test Item Value Reference Range Interpretation Comments Prothrombin Time (test code = 5902-2) 28.8 11.9-14.5 H [facility] CenterProthromb Time International Ratio 2018-08-05 20:14:00* Test Item Value Reference Range Interpretation Comments Prothromb Time International Ratio (test code = 6301-6) 2.49 Oral Anticoagulant Therapy INR Values:1. Low Intensity Therapy 1.5 - 2.02 . Moderate Intensity Therapy 2.0 - 3.03. High Intensity Therapy(1) 2.5 - 3. 54. High Intensity Therapy(2) 3.0 - 4.05. Panic Value INR > 5.0 [facility] CenterActivated Partial Thromboplast Time 2018-08-05 20:14:00* Test Item Value Reference Range Interpretation Comments Activated Partial Thromboplast Time (test code = 00523-5) 36.8 23.8-35.5 H [facility] CenterWhite Blood Csxsi1548-29-36 20:00:00* Test Item Value Reference Range Interpretation Comments White Blood Count (test code = 6690-2) 7.55 4.8-10.8 [facility] CenterRed Blood Weepb0930-97-18 20:00:00* Test Item Value Reference Range Interpretation Comments Red Blood Count (test code = 789-8) 5.33 4.3-5.7 [facility] CenterHemoglobin2018-11-17 20:00:00* Test Item Value Reference Range Interpretation Comments Hemoglobin (test code = 22363-6) 16.3 14.0-18.0 [facility] CenterHematocrit2018-11-17 20:00:00* Test Item Value Reference Range Interpretation Comments Hematocrit (test code = 4544-3) 46.6 38.2-49.6 [facility] CenterMean Corpuscular Hotpfw9651-15-19 20:00:00* Test Item Value Reference Range Interpretation Comments Mean Corpuscular Volume (test code = 787-2) 87.4 81-99 [facility] CenterMean Corpuscular Ehoekfnkii2353-96-86 20:00:00* Test Item Value Reference Range Interpretation Comments Mean Corpuscular Hemoglobin (test code = 785-6) 30.6 28-32 [facility] CenterMean Corpuscular Hemoglobin Concent 2018-08-05 20:00:00* Test Item Value Reference Range Interpretation Comments Mean Corpuscular Hemoglobin Concent (test code = 786-4) 35.0 31-35 [facility] CenterRed Cell Distribution Pdvvd2483-94-59 20:00:00* Test Item Value Reference Range Interpretation Comments Red Cell Distribution Width (test code = 80664-3) 13.2 11.7 -14.4 [facility] CenterPlatelet Dcdus7201-56-73 20:00:00* Test Item Value Reference Range Interpretation Comments Platelet Count (test code = 777-3) 181 140-360 [facility] CenterNeutrophils (%) (Auto)2018-08-05 20:00:00 * Test Item Value Reference Range Interpretation Comments Neutrophils (%) (Auto) (test code = 12967-0) 60.4 38.7-80.0 [facility] CenterLymphocytes (%) (Auto)2018-08-05 20:00:00 * Test Item Value Reference Range Interpretation Comments Lymphocytes (%) (Auto) (test code = 736-9) 26.6 18.0-39.1 [facility] CenterMonocytes (%) (Auto)2018-08-05 20:00:00* Test Item Value Reference Range Interpretation Comments Monocytes (%) (Auto) (test code = 5905-5) 11.5 4.4-11.3 H [facility] CenterEosinophils (%) (Auto)2018-08-05 20:00:00 * Test Item Value Reference Range Interpretation Comments Eosinophils (%) (Auto) (test code = 713-8) 0.8 0.0-6.0 [facility] CenterBasophils (%) (Auto)2018-08-05 20:00:00* Test Item Value Reference Range Interpretation Comments Basophils (%) (Auto) (test code = 706-2) 0.4 0.0-1.0 [facility] CenterIM GRANULOCYTES %2018-08-05 20:00:00* Test Item Value Reference Range Interpretation Comments IM GRANULOCYTES % (test code = IM GRANULOCYTES %) 0.3 0.0- 1.0 [facility] CenterNeutrophils # (Auto)2018-08-05 20:00:00* Test Item Value Reference Range Interpretation Comments Neutrophils # (Auto) (test code = 751-8) 4.6 2.1-6.9 [facility] CenterLymphocytes # (Auto)2018-08-05 20:00:00* Test Item Value Reference Range Interpretation Comments Lymphocytes # (Auto) (test code = 97397-7) 2.0 1.0-3.2 [facility] CenterMonocytes # (Auto)2018-08-05 20:00:00* Test Item Value Reference Range Interpretation Comments Monocytes # (Auto) (test code = 742-7) 0.9 0.2-0.8 H [facility] CenterEosinophils # (Auto)2018-08-05 20:00:00* Test Item Value Reference Range Interpretation Comments Eosinophils # (Auto) (test code = 711-2) 0.1 0.0-0.4 [facility] CenterBasophils # (Auto)2018-08-05 20:00:00* Test Item Value Reference Range Interpretation Comments Basophils # (Auto) (test code = 704-7) 0.0 0.0-0.1 [facility] CenterAbsolute Immature Granulocyte (auto 2018-08-05 20:00:00* Test Item Value Reference Range Interpretation Comments Absolute Immature Granulocyte (auto (melita t code = Absolute Immature Granulocyte (auto) 0.02 0-0.1 [facility] CenterCHEST 2 OSEYB2238-62-25 20:49:[address] [address] Patient Name: BEN KRISHNAN MR #: [id number] : 0 1960 Age/Sex: 57/M Req #: [id number] Adm Physician: Ordered by: MIMI CHI MD Report #: [id number] Location: ER [facility]/Bed: Procedure: [id number] DX/CHEST 2 VIEWS Exam D ate: 03/13/18 [...] COPY TO: MIMI CHI MD B-Type Natriuretic Hpadrlw4494-48-24 20:14:00* Test Item Value Reference Range Interpretation Comments B-Type Natriuretic Peptide (test code = 34254-8) 207.1 0-100 H [facility] CenterB-Type Natriuretic Gryocsp3042-49-07 20:14:00* Test Item Value Reference Range Interpretation Comments B-Type Natriuretic Peptide (test code = 01235-8) 207.1 0-100 H [facility] CenterB-Type Natriuretic Mufvnjm3758-06-25 20:14:00* Test Item Value Reference Range Interpretation Comments B-Type Natriuretic Peptide (test code = 52996-7) 207.1 0-100 H [facility] CenterCreatine Kinase EG9494-99-56 20:13:00* Test Item Value Reference Range Interpretation Comments Creatine Kinase MB (test code = 65993-2) 0.70 0-5.0 [facility] M3285-31-50 20:13:00* Test Item Value Reference Range Interpretation Comments Troponin I (test code = ATV6763) -0.001 0-0.300 [facility] CenterCreatine Kinase PA2936-43-65 20:13:00* Test Item Value Reference Range Interpretation Comments Creatine Kinase MB (test code = 88847-6) 0.70 0-5.0 [facility]op[facility] H1401-34-70 20:13:00* Test Item Value Reference Range Interpretation Comments Troponin I (test code = OWB6916) -0.001 0-0.300 [facility] CenterCreatine Kinase LD2181-63-66 20:13:00* Test Item Value Reference Range Interpretation Comments Creatine Kinase MB (test code = 38487-6) 0.70 0-5.0 [address] [place] 22093018-06-25 20:13:00* Test Item Value Reference Range Interpretation Comments Troponin I (test code = XLW9920) < 0.001 0-0.300 [facility] Leieo6401-59-79 20:07:00* Test Item Value Reference Range Interpretation Comments Sodium Level (test code = 2951-2) 142 136-145 [facility] CenterPotassium Lvkqe9442-73-38 20:07:00* Test Item Value Reference Range Interpretation Comments Potassium Level (test code = 2823-3) 4.0 3.5-5.1 [facility] CenterChloride Uowoy5324-66-24 20:07:00* Test Item Value Reference Range Interpretation Comments Chloride Level (test code = 2075-0) 101 98-107 [facility] CenterCarbon Dioxide Wfcps3975-83-49 20:07:00* Test Item Value Reference Range Interpretation Comments Carbon Dioxide Level (test code = 2028-9) 29 22-29 [facility] CenterAnion Qqy3444-98-42 20:07:00* Test Item Value Reference Range Interpretation Comments Anion Gap (test code = 66146-0) 16.0 8-16 [facility] CenterBlood Urea Sffmquyt1416-30-01 20:07:00* Test Item Value Reference Range Interpretation Comments Blood Urea Nitrogen (test code = 3094-0) 18 7-26 [facility] CenterCreatinine2018-06-25 20:07:00* Test Item Value Reference Range Interpretation Comments Creatinine (test code = 2160-0) 1.48 0.72-1.25 H [facility] CenterBUN/Creatinine Dtoee4418-63-26 20:07:00* Test Item Value Reference Range Interpretation Comments BUN/Creatinine Ratio (test code = 3097-3) 12 03-13 [facility] CenterEstimat Glomerular Filtration Rate 2018-03-13 20:07:00* Test Item Value Reference Range Interpretation Comments Estimat Glomerular Filtration Rate (test code = 99441-5) 49 >60 L Ranges were taken from the National Kidney Disease Education Program and the [facility] Kid[facility] Foundation literature.Reference ranges:60 or greater: Igpuba49-97 ( for 3 consecutive months): Chronic kidney disease 15 or less: Kidney failureMethodist Charlton Medical CenterGlucose Xghaz5712-99-49 20:07:00* Test Item Value Reference Range Interpretation Comments Glucose Level (test code = FZR4925) 106 74-118 [facility] CenterCalcium Tiwyr0961-12-50 20:07:00* Test Item Value Reference Range Interpretation Comments Calcium Level (test code = 39152-3) 9.4 8.4-10.2 [facility] CenterTotal Roavzhnsa0323-40-78 20:07:00* Test Item Value Reference Range Interpretation Comments Total Bilirubin (test code = 1975-2) 2.3 0.2-1.2 H [facility] CenterAspartate Amino Transf (AST/SGOT) 2018-03-13 20:07:00* Test Item Value Reference Range Interpretation Comments Aspartate Amino Transf (AST/SGOT) (test code = Aspartate Amino Transf (AST/SGOT)) 15 5-34 [facility] CenterAlanine Aminotransferase (ALT/SGPT) 2018-03-13 20:07:00* Test Item Value Reference Range Interpretation Comments Alanine Aminotransferase (ALT/SGPT) (test code = 1742-6) 18 0-55 [facility] CenterTotal Wwtqasi0750-65-08 20:07:00* Test Item Value Reference Range Interpretation Comments Total Protein (test code = 2885-2) 6.8 6.5-8.1 [facility] CenterAlbumin2018-06-25 20:07:00* Test Item Value Reference Range Interpretation Comments Albumin (test code = 1751-7) 3.8 3.5-5.0 [facility] CenterGlobulin2018-06-25 20:07:00* Test Item Value Reference Range Interpretation Comments Globulin (test code = 57472-4) 3.0 2.3-3.5 [facility] CenterAlbumin/Globulin Sbasb3620-68-75 20:07:00 * Test Item Value Reference Range Interpretation Comments Albumin/Globulin Ratio (test code = 1759-0) 1.3 0.8-2.0 [facility] CenterAlkaline Byvrnalsazm9995-92-02 20:07:00* Test Item Value Reference Range Interpretation Comments Alkaline Phosphatase (test code = 6768-6) 84 40-150 [facility] CenterCreatine Zzmhyd4976-49-75 20:07:00* Test Item Value Reference Range Interpretation Comments Creatine Kinase (test code = 2157-6) 52 30-200 [facility] Wiptb2336-79-86 20:07:00* Test Item Value Reference Range Interpretation Comments Sodium Level (test code = 2951-2) 142 136-145 [facility] CenterPotassium Zsjca0101-76-14 20:07:00* Test Item Value Reference Range Interpretation Comments Potassium Level (test code = 2823-3) 4.0 3.5-5.1 [facility] CenterChloride Nvqdq4800-90-67 20:07:00* Test Item Value Reference Range Interpretation Comments Chloride Level (test code = 2075-0) 101 98-107 [facility] CenterCarbon Dioxide Cjtjx4911-02-93 20:07:00* Test Item Value Reference Range Interpretation Comments Carbon Dioxide Level (test code = 8-9) 29 22-29 [facility] CenterAnion Cal5666-55-63 20:07:00* Test Item Value Reference Range Interpretation Comments Anion Gap (test code = 16862-6) 16.0 8-16 [facility] CenterBlood Urea Lpqhyvul0903-44-55 20:07:00* Test Item Value Reference Range Interpretation Comments Blood Urea Nitrogen (test code = 3094-0) 18 7-26 [facility] CenterCreatinine2018-06-25 20:07:00* Test Item Value Reference Range Interpretation Comments Creatinine (test code = 2160-0) 1.48 0.72-1.25 H [facility] CenterBUN/Creatinine Zpwja4315-65-97 20:07:00* Test Item Value Reference Range Interpretation Comments BUN/Creatinine Ratio (test code = 3097-3) 12 03-13 [facility] CenterEstimat Glomerular Filtration Rate 2018-03-13 20:07:00* Test Item Value Reference Range Interpretation Comments Estimat Glomerular Filtration Rate (test code = 84749-9) 49 >60 L Ranges were taken from the National Kidney Disease Education Program and the [facility] Kid[facility] Foundation literature.Reference ranges:60 or greater: Zspedn00-86 ( for 3 consecutive months): Chronic kidney disease 15 or less: Kidney failureMethodist Charlton Medical CenterGlucose Nvwlu8495-44-57 20:07:00* Test Item Value Reference Range Interpretation Comments Glucose Level (test code = LHC1219) 106 74-118 [facility] CenterCalcium Nrrsj8974-78-74 20:07:00* Test Item Value Reference Range Interpretation Comments Calcium Level (test code = 91327-2) 9.4 8.4-10.2 [facility] CenterTotal Dauaqrrlf6563-54-35 20:07:00* Test Item Value Reference Range Interpretation Comments Total Bilirubin (test code = 1975-2) 2.3 0.2-1.2 H [facility] CenterAspartate Amino Transf (AST/SGOT) 2018-03-13 20:07:00* Test Item Value Reference Range Interpretation Comments Aspartate Amino Transf (AST/SGOT) (test code = Aspartate Amino Transf (AST/SGOT)) 15 5-34 [facility] CenterAlanine Aminotransferase (ALT/SGPT) 2018-03-13 20:07:00* Test Item Value Reference Range Interpretation Comments Alanine Aminotransferase (ALT/SGPT) (test code = 1742-6) 18 0-55 [facility] CenterTotal Uzfzbfb1496-42-75 20:07:00* Test Item Value Reference Range Interpretation Comments Total Protein (test code = 2885-2) 6.8 6.5-8.1 [facility] CenterAlbumin2018-06-25 20:07:00* Test Item Value Reference Range Interpretation Comments Albumin (test code = 1751-7) 3.8 3.5-5.0 [facility] CenterGlobulin2018-06-25 20:07:00* Test Item Value Reference Range Interpretation Comments Globulin (test code = 36824-7) 3.0 2.3-3.5 [facility] CenterAlbumin/Globulin Vgeti0708-41-71 20:07:00 * Test Item Value Reference Range Interpretation Comments Albumin/Globulin Ratio (test code = 1759-0) 1.3 0.8-2.0 [facility] CenterAlkaline Ggzywrcaxax5056-79-63 20:07:00* Test Item Value Reference Range Interpretation Comments Alkaline Phosphatase (test code = 6768-6) 84 40-150 [facility] CenterCreatine Ivjehn3458-14-21 20:07:00* Test Item Value Reference Range Interpretation Comments Creatine Kinase (test code = 2157-6) 52 30-200 [facility] CenterCreatine Mwiqgk9607-38-69 20:07:00* Test Item Value Reference Range Interpretation Comments Creatine Kinase (test code = 2157-6) 52 30-200 [facility] CenterWhite Blood Hsxks1405-69-12 19:49:00* Test Item Value Reference Range Interpretation Comments White Blood Count (test code = 6690-2) 7.16 4.8-10.8 [facility] CenterRed Blood Xdyfw8276-41-01 19:49:00* Test Item Value Reference Range Interpretation Comments Red Blood Count (test code = 789-8) 4.96 4.3-5.7 [facility] CenterHemoglobin2018-06-25 19:49:00* Test Item Value Reference Range Interpretation Comments Hemoglobin (test code = 27467-7) 15.8 14.0-18.0 [facility] CenterHematocrit2018-06-25 19:49:00* Test Item Value Reference Range Interpretation Comments Hematocrit (test code = 4544-3) 43.1 38.2-49.6 [facility] CenterMean Corpuscular Iophhg6790-69-79 19:49:00* Test Item Value Reference Range Interpretation Comments Mean Corpuscular Volume (test code = 787-2) 86.9 81-99 [facility] CenterMean Corpuscular Zwmpfhhgkf4239-45-55 19:49:00* Test Item Value Reference Range Interpretation Comments Mean Corpuscular Hemoglobin (test code = 785-6) 31.9 28-32 [facility] Corpuscular Hemoglobin Concent 2018-03-13 19:49:00* Test Item Value Reference Range Interpretation Comments Mean Corpuscular Hemoglobin Concent (test code = 786-4) 36.7 31-35 [facility] CenterRed Cell Distribution Btrvo1592-02-10 19:49:00* Test Item Value Reference Range Interpretation Comments Red Cell Distribution Width (test code = 87602-1) 13.1 11.7 -14.4 [facility] CenterPlatelet Yddwn5258-43-87 19:49:00* Test Item Value Reference Range Interpretation Comments Platelet Count (test code = 777-3) 194 140-360 [facility] CenterNeutrophils (%) (Auto)2018-03-13 19:49:00 * Test Item Value Reference Range Interpretation Comments Neutrophils (%) (Auto) (test code = 88922-4) 58.5 38.7-80.0 [facility] CenterLymphocytes (%) (Auto)2018-03-13 19:49:00 * Test Item Value Reference Range Interpretation Comments Lymphocytes (%) (Auto) (test code = 736-9) 27.7 18.0-39.1 [facility] CenterMonocytes (%) (Auto)2018-03-13 19:49:00* Test Item Value Reference Range Interpretation Comments Monocytes (%) (Auto) (test code = 5905-5) 12.4 4.4-11.3 [facility] CenterEosinophils (%) (Auto)2018-03-13 19:49:00 * Test Item Value Reference Range Interpretation Comments Eosinophils (%) (Auto) (test code = 713-8) 0.8 0.0-6.0 [facility] CenterBasophils (%) (Auto)2018-03-13 19:49:00* Test Item Value Reference Range Interpretation Comments Basophils (%) (Auto) (test code = 706-2) 0.3 0.0-1.0 [facility] CenterIM GRANULOCYTES %2018-03-13 19:49:00* Test Item Value Reference Range Interpretation Comments IM GRANULOCYTES % (test code = IM GRANULOCYTES %) 0.3 0.0- 1.0 [facility] CenterNeutrophils # (Auto)2018-03-13 19:49:00* Test Item Value Reference Range Interpretation Comments Neutrophils # (Auto) (test code = 751-8) 4.2 2.1-6.9 [facility] CenterLymphocytes # (Auto)2018-03-13 19:49:00* Test Item Value Reference Range Interpretation Comments Lymphocytes # (Auto) (test code = 99971-8) 2.0 1.0-3.2 [facility] CenterMonocytes # (Auto)2018-03-13 19:49:00* Test Item Value Reference Range Interpretation Comments Monocytes # (Auto) (test code = 742-7) 0.9 0.2-0.8 [facility] CenterEosinophils # (Auto)2018-03-13 19:49:00* Test Item Value Reference Range Interpretation Comments Eosinophils # (Auto) (test code = 711-2) 0.1 0.0-0.4 [facility] CenterBasophils # (Auto)2018-03-13 19:49:00* Test Item Value Reference Range Interpretation Comments Basophils # (Auto) (test code = 704-7) 0.0 0.0-0.1 [facility] CenterAbsolute Immature Granulocyte (auto 2018-03-13 19:49:00* Test Item Value Reference Range Interpretation Comments Absolute Immature Granulocyte (auto (melita t code = Absolute Immature Granulocyte (auto) 0.02 0-0.1 [facility] CenterWhite Blood Mhauj5029-71-30 19:49:00* Test Item Value Reference Range Interpretation Comments White Blood Count (test code = 6690-2) 7.16 4.8-10.8 [facility] CenterRed Blood Xgyct6800-98-88 19:49:00* Test Item Value Reference Range Interpretation Comments Red Blood Count (test code = 789-8) 4.96 4.3-5.7 [facility] CenterHemoglobin2018-06-25 19:49:00* Test Item Value Reference Range Interpretation Comments Hemoglobin (test code = 40025-2) 15.8 14.0-18.0 [facility] CenterHematocrit2018-06-25 19:49:00* Test Item Value Reference Range Interpretation Comments Hematocrit (test code = 4544-3) 43.1 38.2-49.6 [facility] CenterMean Corpuscular Azxfmz7879-03-46 19:49:00* Test Item Value Reference Range Interpretation Comments Mean Corpuscular Volume (test code = 787-2) 86.9 81-99 [facility] CenterMean Corpuscular Rxauvsfwwd6964-94-51 19:49:00* Test Item Value Reference Range Interpretation Comments Mean Corpuscular Hemoglobin (test code = 785-6) 31.9 28-32 [facility] CenterMean Corpuscular Hemoglobin Concent 2018-03-13 19:49:00* Test Item Value Reference Range Interpretation Comments Mean Corpuscular Hemoglobin Concent (test code = 786-4) 36.7 31-35 [facility] CenterRed Cell Distribution Xgxnh1319-02-18 19:49:00* Test Item Value Reference Range Interpretation Comments Red Cell Distribution Width (test code = 52206-2) 13.1 11.7 -14.4 [facility] CenterPlatelet Nmail1979-32-27 19:49:00* Test Item Value Reference Range Interpretation Comments Platelet Count (test code = 777-3) 194 140-360 [facility] CenterNeutrophils (%) (Auto)2018-03-13 19:49:00 * Test Item Value Reference Range Interpretation Comments Neutrophils (%) (Auto) (test code = 37852-9) 58.5 38.7-80.0 [facility] CenterLymphocytes (%) (Auto)2018-03-13 19:49:00 * Test Item Value Reference Range Interpretation Comments Lymphocytes (%) (Auto) (test code = 736-9) 27.7 18.0-39.1 [facility] CenterMonocytes (%) (Auto)2018-03-13 19:49:00* Test Item Value Reference Range Interpretation Comments Monocytes (%) (Auto) (test code = 5905-5) 12.4 4.4-11.3 [facility] CenterEosinophils (%) (Auto)2018-03-13 19:49:00 * Test Item Value Reference Range Interpretation Comments Eosinophils (%) (Auto) (test code = 713-8) 0.8 0.0-6.0 [facility] CenterBasophils (%) (Auto)2018-03-13 19:49:00* Test Item Value Reference Range Interpretation Comments Basophils (%) (Auto) (test code = 706-2) 0.3 0.0-1.0 [facility] CenterIM GRANULOCYTES %2018-03-13 19:49:00* Test Item Value Reference Range Interpretation Comments IM GRANULOCYTES % (test code = IM GRANULOCYTES %) 0.3 0.0- 1.0 [facility] CenterNeutrophils # (Auto)2018-03-13 19:49:00* Test Item Value Reference Range Interpretation Comments Neutrophils # (Auto) (test code = 751-8) 4.2 2.1-6.9 [facility] CenterLymphocytes # (Auto)2018-03-13 19:49:00* Test Item Value Reference Range Interpretation Comments Lymphocytes # (Auto) (test code = 82160-9) 2.0 1.0-3.2 [facility] CenterMonocytes # (Auto)2018-03-13 19:49:00* Test Item Value Reference Range Interpretation Comments Monocytes # (Auto) (test code = 742-7) 0.9 0.2-0.8 [facility] CenterEosinophils # (Auto)2018-03-13 19:49:00* Test Item Value Reference Range Interpretation Comments Eosinophils # (Auto) (test code = 711-2) 0.1 0.0-0.4 [facility] CenterBasophils # (Auto)2018-03-13 19:49:00* Test Item Value Reference Range Interpretation Comments Basophils # (Auto) (test code = 704-7) 0.0 0.0-0.1 [facility] CenterAbsolute Immature Granulocyte (auto 2018-03-13 19:49:00* Test Item Value Reference Range Interpretation Comments Absolute Immature Granulocyte (auto (melita t code = Absolute Immature Granulocyte (auto) 0.02 0-0.1 [facility] Thsptza7795-19-68 14:04:00* Test Item Value Reference Range Interpretation Comments Bedside Glucose (test code = 81357-9) 111 70-120 Meter ID: [id number] Sol Medical Center Glucose 2018-02-13 14:04:00* Test Item Value Reference Range Interpretation Comments Bedside Glucose (test code = 36612-7) 111 70-120 Meter ID: [id number] [facility] Center Glucose 2018-02-13 14:04:00* Test Item Value Reference Range Interpretation Comments Bedside Glucose (test code = 48984-2) 111 70-120 Meter ID: [id number] [facility] 2018-02-13 14:04:00* Test Item Value Reference Range Interpretation Comments Bedside Glucose (test code = 67635-1) 111 70-120 Meter ID: [id number] [facility] AtlantaUrine INV1194-95-96 12:24:00* Test Item Value Reference Range Interpretation Comments Urine WBC (test code = 5821-4) 0-5 0-5 [facility] CenterUrine UWX3433-87-46 12:24:00* Test Item Value Reference Range Interpretation Comments Urine RBC (test code = 80610-0) 0-5 0-5 [facility] CenterUrine Womowyye7364-47-26 12:24:00* Test Item Value Reference Range Interpretation Comments Urine Bacteria (test code = 44033-6) NONE NONE [facility] CenterUrine Epithelial Nweas8261-17-05 12:24:00 * Test Item Value Reference Range Interpretation Comments Urine Epithelial Cells (test code = 34611-7) FEW NONE [facility] CenterUrine OSN3892-29-78 12:24:00* Test Item Value Reference Range Interpretation Comments Urine WBC (test code = 5821-4) 0-5 0-5 [facility] CenterUrine FOA7796-91-97 12:24:00* Test Item Value Reference Range Interpretation Comments Urine RBC (test code = 25714-6) 0-5 0-5 [facility] CenterUrine Twvoilga9385-30-39 12:24:00* Test Item Value Reference Range Interpretation Comments Urine Bacteria (test code = 11578-4) NONE NONE [facility] CenterUrine Epithelial Hilee4342-56-72 12:24:00 * Test Item Value Reference Range Interpretation Comments Urine Epithelial Cells (test code = 98377-6) FEW NONE [facility] CenterUrine CNE4675-06-89 12:24:00* Test Item Value Reference Range Interpretation Comments Urine WBC (test code = 5821-4) 0-5 0-5 [facility] CenterUrine WWI0196-77-83 12:24:00* Test Item Value Reference Range Interpretation Comments Urine RBC (test code = 17408-3) 0-5 0-5 [facility] CenterUrine Fiieorge8239-06-63 12:24:00* Test Item Value Reference Range Interpretation Comments Urine Bacteria (test code = 34697-3) NONE NONE [facility] CenterUrine Epithelial Yqqfm7981-50-19 12:24:00 * Test Item Value Reference Range Interpretation Comments Urine Epithelial Cells (test code = 76633-3) FEW NONE [facility] CenterUrine FQT7276-61-47 12:24:00* Test Item Value Reference Range Interpretation Comments Urine WBC (test code = 5821-4) 0-5 0-5 [facility] CenterUrine GRC8227-17-29 12:24:00* Test Item Value Reference Range Interpretation Comments Urine RBC (test code = 22639-7) 0-5 0-5 [facility] CenterUrine Huqmzzxe3888-41-84 12:24:00* Test Item Value Reference Range Interpretation Comments Urine Bacteria (test code = 53569-8) NONE NONE [facility] CenterUrine Epithelial Llozz2998-48-12 12:24:00 * Test Item Value Reference Range Interpretation Comments Urine Epithelial Cells (test code = 75781-2) FEW NONE [facility] CenterUrine Vpevc2696-12-53 12:18:00* Test Item Value Reference Range Interpretation Comments Urine Color (test code = 5778-6) YELLOW YELLOW [facility] CenterUrine Zaupvlc8199-51-26 12:18:00* Test Item Value Reference Range Interpretation Comments Urine Clarity (test code = 37942-3) CLEAR CLEAR [facility] CenterUrine Specific Koivvrj1873-79-70 12:18:00 * Test Item Value Reference Range Interpretation Comments Urine Specific [place] (test code = 5811-5) 1.015 1.010-1.02 5 [facility] CenterUrine iO0013-29-77 12:18:00* Test Item Value Reference Range Interpretation Comments Urine pH (test code = 85343-4) 7 5-7 [facility] CenterUrine Leukocyte Tninhowp9471-90-67 12:18:00* Test Item Value Reference Range Interpretation Comments Urine Leukocyte Esterase (test code = 5799-2) NEGATIVE NEGATIVE [facility] CenterUrine Iqnpjzi2722-94-35 12:18:00* Test Item Value Reference Range Interpretation Comments Urine Nitrite (test code = 94493-3) NEGATIVE NEGATIVE [facility] CenterUrine Rhovkdk4499-89-31 12:18:00* Test Item Value Reference Range Interpretation Comments Urine Protein (test code = 5804-0) NEGATIVE NEGATIVE [facility] CenterUrine Glucose (UA)2018-02-13 12:18:00* Test Item Value Reference Range Interpretation Comments Urine Glucose (UA) (test code = 2349-9) NEGATIVE NEGATIVE [facility] CenterUrine Aolfbbz7834-78-71 12:18:00* Test Item Value Reference Range Interpretation Comments Urine Ketones (test code = 38308-8) NEGATIVE NEGATIVE [facility] CenterUrine Pbthzxdxgmyp7415-67-60 12:18:00* Test Item Value Reference Range Interpretation Comments Urine Urobilinogen (test code = 52640-9) 1 0.2-1 [facility] CenterUrine Erbtcpvdi5335-22-94 12:18:00* Test Item Value Reference Range Interpretation Comments Urine Bilirubin (test code = 1978-6) NEGATIVE NEGATIVE [facility] CenterUrine Mbhya0143-91-92 12:18:00* Test Item Value Reference Range Interpretation Comments Urine Blood (test code = 33698-2) NEGATIVE NEGATIVE [facility] CenterUrine Mjidj0965-25-88 12:18:00* Test Item Value Reference Range Interpretation Comments Urine Color (test code = 5778-6) YELLOW YELLOW [facility] CenterUrine Wsxlkeo5307-29-52 12:18:00* Test Item Value Reference Range Interpretation Comments Urine Clarity (test code = 04424-8) CLEAR CLEAR [facility] CenterUrine Specific Jtdmvqk2674-57-49 12:18:00 * Test Item Value Reference Range Interpretation Comments Urine Specific [place] (test code = 5811-5) 1.015 1.010-1.02 5 [facility] CenterU[facility] wP3437-77-50 12:18:00* Test Item Value Reference Range Interpretation Comments Urine pH (test code = 76493-2) 7 5-7 [facility] CenterU[facility] Leukocyte Pfjgqfdf3716-72-28 12:18:00* Test Item Value Reference Range Interpretation Comments Urine Leukocyte Esterase (test code = 5799-2) NEGATIVE NEGATIVE [facility] CenterU[facility] Pntzbad8076-80-57 12:18:00* Test Item Value Reference Range Interpretation Comments Urine Nitrite (test code = 09098-7) NEGATIVE NEGATIVE [facility] CenterU[facility] Yrbylej2863-86-23 12:18:00* Test Item Value Reference Range Interpretation Comments Urine Protein (test code = 5804-0) NEGATIVE NEGATIVE [facility] Glucose (UA)2018-02-13 12:18:00* Test Item Value Reference Range Interpretation Comments Urine Glucose (UA) (test code = 2349-9) NEGATIVE NEGATIVE [facility] Gkxczqz3786-31-83 12:18:00* Test Item Value Reference Range Interpretation Comments Urine Ketones (test code = 36349-1) NEGATIVE NEGATIVE [facility] Yelqhsdszbuh1924-02-66 12:18:00* Test Item Value Reference Range Interpretation Comments Urine Urobilinogen (test code = 18420-4) 1 0.2-1 [facility] CenterU[facility] Uaehdapev7415-87-77 12:18:00* Test Item Value Reference Range Interpretation Comments Urine Bilirubin (test code = 1978-6) NEGATIVE NEGATIVE [facility] CenterU[facility] Uufvq1970-70-08 12:18:00* Test Item Value Reference Range Interpretation Comments Urine Blood (test code = 18277-8) NEGATIVE NEGATIVE [facility] CenterU[facility] Qxpwj2958-32-39 12:18:00* Test Item Value Reference Range Interpretation Comments Urine Color (test code = 5778-6) YELLOW YELLOW [facility] CenterU[facility] Aumblrm6705-37-08 12:18:00* Test Item Value Reference Range Interpretation Comments Urine Clarity (test code = 77753-2) CLEAR CLEAR [facility] CenterUrine Specific Oljncva7343-86-84 12:18:00 * Test Item Value Reference Range Interpretation Comments Urine Specific [place] (test code = 5811-5) 1.015 1.010-1.02 5 [facility] CenterU[facility] dF9870-65-97 12:18:00* Test Item Value Reference Range Interpretation Comments Urine pH (test code = 65222-1) 7 5-7 [facility] CenterU[facility] Leukocyte Kxmtpkls7323-29-13 12:18:00* Test Item Value Reference Range Interpretation Comments Urine Leukocyte Esterase (test code = 5799-2) NEGATIVE NEGATIVE [facility] Glniilg3363-22-26 12:18:00* Test Item Value Reference Range Interpretation Comments Urine Nitrite (test code = 29634-1) NEGATIVE NEGATIVE [facility] Hzeysix4001-58-13 12:18:00* Test Item Value Reference Range Interpretation Comments Urine Protein (test code = 5804-0) NEGATIVE NEGATIVE [facility] Glucose (UA)2018-02-13 12:18:00* Test Item Value Reference Range Interpretation Comments Urine Glucose (UA) (test code = 2349-9) NEGATIVE NEGATIVE [facility] Ysbignp2688-01-31 12:18:00* Test Item Value Reference Range Interpretation Comments Urine Ketones (test code = 51860-5) NEGATIVE NEGATIVE [facility] Rasrggcdytiu3069-78-75 12:18:00* Test Item Value Reference Range Interpretation Comments Urine Urobilinogen (test code = 79151-3) 1 0.2-1 [facility] Bvtmfphvw1266-97-22 12:18:00* Test Item Value Reference Range Interpretation Comments Urine Bilirubin (test code = 1978-6) NEGATIVE NEGATIVE [facility] Iijll7155-74-11 12:18:00* Test Item Value Reference Range Interpretation Comments Urine Blood (test code = 71789-9) NEGATIVE NEGATIVE [facility] CenterU[facility] Bunwy3213-33-07 12:18:00* Test Item Value Reference Range Interpretation Comments Urine Color (test code = 5778-6) YELLOW YELLOW [facility] CenterU[facility] Esmuyby1632-36-79 12:18:00* Test Item Value Reference Range Interpretation Comments Urine Clarity (test code = 85487-8) CLEAR CLEAR [facility] CenterUrine Specific Gsefghi2182-21-74 12:18:00 * Test Item Value Reference Range Interpretation Comments Urine Specific [place] (test code = 5811-5) 1.015 1.010-1.02 5 [facility] CenterU[facility] jI5775-54-32 12:18:00* Test Item Value Reference Range Interpretation Comments Urine pH (test code = 04356-4) 7 5-7 [facility] CenterU[facility] Leukocyte Wekxjqim5232-81-58 12:18:00* Test Item Value Reference Range Interpretation Comments Urine Leukocyte Esterase (test code = 5799-2) NEGATIVE NEGATIVE [facility] Pwuuopc2463-50-14 12:18:00* Test Item Value Reference Range Interpretation Comments Urine Nitrite (test code = 37942-1) NEGATIVE NEGATIVE [facility] Xokcnzj0257-30-91 12:18:00* Test Item Value Reference Range Interpretation Comments Urine Protein (test code = 5804-0) NEGATIVE NEGATIVE [facility] Glucose (UA)2018-02-13 12:18:00* Test Item Value Reference Range Interpretation Comments Urine Glucose (UA) (test code = 2349-9) NEGATIVE NEGATIVE [facility] Invadhn2458-36-58 12:18:00* Test Item Value Reference Range Interpretation Comments Urine Ketones (test code = 57392-4) NEGATIVE NEGATIVE [facility] Adtjgpdthkav0189-51-96 12:18:00* Test Item Value Reference Range Interpretation Comments Urine Urobilinogen (test code = 41247-4) 1 0.2-1 [facility] Qtqxjltql4509-39-14 12:18:00* Test Item Value Reference Range Interpretation Comments Urine Bilirubin (test code = 1978-6) NEGATIVE NEGATIVE [facility] Iahmi3955-35-57 12:18:00* Test Item Value Reference Range Interpretation Comments Urine Blood (test code = 29286-0) NEGATIVE NEGATIVE [facility] CenterB-Type Natriuretic Plpqvzu6816-89-91 11:49:00* Test Item Value Reference Range Interpretation Comments B-Type Natriuretic Peptide (test code = 19818-4) 156.2 0-100 H [facility] CenterCreatine Kinase AU7541-21-49 11:49:00* Test Item Value Reference Range Interpretation Comments Creatine Kinase MB (test code = 54930-5) 1.70 0-5.0 [facility] CenterTroponin Z3109-85-61 11:49:00* Test Item Value Reference Range Interpretation Comments Troponin I (test code = SGF8889) 0.004 0-0.300 [facility] Rfurm9308-34-21 11:43:00* Test Item Value Reference Range Interpretation Comments Sodium Level (test code = 2951-2) 142 136-145 [facility] CenterPotassium Imyov2275-48-30 11:43:00* Test Item Value Reference Range Interpretation Comments Potassium Level (test code = 2823-3) 3.8 3.5-5.1 [facility] CenterChloride Rimyv8999-69-03 11:43:00* Test Item Value Reference Range Interpretation Comments Chloride Level (test code = 2075-0) 103 98-107 [facility] CenterCarbon Dioxide Okyse0447-17-00 11:43:00* Test Item Value Reference Range Interpretation Comments Carbon Dioxide Level (test code = 2028-9) 28 22-29 [facility] CenterAnion Hdw4813-24-47 11:43:00* Test Item Value Reference Range Interpretation Comments Anion Gap (test code = 61890-0) 14.8 8-16 [facility] CenterBlood Urea Udqqtblw8321-55-66 11:43:00* Test Item Value Reference Range Interpretation Comments Blood Urea Nitrogen (test code = 3094-0) 17 7-26 [facility] CenterCreatinine2018-05-28 11:43:00* Test Item Value Reference Range Interpretation Comments Creatinine (test code = 2160-0) 1.22 0.72-1.25 [facility] CenterBUN/Creatinine Znupx7156-74-54 11:43:00* Test Item Value Reference Range Interpretation Comments BUN/Creatinine Ratio (test code = 3097-3) 14 6-25 [facility] CenterEstimat Glomerular Filtration Rate 2018-02-13 11:43:00* Test Item Value Reference Range Interpretation Comments Estimat Glomerular Filtration Rate (test code = 17152-3) 60- >60 Ranges were taken from the National Kidney Disease Education Program and the [facility] Kidney Foundation literature.Reference ranges:60 or greater: Fbjnxi85-91 ( for 3 consecutive months): Chronic kidney disease 15 or less: Kidney failureCHI [facility] AtlantaGlucose Jnhtt3289-42-44 11:43:00* Test Item Value Reference Range Interpretation Comments Glucose Level (test code = KGD9626) 128 74-118 H [facility] CenterCalcium Yqexa5051-05-42 11:43:00* Test Item Value Reference Range Interpretation Comments Calcium Level (test code = 83680-6) 9.4 8.4-10.2 [facility] CenterTotal Hpqxkfhhu6561-08-97 11:43:00* Test Item Value Reference Range Interpretation Comments Total Bilirubin (test code = 1975-2) 2.3 0.2-1.2 H [facility] CenterAspartate Amino Transf (AST/SGOT) 2018-02-13 11:43:00* Test Item Value Reference Range Interpretation Comments Aspartate Amino Transf (AST/SGOT) (test code = Aspartate Amino Transf (AST/SGOT)) 20 5-34 [facility] CenterAlanine Aminotransferase (ALT/SGPT) 2018-02-13 11:43:00* Test Item Value Reference Range Interpretation Comments Alanine Aminotransferase (ALT/SGPT) (test code = 1742-6) 21 0-55 [facility] CenterTotal Bzrkvxw4062-10-93 11:43:00* Test Item Value Reference Range Interpretation Comments Total Protein (test code = 2885-2) 6.6 6.5-8.1 [facility] CenterAlbumin2018-05-28 11:43:00* Test Item Value Reference Range Interpretation Comments Albumin (test code = 1751-7) 3.8 3.5-5.0 [facility] CenterGlobulin2018-05-28 11:43:00* Test Item Value Reference Range Interpretation Comments Globulin (test code = 57681-8) 2.8 2.3-3.5 [facility] CenterAlbumin/Globulin Kiddp2012-09-59 11:43:00 * Test Item Value Reference Range Interpretation Comments Albumin/Globulin Ratio (test code = 1759-0) 1.4 0.8-2.0 [facility] CenterAlkaline Seymsmqxeea8472-12-39 11:43:00* Test Item Value Reference Range Interpretation Comments Alkaline Phosphatase (test code = 6768-6) 78 40-150 [facility] CenterCreatine Nghfap0706-57-52 11:43:00* Test Item Value Reference Range Interpretation Comments Creatine Kinase (test code = 2157-6) 99 30-200 [facility] CenterLipase2018-05-28 11:43:00* Test Item Value Reference Range Interpretation Comments Lipase (test code = 3040-3) 48 8-78 [facility] CenterLipase2018-05-28 11:43:00* Test Item Value Reference Range Interpretation Comments Lipase (test code = 3040-3) 48 8-78 [facility] CenterLipase2018-05-28 11:43:00* Test Item Value Reference Range Interpretation Comments Lipase (test code = 3040-3) 48 8-78 [facility] CenterLipase2018-05-28 11:43:00* Test Item Value Reference Range Interpretation Comments Lipase (test code = 3040-3) 48 8-78 [facility] CenterProthrombin Vqjt1210-85-38 11:35:00* Test Item Value Reference Range Interpretation Comments Prothrombin Time (test code = 5902-2) 25.0 11.9-14.5 H [facility] CenterProthromb Time International Ratio 2018-02-13 11:35:00* Test Item Value Reference Range Interpretation Comments Prothromb Time International Ratio (test code = 6301-6) 2.45 Oral Anticoagulant Therapy INR Values:1. Low Intensity Therapy 1.5 - 2.02 . Moderate Intensity Therapy 2.0 - 3.03. High Intensity Therapy(1) 2.5 - 3. 54. High Intensity Therapy(2) 3.0 - 4.05. Panic Value INR > 5.0 [facility] CenterAct[facility] Partial Thromboplast Time 2018-02-13 11:35:00* Test Item Value Reference Range Interpretation Comments Activated Partial Thromboplast Time (test code = 97891-5) 37.5 23.8-35.5 [facility] CenterProthrombin [id number] 11:35:00* Test Item Value Reference Range Interpretation Comments Prothrombin Time (test code = 5902-2) 25.0 11.9-14.5 [facility] CenterProthromb Time International Ratio 2018-02-13 11:35:00* Test Item Value Reference Range Interpretation Comments Prothromb Time International Ratio (test code = 6301-6) 2.45 Oral Anticoagulant Therapy INR Values:1. Low Intensity Therapy 1.5 - 2.02 . Moderate Intensity Therapy 2.0 - 3.03. High Intensity Therapy(1) 2.5 - 3. 54. High Intensity Therapy(2) 3.0 - 4.05. Panic Value INR > 5.0 [facility] CenterAct[facility] Partial Thromboplast Time 2018-02-13 11:35:00* Test Item Value Reference Range Interpretation Comments Activated Partial Thromboplast Time (test code = 09584-4) 37.5 23.8-35.5 [facility] CenterProthrombin [id number] 11:35:00* Test Item Value Reference Range Interpretation Comments Prothrombin Time (test code = 5902-2) 25.0 11.9-14.5 [facility] CenterProthromb Time International Ratio 2018-02-13 11:35:00* Test Item Value Reference Range Interpretation Comments Prothromb Time International Ratio (test code = 6301-6) 2.45 Oral Anticoagulant Therapy INR Values:1. Low Intensity Therapy 1.5 - 2.02 . Moderate Intensity Therapy 2.0 - 3.03. High Intensity Therapy(1) 2.5 - 3. 54. High Intensity Therapy(2) 3.0 - 4.05. Panic Value INR > 5.0 [facility] CenterAct[facility] Partial Thromboplast Time 2018-02-13 11:35:00* Test Item Value Reference Range Interpretation Comments Activated Partial Thromboplast Time (test code = 21938-7) 37.5 23.8-35.5 [facility] CenterWhite Blood [id number] 11:24:00* Test Item Value Reference Range Interpretation Comments White Blood Count (test code = 6690-2) 6.89 4.8-10.8 [facility] CenterRed Blood Fxzqg2914-63-71 11:24:00* Test Item Value Reference Range Interpretation Comments Red Blood Count (test code = 789-8) 4.71 4.3-5.7 [facility] CenterHemoglobin2018-05-28 11:24:00* Test Item Value Reference Range Interpretation Comments Hemoglobin (test code = 20346-9) 14.9 14.0-18.0 [facility] CenterHematocrit2018-05-28 11:24:00* Test Item Value Reference Range Interpretation Comments Hematocrit (test code = 4544-3) 41.3 38.2-49.6 [facility] CenterMean Corpuscular Lkiuaj0235-93-89 11:24:00* Test Item Value Reference Range Interpretation Comments Mean Corpuscular Volume (test code = 787-2) 87.7 81-99 [facility] CenterMean Corpuscular Ldzykygjds5455-82-08 11:24:00* Test Item Value Reference Range Interpretation Comments Mean Corpuscular Hemoglobin (test code = 785-6) 31.6 28-32 [facility] CenterMean Corpuscular Hemoglobin Concent 2018-02-13 11:24:00* Test Item Value Reference Range Interpretation Comments Mean Corpuscular Hemoglobin Concent (test code = 786-4) 36.1 31-35 [facility] CenterRed Cell Distribution Iiacz7910-18-78 11:24:00* Test Item Value Reference Range Interpretation Comments Red Cell Distribution Width (test code = 92592-1) 13.2 11.7 -14.4 [facility] CenterPlatelet Bsphk2638-44-37 11:24:00* Test Item Value Reference Range Interpretation Comments Platelet Count (test code = 777-3) 195 140-360 [facility] CenterNeutrophils (%) (Auto)2018-02-13 11:24:00 * Test Item Value Reference Range Interpretation Comments Neutrophils (%) (Auto) (test code = 36723-3) 65.2 38.7-80.0 [facility] CenterLymphocytes (%) (Auto)2018-02-13 11:24:00 * Test Item Value Reference Range Interpretation Comments Lymphocytes (%) (Auto) (test code = 736-9) 22.1 18.0-39.1 [facility] CenterMonocytes (%) (Auto)2018-02-13 11:24:00* Test Item Value Reference Range Interpretation Comments Monocytes (%) (Auto) (test code = 5905-5) 11.0 4.4-11.3 [facility] CenterEosinophils (%) (Auto)2018-02-13 11:24:00 * Test Item Value Reference Range Interpretation Comments Eosinophils (%) (Auto) (test code = 713-8) 0.7 0.0-6.0 [facility] CenterBasophils (%) (Auto)2018-02-13 11:24:00* Test Item Value Reference Range Interpretation Comments Basophils (%) (Auto) (test code = 706-2) 0.6 0.0-1.0 [facility] CenterIM GRANULOCYTES %2018-02-13 11:24:00* Test Item Value Reference Range Interpretation Comments IM GRANULOCYTES % (test code = IM GRANULOCYTES %) 0.4 0.0- 1.0 [facility] CenterNeutrophils # (Auto)2018-02-13 11:24:00* Test Item Value Reference Range Interpretation Comments Neutrophils # (Auto) (test code = 751-8) 4.5 2.1-6.9 [facility] CenterLymphocytes # (Auto)2018-02-13 11:24:00* Test Item Value Reference Range Interpretation Comments Lymphocytes # (Auto) (test code = 27860-1) 1.5 1.0-3.2 [facility] CenterMonocytes # (Auto)2018-02-13 11:24:00* Test Item Value Reference Range Interpretation Comments Monocytes # (Auto) (test code = 742-7) 0.8 0.2-0.8 [facility] CenterEosinophils # (Auto)2018-02-13 11:24:00* Test Item Value Reference Range Interpretation Comments Eosinophils # (Auto) (test code = 711-2) 0.1 0.0-0.4 [facility] CenterBasophils # (Auto)2018-02-13 11:24:00* Test Item Value Reference Range Interpretation Comments Basophils # (Auto) (test code = 704-7) 0.0 0.0-0.1 [facility] CenterAbsolute Immature Granulocyte (auto 2018-02-13 11:24:00* Test Item Value Reference Range Interpretation Comments Absolute Immature Granulocyte (auto (melita t code = Absolute Immature Granulocyte (auto) 0.03 0-0.1 [facility] CenterCT [facility] [address] [place] [address] Patient Name: BEN KRISHNAN MR #: [id number] : 1960 Age/Sex: 57/M Req #: [id number] Adm Physician: Ordered by: DAMIAN ALEJO MD Report #: [id number] Location: ER Room/Bed: Procedure: [id number] CT/CT CHEST W Exam Date: Exam Time: [...] Signed By: DONAVAN DUNCAN MD on 02/13/18 1305 Transcribed By: GODWIN GARY on 02/13/18 1305 COPY TO: DAMIAN ALEJO MD CHEST SINGLE (PORTABLE) [place] [address] Patient Name: BEN KRISHNAN MR #: [id number] : 1960 Age/Sex: 57/M Req #: [id number] Adm Physician: Ordered by: BENSON BOWLING SENIOR BILLING CONSULTANT Report #: [id number] Location: ER Room/Bed: Procedure: [id number] DX/CHEST SINGLE (PORTABLE) E xam Date: 02/13/18 [...] 11:54 AM Dictated By: DONAVAN DUNCAN MD 53 Transcrib ed By: MARILUZ on 02/13/181153 COPY TO: BENSON BOWLING SENIOR BILLING CONSULTANT FOOT RIGHT COMPLETE [facility] [address] [place] [address] Patient Name: BEN KRISHNAN MR #: [id number] : 1960 Age/Sex: 57/M Req #: [id number] Adm Physician: Ordered by: ZACKARY SCHOFIELD MD Report #: [id number] Location: ER Room/Bed: Procedure: [id number] DX/FOOT RIGHT COMPLETE Exa m Date: 09/30/17 Exam Time: 2210 REPORT STATUS: [...] PM Dictated By: JAKI PACKER MD 35 COPY TO: ZACKARY ROJO MD CT ABDOMEN/PELVIS WO [address] [place], [place] [address] Patient Name: BEN KRISHNAN MR #: [id number] : 1960 Age/Sex: 57/M Req #: [id number] Adm Physician: Ordered by: PITA RENTERIA Report #: [id number] Location: ER Room/Bed: Procedure: [id number] CT/CT ABDOMEN/PELVIS RANDY Connie severiano Date: 07/04/17 Exam Time: 1936 REPORT STATU S: Signed EXAM: CT Abdomen [...] COPY TO: PITA RENTERIA CHEST 2 VIEWS [place] [address] Patient Name: BEN KRISHNAN MR #: [id number] : 1960 Age/Sex: 57/M Req #: [id number] Adm Physician: Ordered by: PITA RENTERIA Report #: [id number] Location: ER Room/Bed: Procedure: [id number] DX/CHEST 2 VIEWS Exam Marcellus e: 07/04/17 [...] IMPRESSION: No acute radiographic abnormality. Dictated by: Milton Godinez M.D. on 07/04/2017 at 18:54 Electronically approved by: Ben emmanuel M.D. on 07/04/2017 at 18:54 Dictated By: BEN GODINEZ MD 53 Transcribed By: ALBERT CASTANO on 07/04/171853 COPY TO: PITA RENTERIA
== END 2020-07-19 20:35 | disposition home or self-care (01) ==
LOC: ER 19:57
DX: S81.811A Laceration without foreign body, right lower leg, initial encounter (principal); X58.XXXA Exposure to other specified factors, initial encounter; Y92.008 Other place in unspecified non-institutional (private) residence as the place of occurrence of the external cause; Z79.01 Long term (current) use of anticoagulants; I10 Essential (primary) hypertension; E11.9 Type 2 diabetes mellitus without complications; E78.5 Hyperlipidemia, unspecified; I50.9 Heart failure, unspecified; G47.30 Sleep apnea, unspecified; Z86.718 Personal history of other venous thrombosis and embolism
CPT/HCPCS: 36415; 80048; 85025; 85610; 85730; 99282

== ENCOUNTER 2020-11-05 14:50 | Emergency (ER) | payer MEDICARE ==
[~2020-11-05] VITALS: Ht 185.4 cm; Wt 149.7 kg
== END 2020-11-05 22:17 | disposition home or self-care (01) ==
LOC: ER 15:00
DX: L25.9 Unspecified contact dermatitis, unspecified cause (principal); I10 Essential (primary) hypertension; E11.9 Type 2 diabetes mellitus without complications; E78.5 Hyperlipidemia, unspecified; N18.9 Chronic kidney disease, unspecified; K21.9 Gastro-esophageal reflux disease without esophagitis; F32.9 Major depressive disorder, single episode, unspecified; I50.9 Heart failure, unspecified; G47.30 Sleep apnea, unspecified; I25.2 Old myocardial infarction; Z95.810 Presence of automatic (implantable) cardiac defibrillator
CPT/HCPCS: 99282

== ENCOUNTER 2021-09-13 10:04 | Emergency (ER) | payer MEDICARE ==
[~2021-09-13] VITALS: Ht 185.4 cm; Wt 149.7 kg
[2021-09-13] MEDS ORDERED: METOCLOPRAMIDE HCL 10 MG/2ML VIAL IV NR (10:15)
[2021-09-13 10:35] LABS: BASOPHILS % 0.5 % (0.0-1.0); EOSINOPHILS # (AUTO) 0.1 (0.0-0.4); HEMATOCRIT 46.8 % (38.2-49.6); HEMOGLOBIN 15.8 g/dL (14.0-18.0); LYMPHOCYTES # (AUTO) 1.5 (1.0-3.2); LYMPHOCYTES % 24.5 % (18.0-39.1); MEAN CORPUSCULAR HEMOGLOBIN 31.7 pg (28-32); MEAN CORPUSCULAR HGB CONC 33.8 g/dL (31-35); MONOCYTES # (AUTO) 0.6 (0.2-0.8); MONOCYTES % 9.2 % (4.4-11.3); NEUTROPHILS # (AUTO) 3.9 (2.1-6.9); NEUTROPHILS % 64.5 % (38.7-80.0); PLATELET COUNT 187 x10e3/uL (140-360); RED BLOOD COUNT 4.98 x10e6/uL (4.3-5.7)
[2021-09-13 10:37] LABS: CLARITY,URINE CLEAR (CLEAR); COLOR,URINE AMBER (YELLOW)
[2021-09-13 10:38] LABS: KETONES,URINE NEGATIVE (NEGATIVE); LEUKOCYTE ESTERASE ,URINE NEGATIVE (NEGATIVE); NITRITE,URINE NEGATIVE (NEGATIVE); PROTEIN,URINE DIPSTICK 2+ (NEGATIVE); URINE UROBILINOGEN 0.2 mg/dL (0.2 - 1)
[2021-09-13 10:39] LABS: BACTERIA,URINE FEW /HPF; EPITHELIAL CELLS,URINE FEW /LPF; RBC,URINE 0-5 /HPF (0-5); WBC,URINE (MAN) 0-5 /HPF (0-5)
[2021-09-13 10:40] LABS: MUCUS,URINE FEW (RARE)
[2021-09-13] MEDS ORDERED: SODIUM CHLORIDE 0.9% 100 ML ONE (10:47)
[2021-09-13 10:54] LABS: ALBUMIN 3.6 g/dL (3.5-5.0); ALBUMIN/GLOBULIN RATIO 1.2 (0.8-2.0); ANION GAP 19.9 mmol/L (8-16); CALCIUM 8.6 mg/dL (8.4-10.2); CREATININE, SERUM 2.13 mg/dL (0.72-1.25); POTASSIUM 4.9 mmol/L (3.5-5.1)
[2021-09-13 10:57] LABS: ABG HCO3 27 mmol/L (22-26); ABG PCO2 45 mmHg (35-45); ABG PO2 60 mmHg (80-105); ABG TCO2 29
[2021-09-13] MEDS ORDERED: ONDANSETRON HCL INJ 2MG/ML 2ML 2 MG/ML VIAL IV NR (11:11)
[2021-09-13] MEDS ORDERED: SODIUM CHLORIDE 0.9% 500ML 500 ML IV ONE (11:15)
[2021-09-13] MEDS ORDERED: REGLAN10 MG PO ×2 (11:16→11:46)
[2021-09-13] MEDS ORDERED: ONDANSETRON HCL INJ 2MG/ML 2ML 2 MG/ML VIAL ONE (11:24)
== END 2021-09-13 11:48 | disposition home or self-care (01) ==
LOC: ER 10:15
DX: E11.43 Type 2 diabetes mellitus with diabetic autonomic (poly)neuropathy (principal); K31.84 Gastroparesis; I10 Essential (primary) hypertension; I50.9 Heart failure, unspecified; E78.5 Hyperlipidemia, unspecified; G47.30 Sleep apnea, unspecified; K21.9 Gastro-esophageal reflux disease without esophagitis; I25.2 Old myocardial infarction; Z95.810 Presence of automatic (implantable) cardiac defibrillator
CPT/HCPCS: 36415; 36600; 71045; 80053; 81001; 82010; 82805; 82948; 83690; 83880; 84484; 85025; 93005; 94799; 99284; J2405; J2765; J7040; J7050